=== PATIENT | male | born 1945 | race Caucasian/White ===

== ENCOUNTER 2017-05-20 22:29 | Inpatient (IN) | payer MEDICARE, OTHER ==
[~2017-05-20] VITALS: Ht 170.2 cm; Wt 59.0 kg
[2017-05-20] MEDS ORDERED: METHYL SALICYLATE/MENTHOL TOPICAL OINTMENT 29GM TUBE. TP PRN (23:00)
[2017-05-20] MEDS ORDERED: MAG HYDROX/AL HYDROX/SIMETH 30 ML ORAL.SUSP PO PRN (23:00)
[2017-05-20] MEDS ORDERED: MAGNESIUM HYDROXIDE 2,400 MG/30 ML ORAL.SUSP. PO PRN (23:00)
[2017-05-20] MEDS ORDERED: LISI-334 PO (23:24)
[2017-05-20] MEDS ORDERED: METF500T PO (23:24)
[2017-05-20] MEDS ORDERED: RISP0.5T24 PO (23:24)
[2017-05-20] MEDS ORDERED: OXYC-323 PO (23:24)
[2017-05-20] MEDS ORDERED: DULO60CA6 PO (23:24)
[2017-05-20] MEDS ORDERED: CYCL-331 PO (23:24)
[2017-05-20] MEDS ORDERED: METO25TA4 PO (23:24)
[2017-05-20] MEDS ORDERED: ALLO300T PO (23:24)
[2017-05-20] MEDS ORDERED: PANT40TA3 PO (23:24)
[2017-05-20] MEDS ORDERED: SENN1TAB7 PO (23:24)
[2017-05-20] MEDS ORDERED: LEVO25TA4 PO (23:24)
[2017-05-20] MEDS ORDERED: CYAN100T PO (23:24)
[2017-05-20] MEDS ORDERED: ASPI-630 PO (23:24)
[2017-05-20] MEDS ORDERED: GABA-586 PO (23:24)
[2017-05-20] MEDS ORDERED: HYDR25TA9 PO (23:24)
[2017-05-20] MEDS ORDERED: FERR325T14 PO (23:24)
[2017-05-21 03:30] VITALS: BP 148/95
[2017-05-21 06:07] VITALS: BP 152/90
[2017-05-21] MEDS: LEVOTHYROXINE 25 MCG TABLET. PO SCH (07:24)
[2017-05-21] MEDS: PANTOPRAZOLE 40 MG TABLET. PO SCH ×2 (07:24→16:41)
[2017-05-21] MEDS: metFORMIN 500 MG TABLET PO SCH (07:24)
[2017-05-21 07:28] LABS: BASO # 0.1 x10^3/uL (0.0-0.2); BASO % 2 % (0-3); EOS # 0.2 x10^3/uL (0.0-0.7); EOS % 3 % (0-3); HEMATOCRIT 36.7 % (39.0-53.0); HEMOGLOBIN 12.3 g/dL (13.0-17.5); LYMPH # 1.2 x10^3/uL (1.0-4.8); LYMPH % 19 % (24-48); MEAN CORPUSCULAR HEMOGLOBIN 29 pg (25-35); MEAN CORPUSCULAR HGB CONC 34 g/dL (31-37); MEAN CORPUSCULAR VOLUME 85 fL (79-100); MONO # 0.5 x10^3/uL (0.0-1.1); MONO % 7 % (0-9); NEUT # 4.5 x10^3uL (1.8-7.7); NEUT % 69 % (31-73); PLATELET COUNT 214 x10^3/uL (140-400); RED BLOOD COUNT 4.32 x10^6/uL (4.30-5.70); RED CELL DISTRIBUTION WIDTH 17.8 % (11.5-14.5); WHITE BLOOD COUNT 6.5 x10^3/uL (4.0-11.0)
[2017-05-21 07:41] LABS: ALBUMIN/GLOBULIN RATIO 0.7 (1.0-1.7); CALCIUM 10.1 mg/dL (8.5-10.1); GFR 73.2; MAGNESIUM 1.7 mg/dL (1.8-2.4); TOTAL BILIRUBIN 0.5 mg/dL (0.2-1.0); TOTAL PROTEIN 7.6 g/dL (6.4-8.2)
[2017-05-21] MEDS: NICOTINE 21MG PATCH. TD SCH (09:45)
[2017-05-21] MEDS: CYANOCOBALAMIN (VITAMIN B-12) 100 MCG TABLET PO SCH (09:45)
[2017-05-21] MEDS: SENNOSIDES/DOCUSATE 8.6/50MG TABLET. PO SCH (09:45)
[2017-05-21] MEDS: risperiDONE 0.5 MG TABLET. PO SCH ×3 (09:46→19:55)
[2017-05-21] MEDS: DULoxetine HCL 60 MG CAPSULE.DR PO SCH (09:46)
[2017-05-21] MEDS: GABAPENTIN 300 MG CAPSULE. PO SCH ×2 (09:46→19:56)
[2017-05-21] MEDS: hydroCHLOROthiazide 25 MG TABLET PO SCH (09:46)
[2017-05-21] MEDS: FERROUS SULFATE 325 MG TABLET. PO SCH (09:47)
[2017-05-21] MEDS: METOPROLOL TART IMMED RELEASE 25 MG TABLET PO SCH (09:47)
[2017-05-21] MEDS: ASPIRIN 81 MG TAB.CHEW PO SCH (09:47)
[2017-05-21] MEDS: LISINOPRIL 20 MG TABLET PO SCH ×2 (09:48→19:56)
[2017-05-21] MEDS: ALLOPURINOL 300 MG TABLET. PO SCH (09:50)
[2017-05-21 15:09] LABS: THYROID STIM HORMONE (TSH) 4.777 uIU/mL (0.358-3.740)
[2017-05-21 16:22] VITALS: BP 133/77
--- NOTE | 2017-05-21 18:51 | PDOC ---
Exam Note: Nabeel Note: Please also refer to the separate dictated note~for this date of service dictated separately.~Patient seen individually. Discussed the patient with Nursing staff reviewed the chart.~Reviewed interim history and current functioning. Reviewed vital signs,~Labs/ Radiology~and current medications noted below. Continue current treatment with the changes noted in the dictated addendum note Assessment: Vital Signs: Vital Signs Date Time Temp Pulse Resp B/P (MAP) Pulse Ox O2 Delivery O2 Flow Rate FiO2 05/21/17 16:22 97.5 76 18 133/77 (95) 97 Room Air I&O Intake and Output 05/21/17 07:00 Intake Total 0 ml Balance 0 ml Intake Oral 0 ml Labs: Laboratory Tests Test 05/21/17 06:48 05/21/17 07:40 White Blood Count 6.5 x10^3/uL (4.0-11.0) Red Blood Count 4.32 x10^6/uL (4.30-5.70) Hemoglobin 12.3 g/dL (13.0-17.5) L Hematocrit 36.7 % (39.0-53.0) L Mean Corpuscular Volume 85 fL (79-100) Mean Corpuscular Hemoglobin 29 pg (25-35) Mean Corpuscular Hemoglobin Concent 34 g/dL (31-37) Red Cell Distribution Width 17.8 % (11.5-14.5) H Platelet Count 214 x10^3/uL (140-400) Neutrophils (%) (Auto) 69 % (31-73) Lymphocytes (%) (Auto) 19 % (24-48) L Monocytes (%) (Auto) 7 % (0-9) Eosinophils (%) (Auto) 3 % (0-3) Basophils (%) (Auto) 2 % (0-3) Neutrophils # (Auto) 4.5 x10^3uL (1.8-7.7) Lymphocytes # (Auto) 1.2 x10^3/uL (1.0-4.8) Monocytes # (Auto) 0.5 x10^3/uL (0.0-1.1) Eosinophils # (Auto) 0.2 x10^3/uL (0.0-0.7) Basophils # (Auto) 0.1 x10^3/uL (0.0-0.2) Sodium Level 139 mmol/L (136-145) Potassium Level 4.0 mmol/L (3.5-5.1) Chloride Level 101 mmol/L (98-107) Carbon Dioxide Level 29 mmol/L (21-32) Anion Gap 9 (6-14) Blood Urea Nitrogen 15 mg/dL (8-26) Creatinine 1.0 mg/dL (0.7-1.3) Estimated GFR (Cockcroft-Gault) 73.2 BUN/Creatinine Ratio 15 (6-20) Glucose Level 104 mg/dL (70-99) H Calcium Level 10.1 mg/dL (8.5-10.1) Magnesium Level 1.7 mg/dL (1.8-2.4) L Iron Level 86 ug/dL (65-175) Total Iron Binding Capacity 230 ug/dL (250-450) L Iron Saturation 37 % (15-34) H Total Bilirubin 0.5 mg/dL (0.2-1.0) Aspartate Amino Transferase (AST) 24 U/L (15-37) Alanine Aminotransferase (ALT) 9 U/L (16-63) L Alkaline Phosphatase 81 U/L (46-116) Total Protein 7.6 g/dL (6.4-8.2) Albumin 3.0 g/dL (3.4-5.0) L Albumin/Globulin Ratio 0.7 (1.0-1.7) L Triglycerides Level 281 mg/dL (0-150) H Cholesterol Level 272 mg/dL (0-200) H LDL Cholesterol, Calculated 184 mg/dL (0-100) H VLDL Cholesterol, Calculated 56 mg/dL (0-40) H Non-HDL Cholesterol Calculated 240 mg/dL (0-129) H HDL Cholesterol 32 mg/dL (40-60) L Cholesterol/HDL Ratio 8.0 Thyroid Stimulating Hormone (TSH) 4.777 uIU/mL (0.358-3.740) Glucose (Fingerstick) 108 mg/dL (70-99) H Current Medications: Meds: Current Medications Multi-Ingredient Ointment (Analgesic [place]) 1 geovanna PRN QID PRN TP MUSCLE PAIN; Start 05/20/17 at 23:00 Al Hydroxide/Mg Hydroxide (Mylanta Plus Xs) 15 ml PRN AFTMEALHC PRN PO DYSPEPSIA; Start 05/20/17 at 23:00 Magnesium Hydroxide (Milk Of Magnesia) 2,400 mg PRN QHS PRN PO CONSTIPATION; Start 05/20/17 at 23:00 Nicotine (Nicoderm Cq 21mg) 1 patch DAILY TD Last administered on 05/21/17 09: 45; Start 05/21/17 at 09:00 Duloxetine HCl (Cymbalta) 120 mg DAILY PO Last administered on 05/21/17 09:46 ; Start 05/21/17 at 09:00 Risperidone (RisperDAL) 0.5 mg TID PO Last administered on 05/21/17 14:02; Start 05/21/17 at 09:00 Allopurinol (Zyloprim) 300 mg DAILY PO Last administered on 05/21/17 09:50; Start 05/21/17 at 09:00 Aspirin (Children'S Aspirin) 81 mg DAILY PO Last administered on 05/21/17 09: 47; Start 05/21/17 at 09:00 Cyanocobalamin (Vitamin B-12) 100 mcg DAILY PO Last administered on 05/21/17 09:45; Start 05/21/17 at 09:00 Cyclobenzaprine HCl (Flexeril) 10 mg PRN DAILY PRN PO MUSCLE SPASMS; Start at 04:00 Ferrous Sulfate (Feosol) 325 mg DAILY PO Last administered on 05/21/17 09:47; Start 05/21/17 at 09:00 Gabapentin (Neurontin) 300 mg BID PO Last administered on 05/21/17 09:46; Start 05/21/17 at 09:00 Hydrochlorothiazide (Hydrodiuril) 25 mg DAILY PO Last administered on 09:46; Start 05/21/17 at 09:00 Levothyroxine Sodium (Synthroid) 25 mcg DAILY07 PO Last administered on 07:24; Start 05/21/17 at 07:00 Lisinopril (Prinivil) 20 mg BID PO Last administered on 05/21/17 09:48; Start 05/21/17 at 09:00 Metformin HCl (Glucophage) 500 mg DAILYWBKFT PO Last administered on 05/21/17at 07:24; Start 05/21/17 at 08:00 Metoprolol Tartrate (Lopressor) 25 mg DAILY PO Last administered on 05/21/17at 09:47; Start 05/21/17 at 09:00 Pantoprazole Sodium (Protonix) 40 mg BIDBFRMEAL PO Last administered on at 16:41; Start 05/21/17 at 07:30 Senna/Docusate Sodium (Senna Plus) 1 tab DAILY PO Last administered on at 09:45; Start 05/21/17 at 09:00 Active Scripts Active Reported Senna-Docusate Sodium Tablet (Sennosides/Docusate Sodium) 1 Each Tablet 1 Cap PO DAILY Risperdal (Risperidone) 0.5 Mg Tablet 0.5 Mg PO TID Protonix (Pantoprazole Sodium) 40 Mg Tablet.dr 40 Mg PO BID Percocet 5-325 Mg Tablet (Oxycodone Hcl/Acetaminophen) 1 Each Tablet 1 Tab PO PRN TID PRN Metoprolol Tartrate 25 Mg Tablet 25 Mg PO DAILY Glucophage (Metformin Hcl) 500 Mg Tablet 500 Mg PO DAILYWBKFT Lisinopril 20 Mg Tablet 20 Mg PO BID Levothyroxine Sodium 25 Mcg Tablet 25 Mcg PO DAILYAC Hydrochlorothiazide Tablet (Hydrochlorothiazide) 25 Mg Tablet 25 Mg PO DAILY Gabapentin 300 Mg Capsule 300 Mg PO BID Ferrous Sulfate 325 Mg Tablet 325 Mg PO DAILY Cymbalta (Duloxetine Hcl) 60 Mg Capsule.dr 120 Mg PO Cyclobenzaprine Hcl 10 Mg Tablet 10 Mg PO PRN DAILY PRN Vitamin B-12 (Cyanocobalamin (Vitamin B-12)) 100 Mcg Tablet 100 Mcg PO DAILY Aspirin 81 Mg Tab.chew 81 Mg PO DAILY Allopurinol 300 Mg Tablet 300 Mg PO DAILY I have reviewed the current psychotropics carefully including drug interactions. Risk benefit ratio favors no change other than as noted in my dictated progress note. Diagnosis: Problems: (1) Anxiety disorder (2) Bipolar affective, mixed (3) Cerebrovascular accident (CVA) due to vascular occlusion (4) Mild cognitive impairment (5) Impulse control disorder MELISSA CARDOZO MD May 21, 2017 18:51
[2017-05-21 19:52] LABS: CLARITY,URINE HAZY; COLOR,URINE YELLOW
[2017-05-21 19:53] LABS: BACTERIA,URINE 0 /HPF (0-FEW); BILIRUBIN,URINE NEG (NEG); GLUCOSE,URINE NEG (NEG); NITRITE,URINE NEG (NEG); SQUAMOUS EPITHELIAL CELL,UR FEW /LPF; UROBILINOGEN,URINE 0.2 mg/dL (0.2 mg/dL); WBC,URINE OCC /HPF (0-4)
[2017-05-21 20:10] LABS: T3 TOTAL 100 ng/dL (71-180); THYROXINE 8.7 ug/dL (4.5-12.0)
--- NOTE | 2017-05-21 20:24 | PDOC ---
Exam Note: Nabeel Note: Please also refer to the separate dictated note~for this date of service dictated separately.~Patient seen individually. Discussed the patient with Nursing staff reviewed the chart.~Reviewed interim history and current functioning. Reviewed vital signs,~Labs/ Radiology~and current medications noted below. Continue current treatment with the changes noted in the dictated addendum note Assessment: Vital Signs: Vital Signs Date Time Temp Pulse Resp B/P (MAP) Pulse Ox O2 Delivery O2 Flow Rate FiO2 05/21/17 19:56 76 133/77 05/21/17 16:22 97.5 18 97 Room Air I&O Intake and Output 05/21/17 07:00 Intake Total 0 ml Balance 0 ml Intake Oral 0 ml Labs: Laboratory Tests Test 05/21/17 06:48 05/21/17 07:40 05/21/17 18:05 White Blood Count 6.5 x10^3/uL (4.0-11.0) Red Blood Count 4.32 x10^6/uL (4.30-5.70) Hemoglobin 12.3 g/dL (13.0-17.5) L Hematocrit 36.7 % (39.0-53.0) L Mean Corpuscular Volume 85 fL (79-100) Mean Corpuscular Hemoglobin 29 pg (25-35) Mean Corpuscular Hemoglobin Concent 34 g/dL (31-37) Red Cell Distribution Width 17.8 % (11.5-14.5) H Platelet Count 214 x10^3/uL (140-400) Neutrophils (%) (Auto) 69 % (31-73) Lymphocytes (%) (Auto) 19 % (24-48) L Monocytes (%) (Auto) 7 % (0-9) Eosinophils (%) (Auto) 3 % (0-3) Basophils (%) (Auto) 2 % (0-3) Neutrophils # (Auto) 4.5 x10^3uL (1.8-7.7) Lymphocytes # (Auto) 1.2 x10^3/uL (1.0-4.8) Monocytes # (Auto) 0.5 x10^3/uL (0.0-1.1) Eosinophils # (Auto) 0.2 x10^3/uL (0.0-0.7) Basophils # (Auto) 0.1 x10^3/uL (0.0-0.2) Sodium Level 139 mmol/L (136-145) Potassium Level 4.0 mmol/L (3.5-5.1) Chloride Level 101 mmol/L (98-107) Carbon Dioxide Level 29 mmol/L (21-32) Anion Gap 9 (6-14) Blood Urea Nitrogen 15 mg/dL (8-26) Creatinine 1.0 mg/dL (0.7-1.3) Estimated GFR (Cockcroft-Gault) 73.2 BUN/Creatinine Ratio 15 (6-20) Glucose Level 104 mg/dL (70-99) H Calcium Level 10.1 mg/dL (8.5-10.1) Magnesium Level 1.7 mg/dL (1.8-2.4) L Iron Level 86 ug/dL (65-175) Total Iron Binding Capacity 230 ug/dL (250-450) L Iron Saturation 37 % (15-34) H Total Bilirubin 0.5 mg/dL (0.2-1.0) Aspartate Amino Transferase (AST) 24 U/L (15-37) Alanine Aminotransferase (ALT) 9 U/L (16-63) L Alkaline Phosphatase 81 U/L (46-116) Total Protein 7.6 g/dL (6.4-8.2) Albumin 3.0 g/dL (3.4-5.0) L Albumin/Globulin Ratio 0.7 (1.0-1.7) L Triglycerides Level 281 mg/dL (0-150) H Cholesterol Level 272 mg/dL (0-200) H LDL Cholesterol, Calculated 184 mg/dL (0-100) H VLDL Cholesterol, Calculated 56 mg/dL (0-40) H Non-HDL Cholesterol Calculated 240 mg/dL (0-129) H HDL Cholesterol 32 mg/dL (40-60) L Cholesterol/HDL Ratio 8.0 Thyroid Stimulating Hormone (TSH) 4.777 uIU/mL (0.358-3.740) Thyroxine (T4) 8.7 ug/dL (4.5-12.0) Total Triiodothyronine (TT3) 100 ng/dL (71-180) Rapid Plasma Reagin Pending Glucose (Fingerstick) 108 mg/dL (70-99) H Urine Collection Type Unknown Urine Color Yellow Urine Clarity Hazy Urine pH 7.0 Urine Specific Hazel 1.010 Urine Protein Neg (NEG-TRACE) Urine Glucose (UA) Neg mg/dL (NEG) Urine Ketones (Stick) Neg mg/dL (NEG) Urine Blood Trace (NEG) Urine Nitrite Neg (NEG) Urine Bilirubin Neg (NEG) Urine Urobilinogen Dipstick 0.2 mg/dL (0.2 mg/dL) Urine Leukocyte Esterase Neg (NEG) Urine RBC 3-5 /HPF (0-2) Urine WBC Occ /HPF (0-4) Urine Squamous Epithelial Cells Few /LPF Urine Bacteria 0 /HPF (0-FEW) Current Medications: Meds: Current Medications Multi-Ingredient Ointment (Analgesic [place]) 1 geovanna PRN QID PRN TP MUSCLE PAIN; Start 05/20/17 at 23:00 Al Hydroxide/Mg Hydroxide (Mylanta Plus Xs) 15 ml PRN AFTMEALHC PRN PO DYSPEPSIA; Start 05/20/17 at 23:00 Magnesium Hydroxide (Milk Of Magnesia) 2,400 mg PRN QHS PRN PO CONSTIPATION; Start 05/20/17 at 23:00 Nicotine (Nicoderm Cq 21mg) 1 patch DAILY TD Last administered on 05/21/17at 09: 45; Start 05/21/17 at 09:00 Duloxetine HCl (Cymbalta) 120 mg DAILY PO Last administered on 05/21/17at 09:46 ; Start 05/21/17 at 09:00 Risperidone (RisperDAL) 0.5 mg TID PO Last administered on 05/21/17at 19:55; Start 05/21/17 at 09:00 Allopurinol (Zyloprim) 300 mg DAILY PO Last administered on 05/21/17at 09:50; Start 05/21/17 at 09:00 Aspirin (Children'S Aspirin) 81 mg DAILY PO Last administered on 05/21/17at 09: 47; Start 05/21/17 at 09:00 Cyanocobalamin (Vitamin B-12) 100 mcg DAILY PO Last administered on 05/21/17at 09:45; Start 05/21/17 at 09:00 Cyclobenzaprine HCl (Flexeril) 10 mg PRN DAILY PRN PO MUSCLE SPASMS; Start at 04:00 Ferrous Sulfate (Feosol) 325 mg DAILY PO Last administered on 05/21/17 09:47; Start 05/21/17 at 09:00 Gabapentin (Neurontin) 300 mg BID PO Last administered on 05/21/17 19:56; Start 05/21/17 at 09:00 Hydrochlorothiazide (Hydrodiuril) 25 mg DAILY PO Last administered on 09:46; Start 05/21/17 at 09:00 Levothyroxine Sodium (Synthroid) 25 mcg DAILY07 PO Last administered on 07:24; Start 05/21/17 at 07:00 Lisinopril (Prinivil) 20 mg BID PO Last administered on 05/21/17 19:56; Start 05/21/17 at 09:00 Metformin HCl (Glucophage) 500 mg DAILYWBKFT PO Last administered on 05/21/17 07:24; Start 05/21/17 at 08:00 Metoprolol Tartrate (Lopressor) 25 mg DAILY PO Last administered on 05/21/17 09:47; Start 05/21/17 at 09:00 Pantoprazole Sodium (Protonix) 40 mg BIDBFRMEAL PO Last administered on 16:41; Start 05/21/17 at 07:30 Senna/Docusate Sodium (Senna Plus) 1 tab DAILY PO Last administered on 09:45; Start 05/21/17 at 09:00 Active Scripts Active Reported Senna-Docusate Sodium Tablet (Sennosides/Docusate Sodium) 1 Each Tablet 1 Cap PO DAILY Risperdal (Risperidone) 0.5 Mg Tablet 0.5 Mg PO TID Protonix (Pantoprazole Sodium) 40 Mg Tablet.dr 40 Mg PO BID Percocet 5-325 Mg Tablet (Oxycodone Hcl/Acetaminophen) 1 Each Tablet 1 Tab PO PRN TID PRN Metoprolol Tartrate 25 Mg Tablet 25 Mg PO DAILY Glucophage (Metformin Hcl) 500 Mg Tablet 500 Mg PO DAILYWBKFT Lisinopril 20 Mg Tablet 20 Mg PO BID Levothyroxine Sodium 25 Mcg Tablet 25 Mcg PO DAILYAC Hydrochlorothiazide Tablet (Hydrochlorothiazide) 25 Mg Tablet 25 Mg PO DAILY Gabapentin 300 Mg Capsule 300 Mg PO BID Ferrous Sulfate 325 Mg Tablet 325 Mg PO DAILY Cymbalta (Duloxetine Hcl) 60 Mg Capsule. 120 Mg PO Cyclobenzaprine Hcl 10 Mg Tablet 10 Mg PO PRN DAILY PRN Vitamin B-12 (Cyanocobalamin (Vitamin B-12)) 100 Mcg Tablet 100 Mcg PO DAILY Aspirin 81 Mg Tab.chew 81 Mg PO DAILY Allopurinol 300 Mg Tablet 300 Mg PO DAILY I have reviewed the current psychotropics carefully including drug interactions. Risk benefit ratio favors no change other than as noted in my dictated progress note. Diagnosis: Problems: (1) Anxiety disorder (2) Impulse control disorder (3) Bipolar affective, mixed (4) Mild cognitive impairment (5) Cerebrovascular accident (CVA) due to vascular occlusion MELISSA CARDOZO MD May 21, 2017 20:24
[2017-05-21 20:52] LABS: HYALINE CASTS, URINE OCC /HPF
--- NOTE | 2017-05-21 23:57 | CONS ---
DATE OF CONSULTATION: 05/21/2017 REASON FOR CONSULTATION: Medical management. HISTORY OF PRESENT ILLNESS: The patient is a 71-year-old male patient who basically has been more agitated with anger outbursts, verbally and physically aggressive, all this in a background of bipolar disorder, mixed with psychotic features and impulse control disorder and was admitted for inpatient psychiatric stabilization. PAST MEDICAL HISTORY: Significant for hypertension, abdominal aortic aneurysm, cerebrovascular accident, COPD, gastroesophageal reflux disease, hypothyroidism. SOCIAL HISTORY: He apparently lives at home. His ex- takes care of him. FAMILY HISTORY: Significant for the fact that his mother at age of 77 and father at age of 75. His mother had chronic obstructive pulmonary disease as well as diabetes mellitus. His father had cardiac disorder, diabetes mellitus. ALLERGIES: He is allergic to ERYTHROMYCIN GEMFIBROZIL, LOVASTATIN, SIMVASTATIN, and TRAMADOL. MEDICATIONS: He is currently on following medications: He is on allopurinol 300 mg once a day, aspirin 81 mg once a day, cyanocobalamin 100 mcg tablet once a day, cyclobenzaprine 10 mg daily p.r.n. for muscle spasm, duloxetine for Cymbalta 120 mg daily, ferrous sulfate 325 mg daily, gabapentin 300 mg twice a day, hydrochlorothiazide 25 mg once a day, levothyroxine sodium 25 mcg once a day, lisinopril 20 mg once a day, metformin 500 mg daily with breakfast, metoprolol tartrate 25 mg daily, oxycodone/CPAP 5/325 one tablet 3 times a day as needed, Protonix 40 mg once a day, risperidone 0.5 mg 3 times a day, and Senna-S one capsule daily. REVIEW OF SYSTEMS: As in history of present illness. PHYSICAL EXAMINATION: GENERAL: On examining him, he was pale, somewhat cachectic, but no jaundice, cyanosis, or thyromegaly. No jugular venous distension. No limb edema. VITAL SIGNS: His heart rate was 76, blood pressure was 132/77, temperature was 97.5, respiratory rate was 18, and oxygen saturation was 97%. HEAD, EYES, EAR, NOSE, AND THROAT: Normocephalic, atraumatic. NECK: Supple. HEART: Showed normal first and second heart sounds with no gallop, rub, or murmur. CHEST: Clear to auscultation. No crepitation or rhonchi. ABDOMEN: Distended, soft, nontender. NEUROLOGIC: He is awake, alert. All his cranial nerves are intact. He moves extremities without difficulty, ambulates without assistance or assistive devices. LABORATORY DATA: Showed a white cell count 6500, hemoglobin 12, hematocrit 36, MCV 85, and platelet count of 214,000. His chemistry showed serum sodium of 139, potassium 4, chloride 101, bicarbonate 29, anion gap of 9, BUN 15, creatinine 1, estimated GFR was 73 mL per minute, glucose 104. His calcium was 7.1, magnesium was 1.7. Serum iron was 86, TIBC was 230, and percent saturation was 37. Total bilirubin, AST, ALT, alkaline phosphatase were normal. Total protein was 7.6, albumin 3, serum triglycerides were 281. Total cholesterol was 172, LDL was 184, VLDL was 56, and HDL cholesterol 32, and the ratio was 8. TSH was 4.77. IMPRESSION: In summary, this is a 71-year-old male patient who basically was seen originally at [facility] with the account of increasing agitation, anger outbursts, verbally and physically aggressive. He has multiple medical problems including hypertension, abdominal aortic aneurysm, cerebrovascular accident, COPD, gastroesophageal reflux disease, and hypothyroidism. All in all, the patient seemed to be medically stable. His vital signs are within normal range. His lab works are all within acceptable range. I will continue with current plan of management. I will follow all his lab works that are still pending and make any necessary recommendation. Thank you, Dr. De La Vega, for allowing me to participate in the care of this patient. MARCELLUS LOPEZ MD DR: GUILLERMO/daniel JOB#: [id number] / [id number]
[2017-05-22 03:18] LABS: HEMOGLOBIN A1C 6.3 % (4.8-5.6)
[2017-05-22 05:58] VITALS: BP 119/80
[2017-05-22] MEDS: LEVOTHYROXINE 25 MCG TABLET. PO SCH (06:01)
[2017-05-22] MEDS: GABAPENTIN 300 MG CAPSULE. PO SCH ×2 (07:52→19:39)
[2017-05-22] MEDS: risperiDONE 0.5 MG TABLET. PO SCH ×3 (07:52→19:39)
[2017-05-22] MEDS: metFORMIN 500 MG TABLET PO SCH (07:52)
[2017-05-22] MEDS: SENNOSIDES/DOCUSATE 8.6/50MG TABLET. PO SCH (07:52)
[2017-05-22] MEDS: NICOTINE 21MG PATCH. TD SCH (07:52)
[2017-05-22] MEDS: DULoxetine HCL 60 MG CAPSULE.DR PO SCH (07:52)
[2017-05-22] MEDS: ASPIRIN 81 MG TAB.CHEW PO SCH (07:52)
[2017-05-22] MEDS: hydroCHLOROthiazide 25 MG TABLET PO SCH (07:53)
[2017-05-22] MEDS: FERROUS SULFATE 325 MG TABLET. PO SCH (07:53)
[2017-05-22] MEDS: METOPROLOL TART IMMED RELEASE 25 MG TABLET PO SCH (07:53)
[2017-05-22] MEDS: ALLOPURINOL 300 MG TABLET. PO SCH (07:54)
[2017-05-22] MEDS: PANTOPRAZOLE 40 MG TABLET. PO SCH ×2 (07:54→17:01)
[2017-05-22] MEDS: LISINOPRIL 20 MG TABLET PO SCH ×2 (07:54→19:39)
[2017-05-22] MEDS: CYANOCOBALAMIN (VITAMIN B-12) 100 MCG TABLET PO SCH (07:56)
[2017-05-22 15:46] VITALS: BP 100/68
--- NOTE | 2017-05-22 20:30 | PDOC ---
Exam Note: Nabeel Note: Please also refer to the separate dictated note~for this date of service dictated separately.~Patient seen individually. Discussed the patient with Nursing staff reviewed the chart.~Reviewed interim history and current functioning. Reviewed vital signs,~Labs/ Radiology~and current medications noted below. Continue current treatment with the changes noted in the dictated addendum note Assessment: Vital Signs: Vital Signs Date Time Temp Pulse Resp B/P (MAP) Pulse Ox O2 Delivery O2 Flow Rate FiO2 05/22/17 19:39 75 100/68 05/22/17 15:46 98.1 20 94 05/21/17 16:22 Room Air I&O Intake and Output 05/22/17 07:00 Intake Total 600 ml Balance 600 ml Intake Oral 600 ml Labs: Laboratory Tests Test 05/22/17 07:36 Glucose (Fingerstick) 126 mg/dL (70-99) H Current Medications: Meds: Current Medications Multi-Ingredient Ointment (Analgesic [place]) 1 geovanna PRN QID PRN TP MUSCLE PAIN; Start 05/20/17 at 23:00 Al Hydroxide/Mg Hydroxide (Mylanta Plus Xs) 15 ml PRN AFTMEALHC PRN PO DYSPEPSIA; Start 05/20/17 at 23:00 Magnesium Hydroxide (Milk Of Magnesia) 2,400 mg PRN QHS PRN PO CONSTIPATION; Start 05/20/17 at 23:00 Nicotine (Nicoderm Cq 21mg) 1 patch DAILY TD Last administered on 05/22/17at 07: 52; Start 05/21/17 at 09:00 Duloxetine HCl (Cymbalta) 120 mg DAILY PO Last administered on 05/22/17at 07:52 ; Start 05/21/17 at 09:00 Risperidone (RisperDAL) 0.5 mg TID PO Last administered on 05/22/17at 13:59; Start 05/21/17 at 09:00; Stop 05/22/17 at 18:42; Status DC Allopurinol (Zyloprim) 300 mg DAILY PO Last administered on 05/22/17at 07:54; Start 05/21/17 at 09:00 Aspirin (Children'S Aspirin) 81 mg DAILY PO Last administered on 05/22/17at 07: 52; Start 05/21/17 at 09:00 Cyanocobalamin (Vitamin B-12) 100 mcg DAILY PO Last administered on 05/22/17 07:56; Start 05/21/17 at 09:00 Cyclobenzaprine HCl (Flexeril) 10 mg PRN DAILY PRN PO MUSCLE SPASMS; Start at 04:00 Ferrous Sulfate (Feosol) 325 mg DAILY PO Last administered on 05/22/17 07:53; Start 05/21/17 at 09:00 Gabapentin (Neurontin) 300 mg BID PO Last administered on 05/22/17 19:39; Start 05/21/17 at 09:00 Hydrochlorothiazide (Hydrodiuril) 25 mg DAILY PO Last administered on 07:53; Start 05/21/17 at 09:00 Levothyroxine Sodium (Synthroid) 25 mcg DAILY07 PO Last administered on 06:01; Start 05/21/17 at 07:00 Lisinopril (Prinivil) 20 mg BID PO Last administered on 05/22/17 19:39; Start 05/21/17 at 09:00 Metformin HCl (Glucophage) 500 mg DAILYWBKFT PO Last administered on 05/22/17 07:52; Start 05/21/17 at 08:00 Metoprolol Tartrate (Lopressor) 25 mg DAILY PO Last administered on 05/22/17 07:53; Start 05/21/17 at 09:00 Pantoprazole Sodium (Protonix) 40 mg BIDBFRMEAL PO Last administered on 17:01; Start 05/21/17 at 07:30 Senna/Docusate Sodium (Senna Plus) 1 tab DAILY PO Last administered on 07:52; Start 05/21/17 at 09:00 Risperidone (RisperDAL) 0.5 mg BID PO Last administered on 05/22/17 19:39; Start 05/22/17 at 21:00 Active Scripts Active Reported Senna-Docusate Sodium Tablet (Sennosides/Docusate Sodium) 1 Each Tablet 1 Cap PO DAILY Risperdal (Risperidone) 0.5 Mg Tablet 0.5 Mg PO TID Protonix (Pantoprazole Sodium) 40 Mg Tablet.dr 40 Mg PO BID Percocet 5-325 Mg Tablet (Oxycodone Hcl/Acetaminophen) 1 Each Tablet 1 Tab PO PRN TID PRN Metoprolol Tartrate 25 Mg Tablet 25 Mg PO DAILY Glucophage (Metformin Hcl) 500 Mg Tablet 500 Mg PO DAILYWBKFT Lisinopril 20 Mg Tablet 20 Mg PO BID Levothyroxine Sodium 25 Mcg Tablet 25 Mcg PO DAILYAC Hydrochlorothiazide Tablet (Hydrochlorothiazide) 25 Mg Tablet 25 Mg PO DAILY Gabapentin 300 Mg Capsule 300 Mg PO BID Ferrous Sulfate 325 Mg Tablet 325 Mg PO DAILY Cymbalta (Duloxetine Hcl) 60 Mg Capsule.dr 120 Mg PO Cyclobenzaprine Hcl 10 Mg Tablet 10 Mg PO PRN DAILY PRN Vitamin B-12 (Cyanocobalamin (Vitamin B-12)) 100 Mcg Tablet 100 Mcg PO DAILY Aspirin 81 Mg Tab.chew 81 Mg PO DAILY Allopurinol 300 Mg Tablet 300 Mg PO DAILY I have reviewed the current psychotropics carefully including drug interactions. Risk benefit ratio favors no change other than as noted in my dictated progress note. Diagnosis: Problems: (1) Anxiety disorder (2) Impulse control disorder (3) Bipolar affective, mixed (4) Mild cognitive impairment (5) Cerebrovascular accident (CVA) due to vascular occlusion MELISSA CARDOZO MD May 22, 2017 20:30
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
--- NOTE | 2017-05-23 03:57 | PN ---
DATE: 05/22/2017 This note covers elements not covered in my initial note 05/22/2017. Met with the patient in the evening of 05/22/2017 at great length in his room. Per nursing report, the patient slept 8-1/4 hours previous night, was up at midnight, anxious, restless. He admits to being depressed, talked at great length about coming back from [place] and finding that his entire family, siblings, and sister had disintegrated. He could not trace them. States this was very overwhelming for him in addition to distress and trauma of service in [place]. He believes he had a psychotic break at that time. Further review of his history is suggestive of bipolar disorder, symptoms of PTSD as detailed in my initial note. He has had CVAs, remains on Risperdal 0.5 mg 3 times a day adding a significant risk factor to the CVA. REVIEW OF SYSTEMS: No CV, , pulmonary, eye system symptoms on review. Reliability fair. MENTAL STATUS EXAM: I sat with him on his bed in his room. He is very verbal, open, forthcoming, tearful, sad and labile in his mood. Speech coherent, abstraction fair, computation impaired, language function intact, attention span short. Mood and affect remain somewhat labile. LABORATORY DATA: Reviewed. Denies active suicidal or homicidal ideation. IMPRESSION: Bipolar 1 disorder, mixed with psychotic features, posttraumatic stress disorder, mild cognitive impairment, history of traumatic brain injury status post cerebrovascular accident. Rest unchanged from admission. PLAN: Continue Cymbalta 120 mg a day, reduce Risperdal from 0.5 mg 3 times a day down to twice a day. Consider adding Depakote as a mood stabilizer. Reviewed drug interaction at length. We will reassess further changes in psychotropics depending on initial progress. MAN Celeste CARDOZO MD DR: MILTON/daniel JOB#: [id number] / [id number]
[2017-05-23 06:02] VITALS: BP 118/67
[2017-05-23] MEDS: LEVOTHYROXINE 25 MCG TABLET. PO SCH (06:22)
[2017-05-23] MEDS: metFORMIN 500 MG TABLET PO SCH (08:52)
[2017-05-23] MEDS: PANTOPRAZOLE 40 MG TABLET. PO SCH ×2 (08:52→17:27)
[2017-05-23] MEDS: hydroCHLOROthiazide 25 MG TABLET PO SCH (08:53)
[2017-05-23] MEDS: DULoxetine HCL 60 MG CAPSULE.DR PO SCH (08:53)
[2017-05-23] MEDS: FERROUS SULFATE 325 MG TABLET. PO SCH (08:53)
[2017-05-23] MEDS: ASPIRIN 81 MG TAB.CHEW PO SCH (08:53)
[2017-05-23] MEDS: risperiDONE 0.5 MG TABLET. PO SCH (08:55)
[2017-05-23] MEDS: GABAPENTIN 300 MG CAPSULE. PO SCH ×2 (08:55→21:39)
[2017-05-23] MEDS: SENNOSIDES/DOCUSATE 8.6/50MG TABLET. PO SCH (08:56)
[2017-05-23] MEDS: NICOTINE 21MG PATCH. TD SCH (08:57)
[2017-05-23] MEDS: ALLOPURINOL 300 MG TABLET. PO SCH (08:57)
[2017-05-23] MEDS: CYANOCOBALAMIN (VITAMIN B-12) 100 MCG TABLET PO SCH (08:57)
[2017-05-23] MEDS: LISINOPRIL 20 MG TABLET PO SCH ×2 (09:00→21:40)
[2017-05-23] MEDS: METOPROLOL TART IMMED RELEASE 25 MG TABLET PO SCH (09:00)
[2017-05-23] MEDS ORDERED: ACETAMINOPHEN 325 MG TABLET PO PRN (09:15)
[2017-05-23 15:53] VITALS: BP 111/82
--- NOTE | 2017-05-23 16:08 | PDOC ---
Exam Note: Nbaeel Note: Please also refer to the separate dictated note~for this date of service dictated separately.~Patient seen individually. Discussed the patient with Nursing staff reviewed the chart.~Reviewed interim history and current functioning. Reviewed vital signs,~Labs/ Radiology~and current medications noted below. Continue current treatment with the changes noted in the dictated addendum note Assessment: Vital Signs: Vital Signs Date Time Temp Pulse Resp B/P (MAP) Pulse Ox O2 Delivery O2 Flow Rate FiO2 05/23/17 15:53 97.2 97 16 111/82 (92) 94 Room Air I&O Intake and Output 05/23/17 07:00 Intake Total 960 ml Balance 960 ml Intake Oral 960 ml Labs: Laboratory Tests Test 05/23/17 07:27 Glucose (Fingerstick) 110 mg/dL (70-99) H Current Medications: Meds: Current Medications Multi-Ingredient Ointment (Analgesic [place]) 1 geovanna PRN QID PRN TP MUSCLE PAIN; Start 05/20/17 at 23:00 Al Hydroxide/Mg Hydroxide (Mylanta Plus Xs) 15 ml PRN AFTMEALHC PRN PO DYSPEPSIA; Start 05/20/17 at 23:00 Magnesium Hydroxide (Milk Of Magnesia) 2,400 mg PRN QHS PRN PO CONSTIPATION; Start 05/20/17 at 23:00 Nicotine (Nicoderm Cq 21mg) 1 patch DAILY TD Last administered on 05/23/17at 08: 57; Start 05/21/17 at 09:00 Duloxetine HCl (Cymbalta) 120 mg DAILY PO Last administered on 05/23/17at 08:53 ; Start 05/21/17 at 09:00 Risperidone (RisperDAL) 0.5 mg TID PO Last administered on 05/22/17at 13:59; Start 05/21/17 at 09:00; Stop 05/22/17 at 18:42; Status DC Allopurinol (Zyloprim) 300 mg DAILY PO Last administered on 05/23/17at 08:57; Start 05/21/17 at 09:00 Aspirin (Children'S Aspirin) 81 mg DAILY PO Last administered on 05/23/17at 08: 53; Start 05/21/17 at 09:00 Cyanocobalamin (Vitamin B-12) 100 mcg DAILY PO Last administered on 05/23/17at 08:57; Start 05/21/17 at 09:00 Cyclobenzaprine HCl (Flexeril) 10 mg PRN DAILY PRN PO MUSCLE SPASMS; Start at 04:00 Ferrous Sulfate (Feosol) 325 mg DAILY PO Last administered on 05/23/17at 08:53; Start 05/21/17 at 09:00 Gabapentin (Neurontin) 300 mg BID PO Last administered on 05/23/17at 08:55; Start 05/21/17 at 09:00 Hydrochlorothiazide (Hydrodiuril) 25 mg DAILY PO Last administered on at 08:53; Start 05/21/17 at 09:00 Levothyroxine Sodium (Synthroid) 25 mcg DAILY07 PO Last administered on at 06:22; Start 05/21/17 at 07:00 Lisinopril (Prinivil) 20 mg BID PO Last administered on 05/22/17at 19:39; Start 05/21/17 at 09:00 Metformin HCl (Glucophage) 500 mg DAILYWBKFT PO Last administered on 05/23/17at 08:52; Start 05/21/17 at 08:00 Metoprolol Tartrate (Lopressor) 25 mg DAILY PO Last administered on 05/22/17 07:53; Start 05/21/17 at 09:00 Pantoprazole Sodium (Protonix) 40 mg BIDBFRMEAL PO Last administered on at 08:52; Start 05/21/17 at 07:30 Senna/Docusate Sodium (Senna Plus) 1 tab DAILY PO Last administered on at 08:56; Start 05/21/17 at 09:00 Risperidone (RisperDAL) 0.5 mg BID PO Last administered on 05/23/17at 08:55; Start 05/22/17 at 21:00; Stop 05/23/17 at 16:02; Status DC Acetaminophen (Tylenol) 650 mg PRN Q6HRS PRN PO PAIN / TEMP Last administered on 05/23/17at 10:07; Start 05/23/17 at 09:15 Risperidone (RisperDAL) 0.5 mg DAILY PO ; Start 05/24/17 at 09:00 Divalproex Sodium (Depakote Sprinkles) 125 mg BIDWMEALS PO ; Start 05/23/17 at 17:00 Active Scripts Active Reported Senna-Docusate Sodium Tablet (Sennosides/Docusate Sodium) 1 Each Tablet 1 Cap PO DAILY Risperdal (Risperidone) 0.5 Mg Tablet 0.5 Mg PO TID Protonix (Pantoprazole Sodium) 40 Mg Tablet.dr 40 Mg PO BID Percocet 5-325 Mg Tablet (Oxycodone Hcl/Acetaminophen) 1 Each Tablet 1 Tab PO PRN TID PRN Metoprolol Tartrate 25 Mg Tablet 25 Mg PO DAILY Glucophage (Metformin Hcl) 500 Mg Tablet 500 Mg PO DAILYWBKFT Lisinopril 20 Mg Tablet 20 Mg PO BID Levothyroxine Sodium 25 Mcg Tablet 25 Mcg PO DAILYAC Hydrochlorothiazide Tablet (Hydrochlorothiazide) 25 Mg Tablet 25 Mg PO DAILY Gabapentin 300 Mg Capsule 300 Mg PO BID Ferrous Sulfate 325 Mg Tablet 325 Mg PO DAILY Cymbalta (Duloxetine Hcl) 60 Mg Capsule.dr 120 Mg PO Cyclobenzaprine Hcl 10 Mg Tablet 10 Mg PO PRN DAILY PRN Vitamin B-12 (Cyanocobalamin (Vitamin B-12)) 100 Mcg Tablet 100 Mcg PO DAILY Aspirin 81 Mg Tab.chew 81 Mg PO DAILY Allopurinol 300 Mg Tablet 300 Mg PO DAILY I have reviewed the current psychotropics carefully including drug interactions. Risk benefit ratio favors no change other than as noted in my dictated progress note. Diagnosis: Problems: (1) Cerebrovascular accident (CVA) due to vascular occlusion (2) Mild cognitive impairment (3) Bipolar affective, mixed (4) Impulse control disorder (5) Anxiety disorder MELISSA CARDOZO MD May 23, 2017 16:08
[2017-05-23] MEDS ORDERED: DIVALPROEX 125 MG CAP.SPRINK PO SCH (17:00)
[2017-05-23] MEDS: HYDROcodone/APAP 5/325MG 1 TAB TABLET PO PRN ×2 (18:14→21:40)
--- NOTE | 2017-05-23 22:46 | PDOC ---
Exam Note: Nabeel Note: Please also refer to the separate dictated note~for this date of service dictated separately.~Patient seen individually. Discussed the patient with Nursing staff reviewed the chart.~Reviewed interim history and current functioning. Reviewed vital signs,~Labs/ Radiology~and current medications noted below. Continue current treatment with the changes noted in the dictated addendum note Assessment: Vital Signs: Vital Signs Date Time Temp Pulse Resp B/P (MAP) Pulse Ox O2 Delivery O2 Flow Rate FiO2 05/23/17 21:40 97 111/82 05/23/17 18:14 20 05/23/17 15:53 97.2 94 Room Air I&O Intake and Output 05/23/17 07:00 Intake Total 960 ml Balance 960 ml Intake Oral 960 ml Labs: Laboratory Tests Test 05/23/17 07:27 Glucose (Fingerstick) 110 mg/dL (70-99) H Current Medications: Meds: Current Medications Multi-Ingredient Ointment (Analgesic [place]) 1 geovanna PRN QID PRN TP MUSCLE PAIN; Start 05/20/17 at 23:00 Al Hydroxide/Mg Hydroxide (Mylanta Plus Xs) 15 ml PRN AFTMEALHC PRN PO DYSPEPSIA; Start 05/20/17 at 23:00 Magnesium Hydroxide (Milk Of Magnesia) 2,400 mg PRN QHS PRN PO CONSTIPATION; Start 05/20/17 at 23:00 Nicotine (Nicoderm Cq 21mg) 1 patch DAILY TD Last administered on 05/23/17at 08: 57; Start 05/21/17 at 09:00 Duloxetine HCl (Cymbalta) 120 mg DAILY PO Last administered on 05/23/17at 08:53 ; Start 05/21/17 at 09:00 Risperidone (RisperDAL) 0.5 mg TID PO Last administered on 05/22/17at 13:59; Start 05/21/17 at 09:00; Stop 05/22/17 at 18:42; Status DC Allopurinol (Zyloprim) 300 mg DAILY PO Last administered on 05/23/17at 08:57; Start 05/21/17 at 09:00 Aspirin (Children'S Aspirin) 81 mg DAILY PO Last administered on 05/23/17at 08: 53; Start 05/21/17 at 09:00 Cyanocobalamin (Vitamin B-12) 100 mcg DAILY PO Last administered on 05/23/17at 08:57; Start 05/21/17 at 09:00 Cyclobenzaprine HCl (Flexeril) 10 mg PRN DAILY PRN PO MUSCLE SPASMS; Start at 04:00 Ferrous Sulfate (Feosol) 325 mg DAILY PO Last administered on 05/23/17at 08:53; Start 05/21/17 at 09:00 Gabapentin (Neurontin) 300 mg BID PO Last administered on 05/23/17at 21:39; Start 05/21/17 at 09:00 Hydrochlorothiazide (Hydrodiuril) 25 mg DAILY PO Last administered on 08:53; Start 05/21/17 at 09:00 Levothyroxine Sodium (Synthroid) 25 mcg DAILY07 PO Last administered on at 06:22; Start 05/21/17 at 07:00 Lisinopril (Prinivil) 20 mg BID PO Last administered on 05/23/17at 21:40; Start 05/21/17 at 09:00 Metformin HCl (Glucophage) 500 mg DAILYWBKFT PO Last administered on 05/23/17at 08:52; Start 05/21/17 at 08:00 Metoprolol Tartrate (Lopressor) 25 mg DAILY PO Last administered on 05/22/17at 07:53; Start 05/21/17 at 09:00 Pantoprazole Sodium (Protonix) 40 mg BIDBFRMEAL PO Last administered on at 17:27; Start 05/21/17 at 07:30 Senna/Docusate Sodium (Senna Plus) 1 tab DAILY PO Last administered on at 08:56; Start 05/21/17 at 09:00 Risperidone (RisperDAL) 0.5 mg BID PO Last administered on 05/23/17at 08:55; Start 05/22/17 at 21:00; Stop 05/23/17 at 16:02; Status DC Acetaminophen (Tylenol) 650 mg PRN Q6HRS PRN PO PAIN / TEMP Last administered on 05/23/17at 10:07; Start 05/23/17 at 09:15 Risperidone (RisperDAL) 0.5 mg DAILY PO ; Start 05/24/17 at 09:00 Divalproex Sodium (Depakote Sprinkles) 125 mg BIDWMEALS PO ; Start 05/23/17 at 17:00; Stop 05/23/17 at 17:02; Status DC Divalproex Sodium (Depakote Sprinkles) 125 mg BIDWMEALS PO ; Start 05/24/17 at 09:00 Acetaminophen/ Hydrocodone Bitart (Lortab 5/325) 1 tab PRN Q4HRS PRN PO PAIN Last administered on 05/23/17at 21:40; Start 05/23/17 at 18:00 Active Scripts Active Reported Senna-Docusate Sodium Tablet (Sennosides/Docusate Sodium) 1 Each Tablet 1 Cap PO DAILY Risperdal (Risperidone) 0.5 Mg Tablet 0.5 Mg PO TID Protonix (Pantoprazole Sodium) 40 Mg Tablet.dr 40 Mg PO BID Percocet 5-325 Mg Tablet (Oxycodone Hcl/Acetaminophen) 1 Each Tablet 1 Tab PO PRN TID PRN Metoprolol Tartrate 25 Mg Tablet 25 Mg PO DAILY Glucophage (Metformin Hcl) 500 Mg Tablet 500 Mg PO DAILYWBKFT Lisinopril 20 Mg Tablet 20 Mg PO BID Levothyroxine Sodium 25 Mcg Tablet 25 Mcg PO DAILYAC Hydrochlorothiazide Tablet (Hydrochlorothiazide) 25 Mg Tablet 25 Mg PO DAILY Gabapentin 300 Mg Capsule 300 Mg PO BID Ferrous Sulfate 325 Mg Tablet 325 Mg PO DAILY Cymbalta (Duloxetine Hcl) 60 Mg Capsule.dr 120 Mg PO Cyclobenzaprine Hcl 10 Mg Tablet 10 Mg PO PRN DAILY PRN Vitamin B-12 (Cyanocobalamin (Vitamin B-12)) 100 Mcg Tablet 100 Mcg PO DAILY Aspirin 81 Mg Tab.chew 81 Mg PO DAILY Allopurinol 300 Mg Tablet 300 Mg PO DAILY I have reviewed the current psychotropics carefully including drug interactions. Risk benefit ratio favors no change other than as noted in my dictated progress note. Diagnosis: Problems: (1) Anxiety disorder (2) Impulse control disorder (3) Bipolar affective, mixed (4) Mild cognitive impairment (5) Cerebrovascular accident (CVA) due to vascular occlusion MELISSA CARDOZO MD May 23, 2017 22:46
[2017-05-24] MEDS: HYDROcodone/APAP 5/325MG 1 TAB TABLET PO PRN ×2 (05:30→19:56)
[2017-05-24] MEDS: LEVOTHYROXINE 25 MCG TABLET. PO SCH (05:31)
[2017-05-24 05:55] VITALS: BP 122/77
[2017-05-24] MEDS: hydroCHLOROthiazide 25 MG TABLET PO SCH (10:34)
[2017-05-24] MEDS: ASPIRIN 81 MG TAB.CHEW PO SCH (10:34)
[2017-05-24] MEDS: ALLOPURINOL 300 MG TABLET. PO SCH (10:35)
[2017-05-24] MEDS: GABAPENTIN 300 MG CAPSULE. PO SCH ×2 (10:35→19:53)
[2017-05-24] MEDS: metFORMIN 500 MG TABLET PO SCH (10:35)
[2017-05-24] MEDS: SENNOSIDES/DOCUSATE 8.6/50MG TABLET. PO SCH (10:35)
[2017-05-24] MEDS: FERROUS SULFATE 325 MG TABLET. PO SCH (10:35)
[2017-05-24] MEDS: PANTOPRAZOLE 40 MG TABLET. PO SCH ×2 (10:35→17:41)
[2017-05-24] MEDS: DULoxetine HCL 60 MG CAPSULE.DR PO SCH (10:36)
[2017-05-24] MEDS: LISINOPRIL 20 MG TABLET PO SCH ×2 (10:36→19:54)
[2017-05-24] MEDS: NICOTINE 21MG PATCH. TD SCH (10:36)
[2017-05-24] MEDS: METOPROLOL TART IMMED RELEASE 25 MG TABLET PO SCH (10:36)
[2017-05-24] MEDS: DIVALPROEX 125 MG CAP.SPRINK PO SCH ×2 (10:38→17:41)
[2017-05-24] MEDS: risperiDONE 0.5 MG TABLET. PO SCH (10:38)
[2017-05-24] MEDS: CYANOCOBALAMIN (VITAMIN B-12) 100 MCG TABLET PO SCH (10:38)
[2017-05-24 16:01] VITALS: BP 98/63
--- NOTE | 2017-05-24 20:38 | PN ---
DATE: 05/23/2017 This late entry 05/23/2017 covers elements not covered in my initial note 05/23/2017. The patient slept 5-3/4 hours previous evening, met with him at length in his room. Nursing staff report, he is more confused than he lets on the surface, hides his impairment with humor and ____ jokes. Careful review of his past history is reflective of mood swings, probable bipolar disorder. Psychotic symptoms have not been evident despite reduction of Risperdal from 1.5 mg a day down to 1 mg a day. No CV, , pulmonary, eye, ENT system symptoms on review. MENTAL STATUS EXAM: Oriented to himself and situation. Speech is coherent, has some latency. Abstraction fair, computation impaired, language function intact. Short-term memory does have some deficits. No suicidal or homicidal ideation. No clear psychotic symptoms. LABORATORY DATA: Reviewed. IMPRESSION: Bipolar 1 disorder, mixed with psychotic features; cognitive disorder, unspecified; impulse control disorder, unspecified. PLAN: Continue Cymbalta together with reduced Risperdal, we will start Depakote Sprinkles 125 mg twice a day. Check CBC, CMP, valproic acid level in 3 days. Adjust gradually to reach a therapeutic level, then may reduce the Cymbalta as well. Since given his age and size, the 120 mg a day perhaps could be cut down at least to 90 if not 60 mg a day. We will continue to assess for this. MELISSA CARDOZO MD DR: MILTON/daniel JOB#: [id number] / [id number]
--- NOTE | 2017-05-24 20:45 | PDOC ---
Exam Note: Nabeel Note: Please also refer to the separate dictated note~for this date of service dictated separately.~Patient seen individually. Discussed the patient with Nursing staff reviewed the chart.~Reviewed interim history and current functioning. Reviewed vital signs,~Labs/ Radiology~and current medications noted below. Continue current treatment with the changes noted in the dictated addendum note Assessment: Vital Signs: Vital Signs Date Time Temp Pulse Resp B/P (MAP) Pulse Ox O2 Delivery O2 Flow Rate FiO2 05/24/17 19:54 72 98/63 05/24/17 16:01 97.8 16 93 05/24/17 05:30 Room Air I&O Intake and Output 05/24/17 07:00 Intake Total 840 ml Balance 840 ml Intake Oral 840 ml Labs: Laboratory Tests Test 05/24/17 08:01 Glucose (Fingerstick) 113 mg/dL (70-99) H Current Medications: Meds: Current Medications Multi-Ingredient Ointment (Analgesic [place]) 1 geovanna PRN QID PRN TP MUSCLE PAIN; Start 05/20/17 at 23:00 Al Hydroxide/Mg Hydroxide (Mylanta Plus Xs) 15 ml PRN AFTMEALHC PRN PO DYSPEPSIA; Start 05/20/17 at 23:00 Magnesium Hydroxide (Milk Of Magnesia) 2,400 mg PRN QHS PRN PO CONSTIPATION; Start 05/20/17 at 23:00 Nicotine (Nicoderm Cq 21mg) 1 patch DAILY TD Last administered on 05/24/17at 10: 36; Start 05/21/17 at 09:00 Duloxetine HCl (Cymbalta) 120 mg DAILY PO Last administered on 05/24/17at 10:36 ; Start 05/21/17 at 09:00 Risperidone (RisperDAL) 0.5 mg TID PO Last administered on 05/22/17at 13:59; Start 05/21/17 at 09:00; Stop 05/22/17 at 18:42; Status DC Allopurinol (Zyloprim) 300 mg DAILY PO Last administered on 05/24/17at 10:35; Start 05/21/17 at 09:00 Aspirin (Children'S Aspirin) 81 mg DAILY PO Last administered on 05/24/17at 10: 34; Start 05/21/17 at 09:00 Cyanocobalamin (Vitamin B-12) 100 mcg DAILY PO Last administered on 05/24/17 10:38; Start 05/21/17 at 09:00 Cyclobenzaprine HCl (Flexeril) 10 mg PRN DAILY PRN PO MUSCLE SPASMS; Start at 04:00 Ferrous Sulfate (Feosol) 325 mg DAILY PO Last administered on 05/24/17 10:35; Start 05/21/17 at 09:00 Gabapentin (Neurontin) 300 mg BID PO Last administered on 05/24/17 19:53; Start 05/21/17 at 09:00 Hydrochlorothiazide (Hydrodiuril) 25 mg DAILY PO Last administered on 10:34; Start 05/21/17 at 09:00 Levothyroxine Sodium (Synthroid) 25 mcg DAILY07 PO Last administered on 05:31; Start 05/21/17 at 07:00 Lisinopril (Prinivil) 20 mg BID PO Last administered on 05/24/17 10:36; Start 05/21/17 at 09:00 Metformin HCl (Glucophage) 500 mg DAILYWBKFT PO Last administered on 05/24/17 10:35; Start 05/21/17 at 08:00 Metoprolol Tartrate (Lopressor) 25 mg DAILY PO Last administered on 05/24/17 10:36; Start 05/21/17 at 09:00 Pantoprazole Sodium (Protonix) 40 mg BIDBFRMEAL PO Last administered on at 17:41; Start 05/21/17 at 07:30 Senna/Docusate Sodium (Senna Plus) 1 tab DAILY PO Last administered on 10:35; Start 05/21/17 at 09:00 Risperidone (RisperDAL) 0.5 mg BID PO Last administered on 05/23/17at 08:55; Start 05/22/17 at 21:00; Stop 05/23/17 at 16:02; Status DC Acetaminophen (Tylenol) 650 mg PRN Q6HRS PRN PO PAIN / TEMP Last administered on 05/23/17 10:07; Start 05/23/17 at 09:15 Risperidone (RisperDAL) 0.5 mg DAILY PO Last administered on 3/18/18at 10:38; Start 05/24/17 at 09:00 Divalproex Sodium (Depakote Sprinkles) 125 mg BIDWMEALS PO ; Start 05/23/17 at 17:00; Stop 05/23/17 at 17:02; Status DC Divalproex Sodium (Depakote Sprinkles) 125 mg BIDWMEALS PO Last administered on 05/24/17at 17:41; Start 05/24/17 at 09:00 Acetaminophen/ Hydrocodone Bitart (Lortab 5/325) 1 tab PRN Q4HRS PRN PO PAIN Last administered on 05/24/17at 19:56; Start 05/23/17 at 18:00 Active Scripts Active Reported Senna-Docusate Sodium Tablet (Sennosides/Docusate Sodium) 1 Each Tablet 1 Cap PO DAILY Risperdal (Risperidone) 0.5 Mg Tablet 0.5 Mg PO TID Protonix (Pantoprazole Sodium) 40 Mg Tablet.dr 40 Mg PO BID Percocet 5-325 Mg Tablet (Oxycodone Hcl/Acetaminophen) 1 Each Tablet 1 Tab PO PRN TID PRN Metoprolol Tartrate 25 Mg Tablet 25 Mg PO DAILY Glucophage (Metformin Hcl) 500 Mg Tablet 500 Mg PO DAILYWBKFT Lisinopril 20 Mg Tablet 20 Mg PO BID Levothyroxine Sodium 25 Mcg Tablet 25 Mcg PO DAILYAC Hydrochlorothiazide Tablet (Hydrochlorothiazide) 25 Mg Tablet 25 Mg PO DAILY Gabapentin 300 Mg Capsule 300 Mg PO BID Ferrous Sulfate 325 Mg Tablet 325 Mg PO DAILY Cymbalta (Duloxetine Hcl) 60 Mg Capsule.dr 120 Mg PO Cyclobenzaprine Hcl 10 Mg Tablet 10 Mg PO PRN DAILY PRN Vitamin B-12 (Cyanocobalamin (Vitamin B-12)) 100 Mcg Tablet 100 Mcg PO DAILY Aspirin 81 Mg Tab.chew 81 Mg PO DAILY Allopurinol 300 Mg Tablet 300 Mg PO DAILY I have reviewed the current psychotropics carefully including drug interactions. Risk benefit ratio favors no change other than as noted in my dictated progress note. Diagnosis: Problems: (1) Anxiety disorder (2) Impulse control disorder (3) Bipolar affective, mixed (4) Mild cognitive impairment (5) Cerebrovascular accident (CVA) due to vascular occlusion MELISSA CARDOZO MD May 24, 2017 20:45
[2017-05-25 06:05] VITALS: BP 112/68
[2017-05-25] MEDS: LEVOTHYROXINE 25 MCG TABLET. PO SCH (06:09)
[2017-05-25] MEDS: DULoxetine HCL 60 MG CAPSULE.DR PO SCH (09:36)
[2017-05-25] MEDS: hydroCHLOROthiazide 25 MG TABLET PO SCH (09:36)
[2017-05-25] MEDS: DIVALPROEX 125 MG CAP.SPRINK PO SCH ×2 (09:36→16:58)
[2017-05-25] MEDS: ASPIRIN 81 MG TAB.CHEW PO SCH (09:36)
[2017-05-25] MEDS: GABAPENTIN 300 MG CAPSULE. PO SCH ×2 (09:37→19:30)
[2017-05-25] MEDS: FERROUS SULFATE 325 MG TABLET. PO SCH (09:37)
[2017-05-25] MEDS: PANTOPRAZOLE 40 MG TABLET. PO SCH ×2 (09:38→16:58)
[2017-05-25] MEDS: metFORMIN 500 MG TABLET PO SCH (09:38)
[2017-05-25] MEDS: risperiDONE 0.5 MG TABLET. PO SCH (09:38)
[2017-05-25] MEDS: LISINOPRIL 20 MG TABLET PO SCH ×2 (09:39→19:30)
[2017-05-25] MEDS: ALLOPURINOL 300 MG TABLET. PO SCH (09:39)
[2017-05-25] MEDS: NICOTINE 21MG PATCH. TD SCH (09:39)
[2017-05-25] MEDS: METOPROLOL TART IMMED RELEASE 25 MG TABLET PO SCH (09:39)
[2017-05-25] MEDS: SENNOSIDES/DOCUSATE 8.6/50MG TABLET. PO SCH (09:40)
[2017-05-25] MEDS: CYANOCOBALAMIN (VITAMIN B-12) 100 MCG TABLET PO SCH (09:42)
--- NOTE | 2017-05-25 13:08 | OP ---
DATE OF SURGERY: 05/24/2017 PSYCHIATRIC PROGRESS NOTE This is a late entry 05/24/2017, covers elements not covered in my initial note 05/24/2017. SUBJECTIVE: I met with the patient in the evening of 05/24/2017 in his room. He has been somewhat anxious, restless, upset that he is not able to help his ex-, pays electricity bill, somewhat apprehensive. I addressed this with him individually in his room. REVIEW OF SYSTEMS: No CV, , pulmonary, eye system symptoms on review. MENTAL STATUS: Oriented to himself and situation. Speech is coherent, abstraction fair, computation impaired, language function intact, attention span short. Mood and affect still somewhat anxious, labile. No active suicidal or homicidal ideation. No worsening of psychotic symptoms since we have reduced the Risperdal and I assessed this very carefully. IMPRESSION: Bipolar 1 disorder, mixed with psychotic features; cognitive disorder, unspecified; impulse control disorder, unspecified. PLAN: Continue current psychotropics. We will reduce the Risperdal down to 0.5 mg a day in the next couple of days depending on how he does with the initial reduction and adjust the Depakote to reach a therapeutic level, may also have to reduce the Cymbalta to 90 mg a day. MELISSA CARDOZO MD DR: MILTON/daniel JOB#: [id number] / [id number]
[2017-05-25] MEDS: HYDROcodone/APAP 5/325MG 1 TAB TABLET PO PRN (14:00)
[2017-05-25 15:11] VITALS: BP 114/74
--- NOTE | 2017-05-25 20:52 | PDOC ---
Exam Note: Nabeel Note: Please also refer to the separate dictated note~for this date of service dictated separately.~Patient seen individually. Discussed the patient with Nursing staff reviewed the chart.~Reviewed interim history and current functioning. Reviewed vital signs,~Labs/ Radiology~and current medications noted below. Continue current treatment with the changes noted in the dictated addendum note Assessment: Vital Signs: Vital Signs Date Time Temp Pulse Resp B/P (MAP) Pulse Ox O2 Delivery O2 Flow Rate FiO2 05/25/17 19:30 67 114/74 05/25/17 15:20 18 94 05/25/17 15:11 97.9 Room Air I&O Intake and Output 05/25/17 07:00 Intake Total 1200 ml Balance 1200 ml Intake Oral 1200 ml Labs: Laboratory Tests Test 05/25/17 07:14 05/25/17 19:22 Glucose (Fingerstick) 144 mg/dL (70-99) H 136 mg/dL (70-99) H Current Medications: Meds: Current Medications Multi-Ingredient Ointment (Analgesic [place]) 1 geovanna PRN QID PRN TP MUSCLE PAIN; Start 05/20/17 at 23:00 Al Hydroxide/Mg Hydroxide (Mylanta Plus Xs) 15 ml PRN AFTMEALHC PRN PO DYSPEPSIA; Start 05/20/17 at 23:00 Magnesium Hydroxide (Milk Of Magnesia) 2,400 mg PRN QHS PRN PO CONSTIPATION; Start 05/20/17 at 23:00 Nicotine (Nicoderm Cq 21mg) 1 patch DAILY TD Last administered on 05/25/17at 09: 39; Start 05/21/17 at 09:00 Duloxetine HCl (Cymbalta) 120 mg DAILY PO Last administered on 05/25/17at 09:36 ; Start 05/21/17 at 09:00; Stop 05/25/17 at 18:38; Status DC Risperidone (RisperDAL) 0.5 mg TID PO Last administered on 05/22/17at 13:59; Start 05/21/17 at 09:00; Stop 05/22/17 at 18:42; Status DC Allopurinol (Zyloprim) 300 mg DAILY PO Last administered on 05/25/17at 09:39; Start 05/21/17 at 09:00 Aspirin (Children'S Aspirin) 81 mg DAILY PO Last administered on 05/25/17 09: 36; Start 05/21/17 at 09:00 Cyanocobalamin (Vitamin B-12) 100 mcg DAILY PO Last administered on 05/25/17 09:42; Start 05/21/17 at 09:00 Cyclobenzaprine HCl (Flexeril) 10 mg PRN DAILY PRN PO MUSCLE SPASMS; Start at 04:00 Ferrous Sulfate (Feosol) 325 mg DAILY PO Last administered on 05/25/17 09:37; Start 05/21/17 at 09:00 Gabapentin (Neurontin) 300 mg BID PO Last administered on 05/25/17 19:30; Start 05/21/17 at 09:00 Hydrochlorothiazide (Hydrodiuril) 25 mg DAILY PO Last administered on 09:36; Start 05/21/17 at 09:00 Levothyroxine Sodium (Synthroid) 25 mcg DAILY07 PO Last administered on 06:09; Start 05/21/17 at 07:00 Lisinopril (Prinivil) 20 mg BID PO Last administered on 05/25/17 19:30; Start 05/21/17 at 09:00 Metformin HCl (Glucophage) 500 mg DAILYWBKFT PO Last administered on 05/25/17 09:38; Start 05/21/17 at 08:00 Metoprolol Tartrate (Lopressor) 25 mg DAILY PO Last administered on 05/25/17 09:39; Start 05/21/17 at 09:00 Pantoprazole Sodium (Protonix) 40 mg BIDBFRMEAL PO Last administered on 16:58; Start 05/21/17 at 07:30 Senna/Docusate Sodium (Senna Plus) 1 tab DAILY PO Last administered on 09:40; Start 05/21/17 at 09:00 Risperidone (RisperDAL) 0.5 mg BID PO Last administered on 05/23/17 08:55; Start 05/22/17 at 21:00; Stop 05/23/17 at 16:02; Status DC Acetaminophen (Tylenol) 650 mg PRN Q6HRS PRN PO PAIN / TEMP Last administered on 05/23/17at 10:07; Start 05/23/17 at 09:15 Risperidone (RisperDAL) 0.5 mg DAILY PO Last administered on 05/25/17at 09:38; Start 05/24/17 at 09:00 Divalproex Sodium (Depakote Sprinkles) 125 mg BIDWMEALS PO ; Start 05/23/17 at 17:00; Stop 05/23/17 at 17:02; Status DC Divalproex Sodium (Depakote Sprinkles) 125 mg BIDWMEALS PO Last administered on 05/25/17at 16:58; Start 05/24/17 at 09:00 Acetaminophen/ Hydrocodone Bitart (Lortab 5/325) 1 tab PRN Q4HRS PRN PO PAIN Last administered on 05/25/17at 14:00; Start 05/23/17 at 18:00 Duloxetine HCl (Cymbalta) 90 mg DAILY PO ; Start 05/26/17 at 09:00 Active Scripts Active Reported Senna-Docusate Sodium Tablet (Sennosides/Docusate Sodium) 1 Each Tablet 1 Cap PO DAILY Risperdal (Risperidone) 0.5 Mg Tablet 0.5 Mg PO TID Protonix (Pantoprazole Sodium) 40 Mg Tablet.dr 40 Mg PO BID Percocet 5-325 Mg Tablet (Oxycodone Hcl/Acetaminophen) 1 Each Tablet 1 Tab PO PRN TID PRN Metoprolol Tartrate 25 Mg Tablet 25 Mg PO DAILY Glucophage (Metformin Hcl) 500 Mg Tablet 500 Mg PO DAILYWBKFT Lisinopril 20 Mg Tablet 20 Mg PO BID Levothyroxine Sodium 25 Mcg Tablet 25 Mcg PO DAILYAC Hydrochlorothiazide Tablet (Hydrochlorothiazide) 25 Mg Tablet 25 Mg PO DAILY Gabapentin 300 Mg Capsule 300 Mg PO BID Ferrous Sulfate 325 Mg Tablet 325 Mg PO DAILY Cymbalta (Duloxetine Hcl) 60 Mg Capsule.dr 120 Mg PO Cyclobenzaprine Hcl 10 Mg Tablet 10 Mg PO PRN DAILY PRN Vitamin B-12 (Cyanocobalamin (Vitamin B-12)) 100 Mcg Tablet 100 Mcg PO DAILY Aspirin 81 Mg Tab.chew 81 Mg PO DAILY Allopurinol 300 Mg Tablet 300 Mg PO DAILY I have reviewed the current psychotropics carefully including drug interactions. Risk benefit ratio favors no change other than as noted in my dictated progress note. Diagnosis: Problems: (1) Anxiety disorder (2) Impulse control disorder (3) Bipolar affective, mixed (4) Mild cognitive impairment (5) Cerebrovascular accident (CVA) due to vascular occlusion MELISSA CARDOZO MD May 25, 2017 20:52
[2017-05-26] MEDS: LEVOTHYROXINE 25 MCG TABLET. PO SCH (05:43)
[2017-05-26 05:57] VITALS: BP 125/87
[2017-05-26] MEDS: SENNOSIDES/DOCUSATE 8.6/50MG TABLET. PO SCH (07:54)
[2017-05-26] MEDS: GABAPENTIN 300 MG CAPSULE. PO SCH ×2 (07:54→19:27)
[2017-05-26] MEDS: DIVALPROEX 125 MG CAP.SPRINK PO SCH ×2 (07:54→16:41)
[2017-05-26] MEDS: ALLOPURINOL 300 MG TABLET. PO SCH (07:54)
[2017-05-26] MEDS: NICOTINE 21MG PATCH. TD SCH (07:54)
[2017-05-26] MEDS: LISINOPRIL 20 MG TABLET PO SCH ×2 (07:55→19:28)
[2017-05-26] MEDS: risperiDONE 0.5 MG TABLET. PO SCH (07:55)
[2017-05-26] MEDS: metFORMIN 500 MG TABLET PO SCH (07:55)
[2017-05-26] MEDS: ASPIRIN 81 MG TAB.CHEW PO SCH (07:56)
[2017-05-26] MEDS: FERROUS SULFATE 325 MG TABLET. PO SCH (07:56)
[2017-05-26] MEDS: PANTOPRAZOLE 40 MG TABLET. PO SCH ×2 (07:56→16:41)
[2017-05-26] MEDS: METOPROLOL TART IMMED RELEASE 25 MG TABLET PO SCH (07:56)
[2017-05-26] MEDS: hydroCHLOROthiazide 25 MG TABLET PO SCH (07:56)
[2017-05-26] MEDS: CYANOCOBALAMIN (VITAMIN B-12) 100 MCG TABLET PO SCH (07:58)
[2017-05-26] MEDS: DULoxetine HCL 30 MG CAPSULE.DR PO SCH (07:58)
[2017-05-26] MEDS: HYDROcodone/APAP 5/325MG 1 TAB TABLET PO PRN (09:32)
--- NOTE | 2017-05-26 14:15 | PN ---
DATE: 05/25/2017 PSYCHIATRIC PROGRESS NOTE This is a late entry 05/25/2017, covers elements not covered in my initial note 05/25/2017. SUBJECTIVE: I met with the patient the evening of 05/25/2017. The patient slept 4-1/2 hours previous evening. He has had a better day per nursing report. He has a new roommate, gets along well with the roommate, compliant with medications. REVIEW OF SYSTEMS: Positive for back pain, had received Lortab with positive results. No CV, , pulmonary, eye system symptoms on review. Does have short term memory deficits, which he minimizes. MENTAL STATUS EXAM: Oriented to himself and situation. Speech moderate latency, often responses monosyllabic, but later much more verbal during the individual . Speech is coherent, abstraction fair, computation impaired, language function intact. Short term memory deficits are evident. No suicidal or homicidal ideation. LABORATORY DATA: Reviewed. IMPRESSION: Bipolar 1 disorder, mixed with psychotic features, in partial remission. Impulse control disorder, unspecified. PLAN: The high dose of Cymbalta 120 mg a day may be worsening some of his mood lability, would recommend reducing it to 90 mg a day. Continue Risperdal 0.5 mg daily, Depakote 125 mg twice a day with CBC, CMP, valproic acid level to be checked 05/27/2017. Continue Neurontin 300 mg at bedtime. MAN Celeste CARDOZO MD DR: MILTON/daniel JOB#: [id number] / [id number]
[2017-05-26 15:49] VITALS: BP 108/83
[2017-05-26] MEDS: CYCLOBENZAPRINE 10 MG TABLET. PO PRN (16:41)
--- NOTE | 2017-05-26 20:42 | PDOC ---
Exam Note: Nabeel Note: Please also refer to the separate dictated note~for this date of service dictated separately.~Patient seen individually. Discussed the patient with Nursing staff reviewed the chart.~Reviewed interim history and current functioning. Reviewed vital signs,~Labs/ Radiology~and current medications noted below. Continue current treatment with the changes noted in the dictated addendum note Assessment: Vital Signs: Vital Signs Date Time Temp Pulse Resp B/P (MAP) Pulse Ox O2 Delivery O2 Flow Rate FiO2 05/26/17 19:28 74 108/83 05/26/17 15:49 97.8 20 96 05/26/17 12:27 Room Air I&O Intake and Output 05/26/17 07:00 Intake Total 1440 ml Balance 1440 ml Intake Oral 1440 ml # Voids 1 Labs: Laboratory Tests Test 05/26/17 07:16 05/26/17 16:27 05/26/17 19:10 Glucose (Fingerstick) 98 mg/dL (70-99) 136 mg/dL (70-99) H 142 mg/dL (70-99) H Current Medications: Meds: Current Medications Multi-Ingredient Ointment (Analgesic [place]) 1 geovanna PRN QID PRN TP MUSCLE PAIN; Start 05/20/17 at 23:00 Al Hydroxide/Mg Hydroxide (Mylanta Plus Xs) 15 ml PRN AFTMEALHC PRN PO DYSPEPSIA; Start 05/20/17 at 23:00 Magnesium Hydroxide (Milk Of Magnesia) 2,400 mg PRN QHS PRN PO CONSTIPATION; Start 05/20/17 at 23:00 Nicotine (Nicoderm Cq 21mg) 1 patch DAILY TD Last administered on 05/26/17at 07: 54; Start 05/21/17 at 09:00 Duloxetine HCl (Cymbalta) 120 mg DAILY PO Last administered on 05/25/17at 09:36 ; Start 05/21/17 at 09:00; Stop 05/25/17 at 18:38; Status DC Risperidone (RisperDAL) 0.5 mg TID PO Last administered on 05/22/17at 13:59; Start 05/21/17 at 09:00; Stop 05/22/17 at 18:42; Status DC Allopurinol (Zyloprim) 300 mg DAILY PO Last administered on 05/26/17at 07:54; Start 05/21/17 at 09:00 Aspirin (Children'S Aspirin) 81 mg DAILY PO Last administered on 05/26/17 07: 56; Start 05/21/17 at 09:00 Cyanocobalamin (Vitamin B-12) 100 mcg DAILY PO Last administered on 05/26/17 07:58; Start 05/21/17 at 09:00 Cyclobenzaprine HCl (Flexeril) 10 mg PRN DAILY PRN PO MUSCLE SPASMS Last administered on 05/26/17 16:41; Start 05/21/17 at 04:00 Ferrous Sulfate (Feosol) 325 mg DAILY PO Last administered on 05/26/17 07:56; Start 05/21/17 at 09:00 Gabapentin (Neurontin) 300 mg BID PO Last administered on 05/26/17 19:27; Start 05/21/17 at 09:00 Hydrochlorothiazide (Hydrodiuril) 25 mg DAILY PO Last administered on 07:56; Start 05/21/17 at 09:00 Levothyroxine Sodium (Synthroid) 25 mcg DAILY07 PO Last administered on 05:43; Start 05/21/17 at 07:00 Lisinopril (Prinivil) 20 mg BID PO Last administered on 05/26/17 19:28; Start 05/21/17 at 09:00 Metformin HCl (Glucophage) 500 mg DAILYWBKFT PO Last administered on 05/26/17 07:55; Start 05/21/17 at 08:00 Metoprolol Tartrate (Lopressor) 25 mg DAILY PO Last administered on 05/26/17 07:56; Start 05/21/17 at 09:00 Pantoprazole Sodium (Protonix) 40 mg BIDBFRMEAL PO Last administered on 16:41; Start 05/21/17 at 07:30 Senna/Docusate Sodium (Senna Plus) 1 tab DAILY PO Last administered on 07:54; Start 05/21/17 at 09:00 Risperidone (RisperDAL) 0.5 mg BID PO Last administered on 05/23/17at 08:55; Start 05/22/17 at 21:00; Stop 05/23/17 at 16:02; Status DC Acetaminophen (Tylenol) 650 mg PRN Q6HRS PRN PO PAIN / TEMP Last administered on 05/23/17at 10:07; Start 05/23/17 at 09:15 Risperidone (RisperDAL) 0.5 mg DAILY PO Last administered on 05/26/17at 07:55; Start 05/24/17 at 09:00 Divalproex Sodium (Depakote Sprinkles) 125 mg BIDWMEALS PO ; Start 05/23/17 at 17:00; Stop 05/23/17 at 17:02; Status DC Divalproex Sodium (Depakote Sprinkles) 125 mg BIDWMEALS PO Last administered on 05/26/17at 16:41; Start 05/24/17 at 09:00 Acetaminophen/ Hydrocodone Bitart (Lortab 5/325) 1 tab PRN Q4HRS PRN PO PAIN Last administered on 05/26/17at 09:32; Start 05/23/17 at 18:00 Duloxetine HCl (Cymbalta) 90 mg DAILY PO Last administered on 05/26/17at 07:58; Start 05/26/17 at 09:00 Active Scripts Active Reported Senna-Docusate Sodium Tablet (Sennosides/Docusate Sodium) 1 Each Tablet 1 Cap PO DAILY Risperdal (Risperidone) 0.5 Mg Tablet 0.5 Mg PO TID Protonix (Pantoprazole Sodium) 40 Mg Tablet.dr 40 Mg PO BID Percocet 5-325 Mg Tablet (Oxycodone Hcl/Acetaminophen) 1 Each Tablet 1 Tab PO PRN TID PRN Metoprolol Tartrate 25 Mg Tablet 25 Mg PO DAILY Glucophage (Metformin Hcl) 500 Mg Tablet 500 Mg PO DAILYWBKFT Lisinopril 20 Mg Tablet 20 Mg PO BID Levothyroxine Sodium 25 Mcg Tablet 25 Mcg PO DAILYAC Hydrochlorothiazide Tablet (Hydrochlorothiazide) 25 Mg Tablet 25 Mg PO DAILY Gabapentin 300 Mg Capsule 300 Mg PO BID Ferrous Sulfate 325 Mg Tablet 325 Mg PO DAILY Cymbalta (Duloxetine Hcl) 60 Mg Capsule.dr 120 Mg PO Cyclobenzaprine Hcl 10 Mg Tablet 10 Mg PO PRN DAILY PRN Vitamin B-12 (Cyanocobalamin (Vitamin B-12)) 100 Mcg Tablet 100 Mcg PO DAILY Aspirin 81 Mg Tab.chew 81 Mg PO DAILY Allopurinol 300 Mg Tablet 300 Mg PO DAILY I have reviewed the current psychotropics carefully including drug interactions. Risk benefit ratio favors no change other than as noted in my dictated progress note. Diagnosis: Problems: (1) Anxiety disorder (2) Impulse control disorder (3) Bipolar affective, mixed (4) Mild cognitive impairment (5) Cerebrovascular accident (CVA) due to vascular occlusion MELISSA CARDOZO MD May 26, 2017 20:42
[2017-05-27 05:42] VITALS: BP 142/90
[2017-05-27] MEDS: LEVOTHYROXINE 25 MCG TABLET. PO SCH (05:52)
[2017-05-27 07:37] LABS: BASO # 0.1 x10^3/uL (0.0-0.2); BASO % 1 % (0-3); EOS # 0.5 x10^3/uL (0.0-0.7); EOS % 7 % (0-3); HEMATOCRIT 36.1 % (39.0-53.0); HEMOGLOBIN 11.8 g/dL (13.0-17.5); LYMPH # 1.7 x10^3/uL (1.0-4.8); LYMPH % 25 % (24-48); MEAN CORPUSCULAR HEMOGLOBIN 28 pg (25-35); MEAN CORPUSCULAR HGB CONC 33 g/dL (31-37); MEAN CORPUSCULAR VOLUME 86 fL (79-100); MONO # 0.7 x10^3/uL (0.0-1.1); MONO % 10 % (0-9); NEUT % 58 % (31-73); PLATELET COUNT 207 x10^3/uL (140-400); RED BLOOD COUNT 4.18 x10^6/uL (4.30-5.70); RED CELL DISTRIBUTION WIDTH 18.5 % (11.5-14.5); WHITE BLOOD COUNT 6.9 x10^3/uL (4.0-11.0)
[2017-05-27] MEDS: ASPIRIN 81 MG TAB.CHEW PO SCH (07:38)
[2017-05-27] MEDS: GABAPENTIN 300 MG CAPSULE. PO SCH ×2 (07:38→19:17)
[2017-05-27] MEDS: DULoxetine HCL 30 MG CAPSULE.DR PO SCH (07:39)
[2017-05-27] MEDS: METOPROLOL TART IMMED RELEASE 25 MG TABLET PO SCH (07:39)
[2017-05-27] MEDS: ALLOPURINOL 300 MG TABLET. PO SCH (07:39)
[2017-05-27] MEDS: SENNOSIDES/DOCUSATE 8.6/50MG TABLET. PO SCH (07:39)
[2017-05-27] MEDS: DIVALPROEX 125 MG CAP.SPRINK PO SCH ×2 (07:39→16:42)
[2017-05-27] MEDS: risperiDONE 0.5 MG TABLET. PO SCH (07:39)
[2017-05-27] MEDS: PANTOPRAZOLE 40 MG TABLET. PO SCH ×2 (07:39→16:42)
[2017-05-27] MEDS: LISINOPRIL 20 MG TABLET PO SCH ×2 (07:39→19:17)
[2017-05-27] MEDS: metFORMIN 500 MG TABLET PO SCH (07:39)
[2017-05-27] MEDS: FERROUS SULFATE 325 MG TABLET. PO SCH (07:40)
[2017-05-27] MEDS: hydroCHLOROthiazide 25 MG TABLET PO SCH (07:40)
[2017-05-27] MEDS: NICOTINE 21MG PATCH. TD SCH (07:40)
[2017-05-27] MEDS: CYANOCOBALAMIN (VITAMIN B-12) 100 MCG TABLET PO SCH (07:41)
[2017-05-27 07:46] LABS: ALBUMIN 2.7 g/dL (3.4-5.0); ALBUMIN/GLOBULIN RATIO 0.7 (1.0-1.7); ALK PHOS 69 U/L (46-116); ALT (SGPT) 11 U/L (16-63); ANION GAP 6 (6-14); AST (SGOT) 19 U/L (15-37); BLOOD UREA NITROGEN 19 mg/dL (8-26); BUN/CREATININE RATIO 17 (6-20); CALCIUM 9.3 mg/dL (8.5-10.1); CARBON DIOXIDE 32 mmol/L (21-32); CHLORIDE 102 mmol/L (98-107); CREATININE 1.1 mg/dL (0.7-1.3); GFR 65.6; GLUCOSE 105 mg/dL (70-99); POTASSIUM 3.9 mmol/L (3.5-5.1); SODIUM 140 mmol/L (136-145); TOTAL BILIRUBIN 0.4 mg/dL (0.2-1.0); TOTAL PROTEIN 6.8 g/dL (6.4-8.2)
[2017-05-27 07:58] LABS: VAL ACID 12 mcg/mL (50-100)
[2017-05-27] MEDS: HYDROcodone/APAP 5/325MG 1 TAB TABLET PO PRN (15:26)
[2017-05-27 15:52] VITALS: BP 120/73
--- NOTE | 2017-05-27 18:16 | PN ---
DATE: 05/26/2017 This late entry 05/26/2017 covers elements not covered in my initial note 05/26/2017. SUBJECTIVE: The patient slept 7-3/4 hours previous evening. He is up and down all the previous night, felt people were coming in his room, someone who is coming to beat him up, beat off them, somewhat delusional. We will be checking a valproic acid level in the morning of 05/27/2017. No CV, , pulmonary, eye system symptoms on review. MENTAL STATUS EXAM: Oriented to himself and situation. Speech is coherent, abstraction fair, computation impaired, language function intact. Short term memory is impaired. No active suicidal or homicidal ideation. IMPRESSION: Unchanged from initial note. PLAN: Continue current psychotropics. Check valproic acid 05/27/2017. Adjust as indicated. MAN Celeste CARDOZO MD DR: MILTON/daniel JOB#: [id number] / [id number]
--- NOTE | 2017-05-27 20:50 | PDOC ---
Exam Note: Nabeel Note: Please also refer to the separate dictated note~for this date of service dictated separately.~Patient seen individually. Discussed the patient with Nursing staff reviewed the chart.~Reviewed interim history and current functioning. Reviewed vital signs,~Labs/ Radiology~and current medications noted below. Continue current treatment with the changes noted in the dictated addendum note Assessment: Vital Signs: Vital Signs Date Time Temp Pulse Resp B/P (MAP) Pulse Ox O2 Delivery O2 Flow Rate FiO2 05/27/17 19:17 75 120/73 05/27/17 17:29 18 94 Room Air 05/27/17 15:52 98.1 I&O Intake and Output 05/27/17 07:00 Intake Total 960 ml Balance 960 ml Intake Oral 960 ml # Voids 1 # Bowel Movements 1 Labs: Laboratory Tests Test 05/27/17 07:06 05/27/17 07:27 White Blood Count 6.9 x10^3/uL (4.0-11.0) Red Blood Count 4.18 x10^6/uL (4.30-5.70) L Hemoglobin 11.8 g/dL (13.0-17.5) L Hematocrit 36.1 % (39.0-53.0) L Mean Corpuscular Volume 86 fL (79-100) Mean Corpuscular Hemoglobin 28 pg (25-35) Mean Corpuscular Hemoglobin Concent 33 g/dL (31-37) Red Cell Distribution Width 18.5 % (11.5-14.5) H Platelet Count 207 x10^3/uL (140-400) Neutrophils (%) (Auto) 58 % (31-73) Lymphocytes (%) (Auto) 25 % (24-48) Monocytes (%) (Auto) 10 % (0-9) H Eosinophils (%) (Auto) 7 % (0-3) H Basophils (%) (Auto) 1 % (0-3) Neutrophils # (Auto) 4.0 x10^3uL (1.8-7.7) Lymphocytes # (Auto) 1.7 x10^3/uL (1.0-4.8) Monocytes # (Auto) 0.7 x10^3/uL (0.0-1.1) Eosinophils # (Auto) 0.5 x10^3/uL (0.0-0.7) Basophils # (Auto) 0.1 x10^3/uL (0.0-0.2) Sodium Level 140 mmol/L (136-145) Potassium Level 3.9 mmol/L (3.5-5.1) Chloride Level 102 mmol/L (98-107) Carbon Dioxide Level 32 mmol/L (21-32) Anion Gap 6 (6-14) Blood Urea Nitrogen 19 mg/dL (8-26) Creatinine 1.1 mg/dL (0.7-1.3) Estimated GFR (Cockcroft-Gault) 65.6 BUN/Creatinine Ratio 17 (6-20) Glucose Level 105 mg/dL (70-99) H Calcium Level 9.3 mg/dL (8.5-10.1) Total Bilirubin 0.4 mg/dL (0.2-1.0) Aspartate Amino Transferase (AST) 19 U/L (15-37) Alanine Aminotransferase (ALT) 11 U/L (16-63) L Alkaline Phosphatase 69 U/L (46-116) Total Protein 6.8 g/dL (6.4-8.2) Albumin 2.7 g/dL (3.4-5.0) L Albumin/Globulin Ratio 0.7 (1.0-1.7) L Valproic Acid Level 12 mcg/mL (50-100) L Valproic Acid Last Dose Date 05/26/2017 Valproic Acid Last Dose Time 1700 Glucose (Fingerstick) 95 mg/dL (70-99) Current Medications: Meds: Current Medications Multi-Ingredient Ointment (Analgesic [place]) 1 geovanna PRN QID PRN TP MUSCLE PAIN; Start 05/20/17 at 23:00 Al Hydroxide/Mg Hydroxide (Mylanta Plus Xs) 15 ml PRN AFTMEALHC PRN PO DYSPEPSIA; Start 05/20/17 at 23:00 Magnesium Hydroxide (Milk Of Magnesia) 2,400 mg PRN QHS PRN PO CONSTIPATION; Start 05/20/17 at 23:00 Nicotine (Nicoderm Cq 21mg) 1 patch DAILY TD Last administered on 05/27/17at 07: 40; Start 05/21/17 at 09:00 Duloxetine HCl (Cymbalta) 120 mg DAILY PO Last administered on 05/25/17at 09:36 ; Start 05/21/17 at 09:00; Stop 05/25/17 at 18:38; Status DC Risperidone (RisperDAL) 0.5 mg TID PO Last administered on 05/22/17at 13:59; Start 05/21/17 at 09:00; Stop 05/22/17 at 18:42; Status DC Allopurinol (Zyloprim) 300 mg DAILY PO Last administered on 05/27/17 07:39; Start 05/21/17 at 09:00 Aspirin (Children'S Aspirin) 81 mg DAILY PO Last administered on 05/27/17 07: 38; Start 05/21/17 at 09:00 Cyanocobalamin (Vitamin B-12) 100 mcg DAILY PO Last administered on 05/27/17 07:41; Start 05/21/17 at 09:00 Cyclobenzaprine HCl (Flexeril) 10 mg PRN DAILY PRN PO MUSCLE SPASMS Last administered on 05/26/17 16:41; Start 05/21/17 at 04:00 Ferrous Sulfate (Feosol) 325 mg DAILY PO Last administered on 05/27/17 07:40; Start 05/21/17 at 09:00 Gabapentin (Neurontin) 300 mg BID PO Last administered on 05/27/17 19:17; Start 05/21/17 at 09:00 Hydrochlorothiazide (Hydrodiuril) 25 mg DAILY PO Last administered on 07:40; Start 05/21/17 at 09:00 Levothyroxine Sodium (Synthroid) 25 mcg DAILY07 PO Last administered on at 05:52; Start 05/21/17 at 07:00 Lisinopril (Prinivil) 20 mg BID PO Last administered on 05/27/17 19:17; Start 05/21/17 at 09:00 Metformin HCl (Glucophage) 500 mg DAILYWBKFT PO Last administered on 05/27/17 07:39; Start 05/21/17 at 08:00 Metoprolol Tartrate (Lopressor) 25 mg DAILY PO Last administered on 05/27/17 07:39; Start 05/21/17 at 09:00 Pantoprazole Sodium (Protonix) 40 mg BIDBFRMEAL PO Last administered on 16:42; Start 05/21/17 at 07:30 Senna/Docusate Sodium (Senna Plus) 1 tab DAILY PO Last administered on at 07:39; Start 05/21/17 at 09:00 Risperidone (RisperDAL) 0.5 mg BID PO Last administered on 05/23/17at 08:55; Start 05/22/17 at 21:00; Stop 05/23/17 at 16:02; Status DC Acetaminophen (Tylenol) 650 mg PRN Q6HRS PRN PO PAIN / TEMP Last administered on 05/23/17at 10:07; Start 05/23/17 at 09:15 Risperidone (RisperDAL) 0.5 mg DAILY PO Last administered on 05/27/17at 07:39; Start 05/24/17 at 09:00 Divalproex Sodium (Depakote Sprinkles) 125 mg BIDWMEALS PO ; Start 05/23/17 at 17:00; Stop 05/23/17 at 17:02; Status DC Divalproex Sodium (Depakote Sprinkles) 125 mg BIDWMEALS PO Last administered on 05/27/17at 16:42; Start 05/24/17 at 09:00 Acetaminophen/ Hydrocodone Bitart (Lortab 5/325) 1 tab PRN Q4HRS PRN PO PAIN Last administered on 05/27/17at 15:26; Start 05/23/17 at 18:00 Duloxetine HCl (Cymbalta) 90 mg DAILY PO Last administered on 05/27/17at 07:39; Start 05/26/17 at 09:00 Active Scripts Active Reported Senna-Docusate Sodium Tablet (Sennosides/Docusate Sodium) 1 Each Tablet 1 Cap PO DAILY Risperdal (Risperidone) 0.5 Mg Tablet 0.5 Mg PO TID Protonix (Pantoprazole Sodium) 40 Mg Tablet.dr 40 Mg PO BID Percocet 5-325 Mg Tablet (Oxycodone Hcl/Acetaminophen) 1 Each Tablet 1 Tab PO PRN TID PRN Metoprolol Tartrate 25 Mg Tablet 25 Mg PO DAILY Glucophage (Metformin Hcl) 500 Mg Tablet 500 Mg PO DAILYWBKFT Lisinopril 20 Mg Tablet 20 Mg PO BID Levothyroxine Sodium 25 Mcg Tablet 25 Mcg PO DAILYAC Hydrochlorothiazide Tablet (Hydrochlorothiazide) 25 Mg Tablet 25 Mg PO DAILY Gabapentin 300 Mg Capsule 300 Mg PO BID Ferrous Sulfate 325 Mg Tablet 325 Mg PO DAILY Cymbalta (Duloxetine Hcl) 60 Mg Capsule.dr 120 Mg PO Cyclobenzaprine Hcl 10 Mg Tablet 10 Mg PO PRN DAILY PRN Vitamin B-12 (Cyanocobalamin (Vitamin B-12)) 100 Mcg Tablet 100 Mcg PO DAILY Aspirin 81 Mg Tab.chew 81 Mg PO DAILY Allopurinol 300 Mg Tablet 300 Mg PO DAILY I have reviewed the current psychotropics carefully including drug interactions. Risk benefit ratio favors no change other than as noted in my dictated progress note. Diagnosis: Problems: (1) Anxiety disorder (2) Impulse control disorder (3) Bipolar affective, mixed (4) Mild cognitive impairment (5) Cerebrovascular accident (CVA) due to vascular occlusion MELISSA CARDOZO MD May 27, 2017 20:49
[2017-05-28] MEDS: LEVOTHYROXINE 25 MCG TABLET. PO SCH (05:42)
[2017-05-28 05:46] VITALS: BP 101/66
[2017-05-28] MEDS: DULoxetine HCL 30 MG CAPSULE.DR PO SCH (07:36)
[2017-05-28] MEDS: GABAPENTIN 300 MG CAPSULE. PO SCH ×2 (07:36→19:46)
[2017-05-28] MEDS: FERROUS SULFATE 325 MG TABLET. PO SCH (07:36)
[2017-05-28] MEDS: hydroCHLOROthiazide 25 MG TABLET PO SCH (07:36)
[2017-05-28] MEDS: DIVALPROEX 125 MG CAP.SPRINK PO SCH ×2 (07:36→16:49)
[2017-05-28] MEDS: ASPIRIN 81 MG TAB.CHEW PO SCH (07:36)
[2017-05-28] MEDS: metFORMIN 500 MG TABLET PO SCH (07:36)
[2017-05-28] MEDS: NICOTINE 21MG PATCH. TD SCH (07:37)
[2017-05-28] MEDS: METOPROLOL TART IMMED RELEASE 25 MG TABLET PO SCH (07:37)
[2017-05-28] MEDS: SENNOSIDES/DOCUSATE 8.6/50MG TABLET. PO SCH (07:37)
[2017-05-28] MEDS: risperiDONE 0.5 MG TABLET. PO SCH (07:37)
[2017-05-28] MEDS: ALLOPURINOL 300 MG TABLET. PO SCH (07:37)
[2017-05-28] MEDS: PANTOPRAZOLE 40 MG TABLET. PO SCH ×2 (07:37→16:48)
[2017-05-28] MEDS: CYANOCOBALAMIN (VITAMIN B-12) 100 MCG TABLET PO SCH (07:38)
[2017-05-28] MEDS: LISINOPRIL 20 MG TABLET PO SCH ×2 (07:38→19:46)
[2017-05-28] MEDS: HYDROcodone/APAP 5/325MG 1 TAB TABLET PO PRN (09:58)
[2017-05-28 15:57] VITALS: BP 102/67
--- NOTE | 2017-05-28 20:52 | PDOC ---
Exam Note: Nabeel Note: Please also refer to the separate dictated note~for this date of service dictated separately.~Patient seen individually. Discussed the patient with Nursing staff reviewed the chart.~Reviewed interim history and current functioning. Reviewed vital signs,~Labs/ Radiology~and current medications noted below. Continue current treatment with the changes noted in the dictated addendum note Assessment: Vital Signs: Vital Signs Date Time Temp Pulse Resp B/P (MAP) Pulse Ox O2 Delivery O2 Flow Rate FiO2 05/28/17 19:46 66 102/67 05/28/17 15:57 96.9 18 99 05/28/17 11:15 Room Air I&O Intake and Output 05/28/17 07:00 Intake Total 1200 ml Balance 1200 ml Intake Oral 1200 ml # Voids 1 Labs: Laboratory Tests Test 05/28/17 07:31 Glucose (Fingerstick) 96 mg/dL (70-99) Current Medications: Meds: Current Medications Multi-Ingredient Ointment (Analgesic [place]) 1 geovanna PRN QID PRN TP MUSCLE PAIN; Start 05/20/17 at 23:00 Al Hydroxide/Mg Hydroxide (Mylanta Plus Xs) 15 ml PRN AFTMEALHC PRN PO DYSPEPSIA; Start 05/20/17 at 23:00 Magnesium Hydroxide (Milk Of Magnesia) 2,400 mg PRN QHS PRN PO CONSTIPATION; Start 05/20/17 at 23:00 Nicotine (Nicoderm Cq 21mg) 1 patch DAILY TD Last administered on 05/28/17at 07: 37; Start 05/21/17 at 09:00 Duloxetine HCl (Cymbalta) 120 mg DAILY PO Last administered on 05/25/17at 09:36 ; Start 05/21/17 at 09:00; Stop 05/25/17 at 18:38; Status DC Risperidone (RisperDAL) 0.5 mg TID PO Last administered on 05/22/17at 13:59; Start 05/21/17 at 09:00; Stop 05/22/17 at 18:42; Status DC Allopurinol (Zyloprim) 300 mg DAILY PO Last administered on 05/28/17at 07:37; Start 05/21/17 at 09:00 Aspirin (Children'S Aspirin) 81 mg DAILY PO Last administered on 05/28/17at 07: 36; Start 05/21/17 at 09:00 Cyanocobalamin (Vitamin B-12) 100 mcg DAILY PO Last administered on 05/28/17 07:38; Start 05/21/17 at 09:00 Cyclobenzaprine HCl (Flexeril) 10 mg PRN DAILY PRN PO MUSCLE SPASMS Last administered on 05/26/17 16:41; Start 05/21/17 at 04:00 Ferrous Sulfate (Feosol) 325 mg DAILY PO Last administered on 05/28/17 07:36; Start 05/21/17 at 09:00 Gabapentin (Neurontin) 300 mg BID PO Last administered on 05/28/17 19:46; Start 05/21/17 at 09:00 Hydrochlorothiazide (Hydrodiuril) 25 mg DAILY PO Last administered on 07:36; Start 05/21/17 at 09:00 Levothyroxine Sodium (Synthroid) 25 mcg DAILY07 PO Last administered on 05:42; Start 05/21/17 at 07:00 Lisinopril (Prinivil) 20 mg BID PO Last administered on 05/28/17 19:46; Start 05/21/17 at 09:00 Metformin HCl (Glucophage) 500 mg DAILYWBKFT PO Last administered on 05/28/17 07:36; Start 05/21/17 at 08:00 Metoprolol Tartrate (Lopressor) 25 mg DAILY PO Last administered on 05/28/17 07:37; Start 05/21/17 at 09:00 Pantoprazole Sodium (Protonix) 40 mg BIDBFRMEAL PO Last administered on 16:48; Start 05/21/17 at 07:30 Senna/Docusate Sodium (Senna Plus) 1 tab DAILY PO Last administered on 07:37; Start 05/21/17 at 09:00 Risperidone (RisperDAL) 0.5 mg BID PO Last administered on 05/23/17 08:55; Start 05/22/17 at 21:00; Stop 05/23/17 at 16:02; Status DC Acetaminophen (Tylenol) 650 mg PRN Q6HRS PRN PO PAIN / TEMP Last administered on 05/23/17at 10:07; Start 05/23/17 at 09:15 Risperidone (RisperDAL) 0.5 mg DAILY PO Last administered on 05/28/17at 07:37; Start 05/24/17 at 09:00 Divalproex Sodium (Depakote Sprinkles) 125 mg BIDWMEALS PO ; Start 05/23/17 at 17:00; Stop 05/23/17 at 17:02; Status DC Divalproex Sodium (Depakote Sprinkles) 125 mg BIDWMEALS PO Last administered on 05/28/17at 07:36; Start 05/24/17 at 09:00; Stop 05/28/17 at 10:48; Status DC Acetaminophen/ Hydrocodone Bitart (Lortab 5/325) 1 tab PRN Q4HRS PRN PO PAIN Last administered on 05/28/17at 09:58; Start 05/23/17 at 18:00 Duloxetine HCl (Cymbalta) 90 mg DAILY PO Last administered on 05/28/17at 07:36; Start 05/26/17 at 09:00 Divalproex Sodium (Depakote Sprinkles) 375 mg BIDWMEALS PO Last administered on 05/28/17at 16:49; Start 05/28/17 at 17:00 Active Scripts Active Reported Senna-Docusate Sodium Tablet (Sennosides/Docusate Sodium) 1 Each Tablet 1 Cap PO DAILY Risperdal (Risperidone) 0.5 Mg Tablet 0.5 Mg PO TID Protonix (Pantoprazole Sodium) 40 Mg Tablet.dr 40 Mg PO BID Percocet 5-325 Mg Tablet (Oxycodone Hcl/Acetaminophen) 1 Each Tablet 1 Tab PO PRN TID PRN Metoprolol Tartrate 25 Mg Tablet 25 Mg PO DAILY Glucophage (Metformin Hcl) 500 Mg Tablet 500 Mg PO DAILYWBKFT Lisinopril 20 Mg Tablet 20 Mg PO BID Levothyroxine Sodium 25 Mcg Tablet 25 Mcg PO DAILYAC Hydrochlorothiazide Tablet (Hydrochlorothiazide) 25 Mg Tablet 25 Mg PO DAILY Gabapentin 300 Mg Capsule 300 Mg PO BID Ferrous Sulfate 325 Mg Tablet 325 Mg PO DAILY Cymbalta (Duloxetine Hcl) 60 Mg Capsule.dr 120 Mg PO Cyclobenzaprine Hcl 10 Mg Tablet 10 Mg PO PRN DAILY PRN Vitamin B-12 (Cyanocobalamin (Vitamin B-12)) 100 Mcg Tablet 100 Mcg PO DAILY Aspirin 81 Mg Tab.chew 81 Mg PO DAILY Allopurinol 300 Mg Tablet 300 Mg PO DAILY I have reviewed the current psychotropics carefully including drug interactions. Risk benefit ratio favors no change other than as noted in my dictated progress note. Diagnosis: Problems: (1) Anxiety disorder (2) Impulse control disorder (3) Bipolar affective, mixed (4) Mild cognitive impairment (5) Cerebrovascular accident (CVA) due to vascular occlusion MELISSA CARDOZO MD May 28, 2017 20:52
[2017-05-29 05:44] VITALS: BP 129/72
[2017-05-29] MEDS: LEVOTHYROXINE 25 MCG TABLET. PO SCH (06:02)
[2017-05-29] MEDS: NICOTINE 21MG PATCH. TD SCH (08:46)
[2017-05-29] MEDS: GABAPENTIN 300 MG CAPSULE. PO SCH ×2 (08:46→19:31)
[2017-05-29] MEDS: risperiDONE 0.5 MG TABLET. PO SCH (08:47)
[2017-05-29] MEDS: SENNOSIDES/DOCUSATE 8.6/50MG TABLET. PO SCH (08:47)
[2017-05-29] MEDS: METOPROLOL TART IMMED RELEASE 25 MG TABLET PO SCH (08:47)
[2017-05-29] MEDS: DIVALPROEX 125 MG CAP.SPRINK PO SCH ×2 (08:47→17:03)
[2017-05-29] MEDS: hydroCHLOROthiazide 25 MG TABLET PO SCH (08:47)
[2017-05-29] MEDS: LISINOPRIL 20 MG TABLET PO SCH ×2 (08:48→19:34)
[2017-05-29] MEDS: ASPIRIN 81 MG TAB.CHEW PO SCH (08:48)
[2017-05-29] MEDS: FERROUS SULFATE 325 MG TABLET. PO SCH (08:48)
[2017-05-29] MEDS: metFORMIN 500 MG TABLET PO SCH (08:48)
[2017-05-29] MEDS: ALLOPURINOL 300 MG TABLET. PO SCH (08:48)
[2017-05-29] MEDS: PANTOPRAZOLE 40 MG TABLET. PO SCH ×2 (08:49→17:03)
[2017-05-29] MEDS: DULoxetine HCL 30 MG CAPSULE.DR PO SCH (08:49)
[2017-05-29] MEDS: CYANOCOBALAMIN (VITAMIN B-12) 100 MCG TABLET PO SCH (08:49)
--- NOTE | 2017-05-29 09:27 | PN ---
DATE: 05/27/2017 This is a late entry for 05/27/2017 and covers elements not covered in my initial note of 05/27/2017. I met with the patient the evening of 05/27/2017. The patient slept 6-3/4 hours previous evening. He is somewhat delusional, suspicious, per nursing report, paranoid. His is helping remodel is home. He believes she is stealing some of his money since she has a boyfriend of her own across town. I processed this with him individually. REVIEW OF SYSTEMS: Complains of back pain, some impairment of ambulation as a consequence of this. No CV, , pulmonary, eye system symptoms on review. MENTAL STATUS EXAM: Oriented to himself and situation. Speech is coherent, abstraction fair, computation impaired, language function intact. Attention span short. Short term memory is impaired. LABORATORY DATA: Reviewed. IMPRESSION: Unchanged from initial notes. Bipolar 1 disorder, mixed with psychotic features; cognitive disorder, unspecified versus major neurocognitive disorder, early Alzheimer, vascular with depression, delusions. Past review of the patient's history indicates he has had 20 ECT treatments in the past, perhaps for his bipolar disorder diagnosis PLAN: Continue Cymbalta, which was reduced to 90 mg a day, Risperdal 0.5 mg daily, Depakote 125 mg twice a day. Follow labs level, adjust as indicated. He is also on Neurontin 300 b.i.d. MAN Celeste CARDOZO MD DR: MILTON/daniel JOB#: [id number] / [id number]
[2017-05-29] MEDS: HYDROcodone/APAP 5/325MG 1 TAB TABLET PO PRN (09:40)
--- NOTE | 2017-05-29 12:51 | PN ---
DATE: 05/28/2017 PSYCHIATRIC PROGRESS NOTE This is a late entry 05/28/2017, covers elements not covered in my initial note 05/28/2017. SUBJECTIVE: I met with the patient the evening of 05/28/2017 in his room. He slept 8 hours previous evening. Appetite 100%. He scores 19 on the slums. The patient was also staffed at a treatment team meeting morning of 05/28/2017 and seen individually evening of 05/28/2017. His ex-, Thais was to join in on the treatment team was unable to. He still gets a little suspicious of his ex- spending his money to remodel his house. Past history shared by social service staff at staffing indicated. He had ECT in 2000, has a past history of head injury, significant stress from divorce. REVIEW OF SYSTEMS: Positive for chronic pain. No CV, , pulmonary, eye system symptoms on review. MENTAL STATUS EXAM: Oriented to himself and situation. Speech coherent, abstraction fair, computation impaired, language function intact. Short term memory is impaired. No active suicidal or homicidal ideation. LABORATORY DATA: Reviewed. IMPRESSION: Bipolar 1 disorder, mixed with psychotic features; cognitive disorder, unspecified versus major neurocognitive disorder, early traumatic, vascular with depression, delusion. Rest unchanged. PLAN: Valproic acid level is low at 12, on Depakote 125 b.i.d., will increase to 375 twice a day. Check CBC, CMP, valproic acid level in 3 days. Rest will continue unchanged. Adjust as clinically indicated. MELISSA CARDOZO MD DR: MILTON/daniel JOB#: [id number] / [id number]
[2017-05-29 16:05] VITALS: BP 96/54
--- NOTE | 2017-05-29 20:54 | PDOC ---
Exam Note: Nabeel Note: Please also refer to the separate dictated note~for this date of service dictated separately.~Patient seen individually. Discussed the patient with Nursing staff reviewed the chart.~Reviewed interim history and current functioning. Reviewed vital signs,~Labs/ Radiology~and current medications noted below. Continue current treatment with the changes noted in the dictated addendum note Assessment: Vital Signs: Vital Signs Date Time Temp Pulse Resp B/P (MAP) Pulse Ox O2 Delivery O2 Flow Rate FiO2 05/29/17 19:34 70 96/54 05/29/17 16:05 97.8 18 94 05/29/17 11:15 Room Air I&O Intake and Output 05/29/17 07:00 Intake Total 1560 ml Balance 1560 ml Intake Oral 1560 ml Labs: Laboratory Tests Test 05/29/17 07:25 Glucose (Fingerstick) 96 mg/dL (70-99) Current Medications: Meds: Current Medications Multi-Ingredient Ointment (Analgesic [place]) 1 geovanna PRN QID PRN TP MUSCLE PAIN; Start 05/20/17 at 23:00 Al Hydroxide/Mg Hydroxide (Mylanta Plus Xs) 15 ml PRN AFTMEALHC PRN PO DYSPEPSIA; Start 05/20/17 at 23:00 Magnesium Hydroxide (Milk Of Magnesia) 2,400 mg PRN QHS PRN PO CONSTIPATION; Start 05/20/17 at 23:00 Nicotine (Nicoderm Cq 21mg) 1 patch DAILY TD Last administered on 05/29/17at 08: 46; Start 05/21/17 at 09:00 Duloxetine HCl (Cymbalta) 120 mg DAILY PO Last administered on 05/25/17at 09:36 ; Start 05/21/17 at 09:00; Stop 05/25/17 at 18:38; Status DC Risperidone (RisperDAL) 0.5 mg TID PO Last administered on 05/22/17at 13:59; Start 05/21/17 at 09:00; Stop 05/22/17 at 18:42; Status DC Allopurinol (Zyloprim) 300 mg DAILY PO Last administered on 05/29/17at 08:48; Start 05/21/17 at 09:00 Aspirin (Children'S Aspirin) 81 mg DAILY PO Last administered on 05/29/17at 08: 48; Start 05/21/17 at 09:00 Cyanocobalamin (Vitamin B-12) 100 mcg DAILY PO Last administered on 05/29/17 08:49; Start 05/21/17 at 09:00 Cyclobenzaprine HCl (Flexeril) 10 mg PRN DAILY PRN PO MUSCLE SPASMS Last administered on 05/26/17 16:41; Start 05/21/17 at 04:00 Ferrous Sulfate (Feosol) 325 mg DAILY PO Last administered on 05/29/17 08:48; Start 05/21/17 at 09:00 Gabapentin (Neurontin) 300 mg BID PO Last administered on 05/29/17 19:31; Start 05/21/17 at 09:00 Hydrochlorothiazide (Hydrodiuril) 25 mg DAILY PO Last administered on 08:47; Start 05/21/17 at 09:00 Levothyroxine Sodium (Synthroid) 25 mcg DAILY07 PO Last administered on 06:02; Start 05/21/17 at 07:00 Lisinopril (Prinivil) 20 mg BID PO Last administered on 05/29/17 08:48; Start 05/21/17 at 09:00 Metformin HCl (Glucophage) 500 mg DAILYWBKFT PO Last administered on 05/29/17 08:48; Start 05/21/17 at 08:00 Metoprolol Tartrate (Lopressor) 25 mg DAILY PO Last administered on 05/29/17 08:47; Start 05/21/17 at 09:00 Pantoprazole Sodium (Protonix) 40 mg BIDBFRMEAL PO Last administered on 17:03; Start 05/21/17 at 07:30 Senna/Docusate Sodium (Senna Plus) 1 tab DAILY PO Last administered on 08:47; Start 05/21/17 at 09:00 Risperidone (RisperDAL) 0.5 mg BID PO Last administered on 05/23/17 08:55; Start 05/22/17 at 21:00; Stop 05/23/17 at 16:02; Status DC Acetaminophen (Tylenol) 650 mg PRN Q6HRS PRN PO PAIN / TEMP Last administered on 05/23/17at 10:07; Start 05/23/17 at 09:15 Risperidone (RisperDAL) 0.5 mg DAILY PO Last administered on 05/29/17at 08:47; Start 05/24/17 at 09:00 Divalproex Sodium (Depakote Sprinkles) 125 mg BIDWMEALS PO ; Start 05/23/17 at 17:00; Stop 05/23/17 at 17:02; Status DC Divalproex Sodium (Depakote Sprinkles) 125 mg BIDWMEALS PO Last administered on 05/28/17at 07:36; Start 05/24/17 at 09:00; Stop 05/28/17 at 10:48; Status DC Acetaminophen/ Hydrocodone Bitart (Lortab 5/325) 1 tab PRN Q4HRS PRN PO PAIN Last administered on 05/29/17 09:40; Start 05/23/17 at 18:00 Duloxetine HCl (Cymbalta) 90 mg DAILY PO Last administered on 05/29/17at 08:49; Start 05/26/17 at 09:00 Divalproex Sodium (Depakote Sprinkles) 375 mg BIDWMEALS PO Last administered on 05/29/17at 17:03; Start 05/28/17 at 17:00 Active Scripts Active Reported Senna-Docusate Sodium Tablet (Sennosides/Docusate Sodium) 1 Each Tablet 1 Cap PO DAILY Risperdal (Risperidone) 0.5 Mg Tablet 0.5 Mg PO TID Protonix (Pantoprazole Sodium) 40 Mg Tablet.dr 40 Mg PO BID Percocet 5-325 Mg Tablet (Oxycodone Hcl/Acetaminophen) 1 Each Tablet 1 Tab PO PRN TID PRN Metoprolol Tartrate 25 Mg Tablet 25 Mg PO DAILY Glucophage (Metformin Hcl) 500 Mg Tablet 500 Mg PO DAILYWBKFT Lisinopril 20 Mg Tablet 20 Mg PO BID Levothyroxine Sodium 25 Mcg Tablet 25 Mcg PO DAILYAC Hydrochlorothiazide Tablet (Hydrochlorothiazide) 25 Mg Tablet 25 Mg PO DAILY Gabapentin 300 Mg Capsule 300 Mg PO BID Ferrous Sulfate 325 Mg Tablet 325 Mg PO DAILY Cymbalta (Duloxetine Hcl) 60 Mg Capsule.dr 120 Mg PO Cyclobenzaprine Hcl 10 Mg Tablet 10 Mg PO PRN DAILY PRN Vitamin B-12 (Cyanocobalamin (Vitamin B-12)) 100 Mcg Tablet 100 Mcg PO DAILY Aspirin 81 Mg Tab.chew 81 Mg PO DAILY Allopurinol 300 Mg Tablet 300 Mg PO DAILY I have reviewed the current psychotropics carefully including drug interactions. Risk benefit ratio favors no change other than as noted in my dictated progress note. Diagnosis: Problems: (1) Anxiety disorder (2) Impulse control disorder (3) Bipolar affective, mixed (4) Mild cognitive impairment (5) Cerebrovascular accident (CVA) due to vascular occlusion MELISSA CARDOZO MD May 29, 2017 20:54
[2017-05-30 05:40] VITALS: BP 122/72
[2017-05-30] MEDS: LEVOTHYROXINE 25 MCG TABLET. PO SCH (06:13)
[2017-05-30] MEDS: DIVALPROEX 125 MG CAP.SPRINK PO SCH ×2 (08:08→17:10)
[2017-05-30] MEDS: DULoxetine HCL 30 MG CAPSULE.DR PO SCH (08:08)
[2017-05-30] MEDS: PANTOPRAZOLE 40 MG TABLET. PO SCH ×2 (08:08→17:10)
[2017-05-30] MEDS: metFORMIN 500 MG TABLET PO SCH (08:08)
[2017-05-30] MEDS: ASPIRIN 81 MG TAB.CHEW PO SCH (08:08)
[2017-05-30] MEDS: FERROUS SULFATE 325 MG TABLET. PO SCH (08:09)
[2017-05-30] MEDS: hydroCHLOROthiazide 25 MG TABLET PO SCH (08:10)
[2017-05-30] MEDS: GABAPENTIN 300 MG CAPSULE. PO SCH ×2 (08:11→18:01)
[2017-05-30] MEDS: METOPROLOL TART IMMED RELEASE 25 MG TABLET PO SCH (08:11)
[2017-05-30] MEDS: SENNOSIDES/DOCUSATE 8.6/50MG TABLET. PO SCH (08:11)
[2017-05-30] MEDS: risperiDONE 0.5 MG TABLET. PO SCH (08:11)
[2017-05-30] MEDS: ALLOPURINOL 300 MG TABLET. PO SCH (08:11)
[2017-05-30] MEDS: CYANOCOBALAMIN (VITAMIN B-12) 100 MCG TABLET PO SCH (08:13)
[2017-05-30] MEDS: NICOTINE 21MG PATCH. TD SCH (08:13)
[2017-05-30] MEDS: LISINOPRIL 20 MG TABLET PO SCH ×2 (09:00→18:02)
[2017-05-30 15:51] VITALS: BP 119/64
--- NOTE | 2017-05-30 20:26 | PN ---
DATE: 05/29/2017 PSYCHIATRIC PROGRESS NOTE This is a late entry for 05/29/2017 covers elements not covered in my initial note 05/29/2017. SUBJECTIVE: I met with the patient evening of 05/29/2017. Overall per nursing report, the patient had a good day. He has been somewhat somatically preoccupied at times about his stools, but redirectable. Reviewed his past history of ECT treatment for bipolar disorder. REVIEW OF SYSTEMS: Positive for back pain. No CV, , pulmonary, eye, ENT system symptoms on review. Reliability varies. MENTAL STATUS EXAM: Oriented to himself and situation. Speech coherent, abstraction fair, computation impaired, language function intact. Short term memory is impaired. Attention span short. Mood and affect somewhat dysphoric. No suicidal or homicidal ideation. Short term memory is impaired. LABORATORY DATA: Reviewed. IMPRESSION: Unchanged from initial note. PLAN: Continue current psychotropics. Depakote is being adjusted to reach a therapeutic level. Next set of labs on 06/01/2017. MAN Celeste CARDOZO MD DR: MILTON/daniel JOB#: [id number] / [id number]
--- NOTE | 2017-05-30 21:55 | PDOC ---
Exam Note: Nabeel Note: Please also refer to the separate dictated note~for this date of service dictated separately.~Patient seen individually. Discussed the patient with Nursing staff reviewed the chart.~Reviewed interim history and current functioning. Reviewed vital signs,~Labs/ Radiology~and current medications noted below. Continue current treatment with the changes noted in the dictated addendum note Assessment: Vital Signs: Vital Signs Date Time Temp Pulse Resp B/P (MAP) Pulse Ox O2 Delivery O2 Flow Rate FiO2 05/30/17 15:51 97.9 75 18 119/64 (82) 96 05/29/17 11:15 Room Air I&O Intake and Output 05/30/17 07:00 Intake Total 900 ml Balance 900 ml Intake Oral 900 ml Labs: Laboratory Tests Test 05/30/17 07:42 Glucose (Fingerstick) 92 mg/dL (70-99) Current Medications: Meds: Current Medications Multi-Ingredient Ointment (Analgesic [place]) 1 geovanna PRN QID PRN TP MUSCLE PAIN; Start 05/20/17 at 23:00 Al Hydroxide/Mg Hydroxide (Mylanta Plus Xs) 15 ml PRN AFTMEALHC PRN PO DYSPEPSIA; Start 05/20/17 at 23:00 Magnesium Hydroxide (Milk Of Magnesia) 2,400 mg PRN QHS PRN PO CONSTIPATION; Start 05/20/17 at 23:00 Nicotine (Nicoderm Cq 21mg) 1 patch DAILY TD Last administered on 05/30/17at 08: 13; Start 05/21/17 at 09:00 Duloxetine HCl (Cymbalta) 120 mg DAILY PO Last administered on 05/25/17at 09:36 ; Start 05/21/17 at 09:00; Stop 05/25/17 at 18:38; Status DC Risperidone (RisperDAL) 0.5 mg TID PO Last administered on 05/22/17at 13:59; Start 05/21/17 at 09:00; Stop 05/22/17 at 18:42; Status DC Allopurinol (Zyloprim) 300 mg DAILY PO Last administered on 05/30/17at 08:11; Start 05/21/17 at 09:00 Aspirin (Children'S Aspirin) 81 mg DAILY PO Last administered on 05/30/17at 08: 08; Start 05/21/17 at 09:00 Cyanocobalamin (Vitamin B-12) 100 mcg DAILY PO Last administered on 05/30/17 08:13; Start 05/21/17 at 09:00 Cyclobenzaprine HCl (Flexeril) 10 mg PRN DAILY PRN PO MUSCLE SPASMS Last administered on 05/26/17 16:41; Start 05/21/17 at 04:00 Ferrous Sulfate (Feosol) 325 mg DAILY PO Last administered on 05/30/17 08:09; Start 05/21/17 at 09:00 Gabapentin (Neurontin) 300 mg BID PO Last administered on 05/30/17 18:01; Start 05/21/17 at 09:00 Hydrochlorothiazide (Hydrodiuril) 25 mg DAILY PO Last administered on 08:10; Start 05/21/17 at 09:00 Levothyroxine Sodium (Synthroid) 25 mcg DAILY07 PO Last administered on 06:13; Start 05/21/17 at 07:00 Lisinopril (Prinivil) 20 mg BID PO Last administered on 05/29/17 08:48; Start 05/21/17 at 09:00 Metformin HCl (Glucophage) 500 mg DAILYWBKFT PO Last administered on 05/30/17 08:08; Start 05/21/17 at 08:00 Metoprolol Tartrate (Lopressor) 25 mg DAILY PO Last administered on 05/30/17 08:11; Start 05/21/17 at 09:00 Pantoprazole Sodium (Protonix) 40 mg BIDBFRMEAL PO Last administered on 17:10; Start 05/21/17 at 07:30 Senna/Docusate Sodium (Senna Plus) 1 tab DAILY PO Last administered on 08:11; Start 05/21/17 at 09:00 Risperidone (RisperDAL) 0.5 mg BID PO Last administered on 05/23/17 08:55; Start 05/22/17 at 21:00; Stop 05/23/17 at 16:02; Status DC Acetaminophen (Tylenol) 650 mg PRN Q6HRS PRN PO PAIN / TEMP Last administered on 05/23/17 10:07; Start 05/23/17 at 09:15 Risperidone (RisperDAL) 0.5 mg DAILY PO Last administered on 05/30/17at 08:11; Start 05/24/17 at 09:00 Divalproex Sodium (Depakote Sprinkles) 125 mg BIDWMEALS PO ; Start 05/23/17 at 17:00; Stop 05/23/17 at 17:02; Status DC Divalproex Sodium (Depakote Sprinkles) 125 mg BIDWMEALS PO Last administered on 05/28/17at 07:36; Start 05/24/17 at 09:00; Stop 05/28/17 at 10:48; Status DC Acetaminophen/ Hydrocodone Bitart (Lortab 5/325) 1 tab PRN Q4HRS PRN PO PAIN Last administered on 05/29/17at 09:40; Start 05/23/17 at 18:00 Duloxetine HCl (Cymbalta) 90 mg DAILY PO Last administered on 05/30/17at 08:08; Start 05/26/17 at 09:00 Divalproex Sodium (Depakote Sprinkles) 375 mg BIDWMEALS PO Last administered on 05/30/17at 17:10; Start 05/28/17 at 17:00 Olanzapine (ZyPREXA ZYDIS) 2.5 mg PRN Q2HR PRN PO PSYCHOSIS/AGITATION; Start at 20:30 Active Scripts Active Reported Senna-Docusate Sodium Tablet (Sennosides/Docusate Sodium) 1 Each Tablet 1 Cap PO DAILY Risperdal (Risperidone) 0.5 Mg Tablet 0.5 Mg PO TID Protonix (Pantoprazole Sodium) 40 Mg Tablet.dr 40 Mg PO BID Percocet 5-325 Mg Tablet (Oxycodone Hcl/Acetaminophen) 1 Each Tablet 1 Tab PO PRN TID PRN Metoprolol Tartrate 25 Mg Tablet 25 Mg PO DAILY Glucophage (Metformin Hcl) 500 Mg Tablet 500 Mg PO DAILYWBKFT Lisinopril 20 Mg Tablet 20 Mg PO BID Levothyroxine Sodium 25 Mcg Tablet 25 Mcg PO DAILYAC Hydrochlorothiazide Tablet (Hydrochlorothiazide) 25 Mg Tablet 25 Mg PO DAILY Gabapentin 300 Mg Capsule 300 Mg PO BID Ferrous Sulfate 325 Mg Tablet 325 Mg PO DAILY Cymbalta (Duloxetine Hcl) 60 Mg Capsule.dr 120 Mg PO Cyclobenzaprine Hcl 10 Mg Tablet 10 Mg PO PRN DAILY PRN Vitamin B-12 (Cyanocobalamin (Vitamin B-12)) 100 Mcg Tablet 100 Mcg PO DAILY Aspirin 81 Mg Tab.chew 81 Mg PO DAILY Allopurinol 300 Mg Tablet 300 Mg PO DAILY I have reviewed the current psychotropics carefully including drug interactions. Risk benefit ratio favors no change other than as noted in my dictated progress note. Diagnosis: Problems: (1) Anxiety disorder (2) Impulse control disorder (3) Bipolar affective, mixed (4) Mild cognitive impairment (5) Cerebrovascular accident (CVA) due to vascular occlusion MELISSA CARDOZO MD May 30, 2017 21:55
[2017-05-31] MEDS: LEVOTHYROXINE 25 MCG TABLET. PO SCH (05:25)
[2017-05-31 05:43] VITALS: BP 161/81
[2017-05-31] MEDS: metFORMIN 500 MG TABLET PO SCH (07:57)
[2017-05-31] MEDS: PANTOPRAZOLE 40 MG TABLET. PO SCH ×2 (07:57→17:01)
[2017-05-31] MEDS: FERROUS SULFATE 325 MG TABLET. PO SCH (07:57)
[2017-05-31] MEDS: DIVALPROEX 125 MG CAP.SPRINK PO SCH ×2 (07:57→17:02)
[2017-05-31] MEDS: ASPIRIN 81 MG TAB.CHEW PO SCH (07:57)
[2017-05-31] MEDS: DULoxetine HCL 30 MG CAPSULE.DR PO SCH (07:57)
[2017-05-31] MEDS: hydroCHLOROthiazide 25 MG TABLET PO SCH (07:58)
[2017-05-31] MEDS: GABAPENTIN 300 MG CAPSULE. PO SCH ×2 (07:59→19:32)
[2017-05-31] MEDS: METOPROLOL TART IMMED RELEASE 25 MG TABLET PO SCH (07:59)
[2017-05-31] MEDS: risperiDONE 0.5 MG TABLET. PO SCH (07:59)
[2017-05-31] MEDS: LISINOPRIL 20 MG TABLET PO SCH ×2 (07:59→19:32)
[2017-05-31] MEDS: ALLOPURINOL 300 MG TABLET. PO SCH (08:00)
[2017-05-31] MEDS: NICOTINE 21MG PATCH. TD SCH (08:00)
[2017-05-31] MEDS: SENNOSIDES/DOCUSATE 8.6/50MG TABLET. PO SCH (08:00)
[2017-05-31] MEDS: CYANOCOBALAMIN (VITAMIN B-12) 100 MCG TABLET PO SCH (08:00)
[2017-05-31 16:04] VITALS: BP 104/63
--- NOTE | 2017-05-31 20:55 | PDOC ---
Exam Note: Nabeel Note: Please also refer to the separate dictated note~for this date of service dictated separately.~Patient seen individually. Discussed the patient with Nursing staff reviewed the chart.~Reviewed interim history and current functioning. Reviewed vital signs,~Labs/ Radiology~and current medications noted below. Continue current treatment with the changes noted in the dictated addendum note Assessment: Vital Signs: Vital Signs Date Time Temp Pulse Resp B/P (MAP) Pulse Ox O2 Delivery O2 Flow Rate FiO2 05/31/17 19:32 75 104/63 05/31/17 16:04 97.4 16 93 05/29/17 11:15 Room Air I&O Intake and Output 05/31/17 07:00 Intake Total 605 ml Balance 605 ml Intake Oral 605 ml # Voids 1 Labs: Laboratory Tests Test 05/31/17 07:28 Glucose (Fingerstick) 87 mg/dL (70-99) Current Medications: Meds: Current Medications Multi-Ingredient Ointment (Analgesic [place]) 1 geovanna PRN QID PRN TP MUSCLE PAIN; Start 05/20/17 at 23:00 Al Hydroxide/Mg Hydroxide (Mylanta Plus Xs) 15 ml PRN AFTMEALHC PRN PO DYSPEPSIA; Start 05/20/17 at 23:00 Magnesium Hydroxide (Milk Of Magnesia) 2,400 mg PRN QHS PRN PO CONSTIPATION; Start 05/20/17 at 23:00 Nicotine (Nicoderm Cq 21mg) 1 patch DAILY TD Last administered on 05/31/17at 08: 00; Start 05/21/17 at 09:00 Duloxetine HCl (Cymbalta) 120 mg DAILY PO Last administered on 05/25/17at 09:36 ; Start 05/21/17 at 09:00; Stop 05/25/17 at 18:38; Status DC Risperidone (RisperDAL) 0.5 mg TID PO Last administered on 05/22/17at 13:59; Start 05/21/17 at 09:00; Stop 05/22/17 at 18:42; Status DC Allopurinol (Zyloprim) 300 mg DAILY PO Last administered on 05/31/17at 08:00; Start 05/21/17 at 09:00 Aspirin (Children'S Aspirin) 81 mg DAILY PO Last administered on 05/31/17at 07: 57; Start 05/21/17 at 09:00 Cyanocobalamin (Vitamin B-12) 100 mcg DAILY PO Last administered on 05/31/17 08:00; Start 05/21/17 at 09:00 Cyclobenzaprine HCl (Flexeril) 10 mg PRN DAILY PRN PO MUSCLE SPASMS Last administered on 05/26/17 16:41; Start 05/21/17 at 04:00 Ferrous Sulfate (Feosol) 325 mg DAILY PO Last administered on 05/31/17 07:57; Start 05/21/17 at 09:00 Gabapentin (Neurontin) 300 mg BID PO Last administered on 05/31/17 19:32; Start 05/21/17 at 09:00 Hydrochlorothiazide (Hydrodiuril) 25 mg DAILY PO Last administered on 07:58; Start 05/21/17 at 09:00 Levothyroxine Sodium (Synthroid) 25 mcg DAILY07 PO Last administered on 05:25; Start 05/21/17 at 07:00 Lisinopril (Prinivil) 20 mg BID PO Last administered on 05/31/17 19:32; Start 05/21/17 at 09:00 Metformin HCl (Glucophage) 500 mg DAILYWBKFT PO Last administered on 05/31/17 07:57; Start 05/21/17 at 08:00 Metoprolol Tartrate (Lopressor) 25 mg DAILY PO Last administered on 05/31/17 07:59; Start 05/21/17 at 09:00 Pantoprazole Sodium (Protonix) 40 mg BIDBFRMEAL PO Last administered on 17:01; Start 05/21/17 at 07:30 Senna/Docusate Sodium (Senna Plus) 1 tab DAILY PO Last administered on 08:00; Start 05/21/17 at 09:00 Risperidone (RisperDAL) 0.5 mg BID PO Last administered on 05/23/17 08:55; Start 05/22/17 at 21:00; Stop 05/23/17 at 16:02; Status DC Acetaminophen (Tylenol) 650 mg PRN Q6HRS PRN PO PAIN / TEMP Last administered on 05/23/17at 10:07; Start 05/23/17 at 09:15 Risperidone (RisperDAL) 0.5 mg DAILY PO Last administered on 05/31/17at 07:59; Start 05/24/17 at 09:00 Divalproex Sodium (Depakote Sprinkles) 125 mg BIDWMEALS PO ; Start 05/23/17 at 17:00; Stop 05/23/17 at 17:02; Status DC Divalproex Sodium (Depakote Sprinkles) 125 mg BIDWMEALS PO Last administered on 05/28/17at 07:36; Start 05/24/17 at 09:00; Stop 05/28/17 at 10:48; Status DC Acetaminophen/ Hydrocodone Bitart (Lortab 5/325) 1 tab PRN Q4HRS PRN PO PAIN Last administered on 05/29/17at 09:40; Start 05/23/17 at 18:00 Duloxetine HCl (Cymbalta) 90 mg DAILY PO Last administered on 05/31/17at 07:57; Start 05/26/17 at 09:00 Divalproex Sodium (Depakote Sprinkles) 375 mg BIDWMEALS PO Last administered on 05/31/17at 17:02; Start 05/28/17 at 17:00 Olanzapine (ZyPREXA ZYDIS) 2.5 mg PRN Q2HR PRN PO PSYCHOSIS/AGITATION; Start at 20:30 Active Scripts Active Reported Senna-Docusate Sodium Tablet (Sennosides/Docusate Sodium) 1 Each Tablet 1 Cap PO DAILY Risperdal (Risperidone) 0.5 Mg Tablet 0.5 Mg PO TID Protonix (Pantoprazole Sodium) 40 Mg Tablet.dr 40 Mg PO BID Percocet 5-325 Mg Tablet (Oxycodone Hcl/Acetaminophen) 1 Each Tablet 1 Tab PO PRN TID PRN Metoprolol Tartrate 25 Mg Tablet 25 Mg PO DAILY Glucophage (Metformin Hcl) 500 Mg Tablet 500 Mg PO DAILYWBKFT Lisinopril 20 Mg Tablet 20 Mg PO BID Levothyroxine Sodium 25 Mcg Tablet 25 Mcg PO DAILYAC Hydrochlorothiazide Tablet (Hydrochlorothiazide) 25 Mg Tablet 25 Mg PO DAILY Gabapentin 300 Mg Capsule 300 Mg PO BID Ferrous Sulfate 325 Mg Tablet 325 Mg PO DAILY Cymbalta (Duloxetine Hcl) 60 Mg Capsule. 120 Mg PO Cyclobenzaprine Hcl 10 Mg Tablet 10 Mg PO PRN DAILY PRN Vitamin B-12 (Cyanocobalamin (Vitamin B-12)) 100 Mcg Tablet 100 Mcg PO DAILY Aspirin 81 Mg Tab.chew 81 Mg PO DAILY Allopurinol 300 Mg Tablet 300 Mg PO DAILY I have reviewed the current psychotropics carefully including drug interactions. Risk benefit ratio favors no change other than as noted in my dictated progress note. Diagnosis: Problems: (1) Anxiety disorder (2) Impulse control disorder (3) Bipolar affective, mixed (4) Mild cognitive impairment (5) Cerebrovascular accident (CVA) due to vascular occlusion MELISSA CARDOZO MD May 31, 2017 20:55
[2017-06-01] MEDS: LEVOTHYROXINE 25 MCG TABLET. PO SCH (05:46)
[2017-06-01 05:58] VITALS: BP 137/84
[2017-06-01 07:46] LABS: BASO # 0.1 x10^3/uL (0.0-0.2); BASO % 1 % (0-3); EOS # 0.4 x10^3/uL (0.0-0.7); EOS % 6 % (0-3); HEMATOCRIT 36.1 % (39.0-53.0); HEMOGLOBIN 11.8 g/dL (13.0-17.5); LYMPH # 1.5 x10^3/uL (1.0-4.8); LYMPH % 22 % (24-48); MEAN CORPUSCULAR HEMOGLOBIN 29 pg (25-35); MEAN CORPUSCULAR HGB CONC 33 g/dL (31-37); MEAN CORPUSCULAR VOLUME 87 fL (79-100); MONO # 0.7 x10^3/uL (0.0-1.1); MONO % 10 % (0-9); NEUT # 4.2 x10^3uL (1.8-7.7); NEUT % 61 % (31-73); PLATELET COUNT 207 x10^3/uL (140-400); RED BLOOD COUNT 4.13 x10^6/uL (4.30-5.70); RED CELL DISTRIBUTION WIDTH 18.5 % (11.5-14.5); WHITE BLOOD COUNT 6.9 x10^3/uL (4.0-11.0)
[2017-06-01 08:09] LABS: ALBUMIN 2.8 g/dL (3.4-5.0); ALBUMIN/GLOBULIN RATIO 0.7 (1.0-1.7); ALK PHOS 71 U/L (46-116); ALT (SGPT) 12 U/L (16-63); ANION GAP 6 (6-14); AST (SGOT) 21 U/L (15-37); BLOOD UREA NITROGEN 27 mg/dL (8-26); BUN/CREATININE RATIO 25 (6-20); CALCIUM 9.7 mg/dL (8.5-10.1); CARBON DIOXIDE 33 mmol/L (21-32); CHLORIDE 103 mmol/L (98-107); CREATININE 1.1 mg/dL (0.7-1.3); GFR 65.6; GLUCOSE 99 mg/dL (70-99); MAGNESIUM 1.9 mg/dL (1.8-2.4); POTASSIUM 4.5 mmol/L (3.5-5.1); SODIUM 142 mmol/L (136-145); TOTAL BILIRUBIN 0.3 mg/dL (0.2-1.0)
[2017-06-01 08:16] LABS: VAL ACID 38 mcg/mL (50-100)
[2017-06-01] MEDS: METOPROLOL TART IMMED RELEASE 25 MG TABLET PO SCH (08:28)
[2017-06-01] MEDS: DIVALPROEX 125 MG CAP.SPRINK PO SCH ×2 (08:28→17:00)
[2017-06-01] MEDS: SENNOSIDES/DOCUSATE 8.6/50MG TABLET. PO SCH (08:29)
[2017-06-01] MEDS: LISINOPRIL 20 MG TABLET PO SCH ×2 (08:29→19:24)
[2017-06-01] MEDS: ASPIRIN 81 MG TAB.CHEW PO SCH (08:29)
[2017-06-01] MEDS: ALLOPURINOL 300 MG TABLET. PO SCH (08:35)
[2017-06-01] MEDS: PANTOPRAZOLE 40 MG TABLET. PO SCH ×2 (08:35→17:00)
[2017-06-01] MEDS: DULoxetine HCL 30 MG CAPSULE.DR PO SCH (08:35)
[2017-06-01] MEDS: FERROUS SULFATE 325 MG TABLET. PO SCH (08:35)
[2017-06-01] MEDS: risperiDONE 0.5 MG TABLET. PO SCH (08:35)
[2017-06-01] MEDS: hydroCHLOROthiazide 25 MG TABLET PO SCH (08:35)
[2017-06-01] MEDS: GABAPENTIN 300 MG CAPSULE. PO SCH ×2 (08:35→19:23)
[2017-06-01] MEDS: NICOTINE 21MG PATCH. TD SCH (08:36)
[2017-06-01] MEDS: CYANOCOBALAMIN (VITAMIN B-12) 100 MCG TABLET PO SCH (08:42)
[2017-06-01] MEDS: metFORMIN 500 MG TABLET PO SCH (08:42)
[2017-06-01] MEDS: HYDROcodone/APAP 5/325MG 1 TAB TABLET PO PRN ×2 (09:28→14:59)
[2017-06-01] MEDS: CYCLOBENZAPRINE 10 MG TABLET. PO PRN (13:00)
[2017-06-01 16:04] VITALS: BP 121/84
[2017-06-01] MEDS ORDERED: traZODone 50 MG TABLET. PO PRN (18:45)
[2017-06-01] MEDS: traZODone 50 MG TABLET. PO SCH (19:25)
--- NOTE | 2017-06-01 20:52 | PDOC ---
Exam Note: Nabeel Note: Please also refer to the separate dictated note~for this date of service dictated separately.~Patient seen individually. Discussed the patient with Nursing staff reviewed the chart.~Reviewed interim history and current functioning. Reviewed vital signs,~Labs/ Radiology~and current medications noted below. Continue current treatment with the changes noted in the dictated addendum note Assessment: Vital Signs: Vital Signs Date Time Temp Pulse Resp B/P (MAP) Pulse Ox O2 Delivery O2 Flow Rate FiO2 06/01/17 19:24 74 121/84 06/01/17 16:04 97.0 16 95 05/29/17 11:15 Room Air I&O Intake and Output 06/01/17 07:00 Intake Total 845 ml Balance 845 ml Intake Oral 845 ml # Bowel Movements 1 Labs: Laboratory Tests Test 06/01/17 06:55 06/01/17 07:24 White Blood Count 6.9 x10^3/uL (4.0-11.0) Red Blood Count 4.13 x10^6/uL (4.30-5.70) L Hemoglobin 11.8 g/dL (13.0-17.5) L Hematocrit 36.1 % (39.0-53.0) L Mean Corpuscular Volume 87 fL (79-100) Mean Corpuscular Hemoglobin 29 pg (25-35) Mean Corpuscular Hemoglobin Concent 33 g/dL (31-37) Red Cell Distribution Width 18.5 % (11.5-14.5) H Platelet Count 207 x10^3/uL (140-400) Neutrophils (%) (Auto) 61 % (31-73) Lymphocytes (%) (Auto) 22 % (24-48) L Monocytes (%) (Auto) 10 % (0-9) H Eosinophils (%) (Auto) 6 % (0-3) H Basophils (%) (Auto) 1 % (0-3) Neutrophils # (Auto) 4.2 x10^3uL (1.8-7.7) Lymphocytes # (Auto) 1.5 x10^3/uL (1.0-4.8) Monocytes # (Auto) 0.7 x10^3/uL (0.0-1.1) Eosinophils # (Auto) 0.4 x10^3/uL (0.0-0.7) Basophils # (Auto) 0.1 x10^3/uL (0.0-0.2) Sodium Level 142 mmol/L (136-145) Potassium Level 4.5 mmol/L (3.5-5.1) Chloride Level 103 mmol/L (98-107) Carbon Dioxide Level 33 mmol/L (21-32) H Anion Gap 6 (6-14) Blood Urea Nitrogen 27 mg/dL (8-26) H Creatinine 1.1 mg/dL (0.7-1.3) Estimated GFR (Cockcroft-Gault) 65.6 BUN/Creatinine Ratio 25 (6-20) H Glucose Level 99 mg/dL (70-99) Calcium Level 9.7 mg/dL (8.5-10.1) Magnesium Level 1.9 mg/dL (1.8-2.4) Total Bilirubin 0.3 mg/dL (0.2-1.0) Aspartate Amino Transferase (AST) 21 U/L (15-37) Alanine Aminotransferase (ALT) 12 U/L (16-63) L Alkaline Phosphatase 71 U/L (46-116) Total Protein 7.0 g/dL (6.4-8.2) Albumin 2.8 g/dL (3.4-5.0) L Albumin/Globulin Ratio 0.7 (1.0-1.7) L Valproic Acid Level 38 mcg/mL (50-100) L Valproic Acid Last Dose Date 05/31/17 Valproic Acid Last Dose Time 1700 Glucose (Fingerstick) 104 mg/dL (70-99) H Current Medications: Meds: Current Medications Multi-Ingredient Ointment (Analgesic [place]) 1 geovanna PRN QID PRN TP MUSCLE PAIN; Start 05/20/17 at 23:00 Al Hydroxide/Mg Hydroxide (Mylanta Plus Xs) 15 ml PRN AFTMEALHC PRN PO DYSPEPSIA; Start 05/20/17 at 23:00 Magnesium Hydroxide (Milk Of Magnesia) 2,400 mg PRN QHS PRN PO CONSTIPATION; Start 05/20/17 at 23:00 Nicotine (Nicoderm Cq 21mg) 1 patch DAILY TD Last administered on 06/01/17at 08: 36; Start 05/21/17 at 09:00 Duloxetine HCl (Cymbalta) 120 mg DAILY PO Last administered on 05/25/17 09:36 ; Start 05/21/17 at 09:00; Stop 05/25/17 at 18:38; Status DC Risperidone (RisperDAL) 0.5 mg TID PO Last administered on 05/22/17 13:59; Start 05/21/17 at 09:00; Stop 05/22/17 at 18:42; Status DC Allopurinol (Zyloprim) 300 mg DAILY PO Last administered on 06/01/17 08:35; Start 05/21/17 at 09:00 Aspirin (Children'S Aspirin) 81 mg DAILY PO Last administered on 06/01/17 08: 29; Start 05/21/17 at 09:00 Cyanocobalamin (Vitamin B-12) 100 mcg DAILY PO Last administered on 06/01/17 08:42; Start 05/21/17 at 09:00 Cyclobenzaprine HCl (Flexeril) 10 mg PRN DAILY PRN PO MUSCLE SPASMS Last administered on 06/01/17 13:00; Start 05/21/17 at 04:00 Ferrous Sulfate (Feosol) 325 mg DAILY PO Last administered on 06/01/17 08:35; Start 05/21/17 at 09:00 Gabapentin (Neurontin) 300 mg BID PO Last administered on 06/01/17 19:23; Start 05/21/17 at 09:00 Hydrochlorothiazide (Hydrodiuril) 25 mg DAILY PO Last administered on 08:35; Start 05/21/17 at 09:00 Levothyroxine Sodium (Synthroid) 25 mcg DAILY07 PO Last administered on 05:46; Start 05/21/17 at 07:00 Lisinopril (Prinivil) 20 mg BID PO Last administered on 06/01/17 19:24; Start 05/21/17 at 09:00 Metformin HCl (Glucophage) 500 mg DAILYWBKFT PO Last administered on 06/01/17 08:42; Start 05/21/17 at 08:00 Metoprolol Tartrate (Lopressor) 25 mg DAILY PO Last administered on 06/01/17 08:28; Start 05/21/17 at 09:00 Pantoprazole Sodium (Protonix) 40 mg BIDBFRMEAL PO Last administered on at 17:00; Start 05/21/17 at 07:30 Senna/Docusate Sodium (Senna Plus) 1 tab DAILY PO Last administered on at 08:29; Start 05/21/17 at 09:00 Risperidone (RisperDAL) 0.5 mg BID PO Last administered on 05/23/17at 08:55; Start 05/22/17 at 21:00; Stop 05/23/17 at 16:02; Status DC Acetaminophen (Tylenol) 650 mg PRN Q6HRS PRN PO PAIN / TEMP Last administered on 05/23/17at 10:07; Start 05/23/17 at 09:15 Risperidone (RisperDAL) 0.5 mg DAILY PO Last administered on 06/01/17at 08:35; Start 05/24/17 at 09:00 Divalproex Sodium (Depakote Sprinkles) 125 mg BIDWMEALS PO ; Start 05/23/17 at 17:00; Stop 05/23/17 at 17:02; Status DC Divalproex Sodium (Depakote Sprinkles) 125 mg BIDWMEALS PO Last administered on 05/28/17at 07:36; Start 05/24/17 at 09:00; Stop 05/28/17 at 10:48; Status DC Acetaminophen/ Hydrocodone Bitart (Lortab 5/325) 1 tab PRN Q4HRS PRN PO PAIN Last administered on 06/01/17at 14:59; Start 05/23/17 at 18:00 Duloxetine HCl (Cymbalta) 90 mg DAILY PO Last administered on 06/01/17at 08:35; Start 05/26/17 at 09:00; Stop 06/01/17 at 18:36; Status DC Divalproex Sodium (Depakote Sprinkles) 375 mg BIDWMEALS PO Last administered on 06/01/17at 17:00; Start 05/28/17 at 17:00; Stop 06/01/17 at 18:36; Status DC Olanzapine (ZyPREXA ZYDIS) 2.5 mg PRN Q2HR PRN PO PSYCHOSIS/AGITATION; Start at 20:30 Divalproex Sodium (Depakote Sprinkles) 500 mg BIDWMEALS PO ; Start 06/02/17 at 08:00 Duloxetine HCl (Cymbalta) 60 mg DAILY PO ; Start 06/02/17 at 09:00 Trazodone HCl (Desyrel) 50 mg QHS PO Last administered on 06/01/17at 19:25; Start 06/01/17 at 21:00 Trazodone HCl (Desyrel) 50 mg PRN QHS PRN PO INSOMNIA; Start 06/01/17 at 18:45 Active Scripts Active Reported Senna-Docusate Sodium Tablet (Sennosides/Docusate Sodium) 1 Each Tablet 1 Cap PO DAILY Risperdal (Risperidone) 0.5 Mg Tablet 0.5 Mg PO TID Protonix (Pantoprazole Sodium) 40 Mg Tablet.dr 40 Mg PO BID Percocet 5-325 Mg Tablet (Oxycodone Hcl/Acetaminophen) 1 Each Tablet 1 Tab PO PRN TID PRN Metoprolol Tartrate 25 Mg Tablet 25 Mg PO DAILY Glucophage (Metformin Hcl) 500 Mg Tablet 500 Mg PO DAILYWBKFT Lisinopril 20 Mg Tablet 20 Mg PO BID Levothyroxine Sodium 25 Mcg Tablet 25 Mcg PO DAILYAC Hydrochlorothiazide Tablet (Hydrochlorothiazide) 25 Mg Tablet 25 Mg PO DAILY Gabapentin 300 Mg Capsule 300 Mg PO BID Ferrous Sulfate 325 Mg Tablet 325 Mg PO DAILY Cymbalta (Duloxetine Hcl) 60 Mg Capsule.dr 120 Mg PO Cyclobenzaprine Hcl 10 Mg Tablet 10 Mg PO PRN DAILY PRN Vitamin B-12 (Cyanocobalamin (Vitamin B-12)) 100 Mcg Tablet 100 Mcg PO DAILY Aspirin 81 Mg Tab.chew 81 Mg PO DAILY Allopurinol 300 Mg Tablet 300 Mg PO DAILY I have reviewed the current psychotropics carefully including drug interactions. Risk benefit ratio favors no change other than as noted in my dictated progress note. Diagnosis: Problems: (1) Anxiety disorder (2) Impulse control disorder (3) Bipolar affective, mixed (4) Mild cognitive impairment (5) Cerebrovascular accident (CVA) due to vascular occlusion MELISSA CARDOZO MD Jun 01, 2017 20:52
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
[2017-06-02] MEDS: LEVOTHYROXINE 25 MCG TABLET. PO SCH (05:28)
[2017-06-02 05:55] VITALS: BP 99/62
[2017-06-02] MEDS: ALLOPURINOL 300 MG TABLET. PO SCH (07:25)
[2017-06-02] MEDS: GABAPENTIN 300 MG CAPSULE. PO SCH ×2 (07:25→19:44)
[2017-06-02] MEDS: FERROUS SULFATE 325 MG TABLET. PO SCH (07:25)
[2017-06-02] MEDS: risperiDONE 0.5 MG TABLET. PO SCH (07:25)
[2017-06-02] MEDS: metFORMIN 500 MG TABLET PO SCH (07:26)
[2017-06-02] MEDS: hydroCHLOROthiazide 25 MG TABLET PO SCH (07:26)
[2017-06-02] MEDS: SENNOSIDES/DOCUSATE 8.6/50MG TABLET. PO SCH (07:26)
[2017-06-02] MEDS: CYANOCOBALAMIN (VITAMIN B-12) 100 MCG TABLET PO SCH (07:26)
[2017-06-02] MEDS: PANTOPRAZOLE 40 MG TABLET. PO SCH ×2 (07:26→17:19)
[2017-06-02] MEDS: ASPIRIN 81 MG TAB.CHEW PO SCH (07:26)
[2017-06-02] MEDS: NICOTINE 21MG PATCH. TD SCH (07:26)
[2017-06-02] MEDS: LISINOPRIL 20 MG TABLET PO SCH ×2 (07:27→19:44)
[2017-06-02] MEDS: METOPROLOL TART IMMED RELEASE 25 MG TABLET PO SCH (07:27)
[2017-06-02] MEDS: DIVALPROEX 125 MG CAP.SPRINK PO SCH ×2 (07:29→17:20)
[2017-06-02] MEDS: DULoxetine HCL 60 MG CAPSULE.DR PO SCH (07:33)
[2017-06-02 16:04] VITALS: BP 115/66
--- NOTE | 2017-06-02 19:29 | PN ---
DATE: 06/01/2017 This is a late entry for 06/01/2017 and covers elements not covered in my initial note of 06/01/2017. I met with the patient in the evening of 06/01/2017. Overall, the patient slept rather poorly the previous night and we will add trazodone 50 mg at bedtime scheduled, july repeat x 1 for insomnia. He was quite agitated over the weekend, but my earlier notes reflect this. During the day on 06/01/2017, he has done better per nursing report, less agitated and aggressive. REVIEW OF SYSTEMS: No CV, , pulmonary, eye, ENT system symptoms on review. Complains of some back pain. MENTAL STATUS EXAM: Oriented to himself and situation. Speech is coherent, at times a little pressured. Abstraction fair, computation impaired, language function intact, attention span short. Mood and affect still somewhat anxious, labile, less so than before. LABORATORY DATA: Reviewed. IMPRESSION: Unchanged from initial note. Bipolar 1 disorder, mixed with psychotic features; major neurocognitive disorder, early Alzheimer, vascular with delusion; impulse control disorder, unspecified. PLAN: Given his significant history of bipolar disorder, we will go ahead and reduce the Cymbalta from 90 mg a day to 60 mg a day. Maintain Risperdal 0.5 mg daily. Valproic acid level on 06/01/2017 is 38, subtherapeutic, increase Depakote from 375 mg b.i.d. to 500 mg b.i.d. Check CBC, CMP, valproic acid level in 3 days. MELISSA CARDOZO MD DR: MILTON/daniel JOB#: [id number] / [id number]
[2017-06-02] MEDS: traZODone 50 MG TABLET. PO SCH (19:44)
--- NOTE | 2017-06-02 20:45 | PDOC ---
Exam Note: Nabeel Note: Please also refer to the separate dictated note~for this date of service dictated separately.~Patient seen individually. Discussed the patient with Nursing staff reviewed the chart.~Reviewed interim history and current functioning. Reviewed vital signs,~Labs/ Radiology~and current medications noted below. Continue current treatment with the changes noted in the dictated addendum note Assessment: Vital Signs: Vital Signs Date Time Temp Pulse Resp B/P (MAP) Pulse Ox O2 Delivery O2 Flow Rate FiO2 06/02/17 19:44 75 115/66 06/02/17 16:04 97.6 18 96 05/29/17 11:15 Room Air I&O Intake and Output 06/02/17 07:00 Intake Total 840 ml Balance 840 ml Intake Oral 840 ml # Bowel Movements 1 Labs: Laboratory Tests Test 06/02/17 07:24 Glucose (Fingerstick) 95 mg/dL (70-99) Current Medications: Meds: Current Medications Multi-Ingredient Ointment (Analgesic [place]) 1 geovanna PRN QID PRN TP MUSCLE PAIN; Start 05/20/17 at 23:00 Al Hydroxide/Mg Hydroxide (Mylanta Plus Xs) 15 ml PRN AFTMEALHC PRN PO DYSPEPSIA; Start 05/20/17 at 23:00 Magnesium Hydroxide (Milk Of Magnesia) 2,400 mg PRN QHS PRN PO CONSTIPATION; Start 05/20/17 at 23:00 Nicotine (Nicoderm Cq 21mg) 1 patch DAILY TD Last administered on 06/02/17at 07: 26; Start 05/21/17 at 09:00 Duloxetine HCl (Cymbalta) 120 mg DAILY PO Last administered on 05/25/17at 09:36 ; Start 05/21/17 at 09:00; Stop 05/25/17 at 18:38; Status DC Risperidone (RisperDAL) 0.5 mg TID PO Last administered on 05/22/17at 13:59; Start 05/21/17 at 09:00; Stop 05/22/17 at 18:42; Status DC Allopurinol (Zyloprim) 300 mg DAILY PO Last administered on 06/02/17at 07:25; Start 05/21/17 at 09:00 Aspirin (Children'S Aspirin) 81 mg DAILY PO Last administered on 06/02/17at 07: 26; Start 05/21/17 at 09:00 Cyanocobalamin (Vitamin B-12) 100 mcg DAILY PO Last administered on 06/02/17 07:26; Start 05/21/17 at 09:00 Cyclobenzaprine HCl (Flexeril) 10 mg PRN DAILY PRN PO MUSCLE SPASMS Last administered on 06/01/17 13:00; Start 05/21/17 at 04:00 Ferrous Sulfate (Feosol) 325 mg DAILY PO Last administered on 06/02/17 07:25; Start 05/21/17 at 09:00 Gabapentin (Neurontin) 300 mg BID PO Last administered on 06/02/17 19:44; Start 05/21/17 at 09:00 Hydrochlorothiazide (Hydrodiuril) 25 mg DAILY PO Last administered on 07:26; Start 05/21/17 at 09:00 Levothyroxine Sodium (Synthroid) 25 mcg DAILY07 PO Last administered on 05:28; Start 05/21/17 at 07:00 Lisinopril (Prinivil) 20 mg BID PO Last administered on 06/02/17 19:44; Start 05/21/17 at 09:00 Metformin HCl (Glucophage) 500 mg DAILYWBKFT PO Last administered on 06/02/17 07:26; Start 05/21/17 at 08:00 Metoprolol Tartrate (Lopressor) 25 mg DAILY PO Last administered on 06/02/17 07:27; Start 05/21/17 at 09:00 Pantoprazole Sodium (Protonix) 40 mg BIDBFRMEAL PO Last administered on 17:19; Start 05/21/17 at 07:30 Senna/Docusate Sodium (Senna Plus) 1 tab DAILY PO Last administered on 07:26; Start 05/21/17 at 09:00 Risperidone (RisperDAL) 0.5 mg BID PO Last administered on 05/23/17at 08:55; Start 05/22/17 at 21:00; Stop 05/23/17 at 16:02; Status DC Acetaminophen (Tylenol) 650 mg PRN Q6HRS PRN PO PAIN / TEMP Last administered on 05/23/17at 10:07; Start 05/23/17 at 09:15 Risperidone (RisperDAL) 0.5 mg DAILY PO Last administered on 06/02/17at 07:25; Start 05/24/17 at 09:00 Divalproex Sodium (Depakote Sprinkles) 125 mg BIDWMEALS PO ; Start 05/23/17 at 17:00; Stop 05/23/17 at 17:02; Status DC Divalproex Sodium (Depakote Sprinkles) 125 mg BIDWMEALS PO Last administered on 05/28/17at 07:36; Start 05/24/17 at 09:00; Stop 05/28/17 at 10:48; Status DC Acetaminophen/ Hydrocodone Bitart (Lortab 5/325) 1 tab PRN Q4HRS PRN PO PAIN Last administered on 06/01/17at 14:59; Start 05/23/17 at 18:00 Duloxetine HCl (Cymbalta) 90 mg DAILY PO Last administered on 06/01/17at 08:35; Start 05/26/17 at 09:00; Stop 06/01/17 at 18:36; Status DC Divalproex Sodium (Depakote Sprinkles) 375 mg BIDWMEALS PO Last administered on 06/01/17at 17:00; Start 05/28/17 at 17:00; Stop 06/01/17 at 18:36; Status DC Olanzapine (ZyPREXA ZYDIS) 2.5 mg PRN Q2HR PRN PO PSYCHOSIS/AGITATION; Start at 20:30 Divalproex Sodium (Depakote Sprinkles) 500 mg BIDWMEALS PO Last administered on 06/02/17at 17:20; Start 06/02/17 at 08:00 Duloxetine HCl (Cymbalta) 60 mg DAILY PO Last administered on 06/02/17at 07:33; Start 06/02/17 at 09:00 Trazodone HCl (Desyrel) 50 mg QHS PO Last administered on 06/02/17at 19:44; Start 06/01/17 at 21:00 Trazodone HCl (Desyrel) 50 mg PRN QHS PRN PO INSOMNIA; Start 06/01/17 at 18:45 Active Scripts Active Reported Senna-Docusate Sodium Tablet (Sennosides/Docusate Sodium) 1 Each Tablet 1 Cap PO DAILY Risperdal (Risperidone) 0.5 Mg Tablet 0.5 Mg PO TID Protonix (Pantoprazole Sodium) 40 Mg Tablet.dr 40 Mg PO BID Percocet 5-325 Mg Tablet (Oxycodone Hcl/Acetaminophen) 1 Each Tablet 1 Tab PO PRN TID PRN Metoprolol Tartrate 25 Mg Tablet 25 Mg PO DAILY Glucophage (Metformin Hcl) 500 Mg Tablet 500 Mg PO DAILYWBKFT Lisinopril 20 Mg Tablet 20 Mg PO BID Levothyroxine Sodium 25 Mcg Tablet 25 Mcg PO DAILYAC Hydrochlorothiazide Tablet (Hydrochlorothiazide) 25 Mg Tablet 25 Mg PO DAILY Gabapentin 300 Mg Capsule 300 Mg PO BID Ferrous Sulfate 325 Mg Tablet 325 Mg PO DAILY Cymbalta (Duloxetine Hcl) 60 Mg Capsule.dr 120 Mg PO Cyclobenzaprine Hcl 10 Mg Tablet 10 Mg PO PRN DAILY PRN Vitamin B-12 (Cyanocobalamin (Vitamin B-12)) 100 Mcg Tablet 100 Mcg PO DAILY Aspirin 81 Mg Tab.chew 81 Mg PO DAILY Allopurinol 300 Mg Tablet 300 Mg PO DAILY I have reviewed the current psychotropics carefully including drug interactions. Risk benefit ratio favors no change other than as noted in my dictated progress note. Diagnosis: Problems: (1) Anxiety disorder (2) Impulse control disorder (3) Bipolar affective, mixed (4) Mild cognitive impairment (5) Cerebrovascular accident (CVA) due to vascular occlusion MELISSA CARDOZO MD Jun 02, 2017 20:45
[2017-06-03 05:54] VITALS: BP 115/62
[2017-06-03] MEDS: LEVOTHYROXINE 25 MCG TABLET. PO SCH (06:09)
[2017-06-03] MEDS: NICOTINE 21MG PATCH. TD SCH (07:49)
[2017-06-03] MEDS: DIVALPROEX 125 MG CAP.SPRINK PO SCH ×2 (07:50→17:25)
[2017-06-03] MEDS: SENNOSIDES/DOCUSATE 8.6/50MG TABLET. PO SCH (07:50)
[2017-06-03] MEDS: ALLOPURINOL 300 MG TABLET. PO SCH (07:50)
[2017-06-03] MEDS: metFORMIN 500 MG TABLET PO SCH (07:51)
[2017-06-03] MEDS: CYANOCOBALAMIN (VITAMIN B-12) 100 MCG TABLET PO SCH (07:51)
[2017-06-03] MEDS: PANTOPRAZOLE 40 MG TABLET. PO SCH ×2 (07:51→17:24)
[2017-06-03] MEDS: ASPIRIN 81 MG TAB.CHEW PO SCH (07:51)
[2017-06-03] MEDS: FERROUS SULFATE 325 MG TABLET. PO SCH (07:51)
[2017-06-03] MEDS: hydroCHLOROthiazide 25 MG TABLET PO SCH (07:51)
[2017-06-03] MEDS: risperiDONE 0.5 MG TABLET. PO SCH (07:51)
[2017-06-03] MEDS: GABAPENTIN 300 MG CAPSULE. PO SCH ×2 (07:52→19:31)
[2017-06-03] MEDS: LISINOPRIL 20 MG TABLET PO SCH ×2 (07:52→20:10)
[2017-06-03] MEDS: METOPROLOL TART IMMED RELEASE 25 MG TABLET PO SCH (07:52)
[2017-06-03] MEDS: DULoxetine HCL 60 MG CAPSULE.DR PO SCH (07:52)
--- NOTE | 2017-06-03 13:30 | PN ---
DATE: 06/02/2017 This late entry for 06/02/2017 covers the elements not covered in my initial note of 06/02/2017. I met with the patient in the evening of 06/02/2017. Overall, the patient slept 9 hours previous evening. He has been somewhat withdrawn, but not agitated or aggressive. He is quite distressed with one of the other demented patients who also has intellectual disability being quite disruptive on the unit and I addressed this with him individually on two separate occasions evening of 06/02/2017. REVIEW OF SYSTEMS: Complains of back pain and I have discussed with nursing staff to start physical therapy for this. No CV, , pulmonary, eye system symptoms on review. MENTAL STATUS EXAM: Oriented to himself and situation. Speech is coherent, abstraction fair, computation impaired, language function intact. Attention span short. Short term memory is impaired. No suicidal or homicidal ideation. LABORATORY DATA: Reviewed. IMPRESSION: Bipolar 1 disorder, mixed with psychotic features; major neurocognitive disorder, early vascular with delusion, depression. Rest unchanged. PLAN: Continue current psychotropics. Depakote has been adjusted. Repeat labs level on the . Maintain Cymbalta, Risperdal. Continue Neurontin, trazodone as p.r.n. as is the Zyprexa. MAN Celeste CARDOZO MD DR: MILTON/daniel JOB#: [id number] / [id number]
[2017-06-03 16:23] VITALS: BP 106/65
[2017-06-03] MEDS: traZODone 50 MG TABLET. PO SCH (19:31)
[2017-06-03] MEDS: CYCLOBENZAPRINE 10 MG TABLET. PO PRN (20:26)
--- NOTE | 2017-06-03 20:53 | PDOC ---
Exam Note: Nabeel Note: Please also refer to the separate dictated note~for this date of service dictated separately.~Patient seen individually. Discussed the patient with Nursing staff reviewed the chart.~Reviewed interim history and current functioning. Reviewed vital signs,~Labs/ Radiology~and current medications noted below. Continue current treatment with the changes noted in the dictated addendum note Assessment: Vital Signs: Vital Signs Date Time Temp Pulse Resp B/P (MAP) Pulse Ox O2 Delivery O2 Flow Rate FiO2 06/03/17 20:10 18 115/70 06/03/17 16:23 97.3 18 95 05/29/17 11:15 Room Air I&O Intake and Output 06/03/17 07:00 Intake Total 620 ml Balance 620 ml Intake Oral 620 ml Labs: Laboratory Tests Test 06/03/17 07:16 Glucose (Fingerstick) 89 mg/dL (70-99) Current Medications: Meds: Current Medications Multi-Ingredient Ointment (Analgesic [place]) 1 geovanna PRN QID PRN TP MUSCLE PAIN; Start 05/20/17 at 23:00 Al Hydroxide/Mg Hydroxide (Mylanta Plus Xs) 15 ml PRN AFTMEALHC PRN PO DYSPEPSIA; Start 05/20/17 at 23:00 Magnesium Hydroxide (Milk Of Magnesia) 2,400 mg PRN QHS PRN PO CONSTIPATION; Start 05/20/17 at 23:00 Nicotine (Nicoderm Cq 21mg) 1 patch DAILY TD Last administered on 06/03/17at 07: 49; Start 05/21/17 at 09:00 Duloxetine HCl (Cymbalta) 120 mg DAILY PO Last administered on 05/25/17at 09:36 ; Start 05/21/17 at 09:00; Stop 05/25/17 at 18:38; Status DC Risperidone (RisperDAL) 0.5 mg TID PO Last administered on 05/22/17at 13:59; Start 05/21/17 at 09:00; Stop 05/22/17 at 18:42; Status DC Allopurinol (Zyloprim) 300 mg DAILY PO Last administered on 06/03/17at 07:50; Start 05/21/17 at 09:00 Aspirin (Children'S Aspirin) 81 mg DAILY PO Last administered on 06/03/17at 07: 51; Start 05/21/17 at 09:00 Cyanocobalamin (Vitamin B-12) 100 mcg DAILY PO Last administered on 06/03/17 07:51; Start 05/21/17 at 09:00 Cyclobenzaprine HCl (Flexeril) 10 mg PRN DAILY PRN PO MUSCLE SPASMS Last administered on 06/03/17 20:26; Start 05/21/17 at 04:00 Ferrous Sulfate (Feosol) 325 mg DAILY PO Last administered on 06/03/17 07:51; Start 05/21/17 at 09:00 Gabapentin (Neurontin) 300 mg BID PO Last administered on 06/03/17 19:31; Start 05/21/17 at 09:00 Hydrochlorothiazide (Hydrodiuril) 25 mg DAILY PO Last administered on 07:51; Start 05/21/17 at 09:00 Levothyroxine Sodium (Synthroid) 25 mcg DAILY07 PO Last administered on 06:09; Start 05/21/17 at 07:00 Lisinopril (Prinivil) 20 mg BID PO Last administered on 06/03/17 20:10; Start 05/21/17 at 09:00 Metformin HCl (Glucophage) 500 mg DAILYWBKFT PO Last administered on 06/03/17 07:51; Start 05/21/17 at 08:00 Metoprolol Tartrate (Lopressor) 25 mg DAILY PO Last administered on 06/03/17 07:52; Start 05/21/17 at 09:00 Pantoprazole Sodium (Protonix) 40 mg BIDBFRMEAL PO Last administered on 17:24; Start 05/21/17 at 07:30 Senna/Docusate Sodium (Senna Plus) 1 tab DAILY PO Last administered on 07:50; Start 05/21/17 at 09:00 Risperidone (RisperDAL) 0.5 mg BID PO Last administered on 05/23/17 08:55; Start 05/22/17 at 21:00; Stop 05/23/17 at 16:02; Status DC Acetaminophen (Tylenol) 650 mg PRN Q6HRS PRN PO PAIN / TEMP Last administered on 05/23/17at 10:07; Start 05/23/17 at 09:15 Risperidone (RisperDAL) 0.5 mg DAILY PO Last administered on 06/03/17at 07:51; Start 05/24/17 at 09:00 Divalproex Sodium (Depakote Sprinkles) 125 mg BIDWMEALS PO ; Start 05/23/17 at 17:00; Stop 05/23/17 at 17:02; Status DC Divalproex Sodium (Depakote Sprinkles) 125 mg BIDWMEALS PO Last administered on 05/28/17at 07:36; Start 05/24/17 at 09:00; Stop 05/28/17 at 10:48; Status DC Acetaminophen/ Hydrocodone Bitart (Lortab 5/325) 1 tab PRN Q4HRS PRN PO PAIN Last administered on 06/01/17at 14:59; Start 05/23/17 at 18:00 Duloxetine HCl (Cymbalta) 90 mg DAILY PO Last administered on 06/01/17at 08:35; Start 05/26/17 at 09:00; Stop 06/01/17 at 18:36; Status DC Divalproex Sodium (Depakote Sprinkles) 375 mg BIDWMEALS PO Last administered on 06/01/17at 17:00; Start 05/28/17 at 17:00; Stop 06/01/17 at 18:36; Status DC Olanzapine (ZyPREXA ZYDIS) 2.5 mg PRN Q2HR PRN PO PSYCHOSIS/AGITATION; Start at 20:30 Divalproex Sodium (Depakote Sprinkles) 500 mg BIDWMEALS PO Last administered on 06/03/17at 17:25; Start 06/02/17 at 08:00 Duloxetine HCl (Cymbalta) 60 mg DAILY PO Last administered on 06/03/17at 07:52; Start 06/02/17 at 09:00 Trazodone HCl (Desyrel) 50 mg QHS PO Last administered on 06/03/17at 19:31; Start 06/01/17 at 21:00 Trazodone HCl (Desyrel) 50 mg PRN QHS PRN PO INSOMNIA; Start 06/01/17 at 18:45 Active Scripts Active Reported Senna-Docusate Sodium Tablet (Sennosides/Docusate Sodium) 1 Each Tablet 1 Cap PO DAILY Risperdal (Risperidone) 0.5 Mg Tablet 0.5 Mg PO TID Protonix (Pantoprazole Sodium) 40 Mg Tablet.dr 40 Mg PO BID Percocet 5-325 Mg Tablet (Oxycodone Hcl/Acetaminophen) 1 Each Tablet 1 Tab PO PRN TID PRN Metoprolol Tartrate 25 Mg Tablet 25 Mg PO DAILY Glucophage (Metformin Hcl) 500 Mg Tablet 500 Mg PO DAILYWBKFT Lisinopril 20 Mg Tablet 20 Mg PO BID Levothyroxine Sodium 25 Mcg Tablet 25 Mcg PO DAILYAC Hydrochlorothiazide Tablet (Hydrochlorothiazide) 25 Mg Tablet 25 Mg PO DAILY Gabapentin 300 Mg Capsule 300 Mg PO BID Ferrous Sulfate 325 Mg Tablet 325 Mg PO DAILY Cymbalta (Duloxetine Hcl) 60 Mg Capsule.dr 120 Mg PO Cyclobenzaprine Hcl 10 Mg Tablet 10 Mg PO PRN DAILY PRN Vitamin B-12 (Cyanocobalamin (Vitamin B-12)) 100 Mcg Tablet 100 Mcg PO DAILY Aspirin 81 Mg Tab.chew 81 Mg PO DAILY Allopurinol 300 Mg Tablet 300 Mg PO DAILY I have reviewed the current psychotropics carefully including drug interactions. Risk benefit ratio favors no change other than as noted in my dictated progress note. Diagnosis: Problems: (1) Anxiety disorder (2) Impulse control disorder (3) Bipolar affective, mixed (4) Mild cognitive impairment (5) Cerebrovascular accident (CVA) due to vascular occlusion MELISSA CARDOZO MD Jun 03, 2017 20:53
[2017-06-04 05:36] VITALS: BP 100/59
[2017-06-04] MEDS: LEVOTHYROXINE 25 MCG TABLET. PO SCH (06:41)
[2017-06-04 07:57] VITALS: BP 103/66
[2017-06-04] MEDS: PANTOPRAZOLE 40 MG TABLET. PO SCH ×2 (08:00→17:15)
[2017-06-04] MEDS: GABAPENTIN 300 MG CAPSULE. PO SCH ×2 (08:01→19:35)
[2017-06-04] MEDS: DIVALPROEX 125 MG CAP.SPRINK PO SCH ×2 (08:01→17:16)
[2017-06-04] MEDS: risperiDONE 0.5 MG TABLET. PO SCH (08:01)
[2017-06-04] MEDS: metFORMIN 500 MG TABLET PO SCH (08:01)
[2017-06-04] MEDS: hydroCHLOROthiazide 25 MG TABLET PO SCH (08:02)
[2017-06-04] MEDS: DULoxetine HCL 60 MG CAPSULE.DR PO SCH (08:02)
[2017-06-04] MEDS: ASPIRIN 81 MG TAB.CHEW PO SCH (08:02)
[2017-06-04] MEDS: FERROUS SULFATE 325 MG TABLET. PO SCH (08:02)
[2017-06-04] MEDS: SENNOSIDES/DOCUSATE 8.6/50MG TABLET. PO SCH (08:02)
[2017-06-04] MEDS: METOPROLOL TART IMMED RELEASE 25 MG TABLET PO SCH (08:03)
[2017-06-04] MEDS: ALLOPURINOL 300 MG TABLET. PO SCH (08:03)
[2017-06-04] MEDS: LISINOPRIL 20 MG TABLET PO SCH ×2 (08:03→19:36)
[2017-06-04] MEDS: NICOTINE 21MG PATCH. TD SCH (08:04)
[2017-06-04 08:06] LABS: BASO # 0.1 x10^3/uL (0.0-0.2); BASO % 1 % (0-3); EOS # 0.4 x10^3/uL (0.0-0.7); EOS % 5 % (0-3); HEMATOCRIT 35.7 % (39.0-53.0); HEMOGLOBIN 11.8 g/dL (13.0-17.5); LYMPH # 1.8 x10^3/uL (1.0-4.8); LYMPH % 23 % (24-48); MEAN CORPUSCULAR HEMOGLOBIN 29 pg (25-35); MEAN CORPUSCULAR HGB CONC 33 g/dL (31-37); MEAN CORPUSCULAR VOLUME 87 fL (79-100); MONO # 0.8 x10^3/uL (0.0-1.1); MONO % 11 % (0-9); NEUT # 4.6 x10^3uL (1.8-7.7); NEUT % 60 % (31-73); PLATELET COUNT 184 x10^3/uL (140-400); RED CELL DISTRIBUTION WIDTH 18.4 % (11.5-14.5); WHITE BLOOD COUNT 7.7 x10^3/uL (4.0-11.0)
[2017-06-04] MEDS: CYANOCOBALAMIN (VITAMIN B-12) 100 MCG TABLET PO SCH (08:06)
[2017-06-04 08:10] LABS: ALBUMIN 2.8 g/dL (3.4-5.0); ALBUMIN/GLOBULIN RATIO 0.7 (1.0-1.7); ALK PHOS 62 U/L (46-116); ALT (SGPT) 13 U/L (16-63); ANION GAP 5 (6-14); AST (SGOT) 19 U/L (15-37); BLOOD UREA NITROGEN 30 mg/dL (8-26); BUN/CREATININE RATIO 25 (6-20); CALCIUM 9.6 mg/dL (8.5-10.1); CARBON DIOXIDE 33 mmol/L (21-32); CHLORIDE 103 mmol/L (98-107); CREATININE 1.2 mg/dL (0.7-1.3); GFR 59.3; GLUCOSE 101 mg/dL (70-99); MAGNESIUM 1.9 mg/dL (1.8-2.4); POTASSIUM 4.4 mmol/L (3.5-5.1); SODIUM 141 mmol/L (136-145); TOTAL BILIRUBIN 0.4 mg/dL (0.2-1.0); TOTAL PROTEIN 6.8 g/dL (6.4-8.2)
[2017-06-04 08:11] LABS: VAL ACID 50 mcg/mL (50-100)
[2017-06-04 15:57] VITALS: BP 108/70
[2017-06-04] MEDS: traZODone 50 MG TABLET. PO SCH (19:38)
--- NOTE | 2017-06-04 20:44 | PDOC ---
Exam Note: Nabeel Note: Please also refer to the separate dictated note~for this date of service dictated separately.~Patient seen individually. Discussed the patient with Nursing staff reviewed the chart.~Reviewed interim history and current functioning. Reviewed vital signs,~Labs/ Radiology~and current medications noted below. Continue current treatment with the changes noted in the dictated addendum note Assessment: Vital Signs: Vital Signs Date Time Temp Pulse Resp B/P (MAP) Pulse Ox O2 Delivery O2 Flow Rate FiO2 06/04/17 19:36 73 108/70 06/04/17 15:57 97.3 16 95 05/29/17 11:15 Room Air I&O Intake and Output 06/04/17 07:00 Intake Total 900 ml Balance 900 ml Intake Oral 900 ml Labs: Laboratory Tests Test 06/04/17 07:17 06/04/17 07:42 White Blood Count 7.7 x10^3/uL (4.0-11.0) Red Blood Count 4.10 x10^6/uL (4.30-5.70) L Hemoglobin 11.8 g/dL (13.0-17.5) L Hematocrit 35.7 % (39.0-53.0) L Mean Corpuscular Volume 87 fL (79-100) Mean Corpuscular Hemoglobin 29 pg (25-35) Mean Corpuscular Hemoglobin Concent 33 g/dL (31-37) Red Cell Distribution Width 18.4 % (11.5-14.5) H Platelet Count 184 x10^3/uL (140-400) Neutrophils (%) (Auto) 60 % (31-73) Lymphocytes (%) (Auto) 23 % (24-48) L Monocytes (%) (Auto) 11 % (0-9) H Eosinophils (%) (Auto) 5 % (0-3) H Basophils (%) (Auto) 1 % (0-3) Neutrophils # (Auto) 4.6 x10^3uL (1.8-7.7) Lymphocytes # (Auto) 1.8 x10^3/uL (1.0-4.8) Monocytes # (Auto) 0.8 x10^3/uL (0.0-1.1) Eosinophils # (Auto) 0.4 x10^3/uL (0.0-0.7) Basophils # (Auto) 0.1 x10^3/uL (0.0-0.2) Sodium Level 141 mmol/L (136-145) Potassium Level 4.4 mmol/L (3.5-5.1) Chloride Level 103 mmol/L (98-107) Carbon Dioxide Level 33 mmol/L (21-32) H Anion Gap 5 (6-14) L Blood Urea Nitrogen 30 mg/dL (8-26) H Creatinine 1.2 mg/dL (0.7-1.3) Estimated GFR (Cockcroft-Gault) 59.3 BUN/Creatinine Ratio 25 (6-20) H Glucose Level 101 mg/dL (70-99) H Calcium Level 9.6 mg/dL (8.5-10.1) Magnesium Level 1.9 mg/dL (1.8-2.4) Total Bilirubin 0.4 mg/dL (0.2-1.0) Aspartate Amino Transferase (AST) 19 U/L (15-37) Alanine Aminotransferase (ALT) 13 U/L (16-63) L Alkaline Phosphatase 62 U/L (46-116) Total Protein 6.8 g/dL (6.4-8.2) Albumin 2.8 g/dL (3.4-5.0) L Albumin/Globulin Ratio 0.7 (1.0-1.7) L Valproic Acid Level 50 mcg/mL (50-100) Valproic Acid Last Dose Date 06/03/17 Valproic Acid Last Dose Time 1700 Glucose (Fingerstick) 100 mg/dL (70-99) H Current Medications: Meds: Current Medications Multi-Ingredient Ointment (Analgesic [place]) 1 geovanna PRN QID PRN TP MUSCLE PAIN; Start 05/20/17 at 23:00 Al Hydroxide/Mg Hydroxide (Mylanta Plus Xs) 15 ml PRN AFTMEALHC PRN PO DYSPEPSIA; Start 05/20/17 at 23:00 Magnesium Hydroxide (Milk Of Magnesia) 2,400 mg PRN QHS PRN PO CONSTIPATION; Start 05/20/17 at 23:00 Nicotine (Nicoderm Cq 21mg) 1 patch DAILY TD Last administered on 06/04/17at 08: 04; Start 05/21/17 at 09:00 Duloxetine HCl (Cymbalta) 120 mg DAILY PO Last administered on 3/19/18at 09:36 ; Start 05/21/17 at 09:00; Stop 05/25/17 at 18:38; Status DC Risperidone (RisperDAL) 0.5 mg TID PO Last administered on 05/22/17 13:59; Start 05/21/17 at 09:00; Stop 05/22/17 at 18:42; Status DC Allopurinol (Zyloprim) 300 mg DAILY PO Last administered on 06/04/17 08:03; Start 05/21/17 at 09:00 Aspirin (Children'S Aspirin) 81 mg DAILY PO Last administered on 06/04/17 08: 02; Start 05/21/17 at 09:00 Cyanocobalamin (Vitamin B-12) 100 mcg DAILY PO Last administered on 06/04/17 08:06; Start 05/21/17 at 09:00 Cyclobenzaprine HCl (Flexeril) 10 mg PRN DAILY PRN PO MUSCLE SPASMS Last administered on 06/03/17 20:26; Start 05/21/17 at 04:00 Ferrous Sulfate (Feosol) 325 mg DAILY PO Last administered on 06/04/17 08:02; Start 05/21/17 at 09:00 Gabapentin (Neurontin) 300 mg BID PO Last administered on 06/04/17 19:35; Start 05/21/17 at 09:00 Hydrochlorothiazide (Hydrodiuril) 25 mg DAILY PO Last administered on 08:02; Start 05/21/17 at 09:00 Levothyroxine Sodium (Synthroid) 25 mcg DAILY07 PO Last administered on 06:41; Start 05/21/17 at 07:00 Lisinopril (Prinivil) 20 mg BID PO Last administered on 06/04/17 19:36; Start 05/21/17 at 09:00 Metformin HCl (Glucophage) 500 mg DAILYWBKFT PO Last administered on 06/04/17 08:01; Start 05/21/17 at 08:00 Metoprolol Tartrate (Lopressor) 25 mg DAILY PO Last administered on 06/04/17 08:03; Start 05/21/17 at 09:00 Pantoprazole Sodium (Protonix) 40 mg BIDBFRMEAL PO Last administered on 3/29/ 18at 17:15; Start 05/21/17 at 07:30 Senna/Docusate Sodium (Senna Plus) 1 tab DAILY PO Last administered on at 08:02; Start 05/21/17 at 09:00 Risperidone (RisperDAL) 0.5 mg BID PO Last administered on 05/23/17at 08:55; Start 05/22/17 at 21:00; Stop 05/23/17 at 16:02; Status DC Acetaminophen (Tylenol) 650 mg PRN Q6HRS PRN PO PAIN / TEMP Last administered on 05/23/17at 10:07; Start 05/23/17 at 09:15 Risperidone (RisperDAL) 0.5 mg DAILY PO Last administered on 06/04/17at 08:01; Start 05/24/17 at 09:00 Divalproex Sodium (Depakote Sprinkles) 125 mg BIDWMEALS PO ; Start 05/23/17 at 17:00; Stop 05/23/17 at 17:02; Status DC Divalproex Sodium (Depakote Sprinkles) 125 mg BIDWMEALS PO Last administered on 05/28/17at 07:36; Start 05/24/17 at 09:00; Stop 05/28/17 at 10:48; Status DC Acetaminophen/ Hydrocodone Bitart (Lortab 5/325) 1 tab PRN Q4HRS PRN PO PAIN Last administered on 06/01/17at 14:59; Start 05/23/17 at 18:00 Duloxetine HCl (Cymbalta) 90 mg DAILY PO Last administered on 06/01/17at 08:35; Start 05/26/17 at 09:00; Stop 06/01/17 at 18:36; Status DC Divalproex Sodium (Depakote Sprinkles) 375 mg BIDWMEALS PO Last administered on 06/01/17at 17:00; Start 05/28/17 at 17:00; Stop 06/01/17 at 18:36; Status DC Olanzapine (ZyPREXA ZYDIS) 2.5 mg PRN Q2HR PRN PO PSYCHOSIS/AGITATION; Start at 20:30 Divalproex Sodium (Depakote Sprinkles) 500 mg BIDWMEALS PO Last administered on 06/04/17at 08:01; Start 06/02/17 at 08:00; Stop 06/04/17 at 10:36; Status DC Duloxetine HCl (Cymbalta) 60 mg DAILY PO Last administered on 06/04/17at 08:02; Start 06/02/17 at 09:00 Trazodone HCl (Desyrel) 50 mg QHS PO Last administered on 06/04/17at 19:38; Start 06/01/17 at 21:00 Trazodone HCl (Desyrel) 50 mg PRN QHS PRN PO INSOMNIA; Start 06/01/17 at 18:45 Divalproex Sodium (Depakote Sprinkles) 625 mg BID@0900,1700 PO Last administered on 06/04/17at 17:16; Start 06/04/17 at 17:00 Lidocaine (Lidoderm) 1 patch QHS TD ; Start 06/04/17 at 21:00 Active Scripts Active Reported Senna-Docusate Sodium Tablet (Sennosides/Docusate Sodium) 1 Each Tablet 1 Cap PO DAILY Risperdal (Risperidone) 0.5 Mg Tablet 0.5 Mg PO TID Protonix (Pantoprazole Sodium) 40 Mg Tablet.dr 40 Mg PO BID Percocet 5-325 Mg Tablet (Oxycodone Hcl/Acetaminophen) 1 Each Tablet 1 Tab PO PRN TID PRN Metoprolol Tartrate 25 Mg Tablet 25 Mg PO DAILY Glucophage (Metformin Hcl) 500 Mg Tablet 500 Mg PO DAILYWBKFT Lisinopril 20 Mg Tablet 20 Mg PO BID Levothyroxine Sodium 25 Mcg Tablet 25 Mcg PO DAILYAC Hydrochlorothiazide Tablet (Hydrochlorothiazide) 25 Mg Tablet 25 Mg PO DAILY Gabapentin 300 Mg Capsule 300 Mg PO BID Ferrous Sulfate 325 Mg Tablet 325 Mg PO DAILY Cymbalta (Duloxetine Hcl) 60 Mg Capsule.dr 120 Mg PO Cyclobenzaprine Hcl 10 Mg Tablet 10 Mg PO PRN DAILY PRN Vitamin B-12 (Cyanocobalamin (Vitamin B-12)) 100 Mcg Tablet 100 Mcg PO DAILY Aspirin 81 Mg Tab.chew 81 Mg PO DAILY Allopurinol 300 Mg Tablet 300 Mg PO DAILY I have reviewed the current psychotropics carefully including drug interactions. Risk benefit ratio favors no change other than as noted in my dictated progress note. Diagnosis: Problems: (1) Anxiety disorder (2) Impulse control disorder (3) Bipolar affective, mixed (4) Mild cognitive impairment (5) Cerebrovascular accident (CVA) due to vascular occlusion MELISSA CARDOZO MD Jun 04, 2017 20:44
[2017-06-04] MEDS ORDERED: LIDOCAINE (700MG/PATCH) PATCH. TD SCH (21:00)
--- NOTE | 2017-06-04 22:47 | PN ---
DATE: 06/03/2017 This late entry 06/03/2017 covers elements not covered in my initial note 06/03/2017. I met with the patient evening of 06/03/2017. The patient had the physical therapist work with him and apparently they used TENS unit and heat and he states his back pain is better. REVIEW OF SYSTEMS: No CV, , pulmonary, eye, ENT system symptoms on review. MENTAL STATUS EXAM: Oriented to himself and situation. Speech coherent, abstraction fair, computation impaired, language function intact. Mood and affect still somewhat labile, somewhat anxious, depressed. LABORATORY DATA: Reviewed. No suicidal or homicidal ideation. IMPRESSION: Unchanged from initial note. PLAN: Continue psychotropics mentioned in my initial note. MAN Celeste CARDOZO MD DR: MILTON/daniel JOB#: [id number] / [id number]
[2017-06-05] MEDS: LEVOTHYROXINE 25 MCG TABLET. PO SCH (05:52)
[2017-06-05 05:57] VITALS: BP 119/73
[2017-06-05] MEDS: PANTOPRAZOLE 40 MG TABLET. PO SCH ×2 (07:54→16:59)
[2017-06-05] MEDS: GABAPENTIN 300 MG CAPSULE. PO SCH ×2 (08:00→19:31)
[2017-06-05] MEDS: risperiDONE 0.5 MG TABLET. PO SCH (08:00)
[2017-06-05] MEDS: CYANOCOBALAMIN (VITAMIN B-12) 100 MCG TABLET PO SCH (08:00)
[2017-06-05] MEDS: metFORMIN 500 MG TABLET PO SCH (08:00)
[2017-06-05] MEDS: SENNOSIDES/DOCUSATE 8.6/50MG TABLET. PO SCH (08:00)
[2017-06-05] MEDS: DULoxetine HCL 60 MG CAPSULE.DR PO SCH (08:00)
[2017-06-05] MEDS: hydroCHLOROthiazide 25 MG TABLET PO SCH (08:00)
[2017-06-05] MEDS: ASPIRIN 81 MG TAB.CHEW PO SCH (08:00)
[2017-06-05] MEDS: DIVALPROEX 125 MG CAP.SPRINK PO SCH ×2 (08:01→17:00)
[2017-06-05] MEDS: NICOTINE 21MG PATCH. TD SCH (08:01)
[2017-06-05] MEDS: ALLOPURINOL 300 MG TABLET. PO SCH (08:01)
[2017-06-05] MEDS: FERROUS SULFATE 325 MG TABLET. PO SCH (08:01)
[2017-06-05] MEDS: METOPROLOL TART IMMED RELEASE 25 MG TABLET PO SCH (08:02)
[2017-06-05] MEDS: LISINOPRIL 20 MG TABLET PO SCH ×2 (08:02→19:31)
[2017-06-05 16:10] VITALS: BP 135/76
[2017-06-05] MEDS: traZODone 50 MG TABLET. PO SCH (19:31)
--- NOTE | 2017-06-05 20:49 | PDOC ---
Exam Note: Nabeel Note: Please also refer to the separate dictated note~for this date of service dictated separately.~Patient seen individually. Discussed the patient with Nursing staff reviewed the chart.~Reviewed interim history and current functioning. Reviewed vital signs,~Labs/ Radiology~and current medications noted below. Continue current treatment with the changes noted in the dictated addendum note Assessment: Vital Signs: Vital Signs Date Time Temp Pulse Resp B/P (MAP) Pulse Ox O2 Delivery O2 Flow Rate FiO2 06/05/17 19:31 70 135/76 06/05/17 16:10 97.4 19 97 I&O Intake and Output 06/05/17 07:00 Intake Total 1080 ml Balance 1080 ml Intake Oral 1080 ml Labs: Laboratory Tests Test 06/05/17 07:22 Glucose (Fingerstick) 92 mg/dL (70-99) Current Medications: Meds: Current Medications Multi-Ingredient Ointment (Analgesic [place]) 1 geovanna PRN QID PRN TP MUSCLE PAIN; Start 05/20/17 at 23:00 Al Hydroxide/Mg Hydroxide (Mylanta Plus Xs) 15 ml PRN AFTMEALHC PRN PO DYSPEPSIA; Start 05/20/17 at 23:00 Magnesium Hydroxide (Milk Of Magnesia) 2,400 mg PRN QHS PRN PO CONSTIPATION; Start 05/20/17 at 23:00 Nicotine (Nicoderm Cq 21mg) 1 patch DAILY TD Last administered on 06/05/17at 08: 01; Start 05/21/17 at 09:00 Duloxetine HCl (Cymbalta) 120 mg DAILY PO Last administered on 05/25/17at 09:36 ; Start 05/21/17 at 09:00; Stop 05/25/17 at 18:38; Status DC Risperidone (RisperDAL) 0.5 mg TID PO Last administered on 05/22/17at 13:59; Start 05/21/17 at 09:00; Stop 05/22/17 at 18:42; Status DC Allopurinol (Zyloprim) 300 mg DAILY PO Last administered on 06/05/17at 08:01; Start 05/21/17 at 09:00 Aspirin (Children'S Aspirin) 81 mg DAILY PO Last administered on 06/05/17at 08: 00; Start 05/21/17 at 09:00 Cyanocobalamin (Vitamin B-12) 100 mcg DAILY PO Last administered on 06/05/17 08:00; Start 05/21/17 at 09:00 Cyclobenzaprine HCl (Flexeril) 10 mg PRN DAILY PRN PO MUSCLE SPASMS Last administered on 06/03/17 20:26; Start 05/21/17 at 04:00 Ferrous Sulfate (Feosol) 325 mg DAILY PO Last administered on 06/05/17 08:01; Start 05/21/17 at 09:00 Gabapentin (Neurontin) 300 mg BID PO Last administered on 06/05/17 19:31; Start 05/21/17 at 09:00 Hydrochlorothiazide (Hydrodiuril) 25 mg DAILY PO Last administered on 08:00; Start 05/21/17 at 09:00 Levothyroxine Sodium (Synthroid) 25 mcg DAILY07 PO Last administered on 05:52; Start 05/21/17 at 07:00 Lisinopril (Prinivil) 20 mg BID PO Last administered on 06/05/17 19:31; Start 05/21/17 at 09:00 Metformin HCl (Glucophage) 500 mg DAILYWBKFT PO Last administered on 06/05/17 08:00; Start 05/21/17 at 08:00 Metoprolol Tartrate (Lopressor) 25 mg DAILY PO Last administered on 06/05/17 08:02; Start 05/21/17 at 09:00 Pantoprazole Sodium (Protonix) 40 mg BIDBFRMEAL PO Last administered on 16:59; Start 05/21/17 at 07:30 Senna/Docusate Sodium (Senna Plus) 1 tab DAILY PO Last administered on 08:00; Start 05/21/17 at 09:00 Risperidone (RisperDAL) 0.5 mg BID PO Last administered on 05/23/17 08:55; Start 05/22/17 at 21:00; Stop 05/23/17 at 16:02; Status DC Acetaminophen (Tylenol) 650 mg PRN Q6HRS PRN PO PAIN / TEMP Last administered on 05/23/17 10:07; Start 05/23/17 at 09:15 Risperidone (RisperDAL) 0.5 mg DAILY PO Last administered on 06/05/17at 08:00; Start 05/24/17 at 09:00 Divalproex Sodium (Depakote Sprinkles) 125 mg BIDWMEALS PO ; Start 05/23/17 at 17:00; Stop 05/23/17 at 17:02; Status DC Divalproex Sodium (Depakote Sprinkles) 125 mg BIDWMEALS PO Last administered on 05/28/17at 07:36; Start 05/24/17 at 09:00; Stop 05/28/17 at 10:48; Status DC Acetaminophen/ Hydrocodone Bitart (Lortab 5/325) 1 tab PRN Q4HRS PRN PO PAIN Last administered on 06/01/17at 14:59; Start 05/23/17 at 18:00 Duloxetine HCl (Cymbalta) 90 mg DAILY PO Last administered on 06/01/17at 08:35; Start 05/26/17 at 09:00; Stop 06/01/17 at 18:36; Status DC Divalproex Sodium (Depakote Sprinkles) 375 mg BIDWMEALS PO Last administered on 06/01/17at 17:00; Start 05/28/17 at 17:00; Stop 06/01/17 at 18:36; Status DC Olanzapine (ZyPREXA ZYDIS) 2.5 mg PRN Q2HR PRN PO PSYCHOSIS/AGITATION; Start at 20:30 Divalproex Sodium (Depakote Sprinkles) 500 mg BIDWMEALS PO Last administered on 06/04/17at 08:01; Start 06/02/17 at 08:00; Stop 06/04/17 at 10:36; Status DC Duloxetine HCl (Cymbalta) 60 mg DAILY PO Last administered on 06/05/17at 08:00; Start 06/02/17 at 09:00 Trazodone HCl (Desyrel) 50 mg QHS PO Last administered on 06/05/17at 19:31; Start 06/01/17 at 21:00 Trazodone HCl (Desyrel) 50 mg PRN QHS PRN PO INSOMNIA; Start 06/01/17 at 18:45 Divalproex Sodium (Depakote Sprinkles) 625 mg BID@0900,1700 PO Last administered on 06/05/17at 17:00; Start 06/04/17 at 17:00 Lidocaine (Lidoderm) 1 patch QHS TD ; Start 06/04/17 at 21:00; Stop 06/05/17 at 14:40; Status DC Lidocaine (Lidoderm) 1 patch DAILY TD ; Start 06/06/17 at 09:00 Active Scripts Active Reported Senna-Docusate Sodium Tablet (Sennosides/Docusate Sodium) 1 Each Tablet 1 Cap PO DAILY Risperdal (Risperidone) 0.5 Mg Tablet 0.5 Mg PO TID Protonix (Pantoprazole Sodium) 40 Mg Tablet.dr 40 Mg PO BID Percocet 5-325 Mg Tablet (Oxycodone Hcl/Acetaminophen) 1 Each Tablet 1 Tab PO PRN TID PRN Metoprolol Tartrate 25 Mg Tablet 25 Mg PO DAILY Glucophage (Metformin Hcl) 500 Mg Tablet 500 Mg PO DAILYWBKFT Lisinopril 20 Mg Tablet 20 Mg PO BID Levothyroxine Sodium 25 Mcg Tablet 25 Mcg PO DAILYAC Hydrochlorothiazide Tablet (Hydrochlorothiazide) 25 Mg Tablet 25 Mg PO DAILY Gabapentin 300 Mg Capsule 300 Mg PO BID Ferrous Sulfate 325 Mg Tablet 325 Mg PO DAILY Cymbalta (Duloxetine Hcl) 60 Mg Capsule.dr 120 Mg PO Cyclobenzaprine Hcl 10 Mg Tablet 10 Mg PO PRN DAILY PRN Vitamin B-12 (Cyanocobalamin (Vitamin B-12)) 100 Mcg Tablet 100 Mcg PO DAILY Aspirin 81 Mg Tab.chew 81 Mg PO DAILY Allopurinol 300 Mg Tablet 300 Mg PO DAILY I have reviewed the current psychotropics carefully including drug interactions. Risk benefit ratio favors no change other than as noted in my dictated progress note. Diagnosis: Problems: (1) Anxiety disorder (2) Impulse control disorder (3) Bipolar affective, mixed (4) Mild cognitive impairment (5) Cerebrovascular accident (CVA) due to vascular occlusion MELISSA CARDOZO MD Jun 05, 2017 20:49
--- NOTE | 2017-06-06 00:46 | PN ---
DATE: 06/04/2017 PSYCHIATRIC PROGRESS NOTE This is a late entry of 06/04/2017 covers elements not covered in my initial note 06/04/2017. SUBJECTIVE: The patient was staffed at a treatment team meeting with the entire team morning of 06/04/2017. I met with him individually evening of 06/04/2017. Appetite is 100%. He has been cooperative on the unit, somewhat forgetful, sleeping an average of 6 hours, slept 8-1/4 hours previous evening. I reviewed his history, diagnosis, progress, discharge plans at length at the treatment team meeting. Valproic acid level therapeutic at 50, somewhat isolative at times. REVIEW OF SYSTEMS: Positive for some back pain. No CV, , pulmonary, eye, ENT system symptoms on review. MENTAL STATUS EXAM: Oriented to himself and situation. Speech has some latency, coherent. Abstraction fair, computation impaired, language function intact, attention span short. Mood and affect somewhat labile at times, but improved. LABORATORY DATA: Reviewed. IMPRESSION: Bipolar 1 disorder, mixed with psychotic features; cognitive disorder, unspecified. PLAN: Increase Depakote from 500 mg twice a day to 625 mg twice a day. Check CBC, CMP, valproic acid level in 3 days. Plan is to get a valproic acid level around 60 to 90 to have an adequate chance of helping his mood disorder, especially given his past history of 20 ECTs. Continue rest of the psychotropics unchanged as noted in my initial note. MAN Celeste CARDOZO MD DR: MILTON/daniel JOB#: [id number] / [id number]
[2017-06-06 05:50] VITALS: BP 115/71
[2017-06-06] MEDS: LEVOTHYROXINE 25 MCG TABLET. PO SCH (06:10)
[2017-06-06] MEDS: DULoxetine HCL 60 MG CAPSULE.DR PO SCH (07:58)
[2017-06-06] MEDS: metFORMIN 500 MG TABLET PO SCH (07:58)
[2017-06-06] MEDS: FERROUS SULFATE 325 MG TABLET. PO SCH (07:58)
[2017-06-06] MEDS: ASPIRIN 81 MG TAB.CHEW PO SCH (07:58)
[2017-06-06] MEDS: DIVALPROEX 125 MG CAP.SPRINK PO SCH ×2 (07:58→17:24)
[2017-06-06] MEDS: PANTOPRAZOLE 40 MG TABLET. PO SCH ×2 (07:58→17:24)
[2017-06-06] MEDS: risperiDONE 0.5 MG TABLET. PO SCH (08:00)
[2017-06-06] MEDS: hydroCHLOROthiazide 25 MG TABLET PO SCH (08:00)
[2017-06-06] MEDS: SENNOSIDES/DOCUSATE 8.6/50MG TABLET. PO SCH (08:00)
[2017-06-06] MEDS: ALLOPURINOL 300 MG TABLET. PO SCH (08:00)
[2017-06-06] MEDS: CYANOCOBALAMIN (VITAMIN B-12) 100 MCG TABLET PO SCH (08:00)
[2017-06-06] MEDS: GABAPENTIN 300 MG CAPSULE. PO SCH ×2 (08:00→19:23)
[2017-06-06] MEDS: LIDOCAINE (700MG/PATCH) PATCH. TD SCH (08:02)
[2017-06-06] MEDS: NICOTINE 21MG PATCH. TD SCH (08:03)
[2017-06-06] MEDS: LISINOPRIL 20 MG TABLET PO SCH ×2 (09:00→19:23)
[2017-06-06] MEDS: METOPROLOL TART IMMED RELEASE 25 MG TABLET PO SCH (09:00)
[2017-06-06 15:35] VITALS: BP 136/77
[2017-06-06] MEDS: traZODone 50 MG TABLET. PO SCH (19:23)
--- NOTE | 2017-06-06 22:43 | PDOC ---
Exam Note: Nabeel Note: Please also refer to the separate dictated note~for this date of service dictated separately.~Patient seen individually. Discussed the patient with Nursing staff reviewed the chart.~Reviewed interim history and current functioning. Reviewed vital signs,~Labs/ Radiology~and current medications noted below. Continue current treatment with the changes noted in the dictated addendum note Assessment: Vital Signs: Vital Signs Date Time Temp Pulse Resp B/P (MAP) Pulse Ox O2 Delivery O2 Flow Rate FiO2 06/06/17 19:23 101 136/77 06/06/17 15:35 97.0 18 97 I&O Intake and Output 06/06/17 07:00 Intake Total 1080 ml Balance 1080 ml Intake Oral 1080 ml Labs: Laboratory Tests Test 06/06/17 07:12 Glucose (Fingerstick) 102 mg/dL (70-99) H Current Medications: Meds: Current Medications Multi-Ingredient Ointment (Analgesic [place]) 1 geovanna PRN QID PRN TP MUSCLE PAIN; Start 05/20/17 at 23:00 Al Hydroxide/Mg Hydroxide (Mylanta Plus Xs) 15 ml PRN AFTMEALHC PRN PO DYSPEPSIA; Start 05/20/17 at 23:00 Magnesium Hydroxide (Milk Of Magnesia) 2,400 mg PRN QHS PRN PO CONSTIPATION; Start 05/20/17 at 23:00 Nicotine (Nicoderm Cq 21mg) 1 patch DAILY TD Last administered on 06/06/17at 08: 03; Start 05/21/17 at 09:00 Duloxetine HCl (Cymbalta) 120 mg DAILY PO Last administered on 05/25/17at 09:36 ; Start 05/21/17 at 09:00; Stop 05/25/17 at 18:38; Status DC Risperidone (RisperDAL) 0.5 mg TID PO Last administered on 05/22/17at 13:59; Start 05/21/17 at 09:00; Stop 05/22/17 at 18:42; Status DC Allopurinol (Zyloprim) 300 mg DAILY PO Last administered on 06/06/17at 08:00; Start 05/21/17 at 09:00 Aspirin (Children'S Aspirin) 81 mg DAILY PO Last administered on 06/06/17at 07: 58; Start 05/21/17 at 09:00 Cyanocobalamin (Vitamin B-12) 100 mcg DAILY PO Last administered on 06/06/17 08:00; Start 05/21/17 at 09:00 Cyclobenzaprine HCl (Flexeril) 10 mg PRN DAILY PRN PO MUSCLE SPASMS Last administered on 06/03/17 20:26; Start 05/21/17 at 04:00 Ferrous Sulfate (Feosol) 325 mg DAILY PO Last administered on 06/06/17 07:58; Start 05/21/17 at 09:00 Gabapentin (Neurontin) 300 mg BID PO Last administered on 06/06/17 19:23; Start 05/21/17 at 09:00 Hydrochlorothiazide (Hydrodiuril) 25 mg DAILY PO Last administered on 08:00; Start 05/21/17 at 09:00 Levothyroxine Sodium (Synthroid) 25 mcg DAILY07 PO Last administered on 06:10; Start 05/21/17 at 07:00 Lisinopril (Prinivil) 20 mg BID PO Last administered on 06/05/17 19:31; Start 05/21/17 at 09:00; Stop 06/06/17 at 12:46; Status DC Metformin HCl (Glucophage) 500 mg DAILYWBKFT PO Last administered on 06/06/17 07:58; Start 05/21/17 at 08:00 Metoprolol Tartrate (Lopressor) 25 mg DAILY PO Last administered on 06/05/17 08:02; Start 05/21/17 at 09:00 Pantoprazole Sodium (Protonix) 40 mg BIDBFRMEAL PO Last administered on 17:24; Start 05/21/17 at 07:30 Senna/Docusate Sodium (Senna Plus) 1 tab DAILY PO Last administered on 08:00; Start 05/21/17 at 09:00 Risperidone (RisperDAL) 0.5 mg BID PO Last administered on 05/23/17 08:55; Start 05/22/17 at 21:00; Stop 05/23/17 at 16:02; Status DC Acetaminophen (Tylenol) 650 mg PRN Q6HRS PRN PO PAIN / TEMP Last administered on 05/23/17at 10:07; Start 05/23/17 at 09:15 Risperidone (RisperDAL) 0.5 mg DAILY PO Last administered on 06/06/17at 08:00; Start 05/24/17 at 09:00 Divalproex Sodium (Depakote Sprinkles) 125 mg BIDWMEALS PO ; Start 05/23/17 at 17:00; Stop 05/23/17 at 17:02; Status DC Divalproex Sodium (Depakote Sprinkles) 125 mg BIDWMEALS PO Last administered on 05/28/17at 07:36; Start 05/24/17 at 09:00; Stop 05/28/17 at 10:48; Status DC Acetaminophen/ Hydrocodone Bitart (Lortab 5/325) 1 tab PRN Q4HRS PRN PO PAIN Last administered on 06/01/17at 14:59; Start 05/23/17 at 18:00 Duloxetine HCl (Cymbalta) 90 mg DAILY PO Last administered on 06/01/17at 08:35; Start 05/26/17 at 09:00; Stop 06/01/17 at 18:36; Status DC Divalproex Sodium (Depakote Sprinkles) 375 mg BIDWMEALS PO Last administered on 06/01/17at 17:00; Start 05/28/17 at 17:00; Stop 06/01/17 at 18:36; Status DC Olanzapine (ZyPREXA ZYDIS) 2.5 mg PRN Q2HR PRN PO PSYCHOSIS/AGITATION; Start at 20:30 Divalproex Sodium (Depakote Sprinkles) 500 mg BIDWMEALS PO Last administered on 06/04/17at 08:01; Start 06/02/17 at 08:00; Stop 06/04/17 at 10:36; Status DC Duloxetine HCl (Cymbalta) 60 mg DAILY PO Last administered on 06/06/17at 07:58; Start 06/02/17 at 09:00 Trazodone HCl (Desyrel) 50 mg QHS PO Last administered on 06/06/17at 19:23; Start 06/01/17 at 21:00 Trazodone HCl (Desyrel) 50 mg PRN QHS PRN PO INSOMNIA; Start 06/01/17 at 18:45 Divalproex Sodium (Depakote Sprinkles) 625 mg BID@0900,1700 PO Last administered on 06/06/17at 17:24; Start 06/04/17 at 17:00 Lidocaine (Lidoderm) 1 patch QHS TD ; Start 06/04/17 at 21:00; Stop 06/05/17 at 14:40; Status DC Lidocaine (Lidoderm) 1 patch DAILY TD Last administered on 06/06/17at 08:02; Start 06/06/17 at 09:00 Lisinopril (Prinivil) 20 mg DAILY PO Last administered on 06/06/17at 19:23; Start 06/07/17 at 09:00 Active Scripts Active Reported Senna-Docusate Sodium Tablet (Sennosides/Docusate Sodium) 1 Each Tablet 1 Cap PO DAILY Risperdal (Risperidone) 0.5 Mg Tablet 0.5 Mg PO TID Protonix (Pantoprazole Sodium) 40 Mg Tablet.dr 40 Mg PO BID Percocet 5-325 Mg Tablet (Oxycodone Hcl/Acetaminophen) 1 Each Tablet 1 Tab PO PRN TID PRN Metoprolol Tartrate 25 Mg Tablet 25 Mg PO DAILY Glucophage (Metformin Hcl) 500 Mg Tablet 500 Mg PO DAILYWBKFT Lisinopril 20 Mg Tablet 20 Mg PO BID Levothyroxine Sodium 25 Mcg Tablet 25 Mcg PO DAILYAC Hydrochlorothiazide Tablet (Hydrochlorothiazide) 25 Mg Tablet 25 Mg PO DAILY Gabapentin 300 Mg Capsule 300 Mg PO BID Ferrous Sulfate 325 Mg Tablet 325 Mg PO DAILY Cymbalta (Duloxetine Hcl) 60 Mg Capsule.dr 120 Mg PO Cyclobenzaprine Hcl 10 Mg Tablet 10 Mg PO PRN DAILY PRN Vitamin B-12 (Cyanocobalamin (Vitamin B-12)) 100 Mcg Tablet 100 Mcg PO DAILY Aspirin 81 Mg Tab.chew 81 Mg PO DAILY Allopurinol 300 Mg Tablet 300 Mg PO DAILY I have reviewed the current psychotropics carefully including drug interactions. Risk benefit ratio favors no change other than as noted in my dictated progress note. Diagnosis: Problems: (1) Anxiety disorder (2) Impulse control disorder (3) Bipolar affective, mixed (4) Mild cognitive impairment (5) Cerebrovascular accident (CVA) due to vascular occlusion MELISSA CARDOZO MD Jun 06, 2017 22:43
[2017-06-07 05:52] VITALS: BP 125/64
[2017-06-07] MEDS: LEVOTHYROXINE 25 MCG TABLET. PO SCH (06:07)
[2017-06-07 07:02] LABS: BASO # 0.1 x10^3/uL (0.0-0.2); BASO % 1 % (0-3); EOS # 0.4 x10^3/uL (0.0-0.7); EOS % 5 % (0-3); HEMOGLOBIN 12.8 g/dL (13.0-17.5); LYMPH # 1.6 x10^3/uL (1.0-4.8); LYMPH % 22 % (24-48); MEAN CORPUSCULAR HEMOGLOBIN 29 pg (25-35); MEAN CORPUSCULAR HGB CONC 33 g/dL (31-37); MEAN CORPUSCULAR VOLUME 88 fL (79-100); MONO # 0.8 x10^3/uL (0.0-1.1); MONO % 11 % (0-9); NEUT # 4.6 x10^3uL (1.8-7.7); NEUT % 61 % (31-73); PLATELET COUNT 187 x10^3/uL (140-400); RED BLOOD COUNT 4.42 x10^6/uL (4.30-5.70); RED CELL DISTRIBUTION WIDTH 18.6 % (11.5-14.5); WHITE BLOOD COUNT 7.5 x10^3/uL (4.0-11.0)
[2017-06-07 07:19] LABS: ALBUMIN/GLOBULIN RATIO 0.7 (1.0-1.7); ALK PHOS 70 U/L (46-116); ALT (SGPT) 15 U/L (16-63); ANION GAP 6 (6-14); AST (SGOT) 23 U/L (15-37); BLOOD UREA NITROGEN 28 mg/dL (8-26); BUN/CREATININE RATIO 22 (6-20); CALCIUM 9.7 mg/dL (8.5-10.1); CARBON DIOXIDE 33 mmol/L (21-32); CHLORIDE 102 mmol/L (98-107); CREATININE 1.3 mg/dL (0.7-1.3); GFR 54.1; GLUCOSE 111 mg/dL (70-99); POTASSIUM 4.3 mmol/L (3.5-5.1); SODIUM 141 mmol/L (136-145); TOTAL BILIRUBIN 0.4 mg/dL (0.2-1.0); TOTAL PROTEIN 7.5 g/dL (6.4-8.2)
[2017-06-07 07:26] LABS: VAL ACID 62 mcg/mL (50-100)
[2017-06-07] MEDS: DIVALPROEX 125 MG CAP.SPRINK PO SCH ×2 (07:40→17:04)
[2017-06-07] MEDS: SENNOSIDES/DOCUSATE 8.6/50MG TABLET. PO SCH (07:40)
[2017-06-07] MEDS: LIDOCAINE (700MG/PATCH) PATCH. TD SCH (07:40)
[2017-06-07] MEDS: risperiDONE 0.5 MG TABLET. PO SCH (07:40)
[2017-06-07] MEDS: DULoxetine HCL 60 MG CAPSULE.DR PO SCH (07:41)
[2017-06-07] MEDS: GABAPENTIN 300 MG CAPSULE. PO SCH ×2 (07:41→19:34)
[2017-06-07] MEDS: CYANOCOBALAMIN (VITAMIN B-12) 100 MCG TABLET PO SCH (07:41)
[2017-06-07] MEDS: ASPIRIN 81 MG TAB.CHEW PO SCH (07:41)
[2017-06-07] MEDS: PANTOPRAZOLE 40 MG TABLET. PO SCH ×2 (07:42→17:04)
[2017-06-07] MEDS: ALLOPURINOL 300 MG TABLET. PO SCH (07:42)
[2017-06-07] MEDS: metFORMIN 500 MG TABLET PO SCH (07:42)
[2017-06-07] MEDS: NICOTINE 21MG PATCH. TD SCH (07:43)
[2017-06-07] MEDS: hydroCHLOROthiazide 25 MG TABLET PO SCH (07:43)
[2017-06-07] MEDS: METOPROLOL TART IMMED RELEASE 25 MG TABLET PO SCH (07:43)
[2017-06-07] MEDS: FERROUS SULFATE 325 MG TABLET. PO SCH (07:45)
[2017-06-07] MEDS: CYCLOBENZAPRINE 10 MG TABLET. PO PRN (09:47)
[2017-06-07] MEDS: HYDROcodone/APAP 5/325MG 1 TAB TABLET PO PRN ×2 (09:48→17:49)
--- NOTE | 2017-06-07 12:29 | PN ---
DATE: 06/05/2017 PSYCHIATRIC PROGRESS NOTE This is a late entry 06/05/2017 covers elements not covered in my initial note 06/05/2017. SUBJECTIVE: I met with the patient in the evening of 06/05/2017. The patient is compliant with his medications. He is very pleased that physical therapy have arranged for TENS unit via the [facility]. REVIEW OF SYSTEMS: Still complains of some back pain. No CV, , pulmonary, eye, ENT system symptoms on review. MENTAL STATUS EXAM: Oriented to himself and situation. Speech is coherent, pleasant, abstraction fair, computation impaired, language function intact. Mood and affect less labile. LABORATORY DATA: Reviewed. IMPRESSION: Bipolar 1 disorder, mixed with psychotic features, in partial remission. Rest unchanged from initial note. PLAN: Continue psychotropics mentioned in my initial note. Depakote was adjusted. Repeat labs level on 06/07/2016. Adjust further as clinically indicated. MAN Celeste CARDOZO MD DR: MILTON/daniel JOB#: [id number] / [id number]
[2017-06-07 15:13] VITALS: BP 95/59
[2017-06-07] MEDS: traZODone 50 MG TABLET. PO SCH (19:34)
--- NOTE | 2017-06-07 21:52 | PDOC ---
Exam Note: Nabeel Note: Please also refer to the separate dictated note~for this date of service dictated separately.~Patient seen individually. Discussed the patient with Nursing staff reviewed the chart.~Reviewed interim history and current functioning. Reviewed vital signs,~Labs/ Radiology~and current medications noted below. Continue current treatment with the changes noted in the dictated addendum note Assessment: Vital Signs: Vital Signs Date Time Temp Pulse Resp B/P (MAP) Pulse Ox O2 Delivery O2 Flow Rate FiO2 06/07/17 19:33 92 06/07/17 17:49 20 06/07/17 15:13 97.7 78 95/59 (71) I&O Intake and Output 06/07/17 07:00 Intake Total 1560 ml Balance 1560 ml Intake Oral 1560 ml Labs: Laboratory Tests Test 06/07/17 06:26 06/07/17 07:29 White Blood Count 7.5 x10^3/uL (4.0-11.0) Red Blood Count 4.42 x10^6/uL (4.30-5.70) Hemoglobin 12.8 g/dL (13.0-17.5) L Hematocrit 39.0 % (39.0-53.0) Mean Corpuscular Volume 88 fL (79-100) Mean Corpuscular Hemoglobin 29 pg (25-35) Mean Corpuscular Hemoglobin Concent 33 g/dL (31-37) Red Cell Distribution Width 18.6 % (11.5-14.5) H Platelet Count 187 x10^3/uL (140-400) Neutrophils (%) (Auto) 61 % (31-73) Lymphocytes (%) (Auto) 22 % (24-48) L Monocytes (%) (Auto) 11 % (0-9) H Eosinophils (%) (Auto) 5 % (0-3) H Basophils (%) (Auto) 1 % (0-3) Neutrophils # (Auto) 4.6 x10^3uL (1.8-7.7) Lymphocytes # (Auto) 1.6 x10^3/uL (1.0-4.8) Monocytes # (Auto) 0.8 x10^3/uL (0.0-1.1) Eosinophils # (Auto) 0.4 x10^3/uL (0.0-0.7) Basophils # (Auto) 0.1 x10^3/uL (0.0-0.2) Sodium Level 141 mmol/L (136-145) Potassium Level 4.3 mmol/L (3.5-5.1) Chloride Level 102 mmol/L (98-107) Carbon Dioxide Level 33 mmol/L (21-32) H Anion Gap 6 (6-14) Blood Urea Nitrogen 28 mg/dL (8-26) H Creatinine 1.3 mg/dL (0.7-1.3) Estimated GFR (Cockcroft-Gault) 54.1 BUN/Creatinine Ratio 22 (6-20) H Glucose Level 111 mg/dL (70-99) H Calcium Level 9.7 mg/dL (8.5-10.1) Total Bilirubin 0.4 mg/dL (0.2-1.0) Aspartate Amino Transferase (AST) 23 U/L (15-37) Alanine Aminotransferase (ALT) 15 U/L (16-63) L Alkaline Phosphatase 70 U/L (46-116) Total Protein 7.5 g/dL (6.4-8.2) Albumin 3.0 g/dL (3.4-5.0) L Albumin/Globulin Ratio 0.7 (1.0-1.7) L Valproic Acid Level 62 mcg/mL (50-100) Valproic Acid Last Dose Date 06/06/17 Valproic Acid Last Dose Time 1700 Glucose (Fingerstick) 101 mg/dL (70-99) H Current Medications: Meds: Current Medications Multi-Ingredient Ointment (Analgesic [place]) 1 geovanna PRN QID PRN TP MUSCLE PAIN; Start 05/20/17 at 23:00 Al Hydroxide/Mg Hydroxide (Mylanta Plus Xs) 15 ml PRN AFTMEALHC PRN PO DYSPEPSIA; Start 05/20/17 at 23:00 Magnesium Hydroxide (Milk Of Magnesia) 2,400 mg PRN QHS PRN PO CONSTIPATION; Start 05/20/17 at 23:00 Nicotine (Nicoderm Cq 21mg) 1 patch DAILY TD Last administered on 06/07/17at 07: 43; Start 05/21/17 at 09:00 Duloxetine HCl (Cymbalta) 120 mg DAILY PO Last administered on 05/25/17at 09:36 ; Start 05/21/17 at 09:00; Stop 05/25/17 at 18:38; Status DC Risperidone (RisperDAL) 0.5 mg TID PO Last administered on 05/22/17 13:59; Start 05/21/17 at 09:00; Stop 05/22/17 at 18:42; Status DC Allopurinol (Zyloprim) 300 mg DAILY PO Last administered on 06/07/17 07:42; Start 05/21/17 at 09:00 Aspirin (Children'S Aspirin) 81 mg DAILY PO Last administered on 06/07/17 07:41 ; Start 05/21/17 at 09:00 Cyanocobalamin (Vitamin B-12) 100 mcg DAILY PO Last administered on 06/07/17 07 :41; Start 05/21/17 at 09:00 Cyclobenzaprine HCl (Flexeril) 10 mg PRN DAILY PRN PO MUSCLE SPASMS Last administered on 06/07/17 09:47; Start 05/21/17 at 04:00 Ferrous Sulfate (Feosol) 325 mg DAILY PO Last administered on 06/07/17 07:45; Start 05/21/17 at 09:00 Gabapentin (Neurontin) 300 mg BID PO Last administered on 06/07/17 19:34; Start 05/21/17 at 09:00 Hydrochlorothiazide (Hydrodiuril) 25 mg DAILY PO Last administered on 06/07/17 07:43; Start 05/21/17 at 09:00 Levothyroxine Sodium (Synthroid) 25 mcg DAILY07 PO Last administered on 06:07; Start 05/21/17 at 07:00 Lisinopril (Prinivil) 20 mg BID PO Last administered on 06/05/17 19:31; Start 05/21/17 at 09:00; Stop 06/06/17 at 12:46; Status DC Metformin HCl (Glucophage) 500 mg DAILYWBKFT PO Last administered on 06/07/17 07:42; Start 05/21/17 at 08:00 Metoprolol Tartrate (Lopressor) 25 mg DAILY PO Last administered on 06/07/17 07 :43; Start 05/21/17 at 09:00 Pantoprazole Sodium (Protonix) 40 mg BIDBFRMEAL PO Last administered on 4/1/ 18at 17:04; Start 05/21/17 at 07:30 Senna/Docusate Sodium (Senna Plus) 1 tab DAILY PO Last administered on 07:40; Start 05/21/17 at 09:00 Risperidone (RisperDAL) 0.5 mg BID PO Last administered on 05/23/17 08:55; Start 05/22/17 at 21:00; Stop 05/23/17 at 16:02; Status DC Acetaminophen (Tylenol) 650 mg PRN Q6HRS PRN PO PAIN / TEMP Last administered on 05/23/17 10:07; Start 05/23/17 at 09:15 Risperidone (RisperDAL) 0.5 mg DAILY PO Last administered on 06/07/17 07:40; Start 05/24/17 at 09:00 Divalproex Sodium (Depakote Sprinkles) 125 mg BIDWMEALS PO ; Start 05/23/17 at 17:00; Stop 05/23/17 at 17:02; Status DC Divalproex Sodium (Depakote Sprinkles) 125 mg BIDWMEALS PO Last administered on 05/28/17 07:36; Start 05/24/17 at 09:00; Stop 05/28/17 at 10:48; Status DC Acetaminophen/ Hydrocodone Bitart (Lortab 5/325) 1 tab PRN Q4HRS PRN PO PAIN Last administered on 06/07/17 17:49; Start 05/23/17 at 18:00 Duloxetine HCl (Cymbalta) 90 mg DAILY PO Last administered on 06/01/17 08:35; Start 05/26/17 at 09:00; Stop 06/01/17 at 18:36; Status DC Divalproex Sodium (Depakote Sprinkles) 375 mg BIDWMEALS PO Last administered on 06/01/17 17:00; Start 05/28/17 at 17:00; Stop 06/01/17 at 18:36; Status DC Olanzapine (ZyPREXA ZYDIS) 2.5 mg PRN Q2HR PRN PO PSYCHOSIS/AGITATION; Start at 20:30 Divalproex Sodium (Depakote Sprinkles) 500 mg BIDWMEALS PO Last administered on 3/29/18at 08:01; Start 06/02/17 at 08:00; Stop 06/04/17 at 10:36; Status DC Duloxetine HCl (Cymbalta) 60 mg DAILY PO Last administered on 06/07/17at 07:41; Start 06/02/17 at 09:00 Trazodone HCl (Desyrel) 50 mg QHS PO Last administered on 06/07/17at 19:34; Start 06/01/17 at 21:00 Trazodone HCl (Desyrel) 50 mg PRN QHS PRN PO INSOMNIA; Start 06/01/17 at 18:45 Divalproex Sodium (Depakote Sprinkles) 625 mg BID@0900,1700 PO Last administered on 06/07/17at 17:04; Start 06/04/17 at 17:00 Lidocaine (Lidoderm) 1 patch QHS TD ; Start 06/04/17 at 21:00; Stop 06/05/17 at 14:40; Status DC Lidocaine (Lidoderm) 1 patch DAILY TD Last administered on 06/07/17at 07:40; Start 06/06/17 at 09:00 Lisinopril (Prinivil) 20 mg DAILY PO Last administered on 06/06/17at 19:23; Start 06/07/17 at 09:00 Active Scripts Active Reported Senna-Docusate Sodium Tablet (Sennosides/Docusate Sodium) 1 Each Tablet 1 Cap PO DAILY Risperdal (Risperidone) 0.5 Mg Tablet 0.5 Mg PO TID Protonix (Pantoprazole Sodium) 40 Mg Tablet.dr 40 Mg PO BID Percocet 5-325 Mg Tablet (Oxycodone Hcl/Acetaminophen) 1 Each Tablet 1 Tab PO PRN TID PRN Metoprolol Tartrate 25 Mg Tablet 25 Mg PO DAILY Glucophage (Metformin Hcl) 500 Mg Tablet 500 Mg PO DAILYWBKFT Lisinopril 20 Mg Tablet 20 Mg PO BID Levothyroxine Sodium 25 Mcg Tablet 25 Mcg PO DAILYAC Hydrochlorothiazide Tablet (Hydrochlorothiazide) 25 Mg Tablet 25 Mg PO DAILY Gabapentin 300 Mg Capsule 300 Mg PO BID Ferrous Sulfate 325 Mg Tablet 325 Mg PO DAILY Cymbalta (Duloxetine Hcl) 60 Mg Capsule.dr 120 Mg PO Cyclobenzaprine Hcl 10 Mg Tablet 10 Mg PO PRN DAILY PRN Vitamin B-12 (Cyanocobalamin (Vitamin B-12)) 100 Mcg Tablet 100 Mcg PO DAILY Aspirin 81 Mg Tab.chew 81 Mg PO DAILY Allopurinol 300 Mg Tablet 300 Mg PO DAILY I have reviewed the current psychotropics carefully including drug interactions. Risk benefit ratio favors no change other than as noted in my dictated progress note. Diagnosis: Problems: (1) Anxiety disorder (2) Impulse control disorder (3) Bipolar affective, mixed (4) Mild cognitive impairment (5) Cerebrovascular accident (CVA) due to vascular occlusion MELISSA CARDOZO MD Jun 07, 2017 21:52
[2017-06-08 06:12] VITALS: BP 119/83
[2017-06-08] MEDS: LEVOTHYROXINE 25 MCG TABLET. PO SCH (07:00)
[2017-06-08] MEDS: DIVALPROEX 125 MG CAP.SPRINK PO SCH ×2 (08:05→17:01)
[2017-06-08] MEDS: LIDOCAINE (700MG/PATCH) PATCH. TD SCH (08:05)
[2017-06-08] MEDS: SENNOSIDES/DOCUSATE 8.6/50MG TABLET. PO SCH (08:06)
[2017-06-08] MEDS: NICOTINE 21MG PATCH. TD SCH (08:06)
[2017-06-08] MEDS: LISINOPRIL 20 MG TABLET PO SCH (08:06)
[2017-06-08] MEDS: DULoxetine HCL 60 MG CAPSULE.DR PO SCH (08:06)
[2017-06-08] MEDS: GABAPENTIN 300 MG CAPSULE. PO SCH ×2 (08:07→19:53)
[2017-06-08] MEDS: FERROUS SULFATE 325 MG TABLET. PO SCH (08:07)
[2017-06-08] MEDS: ASPIRIN 81 MG TAB.CHEW PO SCH (08:07)
[2017-06-08] MEDS: PANTOPRAZOLE 40 MG TABLET. PO SCH ×2 (08:07→17:01)
[2017-06-08] MEDS: metFORMIN 500 MG TABLET PO SCH (08:07)
[2017-06-08] MEDS: ALLOPURINOL 300 MG TABLET. PO SCH (08:07)
[2017-06-08] MEDS: hydroCHLOROthiazide 25 MG TABLET PO SCH (08:07)
[2017-06-08] MEDS: risperiDONE 0.5 MG TABLET. PO SCH (08:08)
[2017-06-08] MEDS: METOPROLOL TART IMMED RELEASE 25 MG TABLET PO SCH (08:08)
[2017-06-08] MEDS: CYANOCOBALAMIN (VITAMIN B-12) 100 MCG TABLET PO SCH (08:09)
[2017-06-08] MEDS: HYDROcodone/APAP 5/325MG 1 TAB TABLET PO PRN (09:14)
--- NOTE | 2017-06-08 14:03 | PN ---
DATE: 06/06/2017 This is a late entry 06/06/2017, covers elements not covered in my initial note 06/06/2017. Met with the patient in the evening of 06/06/2017. Overall, the patient did well the previous night and has been more cooperative during the day on 06/06/2017. He states his back pain is better. REVIEW OF SYSTEMS: No CV, , pulmonary, eye system symptoms on review. MENTAL STATUS EXAM: Oriented to himself and situation. Speech coherent, pleasant, verbal, very interactive as I met with him. Abstraction fair, computation impaired, language function intact. Attention span improving. Mood and affect was improved. No suicidal or homicidal ideation. LABORATORY DATA: Reviewed. Valproic acid level will be checked on 06/07 since we increased the dosage, IMPRESSION: Bipolar 1 disorder, mixed with psychotic features; cognitive disorder, unspecified. Rest unchanged. PLAN: Continue current psychotropics. Check labs in the morning and adjust Depakote. MAN Celeste CARDOZO MD DR: MILTON/daniel JOB#: [id number] / [id number]
[2017-06-08 15:47] VITALS: BP 106/66
[2017-06-08] MEDS: traZODone 50 MG TABLET. PO SCH (19:53)
--- NOTE | 2017-06-08 20:53 | PDOC ---
Exam Note: Nabeel Note: Please also refer to the separate dictated note~for this date of service dictated separately.~Patient seen individually. Discussed the patient with Nursing staff reviewed the chart.~Reviewed interim history and current functioning. Reviewed vital signs,~Labs/ Radiology~and current medications noted below. Continue current treatment with the changes noted in the dictated addendum note Assessment: Vital Signs: Vital Signs Date Time Temp Pulse Resp B/P (MAP) Pulse Ox O2 Delivery O2 Flow Rate FiO2 06/08/17 15:47 97.1 73 16 106/66 (79) 96 Room Air I&O Intake and Output 06/08/17 07:00 Intake Total 1320 ml Balance 1320 ml Intake Oral 1320 ml # Voids 1 Labs: Laboratory Tests Test 06/08/17 07:27 Glucose (Fingerstick) 103 mg/dL (70-99) H Current Medications: Meds: Current Medications Multi-Ingredient Ointment (Analgesic [place]) 1 geovanna PRN QID PRN TP MUSCLE PAIN; Start 05/20/17 at 23:00 Al Hydroxide/Mg Hydroxide (Mylanta Plus Xs) 15 ml PRN AFTMEALHC PRN PO DYSPEPSIA; Start 05/20/17 at 23:00 Magnesium Hydroxide (Milk Of Magnesia) 2,400 mg PRN QHS PRN PO CONSTIPATION; Start 05/20/17 at 23:00 Nicotine (Nicoderm Cq 21mg) 1 patch DAILY TD Last administered on 06/08/17at 08: 06; Start 05/21/17 at 09:00 Duloxetine HCl (Cymbalta) 120 mg DAILY PO Last administered on 05/25/17at 09:36 ; Start 05/21/17 at 09:00; Stop 05/25/17 at 18:38; Status DC Risperidone (RisperDAL) 0.5 mg TID PO Last administered on 05/22/17at 13:59; Start 05/21/17 at 09:00; Stop 05/22/17 at 18:42; Status DC Allopurinol (Zyloprim) 300 mg DAILY PO Last administered on 06/08/17at 08:07; Start 05/21/17 at 09:00 Aspirin (Children'S Aspirin) 81 mg DAILY PO Last administered on 06/08/17at 08:07 ; Start 05/21/17 at 09:00 Cyanocobalamin (Vitamin B-12) 100 mcg DAILY PO Last administered on 06/08/17 08 :09; Start 05/21/17 at 09:00 Cyclobenzaprine HCl (Flexeril) 10 mg PRN DAILY PRN PO MUSCLE SPASMS Last administered on 06/07/17 09:47; Start 05/21/17 at 04:00 Ferrous Sulfate (Feosol) 325 mg DAILY PO Last administered on 06/08/17 08:07; Start 05/21/17 at 09:00 Gabapentin (Neurontin) 300 mg BID PO Last administered on 06/08/17 19:53; Start 05/21/17 at 09:00 Hydrochlorothiazide (Hydrodiuril) 25 mg DAILY PO Last administered on 06/08/17 08:07; Start 05/21/17 at 09:00 Levothyroxine Sodium (Synthroid) 25 mcg DAILY07 PO Last administered on 06:07; Start 05/21/17 at 07:00 Lisinopril (Prinivil) 20 mg BID PO Last administered on 06/05/17 19:31; Start 05/21/17 at 09:00; Stop 06/06/17 at 12:46; Status DC Metformin HCl (Glucophage) 500 mg DAILYWBKFT PO Last administered on 06/08/17 08:07; Start 05/21/17 at 08:00 Metoprolol Tartrate (Lopressor) 25 mg DAILY PO Last administered on 06/08/17 08 :08; Start 05/21/17 at 09:00 Pantoprazole Sodium (Protonix) 40 mg BIDBFRMEAL PO Last administered on 17:01; Start 05/21/17 at 07:30 Senna/Docusate Sodium (Senna Plus) 1 tab DAILY PO Last administered on 08:06; Start 05/21/17 at 09:00 Risperidone (RisperDAL) 0.5 mg BID PO Last administered on 05/23/17at 08:55; Start 05/22/17 at 21:00; Stop 05/23/17 at 16:02; Status DC Acetaminophen (Tylenol) 650 mg PRN Q6HRS PRN PO PAIN / TEMP Last administered on 05/23/17at 10:07; Start 05/23/17 at 09:15 Risperidone (RisperDAL) 0.5 mg DAILY PO Last administered on 06/08/17 08:08; Start 05/24/17 at 09:00 Divalproex Sodium (Depakote Sprinkles) 125 mg BIDWMEALS PO ; Start 05/23/17 at 17:00; Stop 05/23/17 at 17:02; Status DC Divalproex Sodium (Depakote Sprinkles) 125 mg BIDWMEALS PO Last administered on 05/28/17at 07:36; Start 05/24/17 at 09:00; Stop 05/28/17 at 10:48; Status DC Acetaminophen/ Hydrocodone Bitart (Lortab 5/325) 1 tab PRN Q4HRS PRN PO PAIN Last administered on 06/08/17at 09:14; Start 05/23/17 at 18:00 Duloxetine HCl (Cymbalta) 90 mg DAILY PO Last administered on 06/01/17at 08:35; Start 05/26/17 at 09:00; Stop 06/01/17 at 18:36; Status DC Divalproex Sodium (Depakote Sprinkles) 375 mg BIDWMEALS PO Last administered on 06/01/17at 17:00; Start 05/28/17 at 17:00; Stop 06/01/17 at 18:36; Status DC Olanzapine (ZyPREXA ZYDIS) 2.5 mg PRN Q2HR PRN PO PSYCHOSIS/AGITATION; Start at 20:30 Divalproex Sodium (Depakote Sprinkles) 500 mg BIDWMEALS PO Last administered on 06/04/17at 08:01; Start 06/02/17 at 08:00; Stop 06/04/17 at 10:36; Status DC Duloxetine HCl (Cymbalta) 60 mg DAILY PO Last administered on 06/08/17 08:06; Start 06/02/17 at 09:00 Trazodone HCl (Desyrel) 50 mg QHS PO Last administered on 06/08/17at 19:53; Start 06/01/17 at 21:00 Trazodone HCl (Desyrel) 50 mg PRN QHS PRN PO INSOMNIA; Start 3/26/18 at 18:45 Divalproex Sodium (Depakote Sprinkles) 625 mg BID@0900,1700 PO Last administered on 06/08/17at 17:01; Start 06/04/17 at 17:00 Lidocaine (Lidoderm) 1 patch QHS TD ; Start 06/04/17 at 21:00; Stop 06/05/17 at 14:40; Status DC Lidocaine (Lidoderm) 1 patch DAILY TD Last administered on 06/08/17at 08:05; Start 06/06/17 at 09:00 Lisinopril (Prinivil) 20 mg DAILY PO Last administered on 06/08/17at 08:06; Start 06/07/17 at 09:00 Active Scripts Active Reported Senna-Docusate Sodium Tablet (Sennosides/Docusate Sodium) 1 Each Tablet 1 Cap PO DAILY Risperdal (Risperidone) 0.5 Mg Tablet 0.5 Mg PO TID Protonix (Pantoprazole Sodium) 40 Mg Tablet.dr 40 Mg PO BID Percocet 5-325 Mg Tablet (Oxycodone Hcl/Acetaminophen) 1 Each Tablet 1 Tab PO PRN TID PRN Metoprolol Tartrate 25 Mg Tablet 25 Mg PO DAILY Glucophage (Metformin Hcl) 500 Mg Tablet 500 Mg PO DAILYWBKFT Lisinopril 20 Mg Tablet 20 Mg PO BID Levothyroxine Sodium 25 Mcg Tablet 25 Mcg PO DAILYAC Hydrochlorothiazide Tablet (Hydrochlorothiazide) 25 Mg Tablet 25 Mg PO DAILY Gabapentin 300 Mg Capsule 300 Mg PO BID Ferrous Sulfate 325 Mg Tablet 325 Mg PO DAILY Cymbalta (Duloxetine Hcl) 60 Mg Capsule.dr 120 Mg PO Cyclobenzaprine Hcl 10 Mg Tablet 10 Mg PO PRN DAILY PRN Vitamin B-12 (Cyanocobalamin (Vitamin B-12)) 100 Mcg Tablet 100 Mcg PO DAILY Aspirin 81 Mg Tab.chew 81 Mg PO DAILY Allopurinol 300 Mg Tablet 300 Mg PO DAILY I have reviewed the current psychotropics carefully including drug interactions. Risk benefit ratio favors no change other than as noted in my dictated progress note. Diagnosis: Problems: (1) Anxiety disorder (2) Impulse control disorder (3) Bipolar affective, mixed (4) Mild cognitive impairment (5) Cerebrovascular accident (CVA) due to vascular occlusion MELISSA CARDOZO MD Jun 08, 2017 20:52
--- NOTE | 2017-06-09 03:22 | PN ---
DATE: 06/07/2017 PSYCHIATRIC PROGRESS NOTE This is a late entry of 06/07/2017, covers elements not covered in my initial note of 06/07/2017. I met with the patient evening of 06/07/2017. Overall, the patient states his back pain is better. REVIEW OF SYSTEMS: No CV, , pulmonary, eye, ENT system symptoms on review. MENTAL STATUS EXAM: Oriented to himself and situation. Speech has some latency, coherent. Abstraction fair, computation impaired, language function intact, attention span short. Mood and affect are improved. IMPRESSION: Bipolar 1 disorder, mixed; cognitive disorder, unspecified; impulse control disorder. PLAN: Continue psychotropics mentioned in my initial note. Depakote was adjusted. Repeat labs level. Maintain Cymbalta, Risperdal, trazodone, and Neurontin for now. MAN Celeste CARDOZO MD DR: MILTON/daniel JOB#: [id number] / [id number]
[2017-06-09] MEDS: LEVOTHYROXINE 25 MCG TABLET. PO SCH (05:24)
[2017-06-09 05:54] VITALS: BP 113/80
[2017-06-09] MEDS: GABAPENTIN 300 MG CAPSULE. PO SCH ×2 (08:11→19:42)
[2017-06-09] MEDS: ASPIRIN 81 MG TAB.CHEW PO SCH (08:11)
[2017-06-09] MEDS: LISINOPRIL 20 MG TABLET PO SCH (08:11)
[2017-06-09] MEDS: FERROUS SULFATE 325 MG TABLET. PO SCH (08:11)
[2017-06-09] MEDS: DULoxetine HCL 60 MG CAPSULE.DR PO SCH (08:11)
[2017-06-09] MEDS: DIVALPROEX 125 MG CAP.SPRINK PO SCH ×2 (08:11→16:47)
[2017-06-09] MEDS: CYANOCOBALAMIN (VITAMIN B-12) 100 MCG TABLET PO SCH (08:11)
[2017-06-09] MEDS: risperiDONE 0.5 MG TABLET. PO SCH (08:11)
[2017-06-09] MEDS: metFORMIN 500 MG TABLET PO SCH (08:11)
[2017-06-09] MEDS: SENNOSIDES/DOCUSATE 8.6/50MG TABLET. PO SCH (08:11)
[2017-06-09] MEDS: LIDOCAINE (700MG/PATCH) PATCH. TD SCH (08:12)
[2017-06-09] MEDS: NICOTINE 21MG PATCH. TD SCH (08:12)
[2017-06-09] MEDS: hydroCHLOROthiazide 25 MG TABLET PO SCH (08:12)
[2017-06-09] MEDS: METOPROLOL TART IMMED RELEASE 25 MG TABLET PO SCH (08:12)
[2017-06-09] MEDS: ALLOPURINOL 300 MG TABLET. PO SCH (08:12)
[2017-06-09] MEDS: PANTOPRAZOLE 40 MG TABLET. PO SCH ×2 (08:12→16:47)
[2017-06-09] MEDS: HYDROcodone/APAP 5/325MG 1 TAB TABLET PO PRN (09:48)
[2017-06-09 15:31] VITALS: BP 102/68
[2017-06-09] MEDS: traZODone 50 MG TABLET. PO SCH (19:42)
--- NOTE | 2017-06-09 20:49 | PDOC ---
Exam Note: Nabeel Note: Please also refer to the separate dictated note~for this date of service dictated separately.~Patient seen individually. Discussed the patient with Nursing staff reviewed the chart.~Reviewed interim history and current functioning. Reviewed vital signs,~Labs/ Radiology~and current medications noted below. Continue current treatment with the changes noted in the dictated addendum note Assessment: Vital Signs: Vital Signs Date Time Temp Pulse Resp B/P (MAP) Pulse Ox O2 Delivery O2 Flow Rate FiO2 06/09/17 15:31 97.1 76 16 102/68 (79) 94 06/08/17 15:47 Room Air I&O Intake and Output 06/09/17 07:00 Intake Total 600 ml Balance 600 ml Intake Oral 600 ml # Voids 1 # Bowel Movements 1 Labs: Laboratory Tests Test 06/09/17 07:47 Glucose (Fingerstick) 102 mg/dL (70-99) H Current Medications: Meds: Current Medications Multi-Ingredient Ointment (Analgesic [place]) 1 geovanna PRN QID PRN TP MUSCLE PAIN; Start 05/20/17 at 23:00 Al Hydroxide/Mg Hydroxide (Mylanta Plus Xs) 15 ml PRN AFTMEALHC PRN PO DYSPEPSIA; Start 05/20/17 at 23:00 Magnesium Hydroxide (Milk Of Magnesia) 2,400 mg PRN QHS PRN PO CONSTIPATION; Start 05/20/17 at 23:00 Nicotine (Nicoderm Cq 21mg) 1 patch DAILY TD Last administered on 06/09/17at 08: 12; Start 05/21/17 at 09:00 Duloxetine HCl (Cymbalta) 120 mg DAILY PO Last administered on 05/25/17at 09:36 ; Start 05/21/17 at 09:00; Stop 05/25/17 at 18:38; Status DC Risperidone (RisperDAL) 0.5 mg TID PO Last administered on 05/22/17at 13:59; Start 05/21/17 at 09:00; Stop 05/22/17 at 18:42; Status DC Allopurinol (Zyloprim) 300 mg DAILY PO Last administered on 06/09/17at 08:12; Start 05/21/17 at 09:00 Aspirin (Children'S Aspirin) 81 mg DAILY PO Last administered on 06/09/17at 08:11 ; Start 05/21/17 at 09:00 Cyanocobalamin (Vitamin B-12) 100 mcg DAILY PO Last administered on 06/09/17 08 :11; Start 05/21/17 at 09:00 Cyclobenzaprine HCl (Flexeril) 10 mg PRN DAILY PRN PO MUSCLE SPASMS Last administered on 06/07/17 09:47; Start 05/21/17 at 04:00 Ferrous Sulfate (Feosol) 325 mg DAILY PO Last administered on 06/09/17 08:11; Start 05/21/17 at 09:00 Gabapentin (Neurontin) 300 mg BID PO Last administered on 06/09/17 19:42; Start 05/21/17 at 09:00 Hydrochlorothiazide (Hydrodiuril) 25 mg DAILY PO Last administered on 06/09/17 08:12; Start 05/21/17 at 09:00 Levothyroxine Sodium (Synthroid) 25 mcg DAILY07 PO Last administered on 05:24; Start 05/21/17 at 07:00 Lisinopril (Prinivil) 20 mg BID PO Last administered on 06/05/17 19:31; Start 05/21/17 at 09:00; Stop 06/06/17 at 12:46; Status DC Metformin HCl (Glucophage) 500 mg DAILYWBKFT PO Last administered on 06/09/17 08:11; Start 05/21/17 at 08:00 Metoprolol Tartrate (Lopressor) 25 mg DAILY PO Last administered on 06/09/17 08 :12; Start 05/21/17 at 09:00 Pantoprazole Sodium (Protonix) 40 mg BIDBFRMEAL PO Last administered on 16:47; Start 05/21/17 at 07:30 Senna/Docusate Sodium (Senna Plus) 1 tab DAILY PO Last administered on 08:11; Start 05/21/17 at 09:00 Risperidone (RisperDAL) 0.5 mg BID PO Last administered on 05/23/17 08:55; Start 05/22/17 at 21:00; Stop 05/23/17 at 16:02; Status DC Acetaminophen (Tylenol) 650 mg PRN Q6HRS PRN PO PAIN / TEMP Last administered on 3/17/18at 10:07; Start 05/23/17 at 09:15 Risperidone (RisperDAL) 0.5 mg DAILY PO Last administered on 06/09/17 08:11; Start 05/24/17 at 09:00 Divalproex Sodium (Depakote Sprinkles) 125 mg BIDWMEALS PO ; Start 05/23/17 at 17:00; Stop 05/23/17 at 17:02; Status DC Divalproex Sodium (Depakote Sprinkles) 125 mg BIDWMEALS PO Last administered on 05/28/17at 07:36; Start 05/24/17 at 09:00; Stop 05/28/17 at 10:48; Status DC Acetaminophen/ Hydrocodone Bitart (Lortab 5/325) 1 tab PRN Q4HRS PRN PO PAIN Last administered on 06/09/17 09:48; Start 05/23/17 at 18:00 Duloxetine HCl (Cymbalta) 90 mg DAILY PO Last administered on 06/01/17at 08:35; Start 05/26/17 at 09:00; Stop 06/01/17 at 18:36; Status DC Divalproex Sodium (Depakote Sprinkles) 375 mg BIDWMEALS PO Last administered on 06/01/17at 17:00; Start 05/28/17 at 17:00; Stop 06/01/17 at 18:36; Status DC Olanzapine (ZyPREXA ZYDIS) 2.5 mg PRN Q2HR PRN PO PSYCHOSIS/AGITATION; Start at 20:30 Divalproex Sodium (Depakote Sprinkles) 500 mg BIDWMEALS PO Last administered on 06/04/17at 08:01; Start 06/02/17 at 08:00; Stop 06/04/17 at 10:36; Status DC Duloxetine HCl (Cymbalta) 60 mg DAILY PO Last administered on 06/09/17 08:11; Start 06/02/17 at 09:00 Trazodone HCl (Desyrel) 50 mg QHS PO Last administered on 06/09/17at 19:42; Start 06/01/17 at 21:00 Trazodone HCl (Desyrel) 50 mg PRN QHS PRN PO INSOMNIA; Start 06/01/17 at 18:45 Divalproex Sodium (Depakote Sprinkles) 625 mg BID@0900,1700 PO Last administered on 06/09/17at 16:47; Start 06/04/17 at 17:00 Lidocaine (Lidoderm) 1 patch QHS TD ; Start 06/04/17 at 21:00; Stop 06/05/17 at 14:40; Status DC Lidocaine (Lidoderm) 1 patch DAILY TD Last administered on 06/09/17at 08:12; Start 06/06/17 at 09:00 Lisinopril (Prinivil) 20 mg DAILY PO Last administered on 06/09/17at 08:11; Start 06/07/17 at 09:00 Active Scripts Active Reported Senna-Docusate Sodium Tablet (Sennosides/Docusate Sodium) 1 Each Tablet 1 Cap PO DAILY Risperdal (Risperidone) 0.5 Mg Tablet 0.5 Mg PO TID Protonix (Pantoprazole Sodium) 40 Mg Tablet.dr 40 Mg PO BID Percocet 5-325 Mg Tablet (Oxycodone Hcl/Acetaminophen) 1 Each Tablet 1 Tab PO PRN TID PRN Metoprolol Tartrate 25 Mg Tablet 25 Mg PO DAILY Glucophage (Metformin Hcl) 500 Mg Tablet 500 Mg PO DAILYWBKFT Lisinopril 20 Mg Tablet 20 Mg PO BID Levothyroxine Sodium 25 Mcg Tablet 25 Mcg PO DAILYAC Hydrochlorothiazide Tablet (Hydrochlorothiazide) 25 Mg Tablet 25 Mg PO DAILY Gabapentin 300 Mg Capsule 300 Mg PO BID Ferrous Sulfate 325 Mg Tablet 325 Mg PO DAILY Cymbalta (Duloxetine Hcl) 60 Mg Capsule.dr 120 Mg PO Cyclobenzaprine Hcl 10 Mg Tablet 10 Mg PO PRN DAILY PRN Vitamin B-12 (Cyanocobalamin (Vitamin B-12)) 100 Mcg Tablet 100 Mcg PO DAILY Aspirin 81 Mg Tab.chew 81 Mg PO DAILY Allopurinol 300 Mg Tablet 300 Mg PO DAILY I have reviewed the current psychotropics carefully including drug interactions. Risk benefit ratio favors no change other than as noted in my dictated progress note. Diagnosis: Problems: (1) Anxiety disorder (2) Impulse control disorder (3) Bipolar affective, mixed (4) Mild cognitive impairment (5) Cerebrovascular accident (CVA) due to vascular occlusion MELISSA CARDOZO MD Jun 09, 2017 20:48
--- NOTE | 2017-06-09 21:00 | PN ---
DATE: 06/08/2017 This is a late entry for 06/08/2017 covers elements not covered in my initial note of 06/08/2017. SUBJECTIVE: I met with the patient in the evening of 06/08/2017. Overall, the patient is doing a little better, still complains of back pain. REVIEW OF SYSTEMS: No CV, , pulmonary, eye, ENT system symptoms on review. MENTAL STATUS EXAM: Reasonably oriented to place and situation. Speech has some latency, coherent. Abstraction fair, computation impaired, language function intact. Attention span short. Nursing staff have observed him to be somewhat paranoid at times, believes he was given a blue pill that had a robot in it. I addressed this with him, he seems to have some misperception of what he was given or misunderstood what the nursing staff told him, able to reluctantly accept this. LABORATORY DATA: Reviewed. IMPRESSION: Bipolar 1 disorder, mixed with psychotic features, in partial remission. PLAN: Continue psychotropics mentioned in my initial note. MAN Celeste CARDOZO MD DR: MILTON/daniel JOB#: [id number] / [id number]
[2017-06-10] MEDS: LEVOTHYROXINE 25 MCG TABLET. PO SCH (05:11)
[2017-06-10 05:49] VITALS: BP 102/59
[2017-06-10] MEDS: hydroCHLOROthiazide 25 MG TABLET PO SCH (08:33)
[2017-06-10] MEDS: DIVALPROEX 125 MG CAP.SPRINK PO SCH ×2 (08:33→16:51)
[2017-06-10] MEDS: DULoxetine HCL 60 MG CAPSULE.DR PO SCH (08:33)
[2017-06-10] MEDS: GABAPENTIN 300 MG CAPSULE. PO SCH ×2 (08:33→20:03)
[2017-06-10] MEDS: risperiDONE 0.5 MG TABLET. PO SCH (08:33)
[2017-06-10] MEDS: LISINOPRIL 20 MG TABLET PO SCH (08:33)
[2017-06-10] MEDS: ASPIRIN 81 MG TAB.CHEW PO SCH (08:34)
[2017-06-10] MEDS: FERROUS SULFATE 325 MG TABLET. PO SCH (08:34)
[2017-06-10] MEDS: PANTOPRAZOLE 40 MG TABLET. PO SCH ×2 (08:34→16:51)
[2017-06-10] MEDS: SENNOSIDES/DOCUSATE 8.6/50MG TABLET. PO SCH (08:34)
[2017-06-10] MEDS: NICOTINE 21MG PATCH. TD SCH (08:34)
[2017-06-10] MEDS: metFORMIN 500 MG TABLET PO SCH (08:34)
[2017-06-10] MEDS: CYANOCOBALAMIN (VITAMIN B-12) 100 MCG TABLET PO SCH (08:34)
[2017-06-10] MEDS: METOPROLOL TART IMMED RELEASE 25 MG TABLET PO SCH (08:34)
[2017-06-10] MEDS: ALLOPURINOL 300 MG TABLET. PO SCH (08:34)
[2017-06-10] MEDS: LIDOCAINE (700MG/PATCH) PATCH. TD SCH (08:35)
[2017-06-10] MEDS: CYCLOBENZAPRINE 10 MG TABLET. PO PRN (10:37)
[2017-06-10] MEDS: HYDROcodone/APAP 5/325MG 1 TAB TABLET PO PRN ×2 (10:37→17:42)
[2017-06-10 16:00] VITALS: BP 153/91
--- NOTE | 2017-06-10 19:33 | PN ---
DATE: 06/09/2017 This late entry 06/09/2017 covers elements not covered in my initial note 06/09/2017. Met with the patient in the evening of 06/09/2017. The patient remains somewhat anxious at times, delusional, believes he has been given a robot that he swallowed. He is not fixated on this individually as I met with him, talked at length about his using his money to remodel his home and that she may be over spending his money, but he does not want to interfere because home is where he wants to go to and he knows the work needs to be done before he gets there. Earlier today, I had also discussed the patient with social service staff, and Adult Protective Services will be informed, follow up this. REVIEW OF SYSTEMS: No CV, , pulmonary, eye system symptoms on review. He complains of back pain. MENTAL STATUS EXAM: Oriented to himself and situation. Speech is coherent, abstraction fair, computation impaired, language function intact, attention span short. Mood and affect showing improvement. LABORATORY DATA: Reviewed. IMPRESSION: Bipolar 1 disorder, mixed with psychotic features; cognitive disorder, unspecified. PLAN: Continue current psychotropics. Valproic acid level therapeutic at 62. MAN Celeste CARDOZO MD DR: MILTON/daniel JOB#: [id number] / [id number]
[2017-06-10] MEDS: traZODone 50 MG TABLET. PO SCH (20:03)
--- NOTE | 2017-06-10 20:49 | PDOC ---
Exam Note: Nabeel Note: Please also refer to the separate dictated note~for this date of service dictated separately.~Patient seen individually. Discussed the patient with Nursing staff reviewed the chart.~Reviewed interim history and current functioning. Reviewed vital signs,~Labs/ Radiology~and current medications noted below. Continue current treatment with the changes noted in the dictated addendum note Assessment: Vital Signs: Vital Signs Date Time Temp Pulse Resp B/P (MAP) Pulse Ox O2 Delivery O2 Flow Rate FiO2 06/10/17 16:00 98.1 78 16 153/91 (111) 98 Room Air I&O Intake and Output 06/10/17 07:00 Intake Total 1080 ml Balance 1080 ml Intake Oral 1080 ml # Voids 1 Labs: Laboratory Tests Test 06/10/17 07:13 Glucose (Fingerstick) 99 mg/dL (70-99) Current Medications: Meds: Current Medications Multi-Ingredient Ointment (Analgesic [place]) 1 geovanna PRN QID PRN TP MUSCLE PAIN; Start 05/20/17 at 23:00 Al Hydroxide/Mg Hydroxide (Mylanta Plus Xs) 15 ml PRN AFTMEALHC PRN PO DYSPEPSIA; Start 05/20/17 at 23:00 Magnesium Hydroxide (Milk Of Magnesia) 2,400 mg PRN QHS PRN PO CONSTIPATION; Start 05/20/17 at 23:00 Nicotine (Nicoderm Cq 21mg) 1 patch DAILY TD Last administered on 06/10/17at 08: 34; Start 05/21/17 at 09:00 Duloxetine HCl (Cymbalta) 120 mg DAILY PO Last administered on 05/25/17at 09:36 ; Start 05/21/17 at 09:00; Stop 05/25/17 at 18:38; Status DC Risperidone (RisperDAL) 0.5 mg TID PO Last administered on 05/22/17at 13:59; Start 05/21/17 at 09:00; Stop 05/22/17 at 18:42; Status DC Allopurinol (Zyloprim) 300 mg DAILY PO Last administered on 06/10/17at 08:34; Start 05/21/17 at 09:00 Aspirin (Children'S Aspirin) 81 mg DAILY PO Last administered on 06/10/17at 08:34 ; Start 05/21/17 at 09:00 Cyanocobalamin (Vitamin B-12) 100 mcg DAILY PO Last administered on 06/10/17 08 :34; Start 05/21/17 at 09:00 Cyclobenzaprine HCl (Flexeril) 10 mg PRN DAILY PRN PO MUSCLE SPASMS Last administered on 06/10/17 10:37; Start 05/21/17 at 04:00 Ferrous Sulfate (Feosol) 325 mg DAILY PO Last administered on 06/10/17 08:34; Start 05/21/17 at 09:00 Gabapentin (Neurontin) 300 mg BID PO Last administered on 06/10/17 20:03; Start 05/21/17 at 09:00 Hydrochlorothiazide (Hydrodiuril) 25 mg DAILY PO Last administered on 06/10/17 08:33; Start 05/21/17 at 09:00 Levothyroxine Sodium (Synthroid) 25 mcg DAILY07 PO Last administered on 05:11; Start 05/21/17 at 07:00 Lisinopril (Prinivil) 20 mg BID PO Last administered on 06/05/17 19:31; Start 05/21/17 at 09:00; Stop 06/06/17 at 12:46; Status DC Metformin HCl (Glucophage) 500 mg DAILYWBKFT PO Last administered on 06/10/17 08:34; Start 05/21/17 at 08:00 Metoprolol Tartrate (Lopressor) 25 mg DAILY PO Last administered on 06/10/17 08 :34; Start 05/21/17 at 09:00 Pantoprazole Sodium (Protonix) 40 mg BIDBFRMEAL PO Last administered on 16:51; Start 05/21/17 at 07:30 Senna/Docusate Sodium (Senna Plus) 1 tab DAILY PO Last administered on 08:34; Start 05/21/17 at 09:00 Risperidone (RisperDAL) 0.5 mg BID PO Last administered on 05/23/17 08:55; Start 05/22/17 at 21:00; Stop 05/23/17 at 16:02; Status DC Acetaminophen (Tylenol) 650 mg PRN Q6HRS PRN PO PAIN / TEMP Last administered on 05/23/17 10:07; Start 05/23/17 at 09:15 Risperidone (RisperDAL) 0.5 mg DAILY PO Last administered on 06/10/17 08:33; Start 05/24/17 at 09:00 Divalproex Sodium (Depakote Sprinkles) 125 mg BIDWMEALS PO ; Start 05/23/17 at 17:00; Stop 05/23/17 at 17:02; Status DC Divalproex Sodium (Depakote Sprinkles) 125 mg BIDWMEALS PO Last administered on 05/28/17at 07:36; Start 05/24/17 at 09:00; Stop 05/28/17 at 10:48; Status DC Acetaminophen/ Hydrocodone Bitart (Lortab 5/325) 1 tab PRN Q4HRS PRN PO PAIN Last administered on 06/10/17 17:42; Start 05/23/17 at 18:00 Duloxetine HCl (Cymbalta) 90 mg DAILY PO Last administered on 06/01/17 08:35; Start 05/26/17 at 09:00; Stop 06/01/17 at 18:36; Status DC Divalproex Sodium (Depakote Sprinkles) 375 mg BIDWMEALS PO Last administered on 06/01/17 17:00; Start 05/28/17 at 17:00; Stop 06/01/17 at 18:36; Status DC Olanzapine (ZyPREXA ZYDIS) 2.5 mg PRN Q2HR PRN PO PSYCHOSIS/AGITATION; Start at 20:30 Divalproex Sodium (Depakote Sprinkles) 500 mg BIDWMEALS PO Last administered on 06/04/17 08:01; Start 06/02/17 at 08:00; Stop 06/04/17 at 10:36; Status DC Duloxetine HCl (Cymbalta) 60 mg DAILY PO Last administered on 06/10/17 08:33; Start 06/02/17 at 09:00 Trazodone HCl (Desyrel) 50 mg QHS PO Last administered on 06/10/17 20:03; Start 06/01/17 at 21:00 Trazodone HCl (Desyrel) 50 mg PRN QHS PRN PO INSOMNIA; Start 06/01/17 at 18:45 Divalproex Sodium (Depakote Sprinkles) 625 mg BID@0900,1700 PO Last administered on 06/10/17at 16:51; Start 06/04/17 at 17:00 Lidocaine (Lidoderm) 1 patch QHS TD ; Start 06/04/17 at 21:00; Stop 06/05/17 at 14:40; Status DC Lidocaine (Lidoderm) 1 patch DAILY TD Last administered on 06/10/17at 08:35; Start 06/06/17 at 09:00 Lisinopril (Prinivil) 20 mg DAILY PO Last administered on 06/10/17at 08:33; Start 06/07/17 at 09:00 Active Scripts Active Reported Senna-Docusate Sodium Tablet (Sennosides/Docusate Sodium) 1 Each Tablet 1 Cap PO DAILY Risperdal (Risperidone) 0.5 Mg Tablet 0.5 Mg PO TID Protonix (Pantoprazole Sodium) 40 Mg Tablet.dr 40 Mg PO BID Percocet 5-325 Mg Tablet (Oxycodone Hcl/Acetaminophen) 1 Each Tablet 1 Tab PO PRN TID PRN Metoprolol Tartrate 25 Mg Tablet 25 Mg PO DAILY Glucophage (Metformin Hcl) 500 Mg Tablet 500 Mg PO DAILYWBKFT Lisinopril 20 Mg Tablet 20 Mg PO BID Levothyroxine Sodium 25 Mcg Tablet 25 Mcg PO DAILYAC Hydrochlorothiazide Tablet (Hydrochlorothiazide) 25 Mg Tablet 25 Mg PO DAILY Gabapentin 300 Mg Capsule 300 Mg PO BID Ferrous Sulfate 325 Mg Tablet 325 Mg PO DAILY Cymbalta (Duloxetine Hcl) 60 Mg Capsule.dr 120 Mg PO Cyclobenzaprine Hcl 10 Mg Tablet 10 Mg PO PRN DAILY PRN Vitamin B-12 (Cyanocobalamin (Vitamin B-12)) 100 Mcg Tablet 100 Mcg PO DAILY Aspirin 81 Mg Tab.chew 81 Mg PO DAILY Allopurinol 300 Mg Tablet 300 Mg PO DAILY I have reviewed the current psychotropics carefully including drug interactions. Risk benefit ratio favors no change other than as noted in my dictated progress note. Diagnosis: Problems: (1) Anxiety disorder (2) Impulse control disorder (3) Bipolar affective, mixed (4) Mild cognitive impairment (5) Cerebrovascular accident (CVA) due to vascular occlusion MELISSA CARDOZO MD Jun 10, 2017 20:49
[2017-06-11 05:38] VITALS: BP 140/83
[2017-06-11] MEDS: LEVOTHYROXINE 25 MCG TABLET. PO SCH (05:51)
[2017-06-11 07:50] LABS: BASO # 0.1 x10^3/uL (0.0-0.2); BASO % 1 % (0-3); EOS # 0.3 x10^3/uL (0.0-0.7); EOS % 5 % (0-3); HEMATOCRIT 36.1 % (39.0-53.0); HEMOGLOBIN 11.7 g/dL (13.0-17.5); LYMPH # 1.3 x10^3/uL (1.0-4.8); LYMPH % 20 % (24-48); MEAN CORPUSCULAR HEMOGLOBIN 29 pg (25-35); MEAN CORPUSCULAR HGB CONC 33 g/dL (31-37); MEAN CORPUSCULAR VOLUME 89 fL (79-100); MONO # 0.6 x10^3/uL (0.0-1.1); MONO % 10 % (0-9); NEUT # 3.9 x10^3uL (1.8-7.7); NEUT % 64 % (31-73); PLATELET COUNT 160 x10^3/uL (140-400); RED BLOOD COUNT 4.06 x10^6/uL (4.30-5.70); RED CELL DISTRIBUTION WIDTH 18.6 % (11.5-14.5); WHITE BLOOD COUNT 6.2 x10^3/uL (4.0-11.0)
[2017-06-11 08:02] LABS: ALBUMIN 2.7 g/dL (3.4-5.0); ALBUMIN/GLOBULIN RATIO 0.7 (1.0-1.7); ALK PHOS 59 U/L (46-116); ALT (SGPT) 14 U/L (16-63); ANION GAP 7 (6-14); AST (SGOT) 21 U/L (15-37); BLOOD UREA NITROGEN 29 mg/dL (8-26); BUN/CREATININE RATIO 22 (6-20); CALCIUM 9.2 mg/dL (8.5-10.1); CARBON DIOXIDE 32 mmol/L (21-32); CHLORIDE 102 mmol/L (98-107); CREATININE 1.3 mg/dL (0.7-1.3); GFR 54.1; GLUCOSE 183 mg/dL (70-99); MAGNESIUM 1.7 mg/dL (1.8-2.4); POTASSIUM 4.9 mmol/L (3.5-5.1); SODIUM 141 mmol/L (136-145); TOTAL BILIRUBIN 0.3 mg/dL (0.2-1.0); TOTAL PROTEIN 6.6 g/dL (6.4-8.2)
[2017-06-11 08:07] LABS: VAL ACID 48 mcg/mL (50-100)
[2017-06-11] MEDS: hydroCHLOROthiazide 25 MG TABLET PO SCH (08:32)
[2017-06-11] MEDS: risperiDONE 0.5 MG TABLET. PO SCH (08:32)
[2017-06-11] MEDS: metFORMIN 500 MG TABLET PO SCH (08:32)
[2017-06-11] MEDS: GABAPENTIN 300 MG CAPSULE. PO SCH ×2 (08:32→19:37)
[2017-06-11] MEDS: ASPIRIN 81 MG TAB.CHEW PO SCH (08:32)
[2017-06-11] MEDS: FERROUS SULFATE 325 MG TABLET. PO SCH (08:32)
[2017-06-11] MEDS: DULoxetine HCL 60 MG CAPSULE.DR PO SCH (08:32)
[2017-06-11] MEDS: DIVALPROEX 125 MG CAP.SPRINK PO SCH ×2 (08:33→17:26)
[2017-06-11] MEDS: ALLOPURINOL 300 MG TABLET. PO SCH (08:33)
[2017-06-11] MEDS: METOPROLOL TART IMMED RELEASE 25 MG TABLET PO SCH (08:33)
[2017-06-11] MEDS: PANTOPRAZOLE 40 MG TABLET. PO SCH ×2 (08:33→17:25)
[2017-06-11] MEDS: SENNOSIDES/DOCUSATE 8.6/50MG TABLET. PO SCH (08:34)
[2017-06-11] MEDS: LISINOPRIL 20 MG TABLET PO SCH (08:34)
[2017-06-11] MEDS: NICOTINE 21MG PATCH. TD SCH (08:41)
[2017-06-11] MEDS: LIDOCAINE (700MG/PATCH) PATCH. TD SCH (08:42)
[2017-06-11] MEDS: CYANOCOBALAMIN (VITAMIN B-12) 100 MCG TABLET PO SCH (10:08)
[2017-06-11 16:20] VITALS: BP 112/80
[2017-06-11] MEDS: traZODone 50 MG TABLET. PO SCH (19:37)
--- NOTE | 2017-06-11 20:48 | PDOC ---
Exam Note: Nabeel Note: Please also refer to the separate dictated note~for this date of service dictated separately.~Patient seen individually. Discussed the patient with Nursing staff reviewed the chart.~Reviewed interim history and current functioning. Reviewed vital signs,~Labs/ Radiology~and current medications noted below. Continue current treatment with the changes noted in the dictated addendum note Assessment: Vital Signs: Vital Signs Date Time Temp Pulse Resp B/P (MAP) Pulse Ox O2 Delivery O2 Flow Rate FiO2 06/11/17 16:20 97.4 76 16 112/80 (91) 91 06/10/17 16:00 Room Air I&O Intake and Output 06/11/17 07:00 Intake Total 960 ml Balance 960 ml Intake Oral 960 ml # Voids 1 Labs: Laboratory Tests Test 06/11/17 07:08 06/11/17 07:41 Glucose (Fingerstick) 105 mg/dL (70-99) H White Blood Count 6.2 x10^3/uL (4.0-11.0) Red Blood Count 4.06 x10^6/uL (4.30-5.70) L Hemoglobin 11.7 g/dL (13.0-17.5) L Hematocrit 36.1 % (39.0-53.0) L Mean Corpuscular Volume 89 fL (79-100) Mean Corpuscular Hemoglobin 29 pg (25-35) Mean Corpuscular Hemoglobin Concent 33 g/dL (31-37) Red Cell Distribution Width 18.6 % (11.5-14.5) H Platelet Count 160 x10^3/uL (140-400) Neutrophils (%) (Auto) 64 % (31-73) Lymphocytes (%) (Auto) 20 % (24-48) L Monocytes (%) (Auto) 10 % (0-9) H Eosinophils (%) (Auto) 5 % (0-3) H Basophils (%) (Auto) 1 % (0-3) Neutrophils # (Auto) 3.9 x10^3uL (1.8-7.7) Lymphocytes # (Auto) 1.3 x10^3/uL (1.0-4.8) Monocytes # (Auto) 0.6 x10^3/uL (0.0-1.1) Eosinophils # (Auto) 0.3 x10^3/uL (0.0-0.7) Basophils # (Auto) 0.1 x10^3/uL (0.0-0.2) Sodium Level 141 mmol/L (136-145) Potassium Level 4.9 mmol/L (3.5-5.1) Chloride Level 102 mmol/L (98-107) Carbon Dioxide Level 32 mmol/L (21-32) Anion Gap 7 (6-14) Blood Urea Nitrogen 29 mg/dL (8-26) H Creatinine 1.3 mg/dL (0.7-1.3) Estimated GFR (Cockcroft-Gault) 54.1 BUN/Creatinine Ratio 22 (6-20) H Glucose Level 183 mg/dL (70-99) H Calcium Level 9.2 mg/dL (8.5-10.1) Magnesium Level 1.7 mg/dL (1.8-2.4) L Total Bilirubin 0.3 mg/dL (0.2-1.0) Aspartate Amino Transferase (AST) 21 U/L (15-37) Alanine Aminotransferase (ALT) 14 U/L (16-63) L Alkaline Phosphatase 59 U/L (46-116) Total Protein 6.6 g/dL (6.4-8.2) Albumin 2.7 g/dL (3.4-5.0) L Albumin/Globulin Ratio 0.7 (1.0-1.7) L Valproic Acid Level 48 mcg/mL (50-100) L Valproic Acid Last Dose Date 06/11/47 Valproic Acid Last Dose Time 1700 Current Medications: Meds: Current Medications Multi-Ingredient Ointment (Analgesic [place]) 1 geovanna PRN QID PRN TP MUSCLE PAIN; Start 05/20/17 at 23:00 Al Hydroxide/Mg Hydroxide (Mylanta Plus Xs) 15 ml PRN AFTMEALHC PRN PO DYSPEPSIA; Start 05/20/17 at 23:00 Magnesium Hydroxide (Milk Of Magnesia) 2,400 mg PRN QHS PRN PO CONSTIPATION; Start 05/20/17 at 23:00 Nicotine (Nicoderm Cq 21mg) 1 patch DAILY TD Last administered on 06/11/17at 08: 41; Start 05/21/17 at 09:00 Duloxetine HCl (Cymbalta) 120 mg DAILY PO Last administered on 05/25/17 09:36 ; Start 05/21/17 at 09:00; Stop 05/25/17 at 18:38; Status DC Risperidone (RisperDAL) 0.5 mg TID PO Last administered on 05/22/17 13:59; Start 05/21/17 at 09:00; Stop 05/22/17 at 18:42; Status DC Allopurinol (Zyloprim) 300 mg DAILY PO Last administered on 06/11/17 08:33; Start 05/21/17 at 09:00 Aspirin (Children'S Aspirin) 81 mg DAILY PO Last administered on 06/11/17 08:32 ; Start 05/21/17 at 09:00 Cyanocobalamin (Vitamin B-12) 100 mcg DAILY PO Last administered on 06/11/17 10 :08; Start 05/21/17 at 09:00 Cyclobenzaprine HCl (Flexeril) 10 mg PRN DAILY PRN PO MUSCLE SPASMS Last administered on 06/10/17 10:37; Start 05/21/17 at 04:00 Ferrous Sulfate (Feosol) 325 mg DAILY PO Last administered on 06/11/17 08:32; Start 05/21/17 at 09:00 Gabapentin (Neurontin) 300 mg BID PO Last administered on 06/11/17 19:37; Start 05/21/17 at 09:00 Hydrochlorothiazide (Hydrodiuril) 25 mg DAILY PO Last administered on 06/11/17 08:32; Start 05/21/17 at 09:00 Levothyroxine Sodium (Synthroid) 25 mcg DAILY07 PO Last administered on 05:51; Start 05/21/17 at 07:00 Lisinopril (Prinivil) 20 mg BID PO Last administered on 06/05/17 19:31; Start 05/21/17 at 09:00; Stop 06/06/17 at 12:46; Status DC Metformin HCl (Glucophage) 500 mg DAILYWBKFT PO Last administered on 06/11/17 08:32; Start 05/21/17 at 08:00 Metoprolol Tartrate (Lopressor) 25 mg DAILY PO Last administered on 06/11/17 08 :33; Start 05/21/17 at 09:00 Pantoprazole Sodium (Protonix) 40 mg BIDBFRMEAL PO Last administered on 17:25; Start 05/21/17 at 07:30 Senna/Docusate Sodium (Senna Plus) 1 tab DAILY PO Last administered on 08:34; Start 05/21/17 at 09:00 Risperidone (RisperDAL) 0.5 mg BID PO Last administered on 05/23/17at 08:55; Start 05/22/17 at 21:00; Stop 05/23/17 at 16:02; Status DC Acetaminophen (Tylenol) 650 mg PRN Q6HRS PRN PO PAIN / TEMP Last administered on 05/23/17at 10:07; Start 05/23/17 at 09:15 Risperidone (RisperDAL) 0.5 mg DAILY PO Last administered on 06/11/17 08:32; Start 05/24/17 at 09:00 Divalproex Sodium (Depakote Sprinkles) 125 mg BIDWMEALS PO ; Start 05/23/17 at 17:00; Stop 05/23/17 at 17:02; Status DC Divalproex Sodium (Depakote Sprinkles) 125 mg BIDWMEALS PO Last administered on 05/28/17 07:36; Start 05/24/17 at 09:00; Stop 05/28/17 at 10:48; Status DC Acetaminophen/ Hydrocodone Bitart (Lortab 5/325) 1 tab PRN Q4HRS PRN PO PAIN Last administered on 06/10/17 17:42; Start 05/23/17 at 18:00 Duloxetine HCl (Cymbalta) 90 mg DAILY PO Last administered on 06/01/17at 08:35; Start 05/26/17 at 09:00; Stop 06/01/17 at 18:36; Status DC Divalproex Sodium (Depakote Sprinkles) 375 mg BIDWMEALS PO Last administered on 06/01/17 17:00; Start 05/28/17 at 17:00; Stop 06/01/17 at 18:36; Status DC Olanzapine (ZyPREXA ZYDIS) 2.5 mg PRN Q2HR PRN PO PSYCHOSIS/AGITATION; Start at 20:30 Divalproex Sodium (Depakote Sprinkles) 500 mg BIDWMEALS PO Last administered on 06/04/17 08:01; Start 06/02/17 at 08:00; Stop 06/04/17 at 10:36; Status DC Duloxetine HCl (Cymbalta) 60 mg DAILY PO Last administered on 06/11/17 08:32; Start 06/02/17 at 09:00 Trazodone HCl (Desyrel) 50 mg QHS PO Last administered on 06/11/17at 19:37; Start 06/01/17 at 21:00 Trazodone HCl (Desyrel) 50 mg PRN QHS PRN PO INSOMNIA; Start 06/01/17 at 18:45 Divalproex Sodium (Depakote Sprinkles) 625 mg BID@0900,1700 PO Last administered on 06/11/17 17:26; Start 06/04/17 at 17:00 Lidocaine (Lidoderm) 1 patch QHS TD ; Start 06/04/17 at 21:00; Stop 06/05/17 at 14:40; Status DC Lidocaine (Lidoderm) 1 patch DAILY TD Last administered on 06/11/17 08:42; Start 06/06/17 at 09:00 Lisinopril (Prinivil) 20 mg DAILY PO Last administered on 06/11/17 08:34; Start 06/07/17 at 09:00 Active Scripts Active Reported Senna-Docusate Sodium Tablet (Sennosides/Docusate Sodium) 1 Each Tablet 1 Cap PO DAILY Risperdal (Risperidone) 0.5 Mg Tablet 0.5 Mg PO TID Protonix (Pantoprazole Sodium) 40 Mg Tablet.dr 40 Mg PO BID Percocet 5-325 Mg Tablet (Oxycodone Hcl/Acetaminophen) 1 Each Tablet 1 Tab PO PRN TID PRN Metoprolol Tartrate 25 Mg Tablet 25 Mg PO DAILY Glucophage (Metformin Hcl) 500 Mg Tablet 500 Mg PO DAILYWBKFT Lisinopril 20 Mg Tablet 20 Mg PO BID Levothyroxine Sodium 25 Mcg Tablet 25 Mcg PO DAILYAC Hydrochlorothiazide Tablet (Hydrochlorothiazide) 25 Mg Tablet 25 Mg PO DAILY Gabapentin 300 Mg Capsule 300 Mg PO BID Ferrous Sulfate 325 Mg Tablet 325 Mg PO DAILY Cymbalta (Duloxetine Hcl) 60 Mg Capsule.dr 120 Mg PO Cyclobenzaprine Hcl 10 Mg Tablet 10 Mg PO PRN DAILY PRN Vitamin B-12 (Cyanocobalamin (Vitamin B-12)) 100 Mcg Tablet 100 Mcg PO DAILY Aspirin 81 Mg Tab.chew 81 Mg PO DAILY Allopurinol 300 Mg Tablet 300 Mg PO DAILY I have reviewed the current psychotropics carefully including drug interactions. Risk benefit ratio favors no change other than as noted in my dictated progress note. Diagnosis: Problems: (1) Anxiety disorder (2) Impulse control disorder (3) Bipolar affective, mixed (4) Mild cognitive impairment (5) Cerebrovascular accident (CVA) due to vascular occlusion MELISSA CARDOZO MD Jun 11, 2017 20:48
[2017-06-12] MEDS: LEVOTHYROXINE 25 MCG TABLET. PO SCH (06:12)
[2017-06-12 06:13] VITALS: BP 119/63
[2017-06-12] MEDS: DIVALPROEX 125 MG CAP.SPRINK PO SCH ×2 (09:01→17:32)
[2017-06-12] MEDS: PANTOPRAZOLE 40 MG TABLET. PO SCH ×2 (09:02→17:32)
[2017-06-12] MEDS: DULoxetine HCL 60 MG CAPSULE.DR PO SCH (09:02)
[2017-06-12] MEDS: LIDOCAINE (700MG/PATCH) PATCH. TD SCH (09:02)
[2017-06-12] MEDS: CYCLOBENZAPRINE 10 MG TABLET. PO PRN (09:02)
[2017-06-12] MEDS: NICOTINE 21MG PATCH. TD SCH (09:02)
[2017-06-12] MEDS: FERROUS SULFATE 325 MG TABLET. PO SCH (09:02)
[2017-06-12] MEDS: SENNOSIDES/DOCUSATE 8.6/50MG TABLET. PO SCH (09:02)
[2017-06-12] MEDS: GABAPENTIN 300 MG CAPSULE. PO SCH ×2 (09:02→19:59)
[2017-06-12] MEDS: risperiDONE 0.5 MG TABLET. PO SCH (09:02)
[2017-06-12] MEDS: ASPIRIN 81 MG TAB.CHEW PO SCH (09:02)
[2017-06-12] MEDS: ALLOPURINOL 300 MG TABLET. PO SCH (09:03)
[2017-06-12] MEDS: metFORMIN 500 MG TABLET PO SCH (09:03)
[2017-06-12] MEDS: METOPROLOL TART IMMED RELEASE 25 MG TABLET PO SCH (09:09)
[2017-06-12] MEDS: LISINOPRIL 20 MG TABLET PO SCH (09:09)
[2017-06-12] MEDS: hydroCHLOROthiazide 25 MG TABLET PO SCH (09:09)
[2017-06-12] MEDS: CYANOCOBALAMIN (VITAMIN B-12) 100 MCG TABLET PO SCH (09:17)
[2017-06-12 09:18] VITALS: BP 141/82
[2017-06-12 15:49] VITALS: BP 106/67
[2017-06-12] MEDS: traZODone 50 MG TABLET. PO SCH (19:59)
--- NOTE | 2017-06-12 21:13 | PN ---
DATE: 06/10/2017 This late entry 06/10/2017 covers elements not covered in my initial note 06/10/2017. SUBJECTIVE: Had the patient seen individually evening of 06/10/2017. Overall, per nursing report, the patient has done little better, appears less labile and less paranoid, though he still believes he was asked to swallow medication that had robot in it. I discussed this with him. We will be checking labs in the morning of 06/11/2017. No CV, , pulmonary, eye system symptoms on review. Does complain of back pain. MENTAL STATUS EXAM: Oriented to himself and situation. Speech has some latency, coherent. Abstraction fair, computation impaired, language function intact, attention span short. Mood and affect somewhat withdrawn at times. LABORATORY DATA: Reviewed. IMPRESSION: Bipolar 1 disorder, mixed with psychotic features, in partial remission; cognitive disorder, unspecified. PLAN: Continue psychotropics mentioned in my initial note. Check labs morning of 06/11/2017 with transition to outpatient treatment by the end of the week. MAN Celeste CARDOZO MD DR: MILTON/daniel JOB#: [id number] / [id number]
--- NOTE | 2017-06-12 23:04 | PN ---
DATE: 06/11/2017 This is a late entry for 06/11/2017 and covers elements not covered in my initial note of 06/11/2017. SUBJECTIVE: The patient was staffed at a treatment team meeting with the entire team morning of 06/11/2017, seen individually in his room the evening of 06/11/2017. He is overall compliant with his medications, less irritable, less labile. REVIEW OF SYSTEMS: Positive for back pain. No CV, , pulmonary, eye, ENT system symptoms on review. MENTAL STATUS EXAM: Oriented to himself and situation. Speech has some latency, coherent. Abstraction fair, computation impaired, language function intact, attention span short. Mood and affect appears less labile. LABORATORY DATA: Reviewed. IMPRESSION: Bipolar 1 disorder, mixed with psychotic features. Rest is unchanged. Chronic pain. PLAN: Continue psychotropics as mentioned in my initial note. Adjust further as clinically indicated. MAN Celeste CARDOZO MD DR: MILTON/daniel JOB#: [id number] / [id number]
--- NOTE | 2017-06-12 23:06 | PDOC ---
Exam Note: Nabeel Note: Please also refer to the separate dictated note~for this date of service dictated separately.~Patient seen individually. Discussed the patient with Nursing staff reviewed the chart.~Reviewed interim history and current functioning. Reviewed vital signs,~Labs/ Radiology~and current medications noted below. Continue current treatment with the changes noted in the dictated addendum note Assessment: Vital Signs: Vital Signs Date Time Temp Pulse Resp B/P (MAP) Pulse Ox O2 Delivery O2 Flow Rate FiO2 06/12/17 15:49 97.2 77 18 106/67 (80) 92 06/10/17 16:00 Room Air I&O Intake and Output 06/12/17 07:00 Intake Total 1200 ml Balance 1200 ml Intake Oral 1200 ml Labs: Laboratory Tests Test 06/12/17 07:17 Glucose (Fingerstick) 104 mg/dL (70-99) H Current Medications: Meds: Current Medications Multi-Ingredient Ointment (Analgesic [place]) 1 geovanna PRN QID PRN TP MUSCLE PAIN; Start 05/20/17 at 23:00 Al Hydroxide/Mg Hydroxide (Mylanta Plus Xs) 15 ml PRN AFTMEALHC PRN PO DYSPEPSIA; Start 05/20/17 at 23:00 Magnesium Hydroxide (Milk Of Magnesia) 2,400 mg PRN QHS PRN PO CONSTIPATION; Start 05/20/17 at 23:00 Nicotine (Nicoderm Cq 21mg) 1 patch DAILY TD Last administered on 06/12/17at 09: 02; Start 05/21/17 at 09:00 Duloxetine HCl (Cymbalta) 120 mg DAILY PO Last administered on 05/25/17at 09:36 ; Start 05/21/17 at 09:00; Stop 05/25/17 at 18:38; Status DC Risperidone (RisperDAL) 0.5 mg TID PO Last administered on 05/22/17at 13:59; Start 05/21/17 at 09:00; Stop 05/22/17 at 18:42; Status DC Allopurinol (Zyloprim) 300 mg DAILY PO Last administered on 06/12/17at 09:03; Start 05/21/17 at 09:00 Aspirin (Children'S Aspirin) 81 mg DAILY PO Last administered on 06/12/17at 09:02 ; Start 05/21/17 at 09:00 Cyanocobalamin (Vitamin B-12) 100 mcg DAILY PO Last administered on 06/12/17 09 :17; Start 05/21/17 at 09:00 Cyclobenzaprine HCl (Flexeril) 10 mg PRN DAILY PRN PO MUSCLE SPASMS Last administered on 06/12/17 09:02; Start 05/21/17 at 04:00 Ferrous Sulfate (Feosol) 325 mg DAILY PO Last administered on 06/12/17 09:02; Start 05/21/17 at 09:00 Gabapentin (Neurontin) 300 mg BID PO Last administered on 06/12/17 19:59; Start 05/21/17 at 09:00 Hydrochlorothiazide (Hydrodiuril) 25 mg DAILY PO Last administered on 06/12/17 09:09; Start 05/21/17 at 09:00 Levothyroxine Sodium (Synthroid) 25 mcg DAILY07 PO Last administered on 06:12; Start 05/21/17 at 07:00 Lisinopril (Prinivil) 20 mg BID PO Last administered on 06/05/17 19:31; Start 05/21/17 at 09:00; Stop 06/06/17 at 12:46; Status DC Metformin HCl (Glucophage) 500 mg DAILYWBKFT PO Last administered on 06/12/17 09:03; Start 05/21/17 at 08:00 Metoprolol Tartrate (Lopressor) 25 mg DAILY PO Last administered on 06/12/17 09 :09; Start 05/21/17 at 09:00 Pantoprazole Sodium (Protonix) 40 mg BIDBFRMEAL PO Last administered on 17:32; Start 05/21/17 at 07:30 Senna/Docusate Sodium (Senna Plus) 1 tab DAILY PO Last administered on 09:02; Start 05/21/17 at 09:00 Risperidone (RisperDAL) 0.5 mg BID PO Last administered on 05/23/17 08:55; Start 05/22/17 at 21:00; Stop 05/23/17 at 16:02; Status DC Acetaminophen (Tylenol) 650 mg PRN Q6HRS PRN PO PAIN / TEMP Last administered on 3/17/18at 10:07; Start 05/23/17 at 09:15 Risperidone (RisperDAL) 0.5 mg DAILY PO Last administered on 06/12/17at 09:02; Start 05/24/17 at 09:00 Divalproex Sodium (Depakote Sprinkles) 125 mg BIDWMEALS PO ; Start 05/23/17 at 17:00; Stop 05/23/17 at 17:02; Status DC Divalproex Sodium (Depakote Sprinkles) 125 mg BIDWMEALS PO Last administered on 05/28/17at 07:36; Start 05/24/17 at 09:00; Stop 05/28/17 at 10:48; Status DC Acetaminophen/ Hydrocodone Bitart (Lortab 5/325) 1 tab PRN Q4HRS PRN PO PAIN Last administered on 06/10/17at 17:42; Start 05/23/17 at 18:00 Duloxetine HCl (Cymbalta) 90 mg DAILY PO Last administered on 06/01/17at 08:35; Start 05/26/17 at 09:00; Stop 06/01/17 at 18:36; Status DC Divalproex Sodium (Depakote Sprinkles) 375 mg BIDWMEALS PO Last administered on 06/01/17at 17:00; Start 05/28/17 at 17:00; Stop 06/01/17 at 18:36; Status DC Olanzapine (ZyPREXA ZYDIS) 2.5 mg PRN Q2HR PRN PO PSYCHOSIS/AGITATION; Start at 20:30 Divalproex Sodium (Depakote Sprinkles) 500 mg BIDWMEALS PO Last administered on 06/04/17at 08:01; Start 06/02/17 at 08:00; Stop 06/04/17 at 10:36; Status DC Duloxetine HCl (Cymbalta) 60 mg DAILY PO Last administered on 06/12/17 09:02; Start 06/02/17 at 09:00 Trazodone HCl (Desyrel) 50 mg QHS PO Last administered on 06/12/17at 19:59; Start 06/01/17 at 21:00 Trazodone HCl (Desyrel) 50 mg PRN QHS PRN PO INSOMNIA; Start 06/01/17 at 18:45 Divalproex Sodium (Depakote Sprinkles) 625 mg BID@0900,1700 PO Last administered on 06/12/17at 17:32; Start 06/04/17 at 17:00 Lidocaine (Lidoderm) 1 patch QHS TD ; Start 06/04/17 at 21:00; Stop 06/05/17 at 14:40; Status DC Lidocaine (Lidoderm) 1 patch DAILY TD Last administered on 06/12/17at 09:02; Start 06/06/17 at 09:00 Lisinopril (Prinivil) 20 mg DAILY PO Last administered on 06/12/17at 09:09; Start 06/07/17 at 09:00 Active Scripts Active Reported Senna-Docusate Sodium Tablet (Sennosides/Docusate Sodium) 1 Each Tablet 1 Cap PO DAILY Risperdal (Risperidone) 0.5 Mg Tablet 0.5 Mg PO TID Protonix (Pantoprazole Sodium) 40 Mg Tablet.dr 40 Mg PO BID Percocet 5-325 Mg Tablet (Oxycodone Hcl/Acetaminophen) 1 Each Tablet 1 Tab PO PRN TID PRN Metoprolol Tartrate 25 Mg Tablet 25 Mg PO DAILY Glucophage (Metformin Hcl) 500 Mg Tablet 500 Mg PO DAILYWBKFT Lisinopril 20 Mg Tablet 20 Mg PO BID Levothyroxine Sodium 25 Mcg Tablet 25 Mcg PO DAILYAC Hydrochlorothiazide Tablet (Hydrochlorothiazide) 25 Mg Tablet 25 Mg PO DAILY Gabapentin 300 Mg Capsule 300 Mg PO BID Ferrous Sulfate 325 Mg Tablet 325 Mg PO DAILY Cymbalta (Duloxetine Hcl) 60 Mg Capsule.dr 120 Mg PO Cyclobenzaprine Hcl 10 Mg Tablet 10 Mg PO PRN DAILY PRN Vitamin B-12 (Cyanocobalamin (Vitamin B-12)) 100 Mcg Tablet 100 Mcg PO DAILY Aspirin 81 Mg Tab.chew 81 Mg PO DAILY Allopurinol 300 Mg Tablet 300 Mg PO DAILY I have reviewed the current psychotropics carefully including drug interactions. Risk benefit ratio favors no change other than as noted in my dictated progress note. Diagnosis: Problems: (1) Anxiety disorder (2) Impulse control disorder (3) Bipolar affective, mixed (4) Mild cognitive impairment (5) Cerebrovascular accident (CVA) due to vascular occlusion MELISSA CARDOZO MD Jun 12, 2017 23:06
[2017-06-13] MEDS ORDERED: LIDO700A39 TP (00:22)
[2017-06-13] MEDS ORDERED: METH99.2 TP (00:22)
[2017-06-13] MEDS ORDERED: ACET325T9 PO (00:22)
[2017-06-13] MEDS ORDERED: HYDR-2758 PO (00:22)
[2017-06-13] MEDS ORDERED: MAGN2400 PO (00:22)
[2017-06-13] MEDS ORDERED: NICO1PAT21 TD (00:22)
[2017-06-13] MEDS ORDERED: TRAZ50TA15 PO ×2 (00:22)
[2017-06-13] MEDS ORDERED: OLAN2.5T11 PO (00:22)
[2017-06-13] MEDS ORDERED: DIVA125C3 PO (00:22)
[2017-06-13] MEDS ORDERED: MAG355OR15 PO (00:22)
[2017-06-13 05:44] VITALS: BP 114/66
[2017-06-13] MEDS: LEVOTHYROXINE 25 MCG TABLET. PO SCH (06:00)
[2017-06-13] MEDS: PANTOPRAZOLE 40 MG TABLET. PO SCH (07:25)
[2017-06-13] MEDS: DULoxetine HCL 60 MG CAPSULE.DR PO SCH (07:25)
[2017-06-13] MEDS: FERROUS SULFATE 325 MG TABLET. PO SCH (07:25)
[2017-06-13] MEDS: DIVALPROEX 125 MG CAP.SPRINK PO SCH (07:25)
[2017-06-13] MEDS: ASPIRIN 81 MG TAB.CHEW PO SCH (07:25)
[2017-06-13] MEDS: metFORMIN 500 MG TABLET PO SCH (07:25)
[2017-06-13] MEDS: GABAPENTIN 300 MG CAPSULE. PO SCH (07:26)
[2017-06-13] MEDS: risperiDONE 0.5 MG TABLET. PO SCH (07:26)
[2017-06-13] MEDS: SENNOSIDES/DOCUSATE 8.6/50MG TABLET. PO SCH (07:26)
[2017-06-13] MEDS: CYANOCOBALAMIN (VITAMIN B-12) 100 MCG TABLET PO SCH (07:30)
[2017-06-13] MEDS: LIDOCAINE (700MG/PATCH) PATCH. TD SCH (07:30)
[2017-06-13] MEDS: ALLOPURINOL 300 MG TABLET. PO SCH (07:30)
[2017-06-13] MEDS: NICOTINE 21MG PATCH. TD SCH (07:31)
[2017-06-13 09:00] VITALS: BP 114/66
[2017-06-13] MEDS: hydroCHLOROthiazide 25 MG TABLET PO SCH (09:00)
[2017-06-13] MEDS: METOPROLOL TART IMMED RELEASE 25 MG TABLET PO SCH (09:00)
[2017-06-13] MEDS: LISINOPRIL 20 MG TABLET PO SCH (09:00)
--- NOTE | 2017-06-14 16:00 | DS ---
DATE OF DISCHARGE: 06/13/2017 DISCHARGE SUMMARY/PSYCHIATRIC PROGRESS NOTE This is a late entry 06/13/2017, covers elements not covered in my initial note 06/13/2017. I met with the patient the evening of 06/13/2017. REASON FOR ADMISSION: Please refer to the admission history for details. Briefly, the patient is a 71-year-old male referred to us from home by the local hospital on account of increasing agitation, anger outburst, verbally and physically aggressive within the context of his bipolar disorder with psychotic features; impulse control disorder, cognitive disorder and past history of 20 ECT treatments. SIGNIFICANT FINDINGS AND CLINICAL COURSE: Following admission, the patient was seen daily individually by myself, followed medically per Dr. Blair/Dr. Bryan. Initially, he remained quite labile in his mood, intermittently agitated. Adjustments were made in his psychotropics and he seemed to stabilize on a combination of Cymbalta 60 mg a day, Risperdal 0.5 mg daily, Depakote 625 mg b.i.d. with the valproic acid level at last check of 48, but repeat was awaited since the dosage was increased. He is also on Neurontin 300 mg b.i.d., Zyprexa p.r.n., trazodone 50 mg at bedtime, july repeat x 1 for insomnia. Gradually, the patient's mood appeared to improve. He was much less labile. No clear psychotic symptoms, suicidal or homicidal ideation. He did have chronic pain symptoms, was seen by physical therapy and occupational therapy and TENS units recommended, which the [facility] should be able to provide for him. REVIEW OF SYSTEMS: Prior to discharge on 06/13/2017, complains of some back pain. No CV, , pulmonary, eye, ENT system symptoms on review. MENTAL STATUS EXAM: Reasonably oriented. Speech coherent, abstraction fair, computation impaired, language function intact, attention span short. Mood and affect . No suicidal or homicidal ideation. CONDITION AT DISCHARGE: Improved. FINAL DIAGNOSES: Bipolar 1 disorder, mixed with psychotic features, in partial remission. Impulse control disorder, cognitive disorder, unspecified. Rest unchanged from admission. DISCHARGE MEDICATIONS: Please refer to the . DISCHARGE INSTRUCTIONS: Outpatient psychiatric and medical followup as arranged prior to discharge. Time for discharge day management greater than 30 minutes. MAN Celeste CARDOZO MD DR: Maged JOB#: [id number] / [id number]
--- NOTE | 2017-06-14 20:11 | PN ---
DATE: 06/12/2017 PSYCHIATRIC PROGRESS NOTE This is a late entry for 06/12/2016, covers elements not covered in my initial note of 06/12/2016. SUBJECTIVE: I met with the patient the evening of 06/12/2017. Overall, the patient has been calm, cooperative, no delusions noted. Compliant with medications. REVIEW OF SYSTEMS: Positive for some back pain. No CV, , pulmonary, eye, ENT system symptoms on review. MENTAL STATUS EXAM: Reasonably oriented. Speech is coherent, abstraction fair, computation impaired, language function intact, attention span short. Mood and affect has improved. No suicidal or homicidal ideation. IMPRESSION: Bipolar 1 disorder, mixed with psychotic features, in partial remission. Rest unchanged. PLAN: Continue current psychotropics with labs and valproic acid level to be repeated since we have increased the Depakote. Possible transition to a lower level of care on 06/13/2017. MAN Celeste CARDOZO MD DR: MILTON/daniel JOB#: [id number] / [id number]
== END 2017-06-13 11:58 | disposition home or self-care (01) | DRG 885 ==
LOC: GEROPSY 22:43
PROVIDERS: ADMIT Psychiatry & Neurology Psychiatry; ATTEND Psychiatry & Neurology Psychiatry
DX: F31.64 Bipolar disorder, current episode mixed, severe, with psychotic features (principal); I63.50 Cerebral infarction due to unspecified occlusion or stenosis of unspecified cerebral artery; F02.80 Dementia in other diseases classified elsewhere, unspecified severity, without behavioral disturbance, psychotic disturbance, mood disturbance, and anxiety; G30.9 Alzheimer's disease, unspecified; J44.9 Chronic obstructive pulmonary disease, unspecified; E03.9 Hypothyroidism, unspecified; F63.9 Impulse disorder, unspecified; F43.10 Post-traumatic stress disorder, unspecified; I71.4 Abdominal aortic aneurysm, without rupture; F01.50 Vascular dementia, unspecified severity, without behavioral disturbance, psychotic disturbance, mood disturbance, and anxiety; I10 Essential (primary) hypertension; G89.29 Other chronic pain; K21.9 Gastro-esophageal reflux disease without esophagitis; Z66 Do not resuscitate; Z79.899 Other long term (current) drug therapy; Z82.49 Family history of ischemic heart disease and other diseases of the circulatory system; Z82.5 Family history of asthma and other chronic lower respiratory diseases; Z83.3 Family history of diabetes mellitus; Z87.820 Personal history of traumatic brain injury; Z87.828 Personal history of other (healed) physical injury and trauma; Z88.1 Allergy status to other antibiotic agents; Z88.8 Allergy status to other drugs, medicaments and biological substances; Z79.82 Long term (current) use of aspirin
CPT/HCPCS: 36415; 80053; 80061; 80164; 81001; 82306; 82607; 82947; 83036; 83540; 83550; 83735; 84436; 84443; 84480; 85025; 86593; 99407; 97014; 97110; 97530; 99285-25

== ENCOUNTER 2017-08-06 19:49 | Inpatient (IN) | payer MEDICARE, OTHER ==
[~2017-08-06] VITALS: Ht 167.6 cm; Wt 60.1 kg
[~2017-08-06 19:49] MED LIST: ACET325T9 PO; ALLO300T PO; ASPI-630 PO; CYAN100T PO; CYCL-331 PO; DIVA125C3 PO; DULO60CA6 PO; FERR325T14 PO; GABA-586 PO; HYDR-2758 PO; HYDR25TA9 PO; LEVO25TA4 PO; LIDO700A39 TP; LISI-334 PO; MAG355OR15 PO; MAGN2400 PO; METF500T PO; METH99.2 TP; METO25TA4 PO; NICO1PAT21 TD; OLAN2.5T11 PO; OXYC-323 PO; PANT40TA3 PO; RISP0.5T24 PO; SENN1TAB7 PO; TRAZ50TA15 PO
[2017-08-06] MEDS ORDERED: DOCU-109 PO (22:51)
[2017-08-06] MEDS ORDERED: ATOR20TA PO (22:51)
[2017-08-06 23:30] VITALS: BP 165/96
[2017-08-06] MEDS ORDERED: MAGNESIUM HYDROXIDE 2,400 MG/30 ML ORAL.SUSP. PO PRN (23:45)
[2017-08-06] MEDS ORDERED: ACETAMINOPHEN 325 MG TABLET PO PRN (23:45)
[2017-08-06] MEDS ORDERED: METHYL SALICYLATE/MENTHOL TOPICAL OINTMENT 29GM TUBE. TP PRN (23:45)
[2017-08-07] MEDS: LEVOTHYROXINE 25 MCG TABLET. PO SCH (05:13)
--- NOTE | 2017-08-07 05:48 | EKG ---
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
[2017-08-07 05:53] LABS: BILIRUBIN,URINE NEG (NEG); CLARITY,URINE CLEAR; COLOR,URINE YELLOW; GLUCOSE,URINE NEG (NEG)
[2017-08-07 05:54] LABS: BACTERIA,URINE 0 /HPF (0-FEW); NITRITE,URINE NEG (NEG); SQUAMOUS EPITHELIAL CELL,UR OCC /LPF; UROBILINOGEN,URINE 0.2 mg/dL (0.2 mg/dL); WBC,URINE OCC /HPF (0-4)
[2017-08-07 05:58] VITALS: BP 173/88
[2017-08-07 07:51] LABS: BASO # 0.1 x10^3/uL (0.0-0.2); BASO % 1 % (0-3); EOS # 0.2 x10^3/uL (0.0-0.7); EOS % 3 % (0-3); HEMOGLOBIN 12.7 g/dL (13.0-17.5); LYMPH # 1.6 x10^3/uL (1.0-4.8); LYMPH % 24 % (24-48); MEAN CORPUSCULAR HEMOGLOBIN 32 pg (25-35); MEAN CORPUSCULAR HGB CONC 33 g/dL (31-37); MEAN CORPUSCULAR VOLUME 95 fL (79-100); MONO % 15 % (0-9); NEUT # 3.8 x10^3uL (1.8-7.7); NEUT % 57 % (31-73); PLATELET COUNT 171 x10^3/uL (140-400); RED BLOOD COUNT 4.02 x10^6/uL (4.30-5.70); RED CELL DISTRIBUTION WIDTH 16.5 % (11.5-14.5); WHITE BLOOD COUNT 6.7 x10^3/uL (4.0-11.0)
[2017-08-07 07:59] LABS: ALBUMIN/GLOBULIN RATIO 0.7 (1.0-1.7); CALCIUM 9.7 mg/dL (8.5-10.1); CREATININE 1.1 mg/dL (0.7-1.3); GFR 65.4; MAGNESIUM 1.7 mg/dL (1.8-2.4); TOTAL BILIRUBIN 0.5 mg/dL (0.2-1.0); TOTAL PROTEIN 7.6 g/dL (6.4-8.2)
[2017-08-07] MEDS ORDERED: C.DIFF MED SCREEN BY RX. MC ONE (09:00)
[2017-08-07] MEDS: LIDOCAINE (700MG/PATCH) PATCH. TP SCH (09:23)
[2017-08-07] MEDS: ALLOPURINOL 300 MG TABLET. PO SCH (09:24)
[2017-08-07] MEDS: PANTOPRAZOLE 40 MG TABLET. PO SCH ×2 (09:25→17:09)
[2017-08-07] MEDS: metFORMIN 500 MG TABLET PO SCH (09:25)
[2017-08-07] MEDS: GABAPENTIN 300 MG CAPSULE. PO SCH ×2 (09:25→19:49)
[2017-08-07] MEDS: NICOTINE 21MG PATCH. TD SCH (09:25)
[2017-08-07] MEDS: DOCUSATE SODIUM 100 MG CAPSULE PO SCH (09:25)
[2017-08-07] MEDS: hydroCHLOROthiazide 25 MG TABLET PO SCH (09:25)
[2017-08-07] MEDS: ASPIRIN 81 MG TAB.CHEW PO SCH (09:26)
[2017-08-07] MEDS: METOPROLOL TART IMMED RELEASE 25 MG TABLET PO SCH (09:26)
[2017-08-07] MEDS: LISINOPRIL 20 MG TABLET PO SCH (09:26)
[2017-08-07] MEDS: CYANOCOBALAMIN (VITAMIN B-12) 1,000 MCG TABLET. PO SCH (09:29)
[2017-08-07 15:58] VITALS: BP 171/90
[2017-08-07 15:59] LABS: THYROID STIM HORMONE (TSH) 6.129 uIU/mL (0.358-3.740)
[2017-08-07] MEDS: DIVALPROEX 125 MG CAP.SPRINK PO SCH (19:50)
[2017-08-07] MEDS: ATORVASTATIN CALCIUM 20 MG TABLET PO SCH (19:50)
[2017-08-07 20:11] LABS: T3 TOTAL 128 ng/dL (71-180); THYROXINE 8.9 ug/dL (4.5-12.0)
--- NOTE | 2017-08-07 20:36 | PDOC ---
Exam Note: Nabeel Note: Please also refer to the separate dictated note~for this date of service dictated separately.~Patient seen individually. Discussed the patient with Nursing staff reviewed the chart.~Reviewed interim history and current functioning. Reviewed vital signs,~Labs/ Radiology~and current medications noted below. Continue current treatment with the changes noted in the dictated addendum note Assessment: Vital Signs: Vital Signs Date Time Temp Pulse Resp B/P (MAP) Pulse Ox O2 Delivery O2 Flow Rate FiO2 08/07/17 15:58 97.4 63 18 171/90 (117) 98 08/07/17 05:58 Room Air Labs: Laboratory Tests Test 08/07/17 05:19 08/07/17 07:35 Urine Collection Type Unknown Urine Color Yellow Urine Clarity Clear Urine pH 8.5 Urine Specific [place] 1.020 Urine Protein Neg (NEG-TRACE) Urine Glucose (UA) Neg mg/dL (NEG) Urine Ketones (Stick) Neg mg/dL (NEG) Urine Blood Trace (NEG) Urine Nitrite Neg (NEG) Urine Bilirubin Neg (NEG) Urine Urobilinogen Dipstick 0.2 mg/dL (0.2 mg/dL) Urine Leukocyte Esterase Neg (NEG) Urine RBC 6-10 /HPF (0-2) Urine WBC Occ /HPF (0-4) Urine Squamous Epithelial Cells Occ /LPF Urine Bacteria 0 /HPF (0-FEW) White Blood Count 6.7 x10^3/uL (4.0-11.0) Red Blood Count 4.02 x10^6/uL (4.30-5.70) L Hemoglobin 12.7 g/dL (13.0-17.5) L Hematocrit 38.0 % (39.0-53.0) L Mean Corpuscular Volume 95 fL (79-100) Mean Corpuscular Hemoglobin 32 pg (25-35) Mean Corpuscular Hemoglobin Concent 33 g/dL (31-37) Red Cell Distribution Width 16.5 % (11.5-14.5) H Platelet Count 171 x10^3/uL (140-400) Neutrophils (%) (Auto) 57 % (31-73) Lymphocytes (%) (Auto) 24 % (24-48) Monocytes (%) (Auto) 15 % (0-9) H Eosinophils (%) (Auto) 3 % (0-3) Basophils (%) (Auto) 1 % (0-3) Neutrophils # (Auto) 3.8 x10^3uL (1.8-7.7) Lymphocytes # (Auto) 1.6 x10^3/uL (1.0-4.8) Monocytes # (Auto) 1.0 x10^3/uL (0.0-1.1) Eosinophils # (Auto) 0.2 x10^3/uL (0.0-0.7) Basophils # (Auto) 0.1 x10^3/uL (0.0-0.2) Sodium Level 142 mmol/L (136-145) Potassium Level 4.0 mmol/L (3.5-5.1) Chloride Level 103 mmol/L (98-107) Carbon Dioxide Level 32 mmol/L (21-32) Anion Gap 7 (6-14) Blood Urea Nitrogen 16 mg/dL (8-26) Creatinine 1.1 mg/dL (0.7-1.3) Estimated GFR (Cockcroft-Gault) 65.4 BUN/Creatinine Ratio 15 (6-20) Glucose Level 121 mg/dL (70-99) H Calcium Level 9.7 mg/dL (8.5-10.1) Magnesium Level 1.7 mg/dL (1.8-2.4) L Iron Level 65 ug/dL (65-175) Total Iron Binding Capacity 242 ug/dL (250-450) L Iron Saturation 27 % (15-34) Total Bilirubin 0.5 mg/dL (0.2-1.0) Aspartate Amino Transferase (AST) 38 U/L (15-37) H Alanine Aminotransferase (ALT) 28 U/L (16-63) Alkaline Phosphatase 78 U/L (46-116) Total Protein 7.6 g/dL (6.4-8.2) Albumin 3.0 g/dL (3.4-5.0) L Albumin/Globulin Ratio 0.7 (1.0-1.7) L Triglycerides Level 201 mg/dL (0-150) H Cholesterol Level 184 mg/dL (0-200) LDL Cholesterol, Calculated 103 mg/dL (0-100) H VLDL Cholesterol, Calculated 40 mg/dL (0-40) Non-HDL Cholesterol Calculated 143 mg/dL (0-129) H HDL Cholesterol 41 mg/dL (40-60) Cholesterol/HDL Ratio 4.0 Vitamin B12 Level 1115 pg/mL (247-911) H 25-Hydroxy Vitamin D Total 40.9 ng/mL (30-100) Thyroid Stimulating Hormone (TSH) 6.129 uIU/mL (0.358-3.740) Thyroxine (T4) 8.9 ug/dL (4.5-12.0) Total Triiodothyronine (TT3) 128 ng/dL (71-180) Rapid Plasma Reagin Pending Current Medications: Meds: Current Medications Acetaminophen (Tylenol) 650 mg PRN Q6HRS PRN PO PAIN / TEMP; Start 08/06/17 at 23:45 Multi-Ingredient Ointment (Analgesic [place]) 1 geovanna PRN QID PRN TP MUSCLE PAIN; Start 08/06/17 at 23:45 Al Hydroxide/Mg Hydroxide (Mylanta Plus Xs) 15 ml PRN AFTMEALHC PRN PO DYSPEPSIA; Start 08/06/17 at 23:45 Magnesium Hydroxide (Milk Of Magnesia) 2,400 mg PRN QHS PRN PO CONSTIPATION; Start 08/06/17 at 23:45 Nicotine (Nicoderm Cq 21mg) 1 patch DAILY TD Last administered on 08/07/17at 09: 25; Start 08/07/17 at 09:00 Atorvastatin Calcium (Lipitor) 20 mg QHS PO Last administered on 08/07/17at 19:50 ; Start 08/07/17 at 21:00 Cyanocobalamin (Vitamin B-12) 1,000 mcg DAILY PO Last administered on 08/07/17at 09:29; Start 08/07/17 at 09:00 Gabapentin (Neurontin) 300 mg BID PO Last administered on 08/07/17at 19:49; Start 08/07/17 at 09:00 Hydrochlorothiazide (Hydrodiuril) 25 mg DAILY PO Last administered on 08/07/17at 09:25; Start 08/07/17 at 09:00 Lisinopril (Prinivil) 20 mg DAILY PO Last administered on 08/07/17at 09:26; Start 08/07/17 at 09:00 Metoprolol Tartrate (Lopressor) 25 mg DAILY PO Last administered on 08/07/17at 09 :26; Start 08/07/17 at 09:00 Allopurinol (Zyloprim) 300 mg DAILY PO Last administered on 08/07/17at 09:24; Start 08/07/17 at 09:00 Aspirin (Children'S Aspirin) 81 mg DAILY PO Last administered on 08/07/17at 09:26 ; Start 08/07/17 at 09:00 Docusate Sodium (Colace) 100 mg DAILY PO Last administered on 08/07/17at 09:25; Start 08/07/17 at 09:00 Levothyroxine Sodium (Synthroid) 25 mcg DAILY06 PO Last administered on at 05:13; Start 08/07/17 at 06:00 Lidocaine (Lidoderm) 1 patch DAILY TP Last administered on 08/07/17at 09:23; Start 08/07/17 at 09:00 Metformin HCl (Glucophage) 500 mg DAILYWBKFT PO Last administered on 08/07/17at 09:25; Start 08/07/17 at 08:00 Pantoprazole Sodium (Protonix) 40 mg BIDBFRMEAL PO Last administered on at 17:09; Start 08/07/17 at 07:30 Info (Do NOT chart on this placeholder) 1 each 1X ONCE MC ; Start 08/07/17 at 09 :00; Stop 08/07/17 at 09:01; Status Cancel Divalproex Sodium (Depakote Sprinkles) 250 mg BID PO Last administered on at 19:50; Start 08/07/17 at 21:00 Duloxetine HCl (Cymbalta) 30 mg DAILY PO ; Start 08/08/17 at 09:00 Olanzapine (ZyPREXA ZYDIS) 2.5 mg PRN Q2HR PRN PO AGITATION/PSYCHOSIS; Start at 18:45 Active Scripts Active Reported Colace (Docusate Sodium) 100 Mg Capsule 100 Mg PO DAILY Lipitor (Atorvastatin Calcium) 20 Mg Tablet 20 Mg PO QHS Lidocaine 1 Each Adh..patch 1 Each TP DAILY Protonix (Pantoprazole Sodium) 40 Mg Tablet.dr 40 Mg PO BIDBFRMEAL Metoprolol Tartrate 25 Mg Tablet 25 Mg PO DAILY Glucophage (Metformin Hcl) 500 Mg Tablet 500 Mg PO DAILYWBKFT Lisinopril 20 Mg Tablet 20 Mg PO DAILY Levothyroxine Sodium 25 Mcg Tablet 25 Mcg PO DAILYAC Hydrochlorothiazide Tablet (Hydrochlorothiazide) 25 Mg Tablet 25 Mg PO DAILY Gabapentin 300 Mg Capsule 300 Mg PO BID Vitamin B-12 (Cyanocobalamin (Vitamin B-12)) 100 Mcg Tablet 1,000 Mcg PO DAILY Aspirin 81 Mg Tab.chew 81 Mg PO DAILY Allopurinol 300 Mg Tablet 300 Mg PO DAILY I have reviewed the current psychotropics carefully including drug interactions. Risk benefit ratio favors no change other than as noted in my dictated progress note. Diagnosis: Problems: (1) Anxiety disorder (2) Impulse control disorder (3) Bipolar affective, mixed (4) Mild cognitive impairment (5) Cerebrovascular accident (CVA) due to vascular occlusion MELISSA CARDOZO MD Aug 07, 2017 20:36
--- NOTE | 2017-08-07 23:12 | HP ---
ADMIT DATE: 08/06/2017 IDENTIFYING DATA: The patient is a 72-year-old male referred back to us from [facility] where he was hospitalized for a couple of days for medical stabilization on account of increased confusion, decreased responsiveness, marked agitation, and his behaviors, paranoia, threatening to kill his neighbor at the neighbor's dog. All of this is denied by the patient. He was last here with us a few weeks back and has been followed outpatient by close to his home. Reportedly, his Depakote 625 b.i.d., Risperdal 0.5 mg daily, Cymbalta 60 mg a day, and trazodone were discontinued on 07/29/2017, and he was later started on Klonopin. His behaviors were totally out of control, unmanageable. Then, the decreased responsiveness led him to be hospitalized at [facility]. 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 This note covers the elements not covered in my initial note of 08/07/2017. CHIEF COMPLAINT: "I don't do those things." HISTORY OF PRESENT ILLNESS: The patient has a history of mood swings with periods of elation, racing thoughts alternating with getting depressed and psychotic. He has had memory deficits as well. He has been living at home that has been recently remodeled by his ex- and apparently abusing alcohol even though, he minimizes it. He has been threatening to kill the neighbor and the neighbor's dog again, which he denies he did. No active suicidal ideation. PAST PSYCHIATRIC HISTORY: As noted above with the mood swings and periods of elation associated with spending excessively and alternating with being depressed and psychotic. PAST MEDICAL HISTORY: Positive for diabetes mellitus, hypothyroidism, status post CVA, gastritis, COPD, hypertension, hyperlipidemia, scoliosis, traumatic brain injury, chronic back pain, alcohol and marijuana abuse, both of which were positive during his hospitalization at [facility] recently. ALLERGIES: ERYTHROMYCIN BASE, GEMFIBROZIL, LOVASTATIN, SIMVASTATIN, TRAMADOL. CODE STATUS: DNR. Accu-Cheks daily. DIET: Regular. MEDICATIONS: Takes his medications whole. Ambulates ad-rush, but has back pain, which compromises his ambulation. CURRENT PSYCHOTROPICS: He was on no psychotropics at the time of admission, but as noted below, we are going to restart him on Depakote 250 mg twice a day, Cymbalta 30 mg a day, and Zyprexa p.r.n. FAMILY HISTORY: Noncontributory. SOCIAL HISTORY: The patient is a . Alcohol abuse, marijuana abuse history is noted. No physical, sexual or elder abuse history is noted. He is not known to be a perpetrator. Reaction to hospitalization, the patient accepting of it. ASSETS: Supportive . MENTAL STATUS EXAM: The patient was seen this at some length in his room the evening of 08/07/2017. He seemed to recognize me. He is somewhat irritable, labile in his mood. Speech coherent, at times pressured. Abstraction fair, computation impaired, language function intact. Short term memory is impaired. No active suicidal or homicidal ideation. He was somewhat paranoid, suspicious. LABORATORY DATA: Reviewed. IMPRESSION: Bipolar 1 disorder, mixed with psychotic features, in partial remission; anxiety disorder, unspecified; impulse control disorder, unspecified; major neurocognitive disorder, early vascular with delusion. Rest as above. PLAN: Admit to Geropsychiatry Unit at [facility]. I will see the patient daily individually from a psychiatric standpoint, medical followup per Dr. Bryan/Dr. Monteiro. Restart Depakote 250 mg b.i.d., Cymbalta 30 mg a day, Zyprexa 2.5 mg every 2 hours as needed psychosis, agitation, max 15 mg in 24 hours. Observe the patient's baseline. Follow labs level on the Depakote and adjust further as clinically indicated. ESTIMATED LENGTH OF STAY: 7-10 days. DISCHARGE DISPOSITION: Back home with outpatient followup. MAN Celeste CARDOZO MD DR: MILTON/daniel JOB#: [id number] / [id number]
[2017-08-08 01:12] LABS: HEMOGLOBIN A1C 5.2 % (4.8-5.6)
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
[2017-08-08] MEDS: LEVOTHYROXINE 25 MCG TABLET. PO SCH (06:00)
[2017-08-08 06:12] VITALS: BP 176/99
[2017-08-08] MEDS: PANTOPRAZOLE 40 MG TABLET. PO SCH ×2 (08:48→17:25)
[2017-08-08] MEDS: DOCUSATE SODIUM 100 MG CAPSULE PO SCH (08:49)
[2017-08-08] MEDS: ASPIRIN 81 MG TAB.CHEW PO SCH (08:49)
[2017-08-08] MEDS: metFORMIN 500 MG TABLET PO SCH (08:49)
[2017-08-08] MEDS: DULoxetine HCL 30 MG CAPSULE.DR PO SCH (08:50)
[2017-08-08] MEDS: GABAPENTIN 300 MG CAPSULE. PO SCH ×2 (08:52→19:28)
[2017-08-08] MEDS: hydroCHLOROthiazide 25 MG TABLET PO SCH (08:52)
[2017-08-08] MEDS: METOPROLOL TART IMMED RELEASE 25 MG TABLET PO SCH (08:52)
[2017-08-08] MEDS: DIVALPROEX 125 MG CAP.SPRINK PO SCH ×2 (08:52→19:29)
[2017-08-08] MEDS: CYANOCOBALAMIN (VITAMIN B-12) 1,000 MCG TABLET. PO SCH (08:55)
[2017-08-08] MEDS: LISINOPRIL 20 MG TABLET PO SCH (08:55)
[2017-08-08] MEDS: NICOTINE 21MG PATCH. TD SCH (08:55)
[2017-08-08] MEDS: LIDOCAINE (700MG/PATCH) PATCH. TP SCH (08:55)
[2017-08-08] MEDS: ALLOPURINOL 300 MG TABLET. PO SCH (08:55)
[2017-08-08 16:32] VITALS: BP 135/93
[2017-08-08] MEDS: ATORVASTATIN CALCIUM 20 MG TABLET PO SCH (19:28)
--- NOTE | 2017-08-08 22:02 | PDOC ---
Exam Note: Nabeel Note: Please also refer to the separate dictated note~for this date of service dictated separately.~Patient seen individually. Discussed the patient with Nursing staff reviewed the chart.~Reviewed interim history and current functioning. Reviewed vital signs,~Labs/ Radiology~and current medications noted below. Continue current treatment with the changes noted in the dictated addendum note Assessment: Vital Signs: Vital Signs Date Time Temp Pulse Resp B/P (MAP) Pulse Ox O2 Delivery O2 Flow Rate FiO2 08/08/17 16:32 98.1 82 17 135/93 (107) 95 08/07/17 05:58 Room Air I&O Intake and Output 08/08/17 07:00 Intake Total 1080 ml Balance 1080 ml Intake Oral 1080 ml Current Medications: Meds: Current Medications Acetaminophen (Tylenol) 650 mg PRN Q6HRS PRN PO PAIN / TEMP; Start 08/06/17 at 23:45 Multi-Ingredient Ointment (Analgesic [place]) 1 geovanna PRN QID PRN TP MUSCLE PAIN; Start 08/06/17 at 23:45 Al Hydroxide/Mg Hydroxide (Mylanta Plus Xs) 15 ml PRN AFTMEALHC PRN PO DYSPEPSIA; Start 08/06/17 at 23:45 Magnesium Hydroxide (Milk Of Magnesia) 2,400 mg PRN QHS PRN PO CONSTIPATION; Start 08/06/17 at 23:45 Nicotine (Nicoderm Cq 21mg) 1 patch DAILY TD Last administered on 08/08/17at 08: 55; Start 08/07/17 at 09:00 Atorvastatin Calcium (Lipitor) 20 mg QHS PO Last administered on 08/08/17at 19:28 ; Start 08/07/17 at 21:00 Cyanocobalamin (Vitamin B-12) 1,000 mcg DAILY PO Last administered on 08/08/17at 08:55; Start 08/07/17 at 09:00 Gabapentin (Neurontin) 300 mg BID PO Last administered on 08/08/17at 19:28; Start 08/07/17 at 09:00 Hydrochlorothiazide (Hydrodiuril) 25 mg DAILY PO Last administered on 08/08/17at 08:52; Start 08/07/17 at 09:00 Lisinopril (Prinivil) 20 mg DAILY PO Last administered on 08/08/17at 08:55; Start 08/07/17 at 09:00 Metoprolol Tartrate (Lopressor) 25 mg DAILY PO Last administered on 08/08/17at 08 :52; Start 08/07/17 at 09:00 Allopurinol (Zyloprim) 300 mg DAILY PO Last administered on 08/08/17at 08:55; Start 08/07/17 at 09:00 Aspirin (Children'S Aspirin) 81 mg DAILY PO Last administered on 08/08/17at 08:49 ; Start 08/07/17 at 09:00 Docusate Sodium (Colace) 100 mg DAILY PO Last administered on 08/08/17at 08:49; Start 08/07/17 at 09:00 Levothyroxine Sodium (Synthroid) 25 mcg DAILY06 PO Last administered on at 06:00; Start 08/07/17 at 06:00 Lidocaine (Lidoderm) 1 patch DAILY TP Last administered on 08/08/17at 08:55; Start 08/07/17 at 09:00 Metformin HCl (Glucophage) 500 mg DAILYWBKFT PO Last administered on 08/08/17at 08:49; Start 08/07/17 at 08:00 Pantoprazole Sodium (Protonix) 40 mg BIDBFRMEAL PO Last administered on at 17:25; Start 08/07/17 at 07:30 Info (Do NOT chart on this placeholder) 1 each 1X ONCE MC ; Start 08/07/17 at 09 :00; Stop 08/07/17 at 09:01; Status Cancel Divalproex Sodium (Depakote Sprinkles) 250 mg BID PO Last administered on at 19:29; Start 08/07/17 at 21:00 Duloxetine HCl (Cymbalta) 30 mg DAILY PO Last administered on 08/08/17at 08:50; Start 08/08/17 at 09:00 Olanzapine (ZyPREXA ZYDIS) 2.5 mg PRN Q2HR PRN PO AGITATION/PSYCHOSIS; Start at 18:45 Active Scripts Active Reported Colace (Docusate Sodium) 100 Mg Capsule 100 Mg PO DAILY Lipitor (Atorvastatin Calcium) 20 Mg Tablet 20 Mg PO QHS Lidocaine 1 Each Adh..patch 1 Each TP DAILY Protonix (Pantoprazole Sodium) 40 Mg Tablet.dr 40 Mg PO BIDBFRMEAL Metoprolol Tartrate 25 Mg Tablet 25 Mg PO DAILY Glucophage (Metformin Hcl) 500 Mg Tablet 500 Mg PO DAILYWBKFT Lisinopril 20 Mg Tablet 20 Mg PO DAILY Levothyroxine Sodium 25 Mcg Tablet 25 Mcg PO DAILYAC Hydrochlorothiazide Tablet (Hydrochlorothiazide) 25 Mg Tablet 25 Mg PO DAILY Gabapentin 300 Mg Capsule 300 Mg PO BID Vitamin B-12 (Cyanocobalamin (Vitamin B-12)) 100 Mcg Tablet 1,000 Mcg PO DAILY Aspirin 81 Mg Tab.chew 81 Mg PO DAILY Allopurinol 300 Mg Tablet 300 Mg PO DAILY I have reviewed the current psychotropics carefully including drug interactions. Risk benefit ratio favors no change other than as noted in my dictated progress note. Diagnosis: Problems: (1) Anxiety disorder (2) Impulse control disorder (3) Bipolar affective, mixed (4) Mild cognitive impairment (5) Cerebrovascular accident (CVA) due to vascular occlusion MELISSA CARDOZO MD Aug 08, 2017 22:02
[2017-08-09] MEDS: LEVOTHYROXINE 25 MCG TABLET. PO SCH (05:41)
[2017-08-09 05:44] VITALS: BP 147/80
[2017-08-09] MEDS: metFORMIN 500 MG TABLET PO SCH (09:43)
[2017-08-09] MEDS: PANTOPRAZOLE 40 MG TABLET. PO SCH ×2 (09:43→17:34)
[2017-08-09] MEDS: ASPIRIN 81 MG TAB.CHEW PO SCH (09:44)
[2017-08-09] MEDS: DULoxetine HCL 30 MG CAPSULE.DR PO SCH (09:44)
[2017-08-09] MEDS: DOCUSATE SODIUM 100 MG CAPSULE PO SCH (09:44)
[2017-08-09] MEDS: DIVALPROEX 125 MG CAP.SPRINK PO SCH ×2 (09:45→19:37)
[2017-08-09] MEDS: hydroCHLOROthiazide 25 MG TABLET PO SCH (09:47)
[2017-08-09] MEDS: LISINOPRIL 20 MG TABLET PO SCH (09:48)
[2017-08-09] MEDS: METOPROLOL TART IMMED RELEASE 25 MG TABLET PO SCH (09:48)
[2017-08-09] MEDS: GABAPENTIN 300 MG CAPSULE. PO SCH ×2 (09:48→19:36)
[2017-08-09] MEDS: ALLOPURINOL 300 MG TABLET. PO SCH (09:49)
[2017-08-09] MEDS: NICOTINE 21MG PATCH. TD SCH (09:49)
[2017-08-09] MEDS: CYANOCOBALAMIN (VITAMIN B-12) 1,000 MCG TABLET. PO SCH (09:49)
[2017-08-09] MEDS: LIDOCAINE (700MG/PATCH) PATCH. TP SCH (09:49)
[2017-08-09 16:25] VITALS: BP 106/71
[2017-08-09] MEDS: ATORVASTATIN CALCIUM 20 MG TABLET PO SCH (19:36)
--- NOTE | 2017-08-09 19:52 | PDOC ---
Exam Note: Nabeel Note: Please also refer to the separate dictated note~for this date of service dictated separately.~Patient seen individually. Discussed the patient with Nursing staff reviewed the chart.~Reviewed interim history and current functioning. Reviewed vital signs,~Labs/ Radiology~and current medications noted below. Continue current treatment with the changes noted in the dictated addendum note Assessment: Vital Signs: Vital Signs Date Time Temp Pulse Resp B/P (MAP) Pulse Ox O2 Delivery O2 Flow Rate FiO2 08/09/17 16:25 98.8 87 16 106/71 (83) 98 08/07/17 05:58 Room Air I&O Intake and Output 08/09/17 07:00 Intake Total 1080 ml Balance 1080 ml Intake Oral 1080 ml Current Medications: Meds: Current Medications Acetaminophen (Tylenol) 650 mg PRN Q6HRS PRN PO PAIN / TEMP; Start 08/06/17 at 23:45 Multi-Ingredient Ointment (Analgesic [place]) 1 geovanna PRN QID PRN TP MUSCLE PAIN; Start 08/06/17 at 23:45 Al Hydroxide/Mg Hydroxide (Mylanta Plus Xs) 15 ml PRN AFTMEALHC PRN PO DYSPEPSIA; Start 08/06/17 at 23:45 Magnesium Hydroxide (Milk Of Magnesia) 2,400 mg PRN QHS PRN PO CONSTIPATION; Start 08/06/17 at 23:45 Nicotine (Nicoderm Cq 21mg) 1 patch DAILY TD Last administered on 08/09/17at 09: 49; Start 08/07/17 at 09:00 Atorvastatin Calcium (Lipitor) 20 mg QHS PO Last administered on 08/09/17at 19:36 ; Start 08/07/17 at 21:00 Cyanocobalamin (Vitamin B-12) 1,000 mcg DAILY PO Last administered on 08/09/17 09:49; Start 08/07/17 at 09:00 Gabapentin (Neurontin) 300 mg BID PO Last administered on 08/09/17 19:36; Start 08/07/17 at 09:00 Hydrochlorothiazide (Hydrodiuril) 25 mg DAILY PO Last administered on 08/09/17 09:47; Start 08/07/17 at 09:00 Lisinopril (Prinivil) 20 mg DAILY PO Last administered on 08/09/17at 09:48; Start 08/07/17 at 09:00 Metoprolol Tartrate (Lopressor) 25 mg DAILY PO Last administered on 08/09/17 09 :48; Start 08/07/17 at 09:00 Allopurinol (Zyloprim) 300 mg DAILY PO Last administered on 08/09/17 09:49; Start 08/07/17 at 09:00 Aspirin (Children'S Aspirin) 81 mg DAILY PO Last administered on 08/09/17 09:44 ; Start 08/07/17 at 09:00 Docusate Sodium (Colace) 100 mg DAILY PO Last administered on 08/09/17 09:44; Start 08/07/17 at 09:00 Levothyroxine Sodium (Synthroid) 25 mcg DAILY06 PO Last administered on 05:41; Start 08/07/17 at 06:00 Lidocaine (Lidoderm) 1 patch DAILY TP Last administered on 08/09/17 09:49; Start 08/07/17 at 09:00 Metformin HCl (Glucophage) 500 mg DAILYWBKFT PO Last administered on 08/09/17 09:43; Start 08/07/17 at 08:00 Pantoprazole Sodium (Protonix) 40 mg BIDBFRMEAL PO Last administered on 17:34; Start 08/07/17 at 07:30 Info (Do NOT chart on this placeholder) 1 each 1X ONCE MC ; Start 08/07/17 at 09 :00; Stop 08/07/17 at 09:01; Status Cancel Divalproex Sodium (Depakote Sprinkles) 250 mg BID PO Last administered on at 19:37; Start 08/07/17 at 21:00 Duloxetine HCl (Cymbalta) 30 mg DAILY PO Last administered on 08/09/17 09:44; Start 08/08/17 at 09:00 Olanzapine (ZyPREXA ZYDIS) 2.5 mg PRN Q2HR PRN PO AGITATION/PSYCHOSIS; Start at 18:45 Active Scripts Active Reported Colace (Docusate Sodium) 100 Mg Capsule 100 Mg PO DAILY Lipitor (Atorvastatin Calcium) 20 Mg Tablet 20 Mg PO QHS Lidocaine 1 Each Adh..patch 1 Each TP DAILY Protonix (Pantoprazole Sodium) 40 Mg Tablet.dr 40 Mg PO BIDBFRMEAL Metoprolol Tartrate 25 Mg Tablet 25 Mg PO DAILY Glucophage (Metformin Hcl) 500 Mg Tablet 500 Mg PO DAILYWBKFT Lisinopril 20 Mg Tablet 20 Mg PO DAILY Levothyroxine Sodium 25 Mcg Tablet 25 Mcg PO DAILYAC Hydrochlorothiazide Tablet (Hydrochlorothiazide) 25 Mg Tablet 25 Mg PO DAILY Gabapentin 300 Mg Capsule 300 Mg PO BID Vitamin B-12 (Cyanocobalamin (Vitamin B-12)) 100 Mcg Tablet 1,000 Mcg PO DAILY Aspirin 81 Mg Tab.chew 81 Mg PO DAILY Allopurinol 300 Mg Tablet 300 Mg PO DAILY I have reviewed the current psychotropics carefully including drug interactions. Risk benefit ratio favors no change other than as noted in my dictated progress note. Diagnosis: Problems: (1) Anxiety disorder (2) Impulse control disorder (3) Bipolar affective, mixed (4) Mild cognitive impairment (5) Cerebrovascular accident (CVA) due to vascular occlusion MELISSA CARDOZO MD Aug 09, 2017 19:52
[2017-08-10] MEDS: LEVOTHYROXINE 25 MCG TABLET. PO SCH (03:56)
[2017-08-10 05:51] VITALS: BP 134/84
[2017-08-10] MEDS: PANTOPRAZOLE 40 MG TABLET. PO SCH ×2 (07:35→17:24)
[2017-08-10] MEDS: metFORMIN 500 MG TABLET PO SCH (07:35)
[2017-08-10] MEDS: hydroCHLOROthiazide 25 MG TABLET PO SCH (07:36)
[2017-08-10] MEDS: DULoxetine HCL 30 MG CAPSULE.DR PO SCH (07:36)
[2017-08-10] MEDS: ASPIRIN 81 MG TAB.CHEW PO SCH (07:36)
[2017-08-10] MEDS: DOCUSATE SODIUM 100 MG CAPSULE PO SCH (07:36)
[2017-08-10] MEDS: DIVALPROEX 125 MG CAP.SPRINK PO SCH ×2 (07:36→20:00)
[2017-08-10 07:37] LABS: BASO # 0.1 x10^3/uL (0.0-0.2); BASO % 1 % (0-3); EOS # 0.3 x10^3/uL (0.0-0.7); EOS % 4 % (0-3); HEMATOCRIT 35.2 % (39.0-53.0); HEMOGLOBIN 11.7 g/dL (13.0-17.5); LYMPH # 2.1 x10^3/uL (1.0-4.8); LYMPH % 28 % (24-48); MEAN CORPUSCULAR HEMOGLOBIN 32 pg (25-35); MEAN CORPUSCULAR HGB CONC 33 g/dL (31-37); MEAN CORPUSCULAR VOLUME 95 fL (79-100); MONO % 14 % (0-9); NEUT # 3.9 x10^3uL (1.8-7.7); NEUT % 53 % (31-73); PLATELET COUNT 207 x10^3/uL (140-400); RED BLOOD COUNT 3.72 x10^6/uL (4.30-5.70); RED CELL DISTRIBUTION WIDTH 16.6 % (11.5-14.5); WHITE BLOOD COUNT 7.3 x10^3/uL (4.0-11.0)
[2017-08-10] MEDS: METOPROLOL TART IMMED RELEASE 25 MG TABLET PO SCH (07:37)
[2017-08-10] MEDS: GABAPENTIN 300 MG CAPSULE. PO SCH ×2 (07:37→19:58)
[2017-08-10] MEDS: LISINOPRIL 20 MG TABLET PO SCH (07:38)
[2017-08-10] MEDS: ALLOPURINOL 300 MG TABLET. PO SCH (07:38)
[2017-08-10] MEDS: CYANOCOBALAMIN (VITAMIN B-12) 1,000 MCG TABLET. PO SCH (07:38)
[2017-08-10] MEDS: NICOTINE 21MG PATCH. TD SCH (07:40)
[2017-08-10 07:41] LABS: ALBUMIN 2.5 g/dL (3.4-5.0); ALBUMIN/GLOBULIN RATIO 0.6 (1.0-1.7); ALK PHOS 68 U/L (46-116); ALT (SGPT) 25 U/L (16-63); ANION GAP 5 (6-14); AST (SGOT) 29 U/L (15-37); BLOOD UREA NITROGEN 26 mg/dL (8-26); BUN/CREATININE RATIO 20 (6-20); CALCIUM 8.6 mg/dL (8.5-10.1); CARBON DIOXIDE 31 mmol/L (21-32); CHLORIDE 106 mmol/L (98-107); CREATININE 1.3 mg/dL (0.7-1.3); GLUCOSE 102 mg/dL (70-99); POTASSIUM 3.9 mmol/L (3.5-5.1); SODIUM 142 mmol/L (136-145); TOTAL BILIRUBIN 0.3 mg/dL (0.2-1.0); TOTAL PROTEIN 6.5 g/dL (6.4-8.2)
[2017-08-10 07:42] LABS: VAL ACID 21 mcg/mL (50-100)
[2017-08-10] MEDS: LIDOCAINE (700MG/PATCH) PATCH. TP SCH (07:42)
[2017-08-10 16:34] VITALS: BP 127/83
[2017-08-10] MEDS: ATORVASTATIN CALCIUM 20 MG TABLET PO SCH (19:58)
--- NOTE | 2017-08-10 20:46 | PDOC ---
Exam Note: Nabeel Note: Please also refer to the separate dictated note~for this date of service dictated separately.~Patient seen individually. Discussed the patient with Nursing staff reviewed the chart.~Reviewed interim history and current functioning. Reviewed vital signs,~Labs/ Radiology~and current medications noted below. Continue current treatment with the changes noted in the dictated addendum note Assessment: Vital Signs: Vital Signs Date Time Temp Pulse Resp B/P (MAP) Pulse Ox O2 Delivery O2 Flow Rate FiO2 08/10/17 16:34 98.9 77 16 127/83 (98) 94 Room Air I&O Intake and Output 08/10/17 07:00 Intake Total 1320 ml Balance 1320 ml Intake Oral 1320 ml Labs: Laboratory Tests Test 08/10/17 06:52 White Blood Count 7.3 x10^3/uL (4.0-11.0) Red Blood Count 3.72 x10^6/uL (4.30-5.70) L Hemoglobin 11.7 g/dL (13.0-17.5) L Hematocrit 35.2 % (39.0-53.0) L Mean Corpuscular Volume 95 fL (79-100) Mean Corpuscular Hemoglobin 32 pg (25-35) Mean Corpuscular Hemoglobin Concent 33 g/dL (31-37) Red Cell Distribution Width 16.6 % (11.5-14.5) H Platelet Count 207 x10^3/uL (140-400) Neutrophils (%) (Auto) 53 % (31-73) Lymphocytes (%) (Auto) 28 % (24-48) Monocytes (%) (Auto) 14 % (0-9) H Eosinophils (%) (Auto) 4 % (0-3) H Basophils (%) (Auto) 1 % (0-3) Neutrophils # (Auto) 3.9 x10^3uL (1.8-7.7) Lymphocytes # (Auto) 2.1 x10^3/uL (1.0-4.8) Monocytes # (Auto) 1.0 x10^3/uL (0.0-1.1) Eosinophils # (Auto) 0.3 x10^3/uL (0.0-0.7) Basophils # (Auto) 0.1 x10^3/uL (0.0-0.2) Sodium Level 142 mmol/L (136-145) Potassium Level 3.9 mmol/L (3.5-5.1) Chloride Level 106 mmol/L (98-107) Carbon Dioxide Level 31 mmol/L (21-32) Anion Gap 5 (6-14) L Blood Urea Nitrogen 26 mg/dL (8-26) Creatinine 1.3 mg/dL (0.7-1.3) Estimated GFR (Cockcroft-Gault) 54.0 BUN/Creatinine Ratio 20 (6-20) Glucose Level 102 mg/dL (70-99) H Calcium Level 8.6 mg/dL (8.5-10.1) Total Bilirubin 0.3 mg/dL (0.2-1.0) Aspartate Amino Transferase (AST) 29 U/L (15-37) Alanine Aminotransferase (ALT) 25 U/L (16-63) Alkaline Phosphatase 68 U/L (46-116) Total Protein 6.5 g/dL (6.4-8.2) Albumin 2.5 g/dL (3.4-5.0) L Albumin/Globulin Ratio 0.6 (1.0-1.7) L Valproic Acid Level 21 mcg/mL (50-100) L Valproic Acid Last Dose Date 08/09/17 Valproic Acid Last Dose Time 2100 Current Medications: Meds: Current Medications Acetaminophen (Tylenol) 650 mg PRN Q6HRS PRN PO PAIN / TEMP Last administered on 08/10/17at 05:29; Start 08/06/17 at 23:45 Multi-Ingredient Ointment (Analgesic [place]) 1 geovanna PRN QID PRN TP MUSCLE PAIN; Start 08/06/17 at 23:45 Al Hydroxide/Mg Hydroxide (Mylanta Plus Xs) 15 ml PRN AFTMEALHC PRN PO DYSPEPSIA; Start 08/06/17 at 23:45 Magnesium Hydroxide (Milk Of Magnesia) 2,400 mg PRN QHS PRN PO CONSTIPATION; Start 08/06/17 at 23:45 Nicotine (Nicoderm Cq 21mg) 1 patch DAILY TD Last administered on 08/10/17at 07: 40; Start 08/07/17 at 09:00 Atorvastatin Calcium (Lipitor) 20 mg QHS PO Last administered on 08/10/17at 19:58 ; Start 08/07/17 at 21:00 Cyanocobalamin (Vitamin B-12) 1,000 mcg DAILY PO Last administered on 08/10/17 07:38; Start 08/07/17 at 09:00 Gabapentin (Neurontin) 300 mg BID PO Last administered on 08/10/17 19:58; Start 08/07/17 at 09:00 Hydrochlorothiazide (Hydrodiuril) 25 mg DAILY PO Last administered on 08/10/17 07:36; Start 08/07/17 at 09:00 Lisinopril (Prinivil) 20 mg DAILY PO Last administered on 08/10/17 07:38; Start 08/07/17 at 09:00 Metoprolol Tartrate (Lopressor) 25 mg DAILY PO Last administered on 08/10/17 07 :37; Start 08/07/17 at 09:00 Allopurinol (Zyloprim) 300 mg DAILY PO Last administered on 08/10/17 07:38; Start 08/07/17 at 09:00 Aspirin (Children'S Aspirin) 81 mg DAILY PO Last administered on 08/10/17 07:36 ; Start 08/07/17 at 09:00 Docusate Sodium (Colace) 100 mg DAILY PO Last administered on 08/10/17 07:36; Start 08/07/17 at 09:00 Levothyroxine Sodium (Synthroid) 25 mcg DAILY06 PO Last administered on 03:56; Start 08/07/17 at 06:00 Lidocaine (Lidoderm) 1 patch DAILY TP Last administered on 08/10/17 07:42; Start 08/07/17 at 09:00 Metformin HCl (Glucophage) 500 mg DAILYWBKFT PO Last administered on 08/10/17 07:35; Start 08/07/17 at 08:00 Pantoprazole Sodium (Protonix) 40 mg BIDBFRMEAL PO Last administered on 17:24; Start 08/07/17 at 07:30 Info (Do NOT chart on this placeholder) 1 each 1X ONCE MC ; Start 08/07/17 at 09 :00; Stop 08/07/17 at 09:01; Status Cancel Divalproex Sodium (Depakote Sprinkles) 250 mg BID PO Last administered on 07:36; Start 08/07/17 at 21:00; Stop 08/10/17 at 18:50; Status DC Duloxetine HCl (Cymbalta) 30 mg DAILY PO Last administered on 08/10/17at 07:36; Start 08/08/17 at 09:00 Olanzapine (ZyPREXA ZYDIS) 2.5 mg PRN Q2HR PRN PO AGITATION/PSYCHOSIS; Start at 18:45 Divalproex Sodium (Depakote Sprinkles) 500 mg BID PO Last administered on at 20:00; Start 08/10/17 at 21:00 Active Scripts Active Reported Colace (Docusate Sodium) 100 Mg Capsule 100 Mg PO DAILY Lipitor (Atorvastatin Calcium) 20 Mg Tablet 20 Mg PO QHS Lidocaine 1 Each Adh..patch 1 Each TP DAILY Protonix (Pantoprazole Sodium) 40 Mg Tablet.dr 40 Mg PO BIDBFRMEAL Metoprolol Tartrate 25 Mg Tablet 25 Mg PO DAILY Glucophage (Metformin Hcl) 500 Mg Tablet 500 Mg PO DAILYWBKFT Lisinopril 20 Mg Tablet 20 Mg PO DAILY Levothyroxine Sodium 25 Mcg Tablet 25 Mcg PO DAILYAC Hydrochlorothiazide Tablet (Hydrochlorothiazide) 25 Mg Tablet 25 Mg PO DAILY Gabapentin 300 Mg Capsule 300 Mg PO BID Vitamin B-12 (Cyanocobalamin (Vitamin B-12)) 100 Mcg Tablet 1,000 Mcg PO DAILY Aspirin 81 Mg Tab.chew 81 Mg PO DAILY Allopurinol 300 Mg Tablet 300 Mg PO DAILY I have reviewed the current psychotropics carefully including drug interactions. Risk benefit ratio favors no change other than as noted in my dictated progress note. Diagnosis: Problems: (1) Anxiety disorder (2) Impulse control disorder (3) Bipolar affective, mixed (4) Mild cognitive impairment (5) Cerebrovascular accident (CVA) due to vascular occlusion MELISSA CARDOZO MD Aug 10, 2017 20:46
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
[2017-08-10] MEDS: MAG HYDROX/AL HYDROX/SIMETH 30 ML ORAL.SUSP PO PRN (23:08)
[2017-08-11] MEDS: LEVOTHYROXINE 25 MCG TABLET. PO SCH (05:04)
[2017-08-11 06:05] VITALS: BP 143/94
--- NOTE | 2017-08-11 08:27 | PN ---
DATE: 08/09/2017 This late entry 08/09/2017 covers elements not covered in my initial note 08/09/2017. Met with the patient in the evening at great length. Overall, the patient states he had a good night, good day. He is still somewhat hyperverbal. REVIEW OF SYSTEMS: Positive for some back pain. No CV, , pulmonary, eye, ENT system symptoms on review. MENTAL STATUS EXAM: Oriented to himself and situations. Speech is coherent, somewhat hyperverbal at times. Abstraction fair, computation impaired, language function intact, attention span short. Mood and affect remain somewhat labile at times. LABORATORY DATA: Reviewed. IMPRESSION: Unchanged from initial note. PLAN: Continue psychotropics mentioned in my initial note. Check a valproic acid level 08/10/2017, adjust Depakote thereafter. MAN Celeste CARDOZO MD DR: MILTON/daniel JOB#: [id number] / [id number]
[2017-08-11] MEDS: LISINOPRIL 20 MG TABLET PO SCH (09:20)
[2017-08-11] MEDS: DULoxetine HCL 30 MG CAPSULE.DR PO SCH (09:20)
[2017-08-11] MEDS: metFORMIN 500 MG TABLET PO SCH (09:20)
[2017-08-11] MEDS: PANTOPRAZOLE 40 MG TABLET. PO SCH ×2 (09:21→16:30)
[2017-08-11] MEDS: ASPIRIN 81 MG TAB.CHEW PO SCH (09:21)
[2017-08-11] MEDS: GABAPENTIN 300 MG CAPSULE. PO SCH ×2 (09:21→19:50)
[2017-08-11] MEDS: DOCUSATE SODIUM 100 MG CAPSULE PO SCH (09:21)
[2017-08-11] MEDS: METOPROLOL TART IMMED RELEASE 25 MG TABLET PO SCH (09:21)
[2017-08-11] MEDS: DIVALPROEX 125 MG CAP.SPRINK PO SCH ×2 (09:22→19:50)
[2017-08-11] MEDS: CYANOCOBALAMIN (VITAMIN B-12) 1,000 MCG TABLET. PO SCH (09:22)
[2017-08-11] MEDS: ALLOPURINOL 300 MG TABLET. PO SCH (09:22)
[2017-08-11] MEDS: hydroCHLOROthiazide 25 MG TABLET PO SCH (09:22)
[2017-08-11] MEDS: LIDOCAINE (700MG/PATCH) PATCH. TP SCH ×2 (09:23→12:00)
[2017-08-11] MEDS: NICOTINE 21MG PATCH. TD SCH (09:23)
[2017-08-11 16:52] VITALS: BP 148/82
[2017-08-11] MEDS: ATORVASTATIN CALCIUM 20 MG TABLET PO SCH (19:50)
--- NOTE | 2017-08-11 20:49 | PDOC ---
Exam Note: Nabeel Note: Please also refer to the separate dictated note~for this date of service dictated separately.~Patient seen individually. Discussed the patient with Nursing staff reviewed the chart.~Reviewed interim history and current functioning. Reviewed vital signs,~Labs/ Radiology~and current medications noted below. Continue current treatment with the changes noted in the dictated addendum note Assessment: Vital Signs: Vital Signs Date Time Temp Pulse Resp B/P (MAP) Pulse Ox O2 Delivery O2 Flow Rate FiO2 08/11/17 16:52 97.4 77 16 148/82 (104) 99 08/10/17 16:34 Room Air I&O Intake and Output 08/11/17 07:00 Intake Total 1100 ml Balance 1100 ml Intake Oral 1100 ml Current Medications: Meds: Current Medications Acetaminophen (Tylenol) 650 mg PRN Q6HRS PRN PO PAIN / TEMP Last administered on 08/10/17 05:29; Start 08/06/17 at 23:45 Multi-Ingredient Ointment (Analgesic [place]) 1 geovanna PRN QID PRN TP MUSCLE PAIN; Start 08/06/17 at 23:45 Al Hydroxide/Mg Hydroxide (Mylanta Plus Xs) 15 ml PRN AFTMEALHC PRN PO DYSPEPSIA Last administered on 08/10/17 23:08; Start 08/06/17 at 23:45 Magnesium Hydroxide (Milk Of Magnesia) 2,400 mg PRN QHS PRN PO CONSTIPATION; Start 08/06/17 at 23:45 Nicotine (Nicoderm Cq 21mg) 1 patch DAILY TD Last administered on 08/11/17at 09: 23; Start 08/07/17 at 09:00 Atorvastatin Calcium (Lipitor) 20 mg QHS PO Last administered on 08/11/17 19:50 ; Start 08/07/17 at 21:00 Cyanocobalamin (Vitamin B-12) 1,000 mcg DAILY PO Last administered on 08/11/17 09:22; Start 08/07/17 at 09:00 Gabapentin (Neurontin) 300 mg BID PO Last administered on 08/11/17 19:50; Start 08/07/17 at 09:00 Hydrochlorothiazide (Hydrodiuril) 25 mg DAILY PO Last administered on 08/11/17 09:22; Start 08/07/17 at 09:00 Lisinopril (Prinivil) 20 mg DAILY PO Last administered on 08/11/17 09:20; Start 08/07/17 at 09:00 Metoprolol Tartrate (Lopressor) 25 mg DAILY PO Last administered on 08/11/17 09 :21; Start 08/07/17 at 09:00 Allopurinol (Zyloprim) 300 mg DAILY PO Last administered on 08/11/17 09:22; Start 08/07/17 at 09:00 Aspirin (Children'S Aspirin) 81 mg DAILY PO Last administered on 08/11/17 09:21 ; Start 08/07/17 at 09:00 Docusate Sodium (Colace) 100 mg DAILY PO Last administered on 08/11/17 09:21; Start 08/07/17 at 09:00 Levothyroxine Sodium (Synthroid) 25 mcg DAILY06 PO Last administered on at 05:04; Start 08/07/17 at 06:00 Lidocaine (Lidoderm) 1 patch DAILY TP Last administered on 08/11/17 12:00; Start 08/07/17 at 09:00 Metformin HCl (Glucophage) 500 mg DAILYWBKFT PO Last administered on 08/11/17 09:20; Start 08/07/17 at 08:00 Pantoprazole Sodium (Protonix) 40 mg BIDBFRMEAL PO Last administered on at 16:30; Start 08/07/17 at 07:30 Info (Do NOT chart on this placeholder) 1 each 1X ONCE MC ; Start 08/07/17 at 09 :00; Stop 08/07/17 at 09:01; Status Cancel Divalproex Sodium (Depakote Sprinkles) 250 mg BID PO Last administered on at 07:36; Start 08/07/17 at 21:00; Stop 08/10/17 at 18:50; Status DC Duloxetine HCl (Cymbalta) 30 mg DAILY PO Last administered on 08/11/17at 09:20; Start 08/08/17 at 09:00 Olanzapine (ZyPREXA ZYDIS) 2.5 mg PRN Q2HR PRN PO AGITATION/PSYCHOSIS; Start at 18:45 Divalproex Sodium (Depakote Sprinkles) 500 mg BID PO Last administered on at 19:50; Start 08/10/17 at 21:00 Active Scripts Active Reported Colace (Docusate Sodium) 100 Mg Capsule 100 Mg PO DAILY Lipitor (Atorvastatin Calcium) 20 Mg Tablet 20 Mg PO QHS Lidocaine 1 Each Adh..patch 1 Each TP DAILY Protonix (Pantoprazole Sodium) 40 Mg Tablet.dr 40 Mg PO BIDBFRMEAL Metoprolol Tartrate 25 Mg Tablet 25 Mg PO DAILY Glucophage (Metformin Hcl) 500 Mg Tablet 500 Mg PO DAILYWBKFT Lisinopril 20 Mg Tablet 20 Mg PO DAILY Levothyroxine Sodium 25 Mcg Tablet 25 Mcg PO DAILYAC Hydrochlorothiazide Tablet (Hydrochlorothiazide) 25 Mg Tablet 25 Mg PO DAILY Gabapentin 300 Mg Capsule 300 Mg PO BID Vitamin B-12 (Cyanocobalamin (Vitamin B-12)) 100 Mcg Tablet 1,000 Mcg PO DAILY Aspirin 81 Mg Tab.chew 81 Mg PO DAILY Allopurinol 300 Mg Tablet 300 Mg PO DAILY I have reviewed the current psychotropics carefully including drug interactions. Risk benefit ratio favors no change other than as noted in my dictated progress note. Diagnosis: Problems: (1) Anxiety disorder (2) Impulse control disorder (3) Bipolar affective, mixed (4) Mild cognitive impairment (5) Cerebrovascular accident (CVA) due to vascular occlusion MELISSA CARDOZO MD Aug 11, 2017 20:49
--- NOTE | 2017-08-11 20:58 | PN ---
DATE: 08/10/2017 This is a late entry for 08/10/2017 covers elements not covered in my initial note of 08/10/2017. SUBJECTIVE: I met with the patient in the evening. The patient slept for 3/4 hours previous evening. He remains somewhat anxious, hyperverbal at times. REVIEW OF SYSTEMS: Complains of back pain. No CV, , pulmonary, eye, ENT system symptoms on review. MENTAL STATUS EXAM: Oriented to place and situation. Speech coherent, rapid at times somewhat labile in his mood. Abstraction fair, computation unable to do serial 7's. Short-term memory impaired. Remembered 2/3 objects at 3 minutes. No active suicidal or homicidal ideation. Attention span short. Language function intact. LABORATORY DATA: Reviewed. IMPRESSION: Bipolar 1 disorder, mixed with psychotic features. PLAN: Valproic acid level is 21 on Depakote 250 b.i.d. We will increase this to 500 b.i.d. Check CBC, CMP, valproic acid level, ammonia level in 3 days. Continue rest unchanged for now. MAN Celeste CARDOZO MD DR: MILTON/daniel JOB#: [id number] / [id number]
[2017-08-12] MEDS: LEVOTHYROXINE 25 MCG TABLET. PO SCH (05:11)
[2017-08-12 06:20] VITALS: BP 126/82
[2017-08-12] MEDS: LIDOCAINE (700MG/PATCH) PATCH. TP SCH (08:42)
[2017-08-12] MEDS: DULoxetine HCL 30 MG CAPSULE.DR PO SCH (08:43)
[2017-08-12] MEDS: NICOTINE 21MG PATCH. TD SCH (08:43)
[2017-08-12] MEDS: METOPROLOL TART IMMED RELEASE 25 MG TABLET PO SCH (08:44)
[2017-08-12] MEDS: metFORMIN 500 MG TABLET PO SCH (08:44)
[2017-08-12] MEDS: DIVALPROEX 125 MG CAP.SPRINK PO SCH ×2 (08:44→19:43)
[2017-08-12] MEDS: hydroCHLOROthiazide 25 MG TABLET PO SCH (08:44)
[2017-08-12] MEDS: ALLOPURINOL 300 MG TABLET. PO SCH (08:45)
[2017-08-12] MEDS: DOCUSATE SODIUM 100 MG CAPSULE PO SCH (08:45)
[2017-08-12] MEDS: PANTOPRAZOLE 40 MG TABLET. PO SCH ×2 (08:45→16:29)
[2017-08-12] MEDS: CYANOCOBALAMIN (VITAMIN B-12) 1,000 MCG TABLET. PO SCH (08:45)
[2017-08-12] MEDS: GABAPENTIN 300 MG CAPSULE. PO SCH ×2 (08:45→19:42)
[2017-08-12] MEDS: ASPIRIN 81 MG TAB.CHEW PO SCH (08:46)
[2017-08-12] MEDS: LISINOPRIL 20 MG TABLET PO SCH (08:46)
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
[2017-08-12 16:13] VITALS: BP 150/97
[2017-08-12] MEDS: ATORVASTATIN CALCIUM 20 MG TABLET PO SCH (19:43)
[2017-08-12] MEDS: MAG HYDROX/AL HYDROX/SIMETH 30 ML ORAL.SUSP PO PRN (20:42)
--- NOTE | 2017-08-12 20:44 | PDOC ---
Exam Note: Nabeel Note: Please also refer to the separate dictated note~for this date of service dictated separately.~Patient seen individually. Discussed the patient with Nursing staff reviewed the chart.~Reviewed interim history and current functioning. Reviewed vital signs,~Labs/ Radiology~and current medications noted below. Continue current treatment with the changes noted in the dictated addendum note Assessment: Vital Signs: Vital Signs Date Time Temp Pulse Resp B/P (MAP) Pulse Ox O2 Delivery O2 Flow Rate FiO2 08/12/17 16:13 97.9 89 22 150/97 (114) 94 08/10/17 16:34 Room Air I&O Intake and Output 08/12/17 07:00 Intake Total 1440 ml Balance 1440 ml Intake Oral 1440 ml Current Medications: Meds: Current Medications Acetaminophen (Tylenol) 650 mg PRN Q6HRS PRN PO PAIN / TEMP Last administered on 08/10/17 05:29; Start 08/06/17 at 23:45 Multi-Ingredient Ointment (Analgesic [place]) 1 geovanna PRN QID PRN TP MUSCLE PAIN; Start 08/06/17 at 23:45 Al Hydroxide/Mg Hydroxide (Mylanta Plus Xs) 15 ml PRN AFTMEALHC PRN PO DYSPEPSIA Last administered on 08/12/17 20:42; Start 08/06/17 at 23:45 Magnesium Hydroxide (Milk Of Magnesia) 2,400 mg PRN QHS PRN PO CONSTIPATION; Start 08/06/17 at 23:45 Nicotine (Nicoderm Cq 21mg) 1 patch DAILY TD Last administered on 08/12/17 08: 43; Start 08/07/17 at 09:00 Atorvastatin Calcium (Lipitor) 20 mg QHS PO Last administered on 08/12/17 19:43 ; Start 08/07/17 at 21:00 Cyanocobalamin (Vitamin B-12) 1,000 mcg DAILY PO Last administered on 08/12/17 08:45; Start 08/07/17 at 09:00 Gabapentin (Neurontin) 300 mg BID PO Last administered on 08/12/17 19:42; Start 08/07/17 at 09:00 Hydrochlorothiazide (Hydrodiuril) 25 mg DAILY PO Last administered on 08/12/17 08:44; Start 08/07/17 at 09:00 Lisinopril (Prinivil) 20 mg DAILY PO Last administered on 08/12/17 08:46; Start 08/07/17 at 09:00 Metoprolol Tartrate (Lopressor) 25 mg DAILY PO Last administered on 08/12/17 08 :44; Start 08/07/17 at 09:00 Allopurinol (Zyloprim) 300 mg DAILY PO Last administered on 08/12/17 08:45; Start 08/07/17 at 09:00 Aspirin (Children'S Aspirin) 81 mg DAILY PO Last administered on 08/12/17 08:46 ; Start 08/07/17 at 09:00 Docusate Sodium (Colace) 100 mg DAILY PO Last administered on 08/12/17 08:45; Start 08/07/17 at 09:00 Levothyroxine Sodium (Synthroid) 25 mcg DAILY06 PO Last administered on 05:11; Start 08/07/17 at 06:00 Lidocaine (Lidoderm) 1 patch DAILY TP Last administered on 08/12/17 08:42; Start 08/07/17 at 09:00 Metformin HCl (Glucophage) 500 mg DAILYWBKFT PO Last administered on 08/12/17 08:44; Start 08/07/17 at 08:00 Pantoprazole Sodium (Protonix) 40 mg BIDBFRMEAL PO Last administered on 16:29; Start 08/07/17 at 07:30 Info (Do NOT chart on this placeholder) 1 each 1X ONCE MC ; Start 08/07/17 at 09 :00; Stop 08/07/17 at 09:01; Status Cancel Divalproex Sodium (Depakote Sprinkles) 250 mg BID PO Last administered on at 07:36; Start 08/07/17 at 21:00; Stop 08/10/17 at 18:50; Status DC Duloxetine HCl (Cymbalta) 30 mg DAILY PO Last administered on 08/12/17 08:43; Start 08/08/17 at 09:00 Olanzapine (ZyPREXA ZYDIS) 2.5 mg PRN Q2HR PRN PO AGITATION/PSYCHOSIS; Start at 18:45 Divalproex Sodium (Depakote Sprinkles) 500 mg BID PO Last administered on at 19:43; Start 08/10/17 at 21:00 Active Scripts Active Reported Colace (Docusate Sodium) 100 Mg Capsule 100 Mg PO DAILY Lipitor (Atorvastatin Calcium) 20 Mg Tablet 20 Mg PO QHS Lidocaine 1 Each Adh..patch 1 Each TP DAILY Protonix (Pantoprazole Sodium) 40 Mg Tablet.dr 40 Mg PO BIDBFRMEAL Metoprolol Tartrate 25 Mg Tablet 25 Mg PO DAILY Glucophage (Metformin Hcl) 500 Mg Tablet 500 Mg PO DAILYWBKFT Lisinopril 20 Mg Tablet 20 Mg PO DAILY Levothyroxine Sodium 25 Mcg Tablet 25 Mcg PO DAILYAC Hydrochlorothiazide Tablet (Hydrochlorothiazide) 25 Mg Tablet 25 Mg PO DAILY Gabapentin 300 Mg Capsule 300 Mg PO BID Vitamin B-12 (Cyanocobalamin (Vitamin B-12)) 100 Mcg Tablet 1,000 Mcg PO DAILY Aspirin 81 Mg Tab.chew 81 Mg PO DAILY Allopurinol 300 Mg Tablet 300 Mg PO DAILY I have reviewed the current psychotropics carefully including drug interactions. Risk benefit ratio favors no change other than as noted in my dictated progress note. Diagnosis: Problems: (1) Anxiety disorder (2) Impulse control disorder (3) Bipolar affective, mixed (4) Mild cognitive impairment (5) Cerebrovascular accident (CVA) due to vascular occlusion MELISSA CARDOZO MD Aug 12, 2017 20:44
[2017-08-13] MEDS: LEVOTHYROXINE 25 MCG TABLET. PO SCH (05:35)
[2017-08-13 06:20] VITALS: BP 134/81
[2017-08-13] MEDS: ALLOPURINOL 300 MG TABLET. PO SCH (09:16)
[2017-08-13] MEDS: DOCUSATE SODIUM 100 MG CAPSULE PO SCH (09:16)
[2017-08-13] MEDS: hydroCHLOROthiazide 25 MG TABLET PO SCH (09:16)
[2017-08-13] MEDS: PANTOPRAZOLE 40 MG TABLET. PO SCH ×2 (09:16→17:21)
[2017-08-13] MEDS: DIVALPROEX 125 MG CAP.SPRINK PO SCH ×2 (09:16→20:06)
[2017-08-13] MEDS: ASPIRIN 81 MG TAB.CHEW PO SCH (09:16)
[2017-08-13] MEDS: CYANOCOBALAMIN (VITAMIN B-12) 1,000 MCG TABLET. PO SCH (09:16)
[2017-08-13] MEDS: GABAPENTIN 300 MG CAPSULE. PO SCH ×2 (09:16→20:06)
[2017-08-13] MEDS: METOPROLOL TART IMMED RELEASE 25 MG TABLET PO SCH (09:17)
[2017-08-13] MEDS: LISINOPRIL 20 MG TABLET PO SCH (09:17)
[2017-08-13] MEDS: NICOTINE 21MG PATCH. TD SCH (09:17)
[2017-08-13] MEDS: metFORMIN 500 MG TABLET PO SCH (09:17)
[2017-08-13] MEDS: DULoxetine HCL 30 MG CAPSULE.DR PO SCH (09:17)
[2017-08-13] MEDS: LIDOCAINE (700MG/PATCH) PATCH. TP SCH (09:18)
[2017-08-13 16:18] VITALS: BP 132/79
[2017-08-13] MEDS: ATORVASTATIN CALCIUM 20 MG TABLET PO SCH (20:06)
[2017-08-13] MEDS: MAG HYDROX/AL HYDROX/SIMETH 30 ML ORAL.SUSP PO PRN (22:06)
--- NOTE | 2017-08-13 22:23 | PDOC ---
Exam Note: Nabeel Note: Please also refer to the separate dictated note~for this date of service dictated separately.~Patient seen individually. Discussed the patient with Nursing staff reviewed the chart.~Reviewed interim history and current functioning. Reviewed vital signs,~Labs/ Radiology~and current medications noted below. Continue current treatment with the changes noted in the dictated addendum note Assessment: Vital Signs: Vital Signs Date Time Temp Pulse Resp B/P (MAP) Pulse Ox O2 Delivery O2 Flow Rate FiO2 08/13/17 16:18 97.5 67 18 132/79 (96) 98 Room Air I&O Intake and Output 08/13/17 07:00 Intake Total 1440 ml Balance 1440 ml Intake Oral 1440 ml # Voids 1 Current Medications: Meds: Current Medications Acetaminophen (Tylenol) 650 mg PRN Q6HRS PRN PO PAIN / TEMP Last administered on 08/10/17at 05:29; Start 08/06/17 at 23:45 Multi-Ingredient Ointment (Analgesic [place]) 1 geovanna PRN QID PRN TP MUSCLE PAIN; Start 08/06/17 at 23:45 Al Hydroxide/Mg Hydroxide (Mylanta Plus Xs) 15 ml PRN AFTMEALHC PRN PO DYSPEPSIA Last administered on 08/13/17at 22:06; Start 08/06/17 at 23:45 Magnesium Hydroxide (Milk Of Magnesia) 2,400 mg PRN QHS PRN PO CONSTIPATION; Start 08/06/17 at 23:45 Nicotine (Nicoderm Cq 21mg) 1 patch DAILY TD Last administered on 08/13/17at 09: 17; Start 08/07/17 at 09:00 Atorvastatin Calcium (Lipitor) 20 mg QHS PO Last administered on 08/13/17at 20:06 ; Start 08/07/17 at 21:00 Cyanocobalamin (Vitamin B-12) 1,000 mcg DAILY PO Last administered on 08/13/17 09:16; Start 08/07/17 at 09:00 Gabapentin (Neurontin) 300 mg BID PO Last administered on 08/13/17at 20:06; Start 08/07/17 at 09:00 Hydrochlorothiazide (Hydrodiuril) 25 mg DAILY PO Last administered on 08/13/17at 09:16; Start 08/07/17 at 09:00 Lisinopril (Prinivil) 20 mg DAILY PO Last administered on 08/13/17 09:17; Start 08/07/17 at 09:00 Metoprolol Tartrate (Lopressor) 25 mg DAILY PO Last administered on 08/13/17 09 :17; Start 08/07/17 at 09:00 Allopurinol (Zyloprim) 300 mg DAILY PO Last administered on 08/13/17 09:16; Start 08/07/17 at 09:00 Aspirin (Children'S Aspirin) 81 mg DAILY PO Last administered on 08/13/17 09:16 ; Start 08/07/17 at 09:00 Docusate Sodium (Colace) 100 mg DAILY PO Last administered on 08/13/17 09:16; Start 08/07/17 at 09:00 Levothyroxine Sodium (Synthroid) 25 mcg DAILY06 PO Last administered on 05:35; Start 08/07/17 at 06:00 Lidocaine (Lidoderm) 1 patch DAILY TP Last administered on 08/13/17 09:18; Start 08/07/17 at 09:00 Metformin HCl (Glucophage) 500 mg DAILYWBKFT PO Last administered on 08/13/17 09:17; Start 08/07/17 at 08:00 Pantoprazole Sodium (Protonix) 40 mg BIDBFRMEAL PO Last administered on 17:21; Start 08/07/17 at 07:30 Info (Do NOT chart on this placeholder) 1 each 1X ONCE MC ; Start 08/07/17 at 09 :00; Stop 08/07/17 at 09:01; Status Cancel Divalproex Sodium (Depakote Sprinkles) 250 mg BID PO Last administered on at 07:36; Start 08/07/17 at 21:00; Stop 08/10/17 at 18:50; Status DC Duloxetine HCl (Cymbalta) 30 mg DAILY PO Last administered on 08/13/17 09:17; Start 08/08/17 at 09:00 Olanzapine (ZyPREXA ZYDIS) 2.5 mg PRN Q2HR PRN PO AGITATION/PSYCHOSIS; Start at 18:45 Divalproex Sodium (Depakote Sprinkles) 500 mg BID PO Last administered on 6/7/ 18at 20:06; Start 08/10/17 at 21:00 Active Scripts Active Reported Colace (Docusate Sodium) 100 Mg Capsule 100 Mg PO DAILY Lipitor (Atorvastatin Calcium) 20 Mg Tablet 20 Mg PO QHS Lidocaine 1 Each Adh..patch 1 Each TP DAILY Protonix (Pantoprazole Sodium) 40 Mg Tablet.dr 40 Mg PO BIDBFRMEAL Metoprolol Tartrate 25 Mg Tablet 25 Mg PO DAILY Glucophage (Metformin Hcl) 500 Mg Tablet 500 Mg PO DAILYWBKFT Lisinopril 20 Mg Tablet 20 Mg PO DAILY Levothyroxine Sodium 25 Mcg Tablet 25 Mcg PO DAILYAC Hydrochlorothiazide Tablet (Hydrochlorothiazide) 25 Mg Tablet 25 Mg PO DAILY Gabapentin 300 Mg Capsule 300 Mg PO BID Vitamin B-12 (Cyanocobalamin (Vitamin B-12)) 100 Mcg Tablet 1,000 Mcg PO DAILY Aspirin 81 Mg Tab.chew 81 Mg PO DAILY Allopurinol 300 Mg Tablet 300 Mg PO DAILY I have reviewed the current psychotropics carefully including drug interactions. Risk benefit ratio favors no change other than as noted in my dictated progress note. Diagnosis: Problems: (1) Anxiety disorder (2) Impulse control disorder (3) Bipolar affective, mixed (4) Mild cognitive impairment (5) Cerebrovascular accident (CVA) due to vascular occlusion MELISSA CARDOZO MD Aug 13, 2017 22:23
[2017-08-14 05:44] VITALS: BP 139/89
[2017-08-14] MEDS: LEVOTHYROXINE 25 MCG TABLET. PO SCH (06:41)
[2017-08-14 07:35] LABS: BASO # 0.1 x10^3/uL (0.0-0.2); BASO % 1 % (0-3); EOS # 0.3 x10^3/uL (0.0-0.7); EOS % 4 % (0-3); HEMATOCRIT 39.9 % (39.0-53.0); HEMOGLOBIN 13.2 g/dL (13.0-17.5); LYMPH # 1.8 x10^3/uL (1.0-4.8); LYMPH % 21 % (24-48); MEAN CORPUSCULAR HEMOGLOBIN 32 pg (25-35); MEAN CORPUSCULAR HGB CONC 33 g/dL (31-37); MEAN CORPUSCULAR VOLUME 95 fL (79-100); MONO % 12 % (0-9); NEUT # 5.5 x10^3uL (1.8-7.7); NEUT % 63 % (31-73); PLATELET COUNT 276 x10^3/uL (140-400); RED BLOOD COUNT 4.18 x10^6/uL (4.30-5.70); RED CELL DISTRIBUTION WIDTH 16.2 % (11.5-14.5); WHITE BLOOD COUNT 8.7 x10^3/uL (4.0-11.0)
[2017-08-14 07:51] LABS: ALBUMIN 2.9 g/dL (3.4-5.0); ALBUMIN/GLOBULIN RATIO 0.6 (1.0-1.7); ALK PHOS 72 U/L (46-116); ALT (SGPT) 24 U/L (16-63); ANION GAP 6 (6-14); AST (SGOT) 27 U/L (15-37); BLOOD UREA NITROGEN 28 mg/dL (8-26); BUN/CREATININE RATIO 25 (6-20); CALCIUM 9.7 mg/dL (8.5-10.1); CARBON DIOXIDE 33 mmol/L (21-32); CHLORIDE 102 mmol/L (98-107); CREATININE 1.1 mg/dL (0.7-1.3); GFR 65.4; GLUCOSE 123 mg/dL (70-99); SODIUM 141 mmol/L (136-145); TOTAL BILIRUBIN 0.3 mg/dL (0.2-1.0); TOTAL PROTEIN 7.7 g/dL (6.4-8.2)
[2017-08-14 07:53] LABS: VAL ACID 46 mcg/mL (50-100)
[2017-08-14] MEDS: LIDOCAINE (700MG/PATCH) PATCH. TP SCH (09:25)
[2017-08-14] MEDS: NICOTINE 21MG PATCH. TD SCH (09:26)
[2017-08-14] MEDS: GABAPENTIN 300 MG CAPSULE. PO SCH ×2 (09:27→20:45)
[2017-08-14] MEDS: DIVALPROEX 125 MG CAP.SPRINK PO SCH ×2 (09:27→20:45)
[2017-08-14] MEDS: PANTOPRAZOLE 40 MG TABLET. PO SCH ×2 (09:27→18:03)
[2017-08-14] MEDS: ALLOPURINOL 300 MG TABLET. PO SCH (09:28)
[2017-08-14] MEDS: CYANOCOBALAMIN (VITAMIN B-12) 1,000 MCG TABLET. PO SCH (09:28)
[2017-08-14] MEDS: hydroCHLOROthiazide 25 MG TABLET PO SCH (09:28)
[2017-08-14] MEDS: DULoxetine HCL 30 MG CAPSULE.DR PO SCH (09:28)
[2017-08-14] MEDS: ASPIRIN 81 MG TAB.CHEW PO SCH (09:28)
[2017-08-14] MEDS: metFORMIN 500 MG TABLET PO SCH (09:28)
[2017-08-14] MEDS: METOPROLOL TART IMMED RELEASE 25 MG TABLET PO SCH (09:28)
[2017-08-14] MEDS: LISINOPRIL 20 MG TABLET PO SCH (09:29)
[2017-08-14] MEDS: DOCUSATE SODIUM 100 MG CAPSULE PO SCH (09:29)
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
[2017-08-14 15:51] VITALS: BP 145/90
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
[2017-08-14] MEDS: ATORVASTATIN CALCIUM 20 MG TABLET PO SCH (20:45)
--- NOTE | 2017-08-14 23:10 | PDOC ---
Exam Note: Nabeel Note: Please also refer to the separate dictated note~for this date of service dictated separately.~Patient seen individually. Discussed the patient with Nursing staff reviewed the chart.~Reviewed interim history and current functioning. Reviewed vital signs,~Labs/ Radiology~and current medications noted below. Continue current treatment with the changes noted in the dictated addendum note Assessment: Vital Signs: Vital Signs Date Time Temp Pulse Resp B/P (MAP) Pulse Ox O2 Delivery O2 Flow Rate FiO2 08/14/17 15:51 98.1 68 16 145/90 (108) 95 08/13/17 16:18 Room Air I&O Intake and Output 08/14/17 07:00 Intake Total 920 ml Balance 920 ml Intake Oral 920 ml Labs: Laboratory Tests Test 08/14/17 07:02 White Blood Count 8.7 x10^3/uL (4.0-11.0) Red Blood Count 4.18 x10^6/uL (4.30-5.70) L Hemoglobin 13.2 g/dL (13.0-17.5) Hematocrit 39.9 % (39.0-53.0) Mean Corpuscular Volume 95 fL (79-100) Mean Corpuscular Hemoglobin 32 pg (25-35) Mean Corpuscular Hemoglobin Concent 33 g/dL (31-37) Red Cell Distribution Width 16.2 % (11.5-14.5) H Platelet Count 276 x10^3/uL (140-400) Neutrophils (%) (Auto) 63 % (31-73) Lymphocytes (%) (Auto) 21 % (24-48) L Monocytes (%) (Auto) 12 % (0-9) H Eosinophils (%) (Auto) 4 % (0-3) H Basophils (%) (Auto) 1 % (0-3) Neutrophils # (Auto) 5.5 x10^3uL (1.8-7.7) Lymphocytes # (Auto) 1.8 x10^3/uL (1.0-4.8) Monocytes # (Auto) 1.0 x10^3/uL (0.0-1.1) Eosinophils # (Auto) 0.3 x10^3/uL (0.0-0.7) Basophils # (Auto) 0.1 x10^3/uL (0.0-0.2) Sodium Level 141 mmol/L (136-145) Potassium Level 5.0 mmol/L (3.5-5.1) Chloride Level 102 mmol/L (98-107) Carbon Dioxide Level 33 mmol/L (21-32) H Anion Gap 6 (6-14) Blood Urea Nitrogen 28 mg/dL (8-26) H Creatinine 1.1 mg/dL (0.7-1.3) Estimated GFR (Cockcroft-Gault) 65.4 BUN/Creatinine Ratio 25 (6-20) H Glucose Level 123 mg/dL (70-99) H Calcium Level 9.7 mg/dL (8.5-10.1) Total Bilirubin 0.3 mg/dL (0.2-1.0) Aspartate Amino Transferase (AST) 27 U/L (15-37) Alanine Aminotransferase (ALT) 24 U/L (16-63) Alkaline Phosphatase 72 U/L (46-116) Ammonia < 10 mcmol/L (11-34) L Total Protein 7.7 g/dL (6.4-8.2) Albumin 2.9 g/dL (3.4-5.0) L Albumin/Globulin Ratio 0.6 (1.0-1.7) L Valproic Acid Level 46 mcg/mL (50-100) L Valproic Acid Last Dose Date 08/13/2017 Valproic Acid Last Dose Time 2100 Current Medications: Meds: Current Medications Acetaminophen (Tylenol) 650 mg PRN Q6HRS PRN PO PAIN / TEMP Last administered on 08/10/17at 05:29; Start 08/06/17 at 23:45 Multi-Ingredient Ointment (Analgesic [place]) 1 geovanna PRN QID PRN TP MUSCLE PAIN; Start 08/06/17 at 23:45 Al Hydroxide/Mg Hydroxide (Mylanta Plus Xs) 15 ml PRN AFTMEALHC PRN PO DYSPEPSIA Last administered on 08/13/17at 22:06; Start 08/06/17 at 23:45 Magnesium Hydroxide (Milk Of Magnesia) 2,400 mg PRN QHS PRN PO CONSTIPATION; Start 08/06/17 at 23:45 Nicotine (Nicoderm Cq 21mg) 1 patch DAILY TD Last administered on 08/14/17at 09: 26; Start 08/07/17 at 09:00 Atorvastatin Calcium (Lipitor) 20 mg QHS PO Last administered on 08/14/17 20:45 ; Start 08/07/17 at 21:00 Cyanocobalamin (Vitamin B-12) 1,000 mcg DAILY PO Last administered on 08/14/17 09:28; Start 08/07/17 at 09:00 Gabapentin (Neurontin) 300 mg BID PO Last administered on 08/14/17 20:45; Start 08/07/17 at 09:00 Hydrochlorothiazide (Hydrodiuril) 25 mg DAILY PO Last administered on 08/14/17 09:28; Start 08/07/17 at 09:00 Lisinopril (Prinivil) 20 mg DAILY PO Last administered on 08/14/17 09:29; Start 08/07/17 at 09:00 Metoprolol Tartrate (Lopressor) 25 mg DAILY PO Last administered on 08/14/17 09 :28; Start 08/07/17 at 09:00 Allopurinol (Zyloprim) 300 mg DAILY PO Last administered on 08/14/17 09:28; Start 08/07/17 at 09:00 Aspirin (Children'S Aspirin) 81 mg DAILY PO Last administered on 08/14/17 09:28 ; Start 08/07/17 at 09:00 Docusate Sodium (Colace) 100 mg DAILY PO Last administered on 08/14/17 09:29; Start 08/07/17 at 09:00 Levothyroxine Sodium (Synthroid) 25 mcg DAILY06 PO Last administered on 06:41; Start 08/07/17 at 06:00 Lidocaine (Lidoderm) 1 patch DAILY TP Last administered on 08/14/17 09:25; Start 08/07/17 at 09:00 Metformin HCl (Glucophage) 500 mg DAILYWBKFT PO Last administered on 08/14/17 09:28; Start 08/07/17 at 08:00 Pantoprazole Sodium (Protonix) 40 mg BIDBFRMEAL PO Last administered on 18:03; Start 08/07/17 at 07:30 Info (Do NOT chart on this placeholder) 1 each 1X ONCE MC ; Start 08/07/17 at 09 :00; Stop 08/07/17 at 09:01; Status Cancel Divalproex Sodium (Depakote Sprinkles) 250 mg BID PO Last administered on at 07:36; Start 08/07/17 at 21:00; Stop 08/10/17 at 18:50; Status DC Duloxetine HCl (Cymbalta) 30 mg DAILY PO Last administered on 08/14/17at 09:28; Start 08/08/17 at 09:00 Olanzapine (ZyPREXA ZYDIS) 2.5 mg PRN Q2HR PRN PO AGITATION/PSYCHOSIS; Start at 18:45 Divalproex Sodium (Depakote Sprinkles) 500 mg BID PO Last administered on at 09:27; Start 08/10/17 at 21:00; Stop 08/14/17 at 17:21; Status DC Divalproex Sodium (Depakote Sprinkles) 500 mg DAILY@0900 PO ; Start 08/15/17 at 09:00 Divalproex Sodium (Depakote Sprinkles) 750 mg HS PO Last administered on at 20:45; Start 08/14/17 at 21:00 Active Scripts Active Reported Colace (Docusate Sodium) 100 Mg Capsule 100 Mg PO DAILY Lipitor (Atorvastatin Calcium) 20 Mg Tablet 20 Mg PO QHS Lidocaine 1 Each Adh..patch 1 Each TP DAILY Protonix (Pantoprazole Sodium) 40 Mg Tablet.dr 40 Mg PO BIDBFRMEAL Metoprolol Tartrate 25 Mg Tablet 25 Mg PO DAILY Glucophage (Metformin Hcl) 500 Mg Tablet 500 Mg PO DAILYWBKFT Lisinopril 20 Mg Tablet 20 Mg PO DAILY Levothyroxine Sodium 25 Mcg Tablet 25 Mcg PO DAILYAC Hydrochlorothiazide Tablet (Hydrochlorothiazide) 25 Mg Tablet 25 Mg PO DAILY Gabapentin 300 Mg Capsule 300 Mg PO BID Vitamin B-12 (Cyanocobalamin (Vitamin B-12)) 100 Mcg Tablet 1,000 Mcg PO DAILY Aspirin 81 Mg Tab.chew 81 Mg PO DAILY Allopurinol 300 Mg Tablet 300 Mg PO DAILY I have reviewed the current psychotropics carefully including drug interactions. Risk benefit ratio favors no change other than as noted in my dictated progress note. Diagnosis: Problems: (1) Anxiety disorder (2) Impulse control disorder (3) Bipolar affective, mixed (4) Mild cognitive impairment (5) Cerebrovascular accident (CVA) due to vascular occlusion MELISSA CARDOZO MD Aug 14, 2017 23:10
[2017-08-15 05:37] VITALS: BP 149/78
[2017-08-15] MEDS: LEVOTHYROXINE 25 MCG TABLET. PO SCH (06:06)
[2017-08-15] MEDS: DOCUSATE SODIUM 100 MG CAPSULE PO SCH (08:12)
[2017-08-15] MEDS: LIDOCAINE (700MG/PATCH) PATCH. TP SCH (08:12)
[2017-08-15] MEDS: CYANOCOBALAMIN (VITAMIN B-12) 1,000 MCG TABLET. PO SCH (08:12)
[2017-08-15] MEDS: NICOTINE 21MG PATCH. TD SCH (08:12)
[2017-08-15] MEDS: ALLOPURINOL 300 MG TABLET. PO SCH (08:12)
[2017-08-15] MEDS: hydroCHLOROthiazide 25 MG TABLET PO SCH (08:12)
[2017-08-15] MEDS: DULoxetine HCL 30 MG CAPSULE.DR PO SCH (08:12)
[2017-08-15] MEDS: ASPIRIN 81 MG TAB.CHEW PO SCH (08:12)
[2017-08-15] MEDS: PANTOPRAZOLE 40 MG TABLET. PO SCH ×2 (08:13→17:26)
[2017-08-15] MEDS: GABAPENTIN 300 MG CAPSULE. PO SCH ×2 (08:13→20:02)
[2017-08-15] MEDS: LISINOPRIL 20 MG TABLET PO SCH (08:13)
[2017-08-15] MEDS: METOPROLOL TART IMMED RELEASE 25 MG TABLET PO SCH (08:13)
[2017-08-15] MEDS: metFORMIN 500 MG TABLET PO SCH (08:13)
[2017-08-15] MEDS: DIVALPROEX 125 MG CAP.SPRINK PO SCH ×2 (08:14→20:02)
--- NOTE | 2017-08-15 12:43 | PN ---
DATE: 08/14/2017 This late entry, 08/14/2017, covers elements not covered in my initial note of 08/14/2017. SUBJECTIVE: I met with the patient in the evening at length in his room. Overall, the patient remains somewhat hyperverbal, anxious at times, still perseverating about his taking his money and he cannot get her off the bank account because he did not do that as part of the divorce. REVIEW OF SYSTEMS: Complains of back pain. No CV, , pulmonary, eye system symptoms on review. MENTAL STATUS EXAM: Oriented to himself and situation. Speech coherent, at times rapid, abstraction fair, computation impaired, language function intact, attention span short. Mood and affect somewhat anxious. LABORATORY DATA: Reviewed. IMPRESSION: Bipolar 1 disorder, mixed with psychotic features; cognitive disorder, unspecified. PLAN: Valproic acid level is 46 on Depakote 500 b.i.d. and we will increase this to 500 a.m. and 750 at bedtime. Check CBC, CMP, ammonia level, valproic acid level in 3 days. Adjust to reach therapeutic level. Continue Cymbalta current dosage along with Zyprexa p.r.n. MAN Celeste CARDOZO MD DR: MILTON/daniel JOB#: [id number] / [id number]
[2017-08-15 16:13] VITALS: BP 129/82
[2017-08-15] MEDS: ATORVASTATIN CALCIUM 20 MG TABLET PO SCH (20:01)
[2017-08-15] MEDS: MAG HYDROX/AL HYDROX/SIMETH 30 ML ORAL.SUSP PO PRN (21:12)
[2017-08-16] MEDS: LEVOTHYROXINE 25 MCG TABLET. PO SCH (05:23)
[2017-08-16 05:35] VITALS: BP 132/87
[2017-08-16] MEDS: NICOTINE 21MG PATCH. TD SCH (08:14)
[2017-08-16] MEDS: LIDOCAINE (700MG/PATCH) PATCH. TP SCH (08:14)
[2017-08-16] MEDS: DIVALPROEX 125 MG CAP.SPRINK PO SCH ×2 (08:14→20:32)
[2017-08-16] MEDS: CYANOCOBALAMIN (VITAMIN B-12) 1,000 MCG TABLET. PO SCH (08:14)
[2017-08-16] MEDS: ALLOPURINOL 300 MG TABLET. PO SCH (08:15)
[2017-08-16] MEDS: DULoxetine HCL 30 MG CAPSULE.DR PO SCH (08:15)
[2017-08-16] MEDS: PANTOPRAZOLE 40 MG TABLET. PO SCH ×2 (08:15→17:32)
[2017-08-16] MEDS: ASPIRIN 81 MG TAB.CHEW PO SCH (08:15)
[2017-08-16] MEDS: hydroCHLOROthiazide 25 MG TABLET PO SCH (08:15)
[2017-08-16] MEDS: LISINOPRIL 20 MG TABLET PO SCH (08:15)
[2017-08-16] MEDS: GABAPENTIN 300 MG CAPSULE. PO SCH ×2 (08:16→20:31)
[2017-08-16] MEDS: DOCUSATE SODIUM 100 MG CAPSULE PO SCH (08:16)
[2017-08-16] MEDS: METOPROLOL TART IMMED RELEASE 25 MG TABLET PO SCH (08:16)
[2017-08-16] MEDS: metFORMIN 500 MG TABLET PO SCH (08:17)
[2017-08-16 16:27] VITALS: BP 124/76
--- NOTE | 2017-08-16 20:10 | PDOC ---
Exam Note: Nabeel Note: Late entry for date of service August 15, 2017. Please also refer to the separate dictated note~for this date of service dictated separately.~Patient seen individually. Discussed the patient with Nursing staff reviewed the chart.~ Reviewed interim history and current functioning. Reviewed vital signs,~Labs/ Radiology~and current medications noted below. Continue current treatment with the changes noted in the dictated addendum note Assessment: Vital Signs: VS - Last 72 Hours, by Label Date Time Temp Pulse Resp B/P (MAP) Pulse Ox O2 Delivery O2 Flow Rate FiO2 08/16/17 16:27 98.0 73 18 124/76 (92) 96 08/16/17 08:16 90 132/87 08/16/17 08:15 90 132/87 08/16/17 05:35 97.4 90 20 132/87 (102) 96 08/15/17 16:13 98.1 71 18 129/82 (98) 95 08/15/17 08:13 68 149/78 08/15/17 08:13 68 149/78 08/15/17 05:37 97.6 68 18 149/78 (101) 96 08/14/17 15:51 98.1 68 16 145/90 (108) 95 08/14/17 09:29 76 139/89 08/14/17 09:28 76 139/89 08/14/17 05:44 96.7 76 16 139/89 (106) 94 Vital Signs Date Time Temp Pulse Resp B/P (MAP) Pulse Ox O2 Delivery O2 Flow Rate FiO2 08/16/17 16:27 98.0 73 18 124/76 (92) 96 08/13/17 16:18 Room Air I&O Intake and Output 08/16/17 07:00 Intake Total 1080 ml Balance 1080 ml Intake Oral 1080 ml Current Medications: Meds: Current Medications Acetaminophen (Tylenol) 650 mg PRN Q6HRS PRN PO PAIN / TEMP Last administered on 08/10/17at 05:29; Start 08/06/17 at 23:45 Multi-Ingredient Ointment (Analgesic [place]) 1 geovnana PRN QID PRN TP MUSCLE PAIN; Start 08/06/17 at 23:45 Al Hydroxide/Mg Hydroxide (Mylanta Plus Xs) 15 ml PRN AFTMEALHC PRN PO DYSPEPSIA Last administered on 08/15/17 21:12; Start 08/06/17 at 23:45 Magnesium Hydroxide (Milk Of Magnesia) 2,400 mg PRN QHS PRN PO CONSTIPATION; Start 08/06/17 at 23:45 Nicotine (Nicoderm Cq 21mg) 1 patch DAILY TD Last administered on 08/16/17 08: 14; Start 08/07/17 at 09:00 Atorvastatin Calcium (Lipitor) 20 mg QHS PO Last administered on 08/15/17at 20:01 ; Start 08/07/17 at 21:00 Cyanocobalamin (Vitamin B-12) 1,000 mcg DAILY PO Last administered on 08:14; Start 08/07/17 at 09:00 Gabapentin (Neurontin) 300 mg BID PO Last administered on 08/16/17 08:16; Start 08/07/17 at 09:00 Hydrochlorothiazide (Hydrodiuril) 25 mg DAILY PO Last administered on 08:15; Start 08/07/17 at 09:00 Lisinopril (Prinivil) 20 mg DAILY PO Last administered on 08/16/17 08:15; Start 08/07/17 at 09:00 Metoprolol Tartrate (Lopressor) 25 mg DAILY PO Last administered on 08/16/17 08:16; Start 08/07/17 at 09:00 Allopurinol (Zyloprim) 300 mg DAILY PO Last administered on 08/16/17 08:15; Start 08/07/17 at 09:00 Aspirin (Children'S Aspirin) 81 mg DAILY PO Last administered on 08/16/17 08: 15; Start 08/07/17 at 09:00 Docusate Sodium (Colace) 100 mg DAILY PO Last administered on 08/16/17 08:16; Start 08/07/17 at 09:00 Levothyroxine Sodium (Synthroid) 25 mcg DAILY06 PO Last administered on 05:23; Start 08/07/17 at 06:00 Lidocaine (Lidoderm) 1 patch DAILY TP Last administered on 08/16/17 08:14; Start 08/07/17 at 09:00 Metformin HCl (Glucophage) 500 mg DAILYWBKFT PO Last administered on 08/16/17 08:17; Start 08/07/17 at 08:00 Pantoprazole Sodium (Protonix) 40 mg BIDBFRMEAL PO Last administered on at 17:32; Start 08/07/17 at 07:30 Info (Do NOT chart on this placeholder) 1 each 1X ONCE MC ; Start 08/07/17 at 09 :00; Stop 08/07/17 at 09:01; Status Cancel Divalproex Sodium (Depakote Sprinkles) 250 mg BID PO Last administered on at 07:36; Start 08/07/17 at 21:00; Stop 08/10/17 at 18:50; Status DC Duloxetine HCl (Cymbalta) 30 mg DAILY PO Last administered on 08/16/17at 08:15; Start 08/08/17 at 09:00 Olanzapine (ZyPREXA ZYDIS) 2.5 mg PRN Q2HR PRN PO AGITATION/PSYCHOSIS; Start at 18:45 Divalproex Sodium (Depakote Sprinkles) 500 mg BID PO Last administered on at 09:27; Start 08/10/17 at 21:00; Stop 08/14/17 at 17:21; Status DC Divalproex Sodium (Depakote Sprinkles) 500 mg DAILY@0900 PO Last administered on 08/16/17at 08:14; Start 08/15/17 at 09:00 Divalproex Sodium (Depakote Sprinkles) 750 mg HS PO Last administered on at 20:02; Start 08/14/17 at 21:00 Active Scripts Active Reported Colace (Docusate Sodium) 100 Mg Capsule 100 Mg PO DAILY Lipitor (Atorvastatin Calcium) 20 Mg Tablet 20 Mg PO QHS Lidocaine 1 Each Adh..patch 1 Each TP DAILY Protonix (Pantoprazole Sodium) 40 Mg Tablet.dr 40 Mg PO BIDBFRMEAL Metoprolol Tartrate 25 Mg Tablet 25 Mg PO DAILY Glucophage (Metformin Hcl) 500 Mg Tablet 500 Mg PO DAILYWBKFT Lisinopril 20 Mg Tablet 20 Mg PO DAILY Levothyroxine Sodium 25 Mcg Tablet 25 Mcg PO DAILYAC Hydrochlorothiazide Tablet (Hydrochlorothiazide) 25 Mg Tablet 25 Mg PO DAILY Gabapentin 300 Mg Capsule 300 Mg PO BID Vitamin B-12 (Cyanocobalamin (Vitamin B-12)) 100 Mcg Tablet 1,000 Mcg PO DAILY Aspirin 81 Mg Tab.chew 81 Mg PO DAILY Allopurinol 300 Mg Tablet 300 Mg PO DAILY I have reviewed the current psychotropics carefully including drug interactions. Risk benefit ratio favors no change other than as noted in my dictated progress note. Diagnosis: Problems: (1) Anxiety disorder (2) Impulse control disorder (3) Bipolar affective, mixed (4) Mild cognitive impairment (5) Cerebrovascular accident (CVA) due to vascular occlusion MELISSA CARDOZO MD Aug 16, 2017 20:10
--- NOTE | 2017-08-16 20:10 | PDOC ---
Exam Note: Nabeel Note: Please also refer to the separate dictated note~for this date of service dictated separately.~Patient seen individually. Discussed the patient with Nursing staff reviewed the chart.~Reviewed interim history and current functioning. Reviewed vital signs,~Labs/ Radiology~and current medications noted below. Continue current treatment with the changes noted in the dictated addendum note Assessment: Vital Signs: Vital Signs Date Time Temp Pulse Resp B/P (MAP) Pulse Ox O2 Delivery O2 Flow Rate FiO2 08/16/17 16:27 98.0 73 18 124/76 (92) 96 08/13/17 16:18 Room Air I&O Intake and Output 08/16/17 07:00 Intake Total 1080 ml Balance 1080 ml Intake Oral 1080 ml Current Medications: Meds: Current Medications Acetaminophen (Tylenol) 650 mg PRN Q6HRS PRN PO PAIN / TEMP Last administered on 08/10/17at 05:29; Start 08/06/17 at 23:45 Multi-Ingredient Ointment (Analgesic [place]) 1 geovanna PRN QID PRN TP MUSCLE PAIN; Start 08/06/17 at 23:45 Al Hydroxide/Mg Hydroxide (Mylanta Plus Xs) 15 ml PRN AFTMEALHC PRN PO DYSPEPSIA Last administered on 08/15/17at 21:12; Start 08/06/17 at 23:45 Magnesium Hydroxide (Milk Of Magnesia) 2,400 mg PRN QHS PRN PO CONSTIPATION; Start 08/06/17 at 23:45 Nicotine (Nicoderm Cq 21mg) 1 patch DAILY TD Last administered on 08/16/17at 08: 14; Start 08/07/17 at 09:00 Atorvastatin Calcium (Lipitor) 20 mg QHS PO Last administered on 08/15/17at 20:01 ; Start 08/07/17 at 21:00 Cyanocobalamin (Vitamin B-12) 1,000 mcg DAILY PO Last administered on 08:14; Start 08/07/17 at 09:00 Gabapentin (Neurontin) 300 mg BID PO Last administered on 08/16/17at 08:16; Start 08/07/17 at 09:00 Hydrochlorothiazide (Hydrodiuril) 25 mg DAILY PO Last administered on at 08:15; Start 08/07/17 at 09:00 Lisinopril (Prinivil) 20 mg DAILY PO Last administered on 08/16/17 08:15; Start 08/07/17 at 09:00 Metoprolol Tartrate (Lopressor) 25 mg DAILY PO Last administered on 08/16/17at 08:16; Start 08/07/17 at 09:00 Allopurinol (Zyloprim) 300 mg DAILY PO Last administered on 08/16/17at 08:15; Start 08/07/17 at 09:00 Aspirin (Children'S Aspirin) 81 mg DAILY PO Last administered on 08/16/17 08: 15; Start 08/07/17 at 09:00 Docusate Sodium (Colace) 100 mg DAILY PO Last administered on 08/16/17 08:16; Start 08/07/17 at 09:00 Levothyroxine Sodium (Synthroid) 25 mcg DAILY06 PO Last administered on at 05:23; Start 08/07/17 at 06:00 Lidocaine (Lidoderm) 1 patch DAILY TP Last administered on 08/16/17at 08:14; Start 08/07/17 at 09:00 Metformin HCl (Glucophage) 500 mg DAILYWBKFT PO Last administered on 08/16/17 08:17; Start 08/07/17 at 08:00 Pantoprazole Sodium (Protonix) 40 mg BIDBFRMEAL PO Last administered on at 17:32; Start 08/07/17 at 07:30 Info (Do NOT chart on this placeholder) 1 each 1X ONCE MC ; Start 08/07/17 at 09 :00; Stop 08/07/17 at 09:01; Status Cancel Divalproex Sodium (Depakote Sprinkles) 250 mg BID PO Last administered on at 07:36; Start 08/07/17 at 21:00; Stop 08/10/17 at 18:50; Status DC Duloxetine HCl (Cymbalta) 30 mg DAILY PO Last administered on 08/16/17at 08:15; Start 08/08/17 at 09:00 Olanzapine (ZyPREXA ZYDIS) 2.5 mg PRN Q2HR PRN PO AGITATION/PSYCHOSIS; Start at 18:45 Divalproex Sodium (Depakote Sprinkles) 500 mg BID PO Last administered on at 09:27; Start 08/10/17 at 21:00; Stop 08/14/17 at 17:21; Status DC Divalproex Sodium (Depakote Sprinkles) 500 mg DAILY@0900 PO Last administered on 08/16/17at 08:14; Start 08/15/17 at 09:00 Divalproex Sodium (Depakote Sprinkles) 750 mg HS PO Last administered on at 20:02; Start 08/14/17 at 21:00 Active Scripts Active Reported Colace (Docusate Sodium) 100 Mg Capsule 100 Mg PO DAILY Lipitor (Atorvastatin Calcium) 20 Mg Tablet 20 Mg PO QHS Lidocaine 1 Each Adh..patch 1 Each TP DAILY Protonix (Pantoprazole Sodium) 40 Mg Tablet.dr 40 Mg PO BIDBFRMEAL Metoprolol Tartrate 25 Mg Tablet 25 Mg PO DAILY Glucophage (Metformin Hcl) 500 Mg Tablet 500 Mg PO DAILYWBKFT Lisinopril 20 Mg Tablet 20 Mg PO DAILY Levothyroxine Sodium 25 Mcg Tablet 25 Mcg PO DAILYAC Hydrochlorothiazide Tablet (Hydrochlorothiazide) 25 Mg Tablet 25 Mg PO DAILY Gabapentin 300 Mg Capsule 300 Mg PO BID Vitamin B-12 (Cyanocobalamin (Vitamin B-12)) 100 Mcg Tablet 1,000 Mcg PO DAILY Aspirin 81 Mg Tab.chew 81 Mg PO DAILY Allopurinol 300 Mg Tablet 300 Mg PO DAILY I have reviewed the current psychotropics carefully including drug interactions. Risk benefit ratio favors no change other than as noted in my dictated progress note. Diagnosis: Problems: (1) Anxiety disorder (2) Impulse control disorder (3) Bipolar affective, mixed (4) Mild cognitive impairment (5) Cerebrovascular accident (CVA) due to vascular occlusion MELISSA CARDOZO MD Aug 16, 2017 20:10
[2017-08-16] MEDS: ATORVASTATIN CALCIUM 20 MG TABLET PO SCH (20:31)
[2017-08-17] MEDS: LEVOTHYROXINE 25 MCG TABLET. PO SCH (06:01)
[2017-08-17 06:05] VITALS: BP 128/83
[2017-08-17 07:33] LABS: BASO # 0.1 x10^3/uL (0.0-0.2); BASO % 1 % (0-3); EOS # 0.3 x10^3/uL (0.0-0.7); EOS % 4 % (0-3); HEMOGLOBIN 13.2 g/dL (13.0-17.5); LYMPH # 1.5 x10^3/uL (1.0-4.8); LYMPH % 19 % (24-48); MEAN CORPUSCULAR HEMOGLOBIN 32 pg (25-35); MEAN CORPUSCULAR HGB CONC 34 g/dL (31-37); MEAN CORPUSCULAR VOLUME 95 fL (79-100); MONO # 0.7 x10^3/uL (0.0-1.1); MONO % 9 % (0-9); NEUT # 5.3 x10^3uL (1.8-7.7); NEUT % 67 % (31-73); PLATELET COUNT 264 x10^3/uL (140-400); RED BLOOD COUNT 4.11 x10^6/uL (4.30-5.70)
[2017-08-17 07:49] LABS: ALBUMIN 2.8 g/dL (3.4-5.0); ALBUMIN/GLOBULIN RATIO 0.6 (1.0-1.7); ALK PHOS 70 U/L (46-116); ALT (SGPT) 19 U/L (16-63); ANION GAP 4 (6-14); AST (SGOT) 22 U/L (15-37); BLOOD UREA NITROGEN 33 mg/dL (8-26); BUN/CREATININE RATIO 25 (6-20); CALCIUM 9.5 mg/dL (8.5-10.1); CARBON DIOXIDE 35 mmol/L (21-32); CHLORIDE 101 mmol/L (98-107); CREATININE 1.3 mg/dL (0.7-1.3); GLUCOSE 118 mg/dL (70-99); POTASSIUM 4.7 mmol/L (3.5-5.1); SODIUM 140 mmol/L (136-145); TOTAL BILIRUBIN 0.3 mg/dL (0.2-1.0); TOTAL PROTEIN 7.3 g/dL (6.4-8.2)
[2017-08-17 07:50] LABS: VAL ACID 49 mcg/mL (50-100)
[2017-08-17] MEDS: hydroCHLOROthiazide 25 MG TABLET PO SCH (08:39)
[2017-08-17] MEDS: ASPIRIN 81 MG TAB.CHEW PO SCH (08:39)
[2017-08-17] MEDS: metFORMIN 500 MG TABLET PO SCH (08:39)
[2017-08-17] MEDS: PANTOPRAZOLE 40 MG TABLET. PO SCH ×2 (08:39→17:07)
[2017-08-17] MEDS: DIVALPROEX 125 MG CAP.SPRINK PO SCH ×2 (08:39→20:23)
[2017-08-17] MEDS: DOCUSATE SODIUM 100 MG CAPSULE PO SCH (08:39)
[2017-08-17] MEDS: DULoxetine HCL 30 MG CAPSULE.DR PO SCH (08:39)
[2017-08-17] MEDS: CYANOCOBALAMIN (VITAMIN B-12) 1,000 MCG TABLET. PO SCH (08:40)
[2017-08-17] MEDS: ALLOPURINOL 300 MG TABLET. PO SCH (08:40)
[2017-08-17] MEDS: GABAPENTIN 300 MG CAPSULE. PO SCH ×2 (08:40→20:23)
[2017-08-17] MEDS: METOPROLOL TART IMMED RELEASE 25 MG TABLET PO SCH (08:40)
[2017-08-17] MEDS: LISINOPRIL 20 MG TABLET PO SCH (08:40)
[2017-08-17] MEDS: LIDOCAINE (700MG/PATCH) PATCH. TP SCH (08:41)
[2017-08-17] MEDS: NICOTINE 21MG PATCH. TD SCH (08:41)
[2017-08-17 16:01] VITALS: BP 114/75
[2017-08-17] MEDS: ATORVASTATIN CALCIUM 20 MG TABLET PO SCH (20:23)
--- NOTE | 2017-08-17 20:42 | PDOC ---
Exam Note: Nabeel Note: Please also refer to the separate dictated note~for this date of service dictated separately.~Patient seen individually. Discussed the patient with Nursing staff reviewed the chart.~Reviewed interim history and current functioning. Reviewed vital signs,~Labs/ Radiology~and current medications noted below. Continue current treatment with the changes noted in the dictated addendum note Assessment: Vital Signs: Vital Signs Date Time Temp Pulse Resp B/P (MAP) Pulse Ox O2 Delivery O2 Flow Rate FiO2 08/17/17 16:01 97.3 82 18 114/75 (88) 100 08/13/17 16:18 Room Air I&O Intake and Output 08/17/17 07:00 Intake Total 1080 ml Balance 1080 ml Intake Oral 1080 ml Labs: Laboratory Tests Test 08/17/17 07:03 White Blood Count 8.0 x10^3/uL (4.0-11.0) Red Blood Count 4.11 x10^6/uL (4.30-5.70) L Hemoglobin 13.2 g/dL (13.0-17.5) Hematocrit 39.0 % (39.0-53.0) Mean Corpuscular Volume 95 fL (79-100) Mean Corpuscular Hemoglobin 32 pg (25-35) Mean Corpuscular Hemoglobin Concent 34 g/dL (31-37) Red Cell Distribution Width 16.0 % (11.5-14.5) H Platelet Count 264 x10^3/uL (140-400) Neutrophils (%) (Auto) 67 % (31-73) Lymphocytes (%) (Auto) 19 % (24-48) L Monocytes (%) (Auto) 9 % (0-9) Eosinophils (%) (Auto) 4 % (0-3) H Basophils (%) (Auto) 1 % (0-3) Neutrophils # (Auto) 5.3 x10^3uL (1.8-7.7) Lymphocytes # (Auto) 1.5 x10^3/uL (1.0-4.8) Monocytes # (Auto) 0.7 x10^3/uL (0.0-1.1) Eosinophils # (Auto) 0.3 x10^3/uL (0.0-0.7) Basophils # (Auto) 0.1 x10^3/uL (0.0-0.2) Sodium Level 140 mmol/L (136-145) Potassium Level 4.7 mmol/L (3.5-5.1) Chloride Level 101 mmol/L (98-107) Carbon Dioxide Level 35 mmol/L (21-32) H Anion Gap 4 (6-14) L Blood Urea Nitrogen 33 mg/dL (8-26) H Creatinine 1.3 mg/dL (0.7-1.3) Estimated GFR (Cockcroft-Gault) 54.0 BUN/Creatinine Ratio 25 (6-20) H Glucose Level 118 mg/dL (70-99) H Calcium Level 9.5 mg/dL (8.5-10.1) Total Bilirubin 0.3 mg/dL (0.2-1.0) Aspartate Amino Transferase (AST) 22 U/L (15-37) Alanine Aminotransferase (ALT) 19 U/L (16-63) Alkaline Phosphatase 70 U/L (46-116) Ammonia < 10 mcmol/L (11-34) L Total Protein 7.3 g/dL (6.4-8.2) Albumin 2.8 g/dL (3.4-5.0) L Albumin/Globulin Ratio 0.6 (1.0-1.7) L Valproic Acid Level 49 mcg/mL (50-100) L Valproic Acid Last Dose Date 08/16/2017 Valproic Acid Last Dose Time 2100 Current Medications: Meds: Current Medications Acetaminophen (Tylenol) 650 mg PRN Q6HRS PRN PO PAIN / TEMP Last administered on 08/10/17at 05:29; Start 08/06/17 at 23:45 Multi-Ingredient Ointment (Analgesic [place]) 1 gevoanna PRN QID PRN TP MUSCLE PAIN; Start 08/06/17 at 23:45 Al Hydroxide/Mg Hydroxide (Mylanta Plus Xs) 15 ml PRN AFTMEALHC PRN PO DYSPEPSIA Last administered on 08/15/17at 21:12; Start 08/06/17 at 23:45 Magnesium Hydroxide (Milk Of Magnesia) 2,400 mg PRN QHS PRN PO CONSTIPATION; Start 08/06/17 at 23:45 Nicotine (Nicoderm Cq 21mg) 1 patch DAILY TD Last administered on 08/17/17at 08: 41; Start 08/07/17 at 09:00 Atorvastatin Calcium (Lipitor) 20 mg QHS PO Last administered on 08/17/17 20: 23; Start 08/07/17 at 21:00 Cyanocobalamin (Vitamin B-12) 1,000 mcg DAILY PO Last administered on 08:40; Start 08/07/17 at 09:00 Gabapentin (Neurontin) 300 mg BID PO Last administered on 08/17/17 20:23; Start 08/07/17 at 09:00 Hydrochlorothiazide (Hydrodiuril) 25 mg DAILY PO Last administered on 08:39; Start 08/07/17 at 09:00 Lisinopril (Prinivil) 20 mg DAILY PO Last administered on 08/17/17 08:40; Start 08/07/17 at 09:00 Metoprolol Tartrate (Lopressor) 25 mg DAILY PO Last administered on 08/17/17 08:40; Start 08/07/17 at 09:00 Allopurinol (Zyloprim) 300 mg DAILY PO Last administered on 08/17/17 08:40; Start 08/07/17 at 09:00 Aspirin (Children'S Aspirin) 81 mg DAILY PO Last administered on 08/17/17 08: 39; Start 08/07/17 at 09:00 Docusate Sodium (Colace) 100 mg DAILY PO Last administered on 08/17/17 08:39; Start 08/07/17 at 09:00 Levothyroxine Sodium (Synthroid) 25 mcg DAILY06 PO Last administered on 06:01; Start 08/07/17 at 06:00 Lidocaine (Lidoderm) 1 patch DAILY TP Last administered on 08/17/17 08:41; Start 08/07/17 at 09:00 Metformin HCl (Glucophage) 500 mg DAILYWBKFT PO Last administered on 08/17/17 08:39; Start 08/07/17 at 08:00 Pantoprazole Sodium (Protonix) 40 mg BIDBFRMEAL PO Last administered on 17:07; Start 08/07/17 at 07:30 Info (Do NOT chart on this placeholder) 1 each 1X ONCE MC ; Start 08/07/17 at 09 :00; Stop 08/07/17 at 09:01; Status Cancel Divalproex Sodium (Depakote Sprinkles) 250 mg BID PO Last administered on 07:36; Start 08/07/17 at 21:00; Stop 08/10/17 at 18:50; Status DC Duloxetine HCl (Cymbalta) 30 mg DAILY PO Last administered on 08/17/17at 08:39; Start 08/08/17 at 09:00 Olanzapine (ZyPREXA ZYDIS) 2.5 mg PRN Q2HR PRN PO AGITATION/PSYCHOSIS Last administered on 08/17/17at 09:20; Start 08/07/17 at 18:45 Divalproex Sodium (Depakote Sprinkles) 500 mg BID PO Last administered on at 09:27; Start 08/10/17 at 21:00; Stop 08/14/17 at 17:21; Status DC Divalproex Sodium (Depakote Sprinkles) 500 mg DAILY@0900 PO Last administered on 08/17/17at 08:39; Start 08/15/17 at 09:00 Divalproex Sodium (Depakote Sprinkles) 750 mg HS PO Last administered on at 20:23; Start 08/14/17 at 21:00 Active Scripts Active Reported Colace (Docusate Sodium) 100 Mg Capsule 100 Mg PO DAILY Lipitor (Atorvastatin Calcium) 20 Mg Tablet 20 Mg PO QHS Lidocaine 1 Each Adh..patch 1 Each TP DAILY Protonix (Pantoprazole Sodium) 40 Mg Tablet.dr 40 Mg PO BIDBFRMEAL Metoprolol Tartrate 25 Mg Tablet 25 Mg PO DAILY Glucophage (Metformin Hcl) 500 Mg Tablet 500 Mg PO DAILYWBKFT Lisinopril 20 Mg Tablet 20 Mg PO DAILY Levothyroxine Sodium 25 Mcg Tablet 25 Mcg PO DAILYAC Hydrochlorothiazide Tablet (Hydrochlorothiazide) 25 Mg Tablet 25 Mg PO DAILY Gabapentin 300 Mg Capsule 300 Mg PO BID Vitamin B-12 (Cyanocobalamin (Vitamin B-12)) 100 Mcg Tablet 1,000 Mcg PO DAILY Aspirin 81 Mg Tab.chew 81 Mg PO DAILY Allopurinol 300 Mg Tablet 300 Mg PO DAILY I have reviewed the current psychotropics carefully including drug interactions. Risk benefit ratio favors no change other than as noted in my dictated progress note. Diagnosis: Problems: (1) Anxiety disorder (2) Impulse control disorder (3) Bipolar affective, mixed (4) Mild cognitive impairment (5) Cerebrovascular accident (CVA) due to vascular occlusion MELISSA CARDOZO MD Aug 17, 2017 20:42
--- NOTE | 2017-08-18 02:00 | PN ---
DATE: 08/16/2017 This late entry 08/16/2017 covers elements not covered in my initial note. SUBJECTIVE: Met with the patient in the evening. Overall, the patient has been cooperative, met with him in his room. He complains of back pain. No CV, , pulmonary, eye system symptoms on review. MENTAL STATUS EXAM: Oriented to self situations. Speech coherent, abstraction fair, computation impaired, language function intact. He does have some short-term memory deficits, otherwise reasonably oriented. No suicidal or homicidal ideations. He has not been aggressive. LABORATORY DATA: Reviewed. IMPRESSION: Unchanged from initial note. PLAN: Continue psychotropics from my initial note. MAN Celeste CARDOZO MD DR: MILTON/daniel JOB#: [id number] / [id number]
[2017-08-18 05:46] VITALS: BP 121/80
[2017-08-18] MEDS: LEVOTHYROXINE 25 MCG TABLET. PO SCH (05:54)
[2017-08-18] MEDS: ASPIRIN 81 MG TAB.CHEW PO SCH (07:44)
[2017-08-18] MEDS: LISINOPRIL 20 MG TABLET PO SCH (07:45)
[2017-08-18] MEDS: ALLOPURINOL 300 MG TABLET. PO SCH (07:45)
[2017-08-18] MEDS: CYANOCOBALAMIN (VITAMIN B-12) 1,000 MCG TABLET. PO SCH (07:45)
[2017-08-18] MEDS: PANTOPRAZOLE 40 MG TABLET. PO SCH ×2 (07:45→16:40)
[2017-08-18] MEDS: DIVALPROEX 125 MG CAP.SPRINK PO SCH ×2 (07:45→20:41)
[2017-08-18] MEDS: metFORMIN 500 MG TABLET PO SCH (07:45)
[2017-08-18] MEDS: DULoxetine HCL 30 MG CAPSULE.DR PO SCH (07:45)
[2017-08-18] MEDS: DOCUSATE SODIUM 100 MG CAPSULE PO SCH (07:45)
[2017-08-18] MEDS: GABAPENTIN 300 MG CAPSULE. PO SCH ×2 (07:45→20:41)
[2017-08-18] MEDS: METOPROLOL TART IMMED RELEASE 25 MG TABLET PO SCH (07:46)
[2017-08-18] MEDS: LIDOCAINE (700MG/PATCH) PATCH. TP SCH (07:46)
[2017-08-18] MEDS: NICOTINE 21MG PATCH. TD SCH (07:46)
[2017-08-18] MEDS: hydroCHLOROthiazide 25 MG TABLET PO SCH (07:46)
[2017-08-18 16:40] VITALS: BP 131/84
--- NOTE | 2017-08-18 20:03 | PDOC ---
Exam Note: Nabeel Note: Please also refer to the separate dictated note~for this date of service dictated separately.~Patient seen individually. Discussed the patient with Nursing staff reviewed the chart.~Reviewed interim history and current functioning. Reviewed vital signs,~Labs/ Radiology~and current medications noted below. Continue current treatment with the changes noted in the dictated addendum note Assessment: Vital Signs: Vital Signs Date Time Temp Pulse Resp B/P (MAP) Pulse Ox O2 Delivery O2 Flow Rate FiO2 08/18/17 16:40 97.3 78 20 131/84 (100) 100 Room Air I&O Intake and Output 08/18/17 07:00 Intake Total 1020 ml Balance 1020 ml Intake Oral 1020 ml # Bowel Movements 1 Current Medications: Meds: Current Medications Acetaminophen (Tylenol) 650 mg PRN Q6HRS PRN PO PAIN / TEMP Last administered on 08/10/17at 05:29; Start 08/06/17 at 23:45 Multi-Ingredient Ointment (Analgesic [place]) 1 geovanna PRN QID PRN TP MUSCLE PAIN; Start 08/06/17 at 23:45 Al Hydroxide/Mg Hydroxide (Mylanta Plus Xs) 15 ml PRN AFTMEALHC PRN PO DYSPEPSIA Last administered on 08/15/17at 21:12; Start 08/06/17 at 23:45 Magnesium Hydroxide (Milk Of Magnesia) 2,400 mg PRN QHS PRN PO CONSTIPATION; Start 08/06/17 at 23:45 Nicotine (Nicoderm Cq 21mg) 1 patch DAILY TD Last administered on 08/18/17at 07: 46; Start 08/07/17 at 09:00 Atorvastatin Calcium (Lipitor) 20 mg QHS PO Last administered on 08/17/17at 20: 23; Start 08/07/17 at 21:00 Cyanocobalamin (Vitamin B-12) 1,000 mcg DAILY PO Last administered on at 07:45; Start 08/07/17 at 09:00 Gabapentin (Neurontin) 300 mg BID PO Last administered on 08/18/17at 07:45; Start 08/07/17 at 09:00 Hydrochlorothiazide (Hydrodiuril) 25 mg DAILY PO Last administered on at 07:46; Start 08/07/17 at 09:00; Stop 08/18/17 at 19:29; Status DC Lisinopril (Prinivil) 20 mg DAILY PO Last administered on 08/18/17 07:45; Start 08/07/17 at 09:00 Metoprolol Tartrate (Lopressor) 25 mg DAILY PO Last administered on 08/18/17 07:46; Start 08/07/17 at 09:00 Allopurinol (Zyloprim) 300 mg DAILY PO Last administered on 08/18/17 07:45; Start 08/07/17 at 09:00 Aspirin (Children'S Aspirin) 81 mg DAILY PO Last administered on 08/18/17 07: 44; Start 08/07/17 at 09:00 Docusate Sodium (Colace) 100 mg DAILY PO Last administered on 08/18/17 07:45; Start 08/07/17 at 09:00 Levothyroxine Sodium (Synthroid) 25 mcg DAILY06 PO Last administered on 05:54; Start 08/07/17 at 06:00 Lidocaine (Lidoderm) 1 patch DAILY TP Last administered on 08/18/17 07:46; Start 08/07/17 at 09:00 Metformin HCl (Glucophage) 500 mg DAILYWBKFT PO Last administered on 08/18/17 07:45; Start 08/07/17 at 08:00 Pantoprazole Sodium (Protonix) 40 mg BIDBFRMEAL PO Last administered on at 16:40; Start 08/07/17 at 07:30 Info (Do NOT chart on this placeholder) 1 each 1X ONCE MC ; Start 08/07/17 at 09 :00; Stop 08/07/17 at 09:01; Status Cancel Divalproex Sodium (Depakote Sprinkles) 250 mg BID PO Last administered on 07:36; Start 08/07/17 at 21:00; Stop 08/10/17 at 18:50; Status DC Duloxetine HCl (Cymbalta) 30 mg DAILY PO Last administered on 08/18/17 07:45; Start 08/08/17 at 09:00 Olanzapine (ZyPREXA ZYDIS) 2.5 mg PRN Q2HR PRN PO AGITATION/PSYCHOSIS Last administered on 08/17/17at 09:20; Start 08/07/17 at 18:45 Divalproex Sodium (Depakote Sprinkles) 500 mg BID PO Last administered on at 09:27; Start 08/10/17 at 21:00; Stop 08/14/17 at 17:21; Status DC Divalproex Sodium (Depakote Sprinkles) 500 mg DAILY@0900 PO Last administered on 08/18/17at 07:45; Start 08/15/17 at 09:00 Divalproex Sodium (Depakote Sprinkles) 750 mg HS PO Last administered on at 20:23; Start 08/14/17 at 21:00 Active Scripts Active Reported Colace (Docusate Sodium) 100 Mg Capsule 100 Mg PO DAILY Lipitor (Atorvastatin Calcium) 20 Mg Tablet 20 Mg PO QHS Lidocaine 1 Each Adh..patch 1 Each TP DAILY Protonix (Pantoprazole Sodium) 40 Mg Tablet.dr 40 Mg PO BIDBFRMEAL Metoprolol Tartrate 25 Mg Tablet 25 Mg PO DAILY Glucophage (Metformin Hcl) 500 Mg Tablet 500 Mg PO DAILYWBKFT Lisinopril 20 Mg Tablet 20 Mg PO DAILY Levothyroxine Sodium 25 Mcg Tablet 25 Mcg PO DAILYAC Hydrochlorothiazide Tablet (Hydrochlorothiazide) 25 Mg Tablet 25 Mg PO DAILY Gabapentin 300 Mg Capsule 300 Mg PO BID Vitamin B-12 (Cyanocobalamin (Vitamin B-12)) 100 Mcg Tablet 1,000 Mcg PO DAILY Aspirin 81 Mg Tab.chew 81 Mg PO DAILY Allopurinol 300 Mg Tablet 300 Mg PO DAILY I have reviewed the current psychotropics carefully including drug interactions. Risk benefit ratio favors no change other than as noted in my dictated progress note. Diagnosis: Problems: (1) Anxiety disorder (2) Impulse control disorder (3) Bipolar affective, mixed (4) Mild cognitive impairment (5) Cerebrovascular accident (CVA) due to vascular occlusion MELISSA CARDOZO MD Aug 18, 2017 20:03
[2017-08-18] MEDS: ATORVASTATIN CALCIUM 20 MG TABLET PO SCH (20:41)
--- NOTE | 2017-08-18 23:43 | PN ---
DATE: 08/17/2017 This late entry 08/17/2017 covers elements not covered in my initial note. SUBJECTIVE: I met with the patient in the evening at length in his room. Overall, the patient has been calm, cooperative, still complains of back pain and was lying in bed. He sat up to visit with me. He talked at some length about his concerns about his using his money from the bank inappropriately. Social service staff is addressing this with him. REVIEW OF SYSTEMS: No CV, , pulmonary, eye system symptoms on review. MENTAL STATUS EXAM: Oriented to himself and situation. Speech is coherent, less pressured. Abstraction fair, computation impaired, language function intact. Attention span short. He is still obsessing about discharge plans. We addressed this. Psychological testing with Dr. Michael is planned for 08/18/2017 and Depakote is being adjusted to reach a therapeutic level. IMPRESSION: Bipolar 1 disorder, mixed with psychotic features, in partial remission; cognitive disorder, unspecified; impulse control disorder. PLAN: Continue psychotropics from initial note. Follow labs level on the Depakote, adjust to reach therapeutic level. MAN Ceelste CARDOZO MD DR: MILTON/daniel JOB#: [id number] / [id number]
[2017-08-19 06:09] VITALS: BP 122/80
[2017-08-19] MEDS: LEVOTHYROXINE 25 MCG TABLET. PO SCH (06:14)
[2017-08-19] MEDS: DIVALPROEX 125 MG CAP.SPRINK PO SCH ×2 (07:53→20:34)
[2017-08-19] MEDS: DOCUSATE SODIUM 100 MG CAPSULE PO SCH (07:54)
[2017-08-19] MEDS: CYANOCOBALAMIN (VITAMIN B-12) 1,000 MCG TABLET. PO SCH (07:54)
[2017-08-19] MEDS: ASPIRIN 81 MG TAB.CHEW PO SCH (07:54)
[2017-08-19] MEDS: PANTOPRAZOLE 40 MG TABLET. PO SCH ×2 (07:54→17:13)
[2017-08-19] MEDS: GABAPENTIN 300 MG CAPSULE. PO SCH ×2 (07:54→20:33)
[2017-08-19] MEDS: LISINOPRIL 20 MG TABLET PO SCH (07:54)
[2017-08-19] MEDS: metFORMIN 500 MG TABLET PO SCH (07:54)
[2017-08-19] MEDS: ALLOPURINOL 300 MG TABLET. PO SCH (07:54)
[2017-08-19] MEDS: DULoxetine HCL 30 MG CAPSULE.DR PO SCH (07:54)
[2017-08-19] MEDS: NICOTINE 21MG PATCH. TD SCH (07:55)
[2017-08-19] MEDS: METOPROLOL TART IMMED RELEASE 25 MG TABLET PO SCH (07:55)
[2017-08-19] MEDS: LIDOCAINE (700MG/PATCH) PATCH. TP SCH (07:56)
[2017-08-19 16:22] VITALS: BP 101/71
[2017-08-19] MEDS: ATORVASTATIN CALCIUM 20 MG TABLET PO SCH (20:33)
--- NOTE | 2017-08-19 20:50 | PDOC ---
Exam Note: Nabeel Note: Please also refer to the separate dictated note~for this date of service dictated separately.~Patient seen individually. Discussed the patient with Nursing staff reviewed the chart.~Reviewed interim history and current functioning. Reviewed vital signs,~Labs/ Radiology~and current medications noted below. Continue current treatment with the changes noted in the dictated addendum note Assessment: Vital Signs: Vital Signs Date Time Temp Pulse Resp B/P (MAP) Pulse Ox O2 Delivery O2 Flow Rate FiO2 08/19/17 16:22 98.0 80 16 101/71 (81) 98 08/18/17 16:40 Room Air I&O Intake and Output 08/19/17 07:00 Intake Total 960 ml Balance 960 ml Intake Oral 960 ml Current Medications: Meds: Current Medications Acetaminophen (Tylenol) 650 mg PRN Q6HRS PRN PO PAIN / TEMP Last administered on 08/10/17 05:29; Start 08/06/17 at 23:45 Multi-Ingredient Ointment (Analgesic [place]) 1 geovanna PRN QID PRN TP MUSCLE PAIN; Start 08/06/17 at 23:45 Al Hydroxide/Mg Hydroxide (Mylanta Plus Xs) 15 ml PRN AFTMEALHC PRN PO DYSPEPSIA Last administered on 08/15/17 21:12; Start 08/06/17 at 23:45 Magnesium Hydroxide (Milk Of Magnesia) 2,400 mg PRN QHS PRN PO CONSTIPATION; Start 08/06/17 at 23:45 Nicotine (Nicoderm Cq 21mg) 1 patch DAILY TD Last administered on 08/19/17at 07: 55; Start 08/07/17 at 09:00 Atorvastatin Calcium (Lipitor) 20 mg QHS PO Last administered on 08/19/17at 20: 33; Start 08/07/17 at 21:00 Cyanocobalamin (Vitamin B-12) 1,000 mcg DAILY PO Last administered on 07:54; Start 08/07/17 at 09:00 Gabapentin (Neurontin) 300 mg BID PO Last administered on 08/19/17 20:33; Start 08/07/17 at 09:00 Hydrochlorothiazide (Hydrodiuril) 25 mg DAILY PO Last administered on 07:46; Start 08/07/17 at 09:00; Stop 08/18/17 at 19:29; Status DC Lisinopril (Prinivil) 20 mg DAILY PO Last administered on 08/19/17 07:54; Start 08/07/17 at 09:00 Metoprolol Tartrate (Lopressor) 25 mg DAILY PO Last administered on 08/19/17at 07:55; Start 08/07/17 at 09:00 Allopurinol (Zyloprim) 300 mg DAILY PO Last administered on 08/19/17 07:54; Start 08/07/17 at 09:00 Aspirin (Children'S Aspirin) 81 mg DAILY PO Last administered on 08/19/17 07: 54; Start 08/07/17 at 09:00 Docusate Sodium (Colace) 100 mg DAILY PO Last administered on 08/19/17 07:54; Start 08/07/17 at 09:00 Levothyroxine Sodium (Synthroid) 25 mcg DAILY06 PO Last administered on at 06:14; Start 08/07/17 at 06:00 Lidocaine (Lidoderm) 1 patch DAILY TP Last administered on 08/19/17 07:56; Start 08/07/17 at 09:00 Metformin HCl (Glucophage) 500 mg DAILYWBKFT PO Last administered on 08/19/17 07:54; Start 08/07/17 at 08:00 Pantoprazole Sodium (Protonix) 40 mg BIDBFRMEAL PO Last administered on at 17:13; Start 08/07/17 at 07:30 Info (Do NOT chart on this placeholder) 1 each 1X ONCE MC ; Start 08/07/17 at 09 :00; Stop 08/07/17 at 09:01; Status Cancel Divalproex Sodium (Depakote Sprinkles) 250 mg BID PO Last administered on at 07:36; Start 08/07/17 at 21:00; Stop 08/10/17 at 18:50; Status DC Duloxetine HCl (Cymbalta) 30 mg DAILY PO Last administered on 08/19/17 07:54; Start 08/08/17 at 09:00 Olanzapine (ZyPREXA ZYDIS) 2.5 mg PRN Q2HR PRN PO AGITATION/PSYCHOSIS Last administered on 08/17/17at 09:20; Start 08/07/17 at 18:45 Divalproex Sodium (Depakote Sprinkles) 500 mg BID PO Last administered on at 09:27; Start 08/10/17 at 21:00; Stop 08/14/17 at 17:21; Status DC Divalproex Sodium (Depakote Sprinkles) 500 mg DAILY@0900 PO Last administered on 08/19/17at 07:53; Start 08/15/17 at 09:00 Divalproex Sodium (Depakote Sprinkles) 750 mg HS PO Last administered on at 20:34; Start 08/14/17 at 21:00 Active Scripts Active Reported Colace (Docusate Sodium) 100 Mg Capsule 100 Mg PO DAILY Lipitor (Atorvastatin Calcium) 20 Mg Tablet 20 Mg PO QHS Lidocaine 1 Each Adh..patch 1 Each TP DAILY Protonix (Pantoprazole Sodium) 40 Mg Tablet.dr 40 Mg PO BIDBFRMEAL Metoprolol Tartrate 25 Mg Tablet 25 Mg PO DAILY Glucophage (Metformin Hcl) 500 Mg Tablet 500 Mg PO DAILYWBKFT Lisinopril 20 Mg Tablet 20 Mg PO DAILY Levothyroxine Sodium 25 Mcg Tablet 25 Mcg PO DAILYAC Hydrochlorothiazide Tablet (Hydrochlorothiazide) 25 Mg Tablet 25 Mg PO DAILY Gabapentin 300 Mg Capsule 300 Mg PO BID Vitamin B-12 (Cyanocobalamin (Vitamin B-12)) 100 Mcg Tablet 1,000 Mcg PO DAILY Aspirin 81 Mg Tab.chew 81 Mg PO DAILY Allopurinol 300 Mg Tablet 300 Mg PO DAILY I have reviewed the current psychotropics carefully including drug interactions. Risk benefit ratio favors no change other than as noted in my dictated progress note. Diagnosis: Problems: (1) Anxiety disorder (2) Impulse control disorder (3) Bipolar affective, mixed (4) Mild cognitive impairment (5) Cerebrovascular accident (CVA) due to vascular occlusion MELISSA CARDOZO MD Aug 19, 2017 20:50
--- NOTE | 2017-08-19 21:38 | PN ---
DATE: 08/18/2017 PSYCHIATRIC PROGRESS NOTE This late entry 08/18/2017 covers elements, not covered in my initial note. SUBJECTIVE: I met with the patient in the evening. Discussed with social service and nursing staff regarding psychological testing completed by Dr. Michael. Reportedly, Dr. Michael is recommending that the patient needs assistance for making financial decisions and should not be making these by himself given his cognitive deficits. From a psychiatric standpoint, the patient is doing reasonably better on the unit. He is calm, cooperative, compliant with medications. REVIEW OF SYSTEMS: Complains of back pain, impaired ambulation. No CV, , pulmonary, eye, ENT system symptoms on review. MENTAL STATUS EXAM: Oriented to himself and situation. Speech coherent, less pressured. Abstraction fair, computation impaired, language function intact, attention span short. Mood and affect somewhat anxious, labile, but improved. LABORATORY DATA: Reviewed. IMPRESSION: Unchanged from initial note. Bipolar 1 disorder mixed with psychotic features, in partial remission; cognitive disorder, unspecified; impulse control disorder, unspecified. PLAN: Continue current psychotropics, Depakote has been adjusted. Repeat labs level. Adjust further as clinically indicated. MAN Celeste CARDOZO MD DR: MILTON/daniel JOB#: [id number] / [id number]
[2017-08-19] MEDS ORDERED: ACET325T21 PO (23:56)
[2017-08-19] MEDS ORDERED: DIVA125C PO ×2 (23:57→23:58)
[2017-08-19] MEDS ORDERED: DULO30CA2 PO (23:59)
[2017-08-20] MEDS ORDERED: MAG355OR17 PO
[2017-08-20] MEDS ORDERED: MAGN2400 PO
[2017-08-20] MEDS ORDERED: METH29OI TP (00:01)
[2017-08-20] MEDS ORDERED: OLAN5TAB5 PO (00:02)
[2017-08-20] MEDS ORDERED: NICO1PAT21 TD (00:02)
[2017-08-20] MEDS: LEVOTHYROXINE 25 MCG TABLET. PO SCH (05:05)
[2017-08-20 05:46] VITALS: BP 146/94
[2017-08-20] MEDS: DIVALPROEX 125 MG CAP.SPRINK PO SCH ×2 (08:07→19:43)
[2017-08-20] MEDS: GABAPENTIN 300 MG CAPSULE. PO SCH ×2 (08:07→19:42)
[2017-08-20] MEDS: LISINOPRIL 20 MG TABLET PO SCH (08:07)
[2017-08-20] MEDS: metFORMIN 500 MG TABLET PO SCH (08:07)
[2017-08-20] MEDS: METOPROLOL TART IMMED RELEASE 25 MG TABLET PO SCH (08:08)
[2017-08-20] MEDS: DOCUSATE SODIUM 100 MG CAPSULE PO SCH (08:08)
[2017-08-20] MEDS: ASPIRIN 81 MG TAB.CHEW PO SCH (08:08)
[2017-08-20] MEDS: CYANOCOBALAMIN (VITAMIN B-12) 1,000 MCG TABLET. PO SCH (08:08)
[2017-08-20] MEDS: DULoxetine HCL 30 MG CAPSULE.DR PO SCH (08:08)
[2017-08-20] MEDS: ALLOPURINOL 300 MG TABLET. PO SCH (08:08)
[2017-08-20] MEDS: PANTOPRAZOLE 40 MG TABLET. PO SCH ×2 (08:08→18:16)
[2017-08-20] MEDS: NICOTINE 21MG PATCH. TD SCH (08:08)
[2017-08-20] MEDS: LIDOCAINE (700MG/PATCH) PATCH. TP SCH (08:09)
[2017-08-20 16:41] VITALS: BP 106/73
[2017-08-20] MEDS: ATORVASTATIN CALCIUM 20 MG TABLET PO SCH (19:42)
--- NOTE | 2017-08-20 22:22 | PDOC ---
Exam Note: Nabeel Note: Please also refer to the separate dictated note~for this date of service dictated separately.~Patient seen individually. Discussed the patient with Nursing staff reviewed the chart.~Reviewed interim history and current functioning. Reviewed vital signs,~Labs/ Radiology~and current medications noted below. Continue current treatment with the changes noted in the dictated addendum note Assessment: Vital Signs: Vital Signs Date Time Temp Pulse Resp B/P (MAP) Pulse Ox O2 Delivery O2 Flow Rate FiO2 08/20/17 16:41 97.8 79 18 106/73 (84) 96 Room Air I&O Intake and Output 08/20/17 07:00 Intake Total 1320 ml Balance 1320 ml Intake Oral 1320 ml Current Medications: Meds: Current Medications Acetaminophen (Tylenol) 650 mg PRN Q6HRS PRN PO PAIN / TEMP Last administered on 08/10/17at 05:29; Start 08/06/17 at 23:45 Multi-Ingredient Ointment (Analgesic [place]) 1 patricia PRN QID PRN TP MUSCLE PAIN; Start 08/06/17 at 23:45 Al Hydroxide/Mg Hydroxide (Mylanta Plus Xs) 15 ml PRN AFTMEALHC PRN PO DYSPEPSIA Last administered on 08/15/17at 21:12; Start 08/06/17 at 23:45 Magnesium Hydroxide (Milk Of Magnesia) 2,400 mg PRN QHS PRN PO CONSTIPATION; Start 08/06/17 at 23:45 Nicotine (Nicoderm Cq 21mg) 1 patch DAILY TD Last administered on 08/20/17at 08: 08; Start 08/07/17 at 09:00 Atorvastatin Calcium (Lipitor) 20 mg QHS PO Last administered on 08/20/17at 19: 42; Start 08/07/17 at 21:00 Cyanocobalamin (Vitamin B-12) 1,000 mcg DAILY PO Last administered on at 08:08; Start 08/07/17 at 09:00 Gabapentin (Neurontin) 300 mg BID PO Last administered on 08/20/17at 19:42; Start 08/07/17 at 09:00 Hydrochlorothiazide (Hydrodiuril) 25 mg DAILY PO Last administered on at 07:46; Start 08/07/17 at 09:00; Stop 08/18/17 at 19:29; Status DC Lisinopril (Prinivil) 20 mg DAILY PO Last administered on 08/20/17 08:07; Start 08/07/17 at 09:00 Metoprolol Tartrate (Lopressor) 25 mg DAILY PO Last administered on 08/20/17at 08:08; Start 08/07/17 at 09:00 Allopurinol (Zyloprim) 300 mg DAILY PO Last administered on 08/20/17 08:08; Start 08/07/17 at 09:00 Aspirin (Children'S Aspirin) 81 mg DAILY PO Last administered on 08/20/17 08: 08; Start 08/07/17 at 09:00 Docusate Sodium (Colace) 100 mg DAILY PO Last administered on 08/20/17 08:08; Start 08/07/17 at 09:00 Levothyroxine Sodium (Synthroid) 25 mcg DAILY06 PO Last administered on 05:05; Start 08/07/17 at 06:00 Lidocaine (Lidoderm) 1 patch DAILY TP Last administered on 08/20/17 08:09; Start 08/07/17 at 09:00 Metformin HCl (Glucophage) 500 mg DAILYWBKFT PO Last administered on 08/20/17 08:07; Start 08/07/17 at 08:00 Pantoprazole Sodium (Protonix) 40 mg BIDBFRMEAL PO Last administered on at 18:16; Start 08/07/17 at 07:30 Info (Do NOT chart on this placeholder) 1 each 1X ONCE MC ; Start 08/07/17 at 09 :00; Stop 08/07/17 at 09:01; Status Cancel Divalproex Sodium (Depakote Sprinkles) 250 mg BID PO Last administered on 07:36; Start 08/07/17 at 21:00; Stop 08/10/17 at 18:50; Status DC Duloxetine HCl (Cymbalta) 30 mg DAILY PO Last administered on 08/20/17 08:08; Start 08/08/17 at 09:00 Olanzapine (ZyPREXA ZYDIS) 2.5 mg PRN Q2HR PRN PO AGITATION/PSYCHOSIS Last administered on 08/17/17at 09:20; Start 08/07/17 at 18:45 Divalproex Sodium (Depakote Sprinkles) 500 mg BID PO Last administered on at 09:27; Start 08/10/17 at 21:00; Stop 08/14/17 at 17:21; Status DC Divalproex Sodium (Depakote Sprinkles) 500 mg DAILY@0900 PO Last administered on 08/20/17at 08:07; Start 08/15/17 at 09:00 Divalproex Sodium (Depakote Sprinkles) 750 mg HS PO Last administered on at 19:43; Start 08/14/17 at 21:00 Active Scripts Active Reported Zyprexa Zydis (Olanzapine) 5 Mg Tab.rapdis 2.5 Mg PO PRN Q2HR PRN NICODERM CQ 21mg (Nicotine) 1 Each Patch.td24 1 Patch TD DAILY Analgesic [place] (Methyl Salicylate/Menthol) 28 Gm Oint...g. 1 Patricia TP PRN QID PRN Milk Of Magnesia (Magnesium Hydroxide) 2,400 Mg/10 Ml Oral.susp 2,400 Mg PO PRN QHS PRN Advanced Antacid Liquid (Mag Hydrox/Al Hydrox/Simeth) 355 Ml Oral.susp 15 Ml PO PRN AFTMEALHC PRN Cymbalta (Duloxetine Hcl) 30 Mg Capsule.dr 30 Mg PO DAILY Depakote Sprinkle (Divalproex Sodium) 125 Mg Cap.sprink 750 Mg PO HS Depakote Sprinkle (Divalproex Sodium) 125 Mg Cap.sprink 500 Mg PO DAILY Acetaminophen 325 Mg Tablet 650 Mg PO PRN Q6HRS PRN Colace (Docusate Sodium) 100 Mg Capsule 100 Mg PO DAILY Lipitor (Atorvastatin Calcium) 20 Mg Tablet 20 Mg PO QHS Lidocaine 1 Each Adh..patch 1 Each TP DAILY Protonix (Pantoprazole Sodium) 40 Mg Tablet.dr 40 Mg PO BIDBFRMEAL Metoprolol Tartrate 25 Mg Tablet 25 Mg PO DAILY Glucophage (Metformin Hcl) 500 Mg Tablet 500 Mg PO DAILYWBKFT Lisinopril 20 Mg Tablet 20 Mg PO DAILY Levothyroxine Sodium 25 Mcg Tablet 25 Mcg PO DAILYAC Hydrochlorothiazide Tablet (Hydrochlorothiazide) 25 Mg Tablet 25 Mg PO DAILY Gabapentin 300 Mg Capsule 300 Mg PO BID Vitamin B-12 (Cyanocobalamin (Vitamin B-12)) 100 Mcg Tablet 1,000 Mcg PO DAILY Aspirin 81 Mg Tab.chew 81 Mg PO DAILY Allopurinol 300 Mg Tablet 300 Mg PO DAILY I have reviewed the current psychotropics carefully including drug interactions. Risk benefit ratio favors no change other than as noted in my dictated progress note. Diagnosis: Problems: (1) Anxiety disorder (2) Impulse control disorder (3) Bipolar affective, mixed (4) Mild cognitive impairment (5) Cerebrovascular accident (CVA) due to vascular occlusion MELISSA CARDOZO MD Aug 20, 2017 22:22
[2017-08-21] MEDS: MAG HYDROX/AL HYDROX/SIMETH 30 ML ORAL.SUSP PO PRN ×2 (01:31→20:41)
[2017-08-21] MEDS: LEVOTHYROXINE 25 MCG TABLET. PO SCH (05:47)
[2017-08-21 06:33] VITALS: BP 123/74
[2017-08-21] MEDS: ALLOPURINOL 300 MG TABLET. PO SCH (07:57)
[2017-08-21] MEDS: METOPROLOL TART IMMED RELEASE 25 MG TABLET PO SCH (07:57)
[2017-08-21] MEDS: DOCUSATE SODIUM 100 MG CAPSULE PO SCH (07:57)
[2017-08-21] MEDS: PANTOPRAZOLE 40 MG TABLET. PO SCH (07:57)
[2017-08-21] MEDS: GABAPENTIN 300 MG CAPSULE. PO SCH ×2 (07:57→20:39)
[2017-08-21] MEDS: DIVALPROEX 125 MG CAP.SPRINK PO SCH ×2 (07:57→20:39)
[2017-08-21] MEDS: CYANOCOBALAMIN (VITAMIN B-12) 1,000 MCG TABLET. PO SCH (07:58)
[2017-08-21] MEDS: LISINOPRIL 20 MG TABLET PO SCH (07:58)
[2017-08-21] MEDS: DULoxetine HCL 30 MG CAPSULE.DR PO SCH (07:58)
[2017-08-21] MEDS: metFORMIN 500 MG TABLET PO SCH (07:58)
[2017-08-21] MEDS: NICOTINE 21MG PATCH. TD SCH (07:59)
[2017-08-21] MEDS: LIDOCAINE (700MG/PATCH) PATCH. TP SCH (07:59)
[2017-08-21] MEDS: ASPIRIN 81 MG TAB.CHEW PO SCH (08:03)
[2017-08-21 16:30] VITALS: BP 140/86
[2017-08-21] MEDS: ATORVASTATIN CALCIUM 20 MG TABLET PO SCH (20:39)
--- NOTE | 2017-08-21 22:23 | PDOC ---
Exam Note: Nabeel Note: Please also refer to the separate dictated note~for this date of service dictated separately.~Patient seen individually. Discussed the patient with Nursing staff reviewed the chart.~Reviewed interim history and current functioning. Reviewed vital signs,~Labs/ Radiology~and current medications noted below. Continue current treatment with the changes noted in the dictated addendum note Assessment: Vital Signs: Vital Signs Date Time Temp Pulse Resp B/P (MAP) Pulse Ox O2 Delivery O2 Flow Rate FiO2 08/21/17 16:30 97.1 84 17 140/86 (104) 94 Room Air I&O Intake and Output 08/21/17 07:00 Intake Total 1560 ml Balance 1560 ml Intake Oral 1560 ml Current Medications: Meds: Current Medications Acetaminophen (Tylenol) 650 mg PRN Q6HRS PRN PO PAIN / TEMP Last administered on 08/10/17at 05:29; Start 08/06/17 at 23:45 Multi-Ingredient Ointment (Analgesic [place]) 1 patricia PRN QID PRN TP MUSCLE PAIN; Start 08/06/17 at 23:45 Al Hydroxide/Mg Hydroxide (Mylanta Plus Xs) 15 ml PRN AFTMEALHC PRN PO DYSPEPSIA Last administered on 08/21/17at 20:41; Start 08/06/17 at 23:45 Magnesium Hydroxide (Milk Of Magnesia) 2,400 mg PRN QHS PRN PO CONSTIPATION; Start 08/06/17 at 23:45 Nicotine (Nicoderm Cq 21mg) 1 patch DAILY TD Last administered on 08/21/17at 07: 59; Start 08/07/17 at 09:00 Atorvastatin Calcium (Lipitor) 20 mg QHS PO Last administered on 08/21/17at 20: 39; Start 08/07/17 at 21:00 Cyanocobalamin (Vitamin B-12) 1,000 mcg DAILY PO Last administered on 07:58; Start 08/07/17 at 09:00 Gabapentin (Neurontin) 300 mg BID PO Last administered on 08/21/17at 20:39; Start 08/07/17 at 09:00 Hydrochlorothiazide (Hydrodiuril) 25 mg DAILY PO Last administered on at 07:46; Start 08/07/17 at 09:00; Stop 08/18/17 at 19:29; Status DC Lisinopril (Prinivil) 20 mg DAILY PO Last administered on 08/21/17 07:58; Start 08/07/17 at 09:00 Metoprolol Tartrate (Lopressor) 25 mg DAILY PO Last administered on 08/21/17at 07:57; Start 08/07/17 at 09:00 Allopurinol (Zyloprim) 300 mg DAILY PO Last administered on 08/21/17 07:57; Start 08/07/17 at 09:00 Aspirin (Children'S Aspirin) 81 mg DAILY PO Last administered on 08/21/17 08: 03; Start 08/07/17 at 09:00 Docusate Sodium (Colace) 100 mg DAILY PO Last administered on 08/21/17 07:57; Start 08/07/17 at 09:00 Levothyroxine Sodium (Synthroid) 25 mcg DAILY06 PO Last administered on at 05:47; Start 08/07/17 at 06:00 Lidocaine (Lidoderm) 1 patch DAILY TP Last administered on 08/21/17 07:59; Start 08/07/17 at 09:00 Metformin HCl (Glucophage) 500 mg DAILYWBKFT PO Last administered on 08/21/17 07:58; Start 08/07/17 at 08:00 Pantoprazole Sodium (Protonix) 40 mg BIDBFRMEAL PO Last administered on 07:57; Start 08/07/17 at 07:30; Stop 08/21/17 at 11:53; Status DC Info (Do NOT chart on this placeholder) 1 each 1X ONCE MC ; Start 08/07/17 at 09 :00; Stop 08/07/17 at 09:01; Status Cancel Divalproex Sodium (Depakote Sprinkles) 250 mg BID PO Last administered on at 07:36; Start 08/07/17 at 21:00; Stop 08/10/17 at 18:50; Status DC Duloxetine HCl (Cymbalta) 30 mg DAILY PO Last administered on 08/21/17at 07:58; Start 08/08/17 at 09:00 Olanzapine (ZyPREXA ZYDIS) 2.5 mg PRN Q2HR PRN PO AGITATION/PSYCHOSIS Last administered on 08/17/17at 09:20; Start 08/07/17 at 18:45 Divalproex Sodium (Depakote Sprinkles) 500 mg BID PO Last administered on at 09:27; Start 08/10/17 at 21:00; Stop 08/14/17 at 17:21; Status DC Divalproex Sodium (Depakote Sprinkles) 500 mg DAILY@0900 PO Last administered on 08/21/17at 07:57; Start 08/15/17 at 09:00 Divalproex Sodium (Depakote Sprinkles) 750 mg HS PO Last administered on at 20:39; Start 08/14/17 at 21:00 Pantoprazole Sodium (Protonix) 40 mg DAILYAC PO ; Start 08/22/17 at 07:30 Active Scripts Active Reported Zyprexa Zydis (Olanzapine) 5 Mg Tab.rapdis 2.5 Mg PO PRN Q2HR PRN NICODERM CQ 21mg (Nicotine) 1 Each Patch.td24 1 Patch TD DAILY Analgesic [place] (Methyl Salicylate/Menthol) 28 Gm Oint...g. 1 Patricia TP PRN QID PRN Milk Of Magnesia (Magnesium Hydroxide) 2,400 Mg/10 Ml Oral.susp 2,400 Mg PO PRN QHS PRN Advanced Antacid Liquid (Mag Hydrox/Al Hydrox/Simeth) 355 Ml Oral.susp 15 Ml PO PRN AFTMEALHC PRN Cymbalta (Duloxetine Hcl) 30 Mg Capsule.dr 30 Mg PO DAILY Depakote Sprinkle (Divalproex Sodium) 125 Mg Cap.sprink 750 Mg PO HS Depakote Sprinkle (Divalproex Sodium) 125 Mg Cap.sprink 500 Mg PO DAILY Acetaminophen 325 Mg Tablet 650 Mg PO PRN Q6HRS PRN Colace (Docusate Sodium) 100 Mg Capsule 100 Mg PO DAILY Lipitor (Atorvastatin Calcium) 20 Mg Tablet 20 Mg PO QHS Lidocaine 1 Each Adh..patch 1 Each TP DAILY Protonix (Pantoprazole Sodium) 40 Mg Tablet.dr 40 Mg PO DAILY Metoprolol Tartrate 25 Mg Tablet 25 Mg PO DAILY Glucophage (Metformin Hcl) 500 Mg Tablet 500 Mg PO DAILYWBKFT Lisinopril 20 Mg Tablet 20 Mg PO DAILY Levothyroxine Sodium 25 Mcg Tablet 25 Mcg PO DAILYAC Hydrochlorothiazide Tablet (Hydrochlorothiazide) 25 Mg Tablet 25 Mg PO DAILY Gabapentin 300 Mg Capsule 300 Mg PO BID Vitamin B-12 (Cyanocobalamin (Vitamin B-12)) 100 Mcg Tablet 1,000 Mcg PO DAILY Aspirin 81 Mg Tab.chew 81 Mg PO DAILY Allopurinol 300 Mg Tablet 300 Mg PO DAILY I have reviewed the current psychotropics carefully including drug interactions. Risk benefit ratio favors no change other than as noted in my dictated progress note. Diagnosis: Problems: (1) Anxiety disorder (2) Impulse control disorder (3) Bipolar affective, mixed (4) Mild cognitive impairment (5) Cerebrovascular accident (CVA) due to vascular occlusion MELISSA CARDOZO MD Aug 21, 2017 22:23
--- NOTE | 2017-08-22 00:30 | PN ---
DATE: 08/19/2017 PSYCHIATRIC PROGRESS NOTE This is a late entry of 08/19/2017, covers elements not covered in my initial note. SUBJECTIVE: I met with the patient in the evening in his room. The patient has been fairly cooperative. He did have psychological testing with Dr. Michael. Dr. Michael determined the patient needs assistance with finances and health care decisions. [facility], social service staff will help coordinate this, and Adult Protective Services is involved. REVIEW OF SYSTEMS: Positive for back pain. No CV, , pulmonary, eye, ENT system symptoms on review. MENTAL STATUS EXAM: Oriented to himself and situation. Speech coherent, abstraction fair, computation impaired, language function intact, attention span short. Mood and affect somewhat withdrawn. LABORATORY DATA: Reviewed. IMPRESSION: Unchanged from initial note. PLAN: Continue current psychotropics. MAN Celeste CARDOZO MD DR: MILTON/daniel JOB#: [id number] / [id number]
--- NOTE | 2017-08-22 00:41 | PN ---
DATE: 08/20/2017 PSYCHIATRIC PROGRESS NOTE This is a late entry of 08/20/2017 covers elements not covered in my initial note. SUBJECTIVE: I met with the patient in the evening and staffed at a treatment team meeting with the entire team in the morning. Overall, the patient remains somewhat withdrawn and social service staff is coordinating [facility] with [facility] and the patient's ex-, who is his current DPOA. REVIEW OF SYSTEMS: Positive for back pain. No CV, , pulmonary, eye system symptoms on review. MENTAL STATUS EXAM: Oriented to himself and situation. Speech has some latency, coherent, at times pressured. Abstraction fair, computation impaired, language function intact, attention span short. Mood and affect are somewhat withdrawn. LABORATORY DATA: Reviewed. IMPRESSION: Unchanged from initial note. PLAN: No change from a psychiatric standpoint from initial note. MAN Celeste CARDOZO MD DR: MILTON/daniel JOB#: [id number] / [id number]
[2017-08-22 06:27] VITALS: BP 128/85
[2017-08-22] MEDS: LEVOTHYROXINE 25 MCG TABLET. PO SCH (06:41)
[2017-08-22 08:36] LABS: BASO # 0.1 x10^3/uL (0.0-0.2); BASO % 1 % (0-3); EOS # 0.3 x10^3/uL (0.0-0.7); EOS % 4 % (0-3); HEMATOCRIT 38.7 % (39.0-53.0); HEMOGLOBIN 12.9 g/dL (13.0-17.5); LYMPH # 1.4 x10^3/uL (1.0-4.8); LYMPH % 19 % (24-48); MEAN CORPUSCULAR HEMOGLOBIN 32 pg (25-35); MEAN CORPUSCULAR HGB CONC 33 g/dL (31-37); MEAN CORPUSCULAR VOLUME 95 fL (79-100); MONO # 0.8 x10^3/uL (0.0-1.1); MONO % 10 % (0-9); NEUT # 5.2 x10^3uL (1.8-7.7); NEUT % 67 % (31-73); PLATELET COUNT 181 x10^3/uL (140-400); RED BLOOD COUNT 4.06 x10^6/uL (4.30-5.70); WHITE BLOOD COUNT 7.8 x10^3/uL (4.0-11.0)
[2017-08-22 08:43] LABS: ALBUMIN 2.9 g/dL (3.4-5.0); ALBUMIN/GLOBULIN RATIO 0.6 (1.0-1.7); CALCIUM 9.3 mg/dL (8.5-10.1); CREATININE 1.2 mg/dL (0.7-1.3); GFR 59.2; POTASSIUM 5.2 mmol/L (3.5-5.1); TOTAL BILIRUBIN 0.3 mg/dL (0.2-1.0); TOTAL PROTEIN 7.6 g/dL (6.4-8.2)
[2017-08-22] MEDS: LISINOPRIL 20 MG TABLET PO SCH (09:00)
[2017-08-22] MEDS: metFORMIN 500 MG TABLET PO SCH (09:09)
[2017-08-22] MEDS: PANTOPRAZOLE 40 MG TABLET. PO SCH (09:09)
[2017-08-22] MEDS: DULoxetine HCL 30 MG CAPSULE.DR PO SCH (09:10)
[2017-08-22] MEDS: DOCUSATE SODIUM 100 MG CAPSULE PO SCH (09:10)
[2017-08-22] MEDS: ASPIRIN 81 MG TAB.CHEW PO SCH (09:10)
[2017-08-22] MEDS: DIVALPROEX 125 MG CAP.SPRINK PO SCH ×2 (09:11→19:44)
[2017-08-22] MEDS: METOPROLOL TART IMMED RELEASE 25 MG TABLET PO SCH (09:14)
[2017-08-22] MEDS: GABAPENTIN 300 MG CAPSULE. PO SCH ×2 (09:14→19:44)
[2017-08-22] MEDS: CYANOCOBALAMIN (VITAMIN B-12) 1,000 MCG TABLET. PO SCH (09:16)
[2017-08-22] MEDS: ALLOPURINOL 300 MG TABLET. PO SCH (09:16)
[2017-08-22] MEDS: NICOTINE 21MG PATCH. TD SCH (09:17)
[2017-08-22] MEDS: LIDOCAINE (700MG/PATCH) PATCH. TP SCH (09:17)
[2017-08-22 16:08] VITALS: BP 125/84
[2017-08-22] MEDS: ATORVASTATIN CALCIUM 20 MG TABLET PO SCH (19:44)
--- NOTE | 2017-08-22 22:26 | PDOC ---
Exam Note: Nabeel Note: Please also refer to the separate dictated note~for this date of service dictated separately.~Patient seen individually. Discussed the patient with Nursing staff reviewed the chart.~Reviewed interim history and current functioning. Reviewed vital signs,~Labs/ Radiology~and current medications noted below. Continue current treatment with the changes noted in the dictated addendum note Assessment: Vital Signs: Vital Signs Date Time Temp Pulse Resp B/P (MAP) Pulse Ox O2 Delivery O2 Flow Rate FiO2 08/22/17 16:08 98.1 72 20 125/84 (98) 94 Room Air I&O Intake and Output 08/22/17 07:01 Intake Total 780 ml Balance 780 ml Intake Oral 780 ml Labs: Laboratory Tests Test 08/22/17 07:54 White Blood Count 7.8 x10^3/uL (4.0-11.0) Red Blood Count 4.06 x10^6/uL (4.30-5.70) L Hemoglobin 12.9 g/dL (13.0-17.5) L Hematocrit 38.7 % (39.0-53.0) L Mean Corpuscular Volume 95 fL (79-100) Mean Corpuscular Hemoglobin 32 pg (25-35) Mean Corpuscular Hemoglobin Concent 33 g/dL (31-37) Red Cell Distribution Width 16.0 % (11.5-14.5) H Platelet Count 181 x10^3/uL (140-400) Neutrophils (%) (Auto) 67 % (31-73) Lymphocytes (%) (Auto) 19 % (24-48) L Monocytes (%) (Auto) 10 % (0-9) H Eosinophils (%) (Auto) 4 % (0-3) H Basophils (%) (Auto) 1 % (0-3) Neutrophils # (Auto) 5.2 x10^3uL (1.8-7.7) Lymphocytes # (Auto) 1.4 x10^3/uL (1.0-4.8) Monocytes # (Auto) 0.8 x10^3/uL (0.0-1.1) Eosinophils # (Auto) 0.3 x10^3/uL (0.0-0.7) Basophils # (Auto) 0.1 x10^3/uL (0.0-0.2) Sodium Level 141 mmol/L (136-145) Potassium Level 5.2 mmol/L (3.5-5.1) H Chloride Level 103 mmol/L (98-107) Carbon Dioxide Level 30 mmol/L (21-32) Anion Gap 8 (6-14) Blood Urea Nitrogen 33 mg/dL (8-26) H Creatinine 1.2 mg/dL (0.7-1.3) Estimated GFR (Cockcroft-Gault) 59.2 BUN/Creatinine Ratio 28 (6-20) H Glucose Level 117 mg/dL (70-99) H Calcium Level 9.3 mg/dL (8.5-10.1) Total Bilirubin 0.3 mg/dL (0.2-1.0) Aspartate Amino Transferase (AST) 25 U/L (15-37) Alanine Aminotransferase (ALT) 21 U/L (16-63) Alkaline Phosphatase 70 U/L (46-116) Total Protein 7.6 g/dL (6.4-8.2) Albumin 2.9 g/dL (3.4-5.0) L Albumin/Globulin Ratio 0.6 (1.0-1.7) L Current Medications: Meds: Current Medications Acetaminophen (Tylenol) 650 mg PRN Q6HRS PRN PO PAIN / TEMP Last administered on 08/10/17at 05:29; Start 08/06/17 at 23:45 Multi-Ingredient Ointment (Analgesic [place]) 1 patricia PRN QID PRN TP MUSCLE PAIN; Start 08/06/17 at 23:45 Al Hydroxide/Mg Hydroxide (Mylanta Plus Xs) 15 ml PRN AFTMEALHC PRN PO DYSPEPSIA Last administered on 08/21/17at 20:41; Start 08/06/17 at 23:45 Magnesium Hydroxide (Milk Of Magnesia) 2,400 mg PRN QHS PRN PO CONSTIPATION; Start 08/06/17 at 23:45 Nicotine (Nicoderm Cq 21mg) 1 patch DAILY TD Last administered on 08/22/17at 09: 17; Start 08/07/17 at 09:00 Atorvastatin Calcium (Lipitor) 20 mg QHS PO Last administered on 08/22/17at 19: 44; Start 08/07/17 at 21:00 Cyanocobalamin (Vitamin B-12) 1,000 mcg DAILY PO Last administered on 09:16; Start 08/07/17 at 09:00 Gabapentin (Neurontin) 300 mg BID PO Last administered on 08/22/17 19:44; Start 08/07/17 at 09:00 Hydrochlorothiazide (Hydrodiuril) 25 mg DAILY PO Last administered on 07:46; Start 08/07/17 at 09:00; Stop 08/18/17 at 19:29; Status DC Lisinopril (Prinivil) 20 mg DAILY PO Last administered on 08/21/17 07:58; Start 08/07/17 at 09:00 Metoprolol Tartrate (Lopressor) 25 mg DAILY PO Last administered on 08/22/17 09:14; Start 08/07/17 at 09:00 Allopurinol (Zyloprim) 300 mg DAILY PO Last administered on 08/22/17 09:16; Start 08/07/17 at 09:00 Aspirin (Children'S Aspirin) 81 mg DAILY PO Last administered on 08/22/17 09: 10; Start 08/07/17 at 09:00 Docusate Sodium (Colace) 100 mg DAILY PO Last administered on 08/22/17 09:10; Start 08/07/17 at 09:00 Levothyroxine Sodium (Synthroid) 25 mcg DAILY06 PO Last administered on 06:41; Start 08/07/17 at 06:00 Lidocaine (Lidoderm) 1 patch DAILY TP Last administered on 08/22/17 09:17; Start 08/07/17 at 09:00 Metformin HCl (Glucophage) 500 mg DAILYWBKFT PO Last administered on 08/22/17at 09:09; Start 08/07/17 at 08:00 Pantoprazole Sodium (Protonix) 40 mg BIDBFRMEAL PO Last administered on 07:57; Start 08/07/17 at 07:30; Stop 08/21/17 at 11:53; Status DC Info (Do NOT chart on this placeholder) 1 each 1X ONCE MC ; Start 08/07/17 at 09 :00; Stop 08/07/17 at 09:01; Status Cancel Divalproex Sodium (Depakote Sprinkles) 250 mg BID PO Last administered on 07:36; Start 08/07/17 at 21:00; Stop 08/10/17 at 18:50; Status DC Duloxetine HCl (Cymbalta) 30 mg DAILY PO Last administered on 08/22/17 09:10; Start 08/08/17 at 09:00 Olanzapine (ZyPREXA ZYDIS) 2.5 mg PRN Q2HR PRN PO AGITATION/PSYCHOSIS Last administered on 08/17/17at 09:20; Start 08/07/17 at 18:45 Divalproex Sodium (Depakote Sprinkles) 500 mg BID PO Last administered on at 09:27; Start 08/10/17 at 21:00; Stop 08/14/17 at 17:21; Status DC Divalproex Sodium (Depakote Sprinkles) 500 mg DAILY@0900 PO Last administered on 08/22/17at 09:11; Start 08/15/17 at 09:00 Divalproex Sodium (Depakote Sprinkles) 750 mg HS PO Last administered on at 19:44; Start 08/14/17 at 21:00 Pantoprazole Sodium (Protonix) 40 mg DAILYAC PO Last administered on 08/22/17 09:09; Start 08/22/17 at 07:30 Active Scripts Active Reported Zyprexa Zydis (Olanzapine) 5 Mg Tab.rapdis 2.5 Mg PO PRN Q2HR PRN NICODERM CQ 21mg (Nicotine) 1 Each Patch.td24 1 Patch TD DAILY Analgesic [place] (Methyl Salicylate/Menthol) 28 Gm Oint...g. 1 Patricia TP PRN QID PRN Milk Of Magnesia (Magnesium Hydroxide) 2,400 Mg/10 Ml Oral.susp 2,400 Mg PO PRN QHS PRN Advanced Antacid Liquid (Mag Hydrox/Al Hydrox/Simeth) 355 Ml Oral.susp 15 Ml PO PRN AFTMEALHC PRN Cymbalta (Duloxetine Hcl) 30 Mg Capsule.dr 30 Mg PO DAILY Depakote Sprinkle (Divalproex Sodium) 125 Mg Cap.sprink 750 Mg PO HS Depakote Sprinkle (Divalproex Sodium) 125 Mg Cap.sprink 500 Mg PO DAILY Acetaminophen 325 Mg Tablet 650 Mg PO PRN Q6HRS PRN Colace (Docusate Sodium) 100 Mg Capsule 100 Mg PO DAILY Lipitor (Atorvastatin Calcium) 20 Mg Tablet 20 Mg PO QHS Lidocaine 1 Each Adh..patch 1 Each TP DAILY Protonix (Pantoprazole Sodium) 40 Mg Tablet.dr 40 Mg PO DAILY Metoprolol Tartrate 25 Mg Tablet 25 Mg PO DAILY Glucophage (Metformin Hcl) 500 Mg Tablet 500 Mg PO DAILYWBKFT Lisinopril 20 Mg Tablet 20 Mg PO DAILY Levothyroxine Sodium 25 Mcg Tablet 25 Mcg PO DAILYAC Hydrochlorothiazide Tablet (Hydrochlorothiazide) 25 Mg Tablet 25 Mg PO DAILY Gabapentin 300 Mg Capsule 300 Mg PO BID Vitamin B-12 (Cyanocobalamin (Vitamin B-12)) 100 Mcg Tablet 1,000 Mcg PO DAILY Aspirin 81 Mg Tab.chew 81 Mg PO DAILY Allopurinol 300 Mg Tablet 300 Mg PO DAILY I have reviewed the current psychotropics carefully including drug interactions. Risk benefit ratio favors no change other than as noted in my dictated progress note. Diagnosis: Problems: (1) Anxiety disorder (2) Impulse control disorder (3) Bipolar affective, mixed (4) Mild cognitive impairment (5) Cerebrovascular accident (CVA) due to vascular occlusion MELISSA CARDOZO MD Aug 22, 2017 22:26
[2017-08-23] MEDS: LEVOTHYROXINE 25 MCG TABLET. PO SCH (05:51)
[2017-08-23 06:04] VITALS: BP 124/79
[2017-08-23] MEDS: ASPIRIN 81 MG TAB.CHEW PO SCH (07:42)
[2017-08-23] MEDS: metFORMIN 500 MG TABLET PO SCH (07:42)
[2017-08-23] MEDS: DOCUSATE SODIUM 100 MG CAPSULE PO SCH (07:42)
[2017-08-23] MEDS: PANTOPRAZOLE 40 MG TABLET. PO SCH (07:42)
[2017-08-23] MEDS: DULoxetine HCL 30 MG CAPSULE.DR PO SCH (07:43)
[2017-08-23] MEDS: DIVALPROEX 125 MG CAP.SPRINK PO SCH ×2 (07:43→19:33)
[2017-08-23] MEDS: GABAPENTIN 300 MG CAPSULE. PO SCH ×2 (07:45→19:33)
[2017-08-23] MEDS: METOPROLOL TART IMMED RELEASE 25 MG TABLET PO SCH (07:45)
[2017-08-23] MEDS: CYANOCOBALAMIN (VITAMIN B-12) 1,000 MCG TABLET. PO SCH (07:46)
[2017-08-23] MEDS: LISINOPRIL 20 MG TABLET PO SCH (07:46)
[2017-08-23] MEDS: ALLOPURINOL 300 MG TABLET. PO SCH (07:46)
[2017-08-23] MEDS: NICOTINE 21MG PATCH. TD SCH (07:47)
[2017-08-23] MEDS: LIDOCAINE (700MG/PATCH) PATCH. TP SCH (07:49)
[2017-08-23 15:44] VITALS: BP 147/85
[2017-08-23] MEDS: ATORVASTATIN CALCIUM 20 MG TABLET PO SCH (19:33)
--- NOTE | 2017-08-23 20:58 | PDOC ---
Exam Note: Nabeel Note: Please also refer to the separate dictated note~for this date of service dictated separately.~Patient seen individually. Discussed the patient with Nursing staff reviewed the chart.~Reviewed interim history and current functioning. Reviewed vital signs,~Labs/ Radiology~and current medications noted below. Continue current treatment with the changes noted in the dictated addendum note Assessment: Vital Signs: Vital Signs Date Time Temp Pulse Resp B/P (MAP) Pulse Ox O2 Delivery O2 Flow Rate FiO2 08/23/17 15:44 97.6 69 18 147/85 (105) 98 08/22/17 16:08 Room Air I&O Intake and Output 08/23/17 07:01 Intake Total 960 ml Balance 960 ml Intake Oral 960 ml Current Medications: Meds: Current Medications Acetaminophen (Tylenol) 650 mg PRN Q6HRS PRN PO PAIN / TEMP Last administered on 08/10/17at 05:29; Start 08/06/17 at 23:45 Multi-Ingredient Ointment (Analgesic [place]) 1 patricia PRN QID PRN TP MUSCLE PAIN; Start 08/06/17 at 23:45 Al Hydroxide/Mg Hydroxide (Mylanta Plus Xs) 15 ml PRN AFTMEALHC PRN PO DYSPEPSIA Last administered on 08/21/17at 20:41; Start 08/06/17 at 23:45 Magnesium Hydroxide (Milk Of Magnesia) 2,400 mg PRN QHS PRN PO CONSTIPATION; Start 08/06/17 at 23:45 Nicotine (Nicoderm Cq 21mg) 1 patch DAILY TD Last administered on 08/23/17at 07: 47; Start 08/07/17 at 09:00 Atorvastatin Calcium (Lipitor) 20 mg QHS PO Last administered on 08/23/17at 19: 33; Start 08/07/17 at 21:00 Cyanocobalamin (Vitamin B-12) 1,000 mcg DAILY PO Last administered on at 07:46; Start 08/07/17 at 09:00 Gabapentin (Neurontin) 300 mg BID PO Last administered on 08/23/17at 19:33; Start 08/07/17 at 09:00 Hydrochlorothiazide (Hydrodiuril) 25 mg DAILY PO Last administered on at 07:46; Start 08/07/17 at 09:00; Stop 08/18/17 at 19:29; Status DC Lisinopril (Prinivil) 20 mg DAILY PO Last administered on 08/23/17at 07:46; Start 08/07/17 at 09:00 Metoprolol Tartrate (Lopressor) 25 mg DAILY PO Last administered on 08/23/17at 07:45; Start 08/07/17 at 09:00 Allopurinol (Zyloprim) 300 mg DAILY PO Last administered on 08/23/17at 07:46; Start 08/07/17 at 09:00 Aspirin (Children'S Aspirin) 81 mg DAILY PO Last administered on 08/23/17at 07: 42; Start 08/07/17 at 09:00 Docusate Sodium (Colace) 100 mg DAILY PO Last administered on 08/23/17at 07:42; Start 08/07/17 at 09:00 Levothyroxine Sodium (Synthroid) 25 mcg DAILY06 PO Last administered on at 05:51; Start 08/07/17 at 06:00 Lidocaine (Lidoderm) 1 patch DAILY TP Last administered on 08/23/17at 07:49; Start 08/07/17 at 09:00 Metformin HCl (Glucophage) 500 mg DAILYWBKFT PO Last administered on 08/23/17at 07:42; Start 08/07/17 at 08:00 Pantoprazole Sodium (Protonix) 40 mg BIDBFRMEAL PO Last administered on at 07:57; Start 08/07/17 at 07:30; Stop 08/21/17 at 11:53; Status DC Info (Do NOT chart on this placeholder) 1 each 1X ONCE MC ; Start 08/07/17 at 09 :00; Stop 08/07/17 at 09:01; Status Cancel Divalproex Sodium (Depakote Sprinkles) 250 mg BID PO Last administered on at 07:36; Start 08/07/17 at 21:00; Stop 08/10/17 at 18:50; Status DC Duloxetine HCl (Cymbalta) 30 mg DAILY PO Last administered on 08/23/17at 07:43; Start 08/08/17 at 09:00 Olanzapine (ZyPREXA ZYDIS) 2.5 mg PRN Q2HR PRN PO AGITATION/PSYCHOSIS Last administered on 08/17/17at 09:20; Start 08/07/17 at 18:45 Divalproex Sodium (Depakote Sprinkles) 500 mg BID PO Last administered on at 09:27; Start 08/10/17 at 21:00; Stop 08/14/17 at 17:21; Status DC Divalproex Sodium (Depakote Sprinkles) 500 mg DAILY@0900 PO Last administered on 08/23/17at 07:43; Start 08/15/17 at 09:00 Divalproex Sodium (Depakote Sprinkles) 750 mg HS PO Last administered on at 19:33; Start 08/14/17 at 21:00 Pantoprazole Sodium (Protonix) 40 mg DAILYAC PO Last administered on 08/23/17at 07:42; Start 08/22/17 at 07:30 Active Scripts Active Reported Zyprexa Zydis (Olanzapine) 5 Mg Tab.rapdis 2.5 Mg PO PRN Q2HR PRN NICODERM CQ 21mg (Nicotine) 1 Each Patch.td24 1 Patch TD DAILY Analgesic [place] (Methyl Salicylate/Menthol) 28 Gm Oint...g. 1 Patricia TP PRN QID PRN Milk Of Magnesia (Magnesium Hydroxide) 2,400 Mg/10 Ml Oral.susp 2,400 Mg PO PRN QHS PRN Advanced Antacid Liquid (Mag Hydrox/Al Hydrox/Simeth) 355 Ml Oral.susp 15 Ml PO PRN AFTMEALHC PRN Cymbalta (Duloxetine Hcl) 30 Mg Capsule.dr 30 Mg PO DAILY Depakote Sprinkle (Divalproex Sodium) 125 Mg Cap.sprink 750 Mg PO HS Depakote Sprinkle (Divalproex Sodium) 125 Mg Cap.sprink 500 Mg PO DAILY Acetaminophen 325 Mg Tablet 650 Mg PO PRN Q6HRS PRN Colace (Docusate Sodium) 100 Mg Capsule 100 Mg PO DAILY Lipitor (Atorvastatin Calcium) 20 Mg Tablet 20 Mg PO QHS Lidocaine 1 Each Adh..patch 1 Each TP DAILY Protonix (Pantoprazole Sodium) 40 Mg Tablet.dr 40 Mg PO DAILY Metoprolol Tartrate 25 Mg Tablet 25 Mg PO DAILY Glucophage (Metformin Hcl) 500 Mg Tablet 500 Mg PO DAILYWBKFT Lisinopril 20 Mg Tablet 20 Mg PO DAILY Levothyroxine Sodium 25 Mcg Tablet 25 Mcg PO DAILYAC Hydrochlorothiazide Tablet (Hydrochlorothiazide) 25 Mg Tablet 25 Mg PO DAILY Gabapentin 300 Mg Capsule 300 Mg PO BID Vitamin B-12 (Cyanocobalamin (Vitamin B-12)) 100 Mcg Tablet 1,000 Mcg PO DAILY Aspirin 81 Mg Tab.chew 81 Mg PO DAILY Allopurinol 300 Mg Tablet 300 Mg PO DAILY I have reviewed the current psychotropics carefully including drug interactions. Risk benefit ratio favors no change other than as noted in my dictated progress note. Diagnosis: Problems: (1) Anxiety disorder (2) Impulse control disorder (3) Bipolar affective, mixed (4) Mild cognitive impairment (5) Cerebrovascular accident (CVA) due to vascular occlusion MELISSA CARDOZO MD Aug 23, 2017 20:58
[2017-08-23] MEDS: MAG HYDROX/AL HYDROX/SIMETH 30 ML ORAL.SUSP PO PRN (21:49)
[2017-08-24] MEDS: LEVOTHYROXINE 25 MCG TABLET. PO SCH (04:23)
[2017-08-24 06:20] VITALS: BP 163/85
[2017-08-24] MEDS: PANTOPRAZOLE 40 MG TABLET. PO SCH (08:32)
[2017-08-24] MEDS: metFORMIN 500 MG TABLET PO SCH (08:33)
[2017-08-24] MEDS: DOCUSATE SODIUM 100 MG CAPSULE PO SCH (08:33)
[2017-08-24] MEDS: ASPIRIN 81 MG TAB.CHEW PO SCH (08:33)
[2017-08-24] MEDS: DULoxetine HCL 30 MG CAPSULE.DR PO SCH (08:33)
[2017-08-24] MEDS: GABAPENTIN 300 MG CAPSULE. PO SCH (08:34)
[2017-08-24] MEDS: DIVALPROEX 125 MG CAP.SPRINK PO SCH (08:34)
[2017-08-24] MEDS: METOPROLOL TART IMMED RELEASE 25 MG TABLET PO SCH (08:34)
[2017-08-24 08:35] VITALS: BP 163/85
[2017-08-24] MEDS: ALLOPURINOL 300 MG TABLET. PO SCH (08:35)
[2017-08-24] MEDS: NICOTINE 21MG PATCH. TD SCH (08:35)
[2017-08-24] MEDS: LIDOCAINE (700MG/PATCH) PATCH. TP SCH (08:35)
[2017-08-24] MEDS: CYANOCOBALAMIN (VITAMIN B-12) 1,000 MCG TABLET. PO SCH (08:35)
[2017-08-24] MEDS: LISINOPRIL 20 MG TABLET PO SCH (08:35)
[2017-08-24 09:41] LABS: ALBUMIN 2.7 g/dL (3.4-5.0); ALBUMIN/GLOBULIN RATIO 0.6 (1.0-1.7); CALCIUM 9.3 mg/dL (8.5-10.1); CREATININE 1.1 mg/dL (0.7-1.3); GFR 65.4; POTASSIUM 4.8 mmol/L (3.5-5.1); TOTAL BILIRUBIN 0.3 mg/dL (0.2-1.0); TOTAL PROTEIN 7.2 g/dL (6.4-8.2)
--- NOTE | 2017-08-24 12:29 | PN ---
DATE: 08/22/2017 PSYCHIATRIC PROGRESS NOTE This is a late entry 08/22/2017, covers elements not covered in my initial note 08/22/2017. SUBJECTIVE: I met with the patient in the evening. The patient remains somewhat withdrawn, but cooperative. Short term memory deficits are evident. He continues to complain about his ex- managing his finances, but I have deferred this to social service staff and Adult Protective Services are involved. REVIEW OF SYSTEMS: Positive for back pain. No CV, , pulmonary, eye system symptoms on review. Walks with a hunch, bent forward frequently, lies down flat to help relieve the back pain. MENTAL STATUS EXAM: Oriented to himself and situation. Speech is coherent, less pressured. Abstraction fair, computation impaired, language function intact, attention span short. Mood and affect still withdrawn, but better than before. LABORATORY DATA: Reviewed. IMPRESSION: Bipolar 1 disorder, mixed with psychotic features, in partial remission; cognitive disorder, unspecified. Rest unchanged. PLAN: Continue psychotropics from my initial note. Valproic acid level is 49, slightly subtherapeutic, but clinically adequate for now. MAN Celeste CARDOZO MD DR: MITLON/daniel JOB#: [id number] / [id number]
--- NOTE | 2017-08-24 12:58 | PN ---
DATE: 08/23/2017 PSYCHIATRIC PROGRESS NOTE This is a late entry 08/23/2017, covers elements not covered in my initial note 08/23/2017. SUBJECTIVE: I met with the patient in the evening in his room. He remains somewhat withdrawn, but states his mood is better. He is looking forward to the discharge from here that is being coordinated by social service staff, [facility] and the patient's ex- together with the patient. REVIEW OF SYSTEMS: Positive for back pain. No CV, , pulmonary, eye system symptoms on review. MENTAL STATUS EXAM: Oriented to himself and situation. Speech is coherent, less pressured. Abstraction fair, computation impaired, language function intact, attention span short. Mood and affect less labile. LABORATORY DATA: Reviewed. IMPRESSION: Unchanged from initial note. PLAN: Continue current psychotropics and transition to a lower level of care starting 08/24/2017. MAN Celeste CARDOZO MD DR: MILTON/daniel JOB#: [id number] / [id number]
--- NOTE | 2017-08-24 20:53 | PDOC ---
Exam Note: Nabeel Note: Please also refer to the separate dictated note~for this date of service dictated separately.~Patient seen individually. Discussed the patient with Nursing staff reviewed the chart.~Reviewed interim history and current functioning. Reviewed vital signs,~Labs/ Radiology~and current medications noted below. Continue current treatment with the changes noted in the dictated addendum note Assessment: Vital Signs: Vital Signs Date Time Temp Pulse Resp B/P (MAP) Pulse Ox O2 Delivery O2 Flow Rate FiO2 08/24/17 08:35 69 163/85 08/24/17 06:20 97.9 14 98 08/22/17 16:08 Room Air I&O Intake and Output 08/24/17 07:01 Intake Total 1320 ml Balance 1320 ml Intake Oral 1320 ml Labs: Laboratory Tests Test 08/24/17 07:28 Sodium Level 141 mmol/L (136-145) Potassium Level 4.8 mmol/L (3.5-5.1) Chloride Level 104 mmol/L (98-107) Carbon Dioxide Level 32 mmol/L (21-32) Anion Gap 5 (6-14) L Blood Urea Nitrogen 28 mg/dL (8-26) H Creatinine 1.1 mg/dL (0.7-1.3) Estimated GFR (Cockcroft-Gault) 65.4 BUN/Creatinine Ratio 25 (6-20) H Glucose Level 110 mg/dL (70-99) H Calcium Level 9.3 mg/dL (8.5-10.1) Total Bilirubin 0.3 mg/dL (0.2-1.0) Aspartate Amino Transferase (AST) 25 U/L (15-37) Alanine Aminotransferase (ALT) 20 U/L (16-63) Alkaline Phosphatase 67 U/L (46-116) Total Protein 7.2 g/dL (6.4-8.2) Albumin 2.7 g/dL (3.4-5.0) L Albumin/Globulin Ratio 0.6 (1.0-1.7) L Current Medications: Meds: Current Medications Acetaminophen (Tylenol) 650 mg PRN Q6HRS PRN PO PAIN / TEMP Last administered on 08/10/17at 05:29; Start 08/06/17 at 23:45; Stop 08/24/17 at 13:03; Status DC Multi-Ingredient Ointment (Analgesic [place]) 1 patricia PRN QID PRN TP MUSCLE PAIN; Start 08/06/17 at 23:45; Stop 08/24/17 at 13:03; Status DC Al Hydroxide/Mg Hydroxide (Mylanta Plus Xs) 15 ml PRN AFTMEALHC PRN PO DYSPEPSIA Last administered on 08/23/17at 21:49; Start 08/06/17 at 23:45; Stop at 13:03; Status DC Magnesium Hydroxide (Milk Of Magnesia) 2,400 mg PRN QHS PRN PO CONSTIPATION; Start 08/06/17 at 23:45; Stop 08/24/17 at 13:03; Status DC Nicotine (Nicoderm Cq 21mg) 1 patch DAILY TD Last administered on 08/24/17at 08: 35; Start 08/07/17 at 09:00; Stop 08/24/17 at 13:03; Status DC Atorvastatin Calcium (Lipitor) 20 mg QHS PO Last administered on 08/23/17at 19: 33; Start 08/07/17 at 21:00; Stop 08/24/17 at 13:03; Status DC Cyanocobalamin (Vitamin B-12) 1,000 mcg DAILY PO Last administered on at 08:35; Start 08/07/17 at 09:00; Stop 08/24/17 at 13:03; Status DC Gabapentin (Neurontin) 300 mg BID PO Last administered on 08/24/17 08:34; Start 08/07/17 at 09:00; Stop 08/24/17 at 13:03; Status DC Hydrochlorothiazide (Hydrodiuril) 25 mg DAILY PO Last administered on at 07:46; Start 08/07/17 at 09:00; Stop 08/18/17 at 19:29; Status DC Lisinopril (Prinivil) 20 mg DAILY PO Last administered on 08/24/17at 08:35; Start 08/07/17 at 09:00; Stop 08/24/17 at 13:03; Status DC Metoprolol Tartrate (Lopressor) 25 mg DAILY PO Last administered on 08/24/17at 08:34; Start 08/07/17 at 09:00; Stop 08/24/17 at 13:03; Status DC Allopurinol (Zyloprim) 300 mg DAILY PO Last administered on 08/24/17at 08:35; Start 08/07/17 at 09:00; Stop 08/24/17 at 13:03; Status DC Aspirin (Children'S Aspirin) 81 mg DAILY PO Last administered on 08/24/17at 08: 33; Start 08/07/17 at 09:00; Stop 08/24/17 at 13:03; Status DC Docusate Sodium (Colace) 100 mg DAILY PO Last administered on 08/24/17at 08:33; Start 08/07/17 at 09:00; Stop 08/24/17 at 13:03; Status DC Levothyroxine Sodium (Synthroid) 25 mcg DAILY06 PO Last administered on at 04:23; Start 08/07/17 at 06:00; Stop 08/24/17 at 13:03; Status DC Lidocaine (Lidoderm) 1 patch DAILY TP Last administered on 08/24/17at 08:35; Start 08/07/17 at 09:00; Stop 08/24/17 at 13:03; Status DC Metformin HCl (Glucophage) 500 mg DAILYWBKFT PO Last administered on 08/24/17 08:33; Start 08/07/17 at 08:00; Stop 08/24/17 at 13:03; Status DC Pantoprazole Sodium (Protonix) 40 mg BIDBFRMEAL PO Last administered on at 07:57; Start 08/07/17 at 07:30; Stop 08/21/17 at 11:53; Status DC Info (Do NOT chart on this placeholder) 1 each 1X ONCE MC ; Start 08/07/17 at 09 :00; Stop 08/07/17 at 09:01; Status Cancel Divalproex Sodium (Depakote Sprinkles) 250 mg BID PO Last administered on at 07:36; Start 08/07/17 at 21:00; Stop 08/10/17 at 18:50; Status DC Duloxetine HCl (Cymbalta) 30 mg DAILY PO Last administered on 08/24/17at 08:33; Start 08/08/17 at 09:00; Stop 08/24/17 at 13:03; Status DC Olanzapine (ZyPREXA ZYDIS) 2.5 mg PRN Q2HR PRN PO AGITATION/PSYCHOSIS Last administered on 08/17/17at 09:20; Start 08/07/17 at 18:45; Stop 08/24/17 at 13:04 ; Status DC Divalproex Sodium (Depakote Sprinkles) 500 mg BID PO Last administered on at 09:27; Start 08/10/17 at 21:00; Stop 08/14/17 at 17:21; Status DC Divalproex Sodium (Depakote Sprinkles) 500 mg DAILY@0900 PO Last administered on 08/24/17at 08:34; Start 08/15/17 at 09:00; Stop 08/24/17 at 13:04; Status DC Divalproex Sodium (Depakote Sprinkles) 750 mg HS PO Last administered on at 19:33; Start 08/14/17 at 21:00; Stop 08/24/17 at 13:04; Status DC Pantoprazole Sodium (Protonix) 40 mg DAILYAC PO Last administered on 08/24/17at 08:32; Start 08/22/17 at 07:30; Stop 08/24/17 at 13:04; Status DC Active Scripts Active Reported Zyprexa Zydis (Olanzapine) 5 Mg Tab.rapdis 2.5 Mg PO PRN Q2HR PRN MDD 15mg NICODERM CQ 21mg (Nicotine) 1 Each Patch.td24 1 Patch TD DAILY Analgesic [place] (Methyl Salicylate/Menthol) 28 Gm Oint...g. 1 Patricia TP PRN QID PRN Milk Of Magnesia (Magnesium Hydroxide) 2,400 Mg/10 Ml Oral.susp 2,400 Mg PO PRN QHS PRN Advanced Antacid Liquid (Mag Hydrox/Al Hydrox/Simeth) 355 Ml Oral.susp 15 Ml PO PRN AFTMEALHC PRN Cymbalta (Duloxetine Hcl) 30 Mg Capsule.dr 30 Mg PO DAILY Depakote Sprinkle (Divalproex Sodium) 125 Mg Cap.sprink 750 Mg PO HS Depakote Sprinkle (Divalproex Sodium) 125 Mg Cap.sprink 500 Mg PO DAILY Acetaminophen 325 Mg Tablet 650 Mg PO PRN Q6HRS PRN Colace (Docusate Sodium) 100 Mg Capsule 100 Mg PO DAILY Lipitor (Atorvastatin Calcium) 20 Mg Tablet 20 Mg PO QHS Lidocaine 1 Each Adh..patch 1 Each TP DAILY Protonix (Pantoprazole Sodium) 40 Mg Tablet.dr 40 Mg PO DAILY Metoprolol Tartrate 25 Mg Tablet 25 Mg PO DAILY Glucophage (Metformin Hcl) 500 Mg Tablet 500 Mg PO DAILYWBKFT Lisinopril 20 Mg Tablet 20 Mg PO DAILY Levothyroxine Sodium 25 Mcg Tablet 25 Mcg PO DAILYAC Gabapentin 300 Mg Capsule 300 Mg PO BID Vitamin B-12 (Cyanocobalamin (Vitamin B-12)) 100 Mcg Tablet 1,000 Mcg PO DAILY Aspirin 81 Mg Tab.chew 81 Mg PO DAILY Allopurinol 300 Mg Tablet 300 Mg PO DAILY I have reviewed the current psychotropics carefully including drug interactions. Risk benefit ratio favors no change other than as noted in my dictated progress note. Diagnosis: Problems: (1) Anxiety disorder (2) Impulse control disorder (3) Bipolar affective, mixed (4) Mild cognitive impairment (5) Cerebrovascular accident (CVA) due to vascular occlusion MELISSA CARDOZO MD Aug 24, 2017 20:53
--- NOTE | 2017-08-25 18:13 | DS ---
DATE OF DISCHARGE: 08/24/2017 This late entry 08/24/2017 covers the elements not covered in my initial note 08/24/2017. REASON FOR ADMISSION: Please refer to the admission history for details. Briefly, the patient is a 72-year-old male, readmitted to us from [facility] where he presented from home on account of increased confusion, decreased responsiveness, threatening to kill a neighbor and neighbor's dog with marked elevation of his blood alcohol content at admission. He has been an inpatient with us in the past, has a history of bipolar disorder, CVA, alcohol abuse, and recreational marijuana abuse. SIGNIFICANT FINDINGS AND CLINICAL COURSE: Following admission, the patient was seen individually by myself, followed medically per Dr. Bryan/Dr. Monteiro. His mood stabilizers had been discontinued as an outpatient by psychiatrist and he was restarted on Depakote, increasing to 750 mg p.o. at bedtime and 500 mg in the morning with a valproic acid level at 49. Despite being slightly subtherapeutic, clinically it was adequate and he was much calmer, less labile and tolerating it well. He was also on Cymbalta 30 mg a day and Zyprexa p.r.n. Social service staff addressed the patient's concerns about his finances since his ex- was his DPOA in managing these and Adult Protective Services was involved as well. Prior to discharge on 08/24/2017, he complains of back pain, some impairment of ambulation. REVIEW OF SYSTEMS: No CV, , pulmonary, eye system symptoms on review. MENTAL STATUS EXAM: Oriented to himself and situation. Speech coherent, less pressured. Abstraction fair, computation impaired, language function intact. Mood and affect improved. No suicidal or homicidal ideation. During this hospitalization, the patient did have psychological testing with Dr. Michael and Dr. Michael's recommendation was that the patient needed assistance in helping him make his decisions about his finances and health matters. CONDITION AT DISCHARGE: Improved. 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 Rest unchanged from admission. DISCHARGE MEDICATIONS: Please refer to the [facility]. DISCHARGE INSTRUCTIONS: The patient was transferred to a nursing facility in outpatient psychiatric and medical followup at the facility. MAN Celeste CARDOZO MD DR: MILTON/daniel JOB#: [id number] / [id number]
== END 2017-08-24 12:30 | DRG 885 ==
LOC: GEROPSY 23:15
PROVIDERS: ADMIT Psychiatry & Neurology Psychiatry; ATTEND Psychiatry & Neurology Psychiatry
DX: F31.64 Bipolar disorder, current episode mixed, severe, with psychotic features (principal); F01.51 Vascular dementia, unspecified severity, with behavioral disturbance; F10.97 Alcohol use, unspecified with alcohol-induced persisting dementia; E11.9 Type 2 diabetes mellitus without complications; E03.9 Hypothyroidism, unspecified; I10 Essential (primary) hypertension; E78.5 Hyperlipidemia, unspecified; G89.29 Other chronic pain; J44.9 Chronic obstructive pulmonary disease, unspecified; M41.9 Scoliosis, unspecified; K29.70 Gastritis, unspecified, without bleeding; K21.9 Gastro-esophageal reflux disease without esophagitis; F41.9 Anxiety disorder, unspecified; F63.9 Impulse disorder, unspecified; I71.4 Abdominal aortic aneurysm, without rupture; Z66 Do not resuscitate; Z79.899 Other long term (current) drug therapy; Z79.84 Long term (current) use of oral hypoglycemic drugs; Z86.73 Personal history of transient ischemic attack (TIA), and cerebral infarction without residual deficits; Z88.1 Allergy status to other antibiotic agents; Z88.8 Allergy status to other drugs, medicaments and biological substances; Z88.6 Allergy status to analgesic agent
CPT/HCPCS: 36415; 80053; 80061; 80164; 81001; 82140; 82306; 82607; 83036; 83540; 83550; 83735; 84436; 84443; 84480; 85025; 86593; 93005; 99406